=== PATIENT | female | born 1970 | race Two or more races ===

== ENCOUNTER 2020-10-20 17:48 | Outpatient (REF) | payer OTHER, SELFPAY ==
--- NOTE | 2020-10-20 17:50 | MR_ITS ---
EXAMINATION: MR ANGIOGRAPHY BRAIN WITHOUT CONTRAST CLINICAL INFORMATION: Chronic migraine. COMPARISON: CT scan of the head 11/24/2011. TECHNIQUE: A noncontrast 3-dimensional [id number] MR acquisition of the head was performed without contrast. MIP reconstructions were generated in multiple orientations at the acquisition workstation. Multiple three-dimensional surface rendered images and maximum intensity projection images were generated on a dedicated 3-D lab workstation. Arterial stenoses are measured in accordance with NASCET criteria or similar method if applicable. FINDINGS: Intracranial internal carotid arteries are patent. The intradural vertebral artery segments and basilar artery are patent. Visualized portions of the anterior, middle, and posterior cerebral artery complexes are normal. No high-grade stenosis or proximal occlusion is visualized within the intracranial vessels. Grossly no evidence of aneurysm or high flow vascular malformation. MR/MR angio head wo con IMPRESSION: Normal MR angiogram of the head.
== END 2020-10-20 17:49 | disposition home or self-care (01) ==
LOC: HO.MRI 17:48
PROVIDERS: Visit Provider Physician Assistant
DX: I77.6 Arteritis, unspecified (principal); G43.909 Migraine, unspecified, not intractable, without status migrainosus
CPT/HCPCS: 70544

== ENCOUNTER 2020-11-11 12:39 | Emergency (ER) | payer OTHER, SELFPAY ==
--- NOTE | 2020-11-11 12:42 | ECG_ITS ---
Test Reason : CHEST PAIN Blood Pressure : / mmHG Vent. Rate : 090 BPM Atrial Rate : 090 BPM P-R Int : 150 ms QRS Dur : 104 ms QT Int : 352 ms P-R-T Axes : 017 -48 029 degrees QTc Int : 430 ms Normal sinus rhythm Left anterior fascicular block Voltage criteria for left ventricular hypertrophy Cannot rule out Septal infarct (cited on or before 09-MAR-2017) Abnormal ECG When compared with ECG of 09-MAR-2017 09:17, No significant change was found Referred By: Generic ED Physician Electronically Signed By:RENU TOUSSAINT MD
[2020-11-11 12:48] VITALS: BP 121/56; PULSE 86; RESP 16; TEMP 36.8; O2SAT 97; BMI 31.1
[2020-11-11 13:04] LABS: MANUAL DIFF FLAG NO
[2020-11-11 13:07] LABS: Basophils Percent Auto 0.5 % (0-2); Eosinophils Absolute Auto 0.1 X10*3/uL (0.0-0.4); Eosinophils Percent Auto 0.8 % (0-4); Hematocrit 42.4 % (37-47); Hemoglobin 14.1 g/dl (12.0-16.0); Imm Gran Abs Auto 0.02 X10*3/uL (0.00-0.03); Imm Gran Pct Auto 0.2 % (0.0-0.4); Lymphocytes Absolute Auto 1.6 X10*3/uL (1.2-4.9); Lymphocytes Percent Auto 19.1 % (20-40); Mean Corpuscular HGB Conc 33.3 g/dl (31.0-35.0); Mean Corpuscular Hemoglobin 31.3 pg (27.0-33.0); Mean Platelet Volume 11.2 fL (9.4-12.3); Monocytes Absolute Auto 0.4 X10*3/uL (0.1-1.2); Monocytes Percent Auto 4.5 % (2-11); Neutrophils Absolute Auto 6.3 X10*3/uL (2.0-8.3); Neutrophils Percent Auto 74.9 % (45-73); Platelet Count 254 X10*3/uL (160-400); Red Blood Count 4.51 X10*6/uL (4.20-5.50); Red Cell Distribution Width 12.1 % (11.0-16.0); White Blood Count 8.4 X10*3/uL (4.8-10.8)
[2020-11-11 13:29] LABS: Anion Gap 12 (12-20); Blood Urea Nitrogen 12 mg/dL (9-16); Calcium 9.6 mg/dL (8.4-10.2); Carbon Dioxide 30 mmol/L (22-29); Chloride 101 mmol/L (96-108); Creatinine Clr Calc Pharmacy 91.8; Estimated Glomerular Filt Rate > 60; Glucose Random 98 mg/dL (60-115); Potassium 4.2 mmol/L (3.3-5.1); Sodium 139 mmol/L (135-145)
--- NOTE | 2020-11-11 14:37 | XR_ITS ---
EXAMINATION: XR CHEST CLINICAL INFORMATION: Chest pain COMPARISON: Previous chest x-ray most recent February 2020 TECHNIQUE: Frontal view of the chest was obtained. FINDINGS: The cardiac and mediastinal contours are normal. The lungs are clear. There is no pleural effusion or pneumothorax. Bony structures are unremarkable. XR/XR chest 1V IMPRESSION: Unremarkable examination.
[2020-11-11 15:25] LABS: Lactate Dehydrogenase 181 U/L (122-220)
[2020-11-11 15:45] LABS: B Type Natriuretic Peptide 19 pg/mL (<100); Troponin-I High Sensitivity < 3.5 ng/L (<3.5-17.0)
[2020-11-11 15:47] LABS: Ferritin 46 ng/mL (10-250)
[2020-11-11 16:16] LABS: INTERNATIONAL NORM RATIO 1.1 (0.9-1.1); Prothrombin Time 12.8 SEC (10.8-13.0)
[2020-11-11 16:19] LABS: Partial Thromboplastin Time 42.1 SEC (24.1-38.0)
[2020-11-11 16:23] LABS: D Dimer < 200 NG/ML
--- NOTE | 2020-11-11 16:37 | ED.CHESTPAIN ---
HPI - Chest Pain General Chief Complaint: Chest Pain Stated Complaint: CHEST PAIN Time Seen by Provider: 11/11/20 14:29 Source: patient Mode of arrival: ambulatory Limitations: no limitations History of Present Illness HPI narrative: Patient presents to the ED for left sided chest pain for the past 3 days that is worse on movement. Patient denies any trauma to the chest, fever, chills, or coughing. Patient denies any swelling of the legs, calf pain, fever, or chills. Related Data Home Medications Medication Instructions Recorded Confirmed cyclobenzaprine 10 mg tablet 10 mg PO BEDTIME 10/09/20 10/09/20 sumatriptan succinate 25 mg tablet 25 mg PO BID-TID PRN 10/09/20 10/09/20 Previous Rx's Medication Instructions Recorded ibuprofen 800 mg tablet 800 mg PO TID PRN #90 cap 09/22/20 lorazepam 1 mg tablet 1 mg PO ONCE PRN 1 Days #1 tab 10/20/20 Allergies Allergy/AdvReac Type Severity Reaction Status Date / Time No Known Allergies Allergy Verified 10/09/20 11:14 Review of Systems Review of Systems: Yes all other systems are reviewed and are negative Constitutional: Constitutional: Reports as per HPI and Reports no additional constitutional complaints Eyes: Eyes: Reports as per HPI and Reports no additional eye complaints ENT: Reports system reviewed and no additional complaints, except as documented and Reports as per HPI Cardiovascular: Cardiovascular: Reports as per HPI, Reports no additional cardiovascular complaints and Reports chest pain Comments: chest pain on movement Respiratory: Respiratory: Reports as per HPI and Reports no additional respiratory complaints Gastrointestinal: Gastrointestinal: Reports as per HPI and Reports no additional gastrointestinal complaints Genitourinary: Genitourinary: Reports no additional female genitourinary complaints and Reports as per HPI Musculoskeletal: Musculoskeletal: Reports no additional musculoskeletal complaints and Reports as per HPI Neurologic: Reports system reviewed and no additional complaints, except as documented and Reports as per HPI Psychiatric: Psychiatric: Reports no additional psychiatric complaints and Reports as per HPI [facility] Social History Social History Advance Directives: No Advance Directives Information Provided: Yes Physical Exam Vital Signs: Vital Signs: Last Vital Signs Temp 98.2 F 11/11/20 12:48 Pulse 86 11/11/20 12:48 Resp 16 11/11/20 12:48 BP 121/56 L 11/11/20 12:48 Pulse Ox 97 11/11/20 12:48 Body Mass Index 31.1 Const: General: cooperative, healthy appearing, comfortable and no acute distress Orientation/consciousness: patient oriented x3 HENMT: Head: Yes normal to inspection, Yes No palpable skull fracture present, Yes normocephalic and Yes atraumatic Eyes: General: appearance normal, both eyes and all related structures Neck: Neck: Yes normal visual inspection, Yes full ROM, Yes no lymphadenopathy, Yes no meningeal signs, Yes trachea midline, Yes supple, No anterior neck swelling and No tender Chest: Other: positive for left chest wall tenderness. negative for breast swelling, redness, nipple discharge, or axillary lymphadenopathy. Chest palpation & inspection: normal inspection of the chest Resp: Effort & Inspection: normal respiratory effort, able to speak in complete sentences and respiratory distress Cardio: Jugular venous distension: no JVD Heart sounds: S1 normal heart sound present and S2 normal heart sound present GI: Inspection: Yes normal to inspection and No abdominal wall ecchymosis Palpation (GI): Soft to palpation, not firm, nontender, no guarding and not rigid : General: No CVA tenderness and Yes no CVA tenderness Back/Spine/Pelvis: Back: no CVA tenderness, No CVA tenderness and No warmth Skin: General skin exam: no rashes or lesions noted and elasticity normal Neuro: Other: normal gait General: patient oriented x3 and no meningeal signs Cranial nerves: Yes CN's II-XII intact bilaterally Extrem: Other: lower extremities negative for any swelling, pitting edema, or calf tenderness. General: Yes normal to inspection and Yes full ROM Psych: Appearance: grossly normal, well kempt and not disheveled Course Course Course Narrative: Patient has reproducible chest pain for the past 3 days. Due to age will do a cardiac and pulmonary work up. Reevaluation(s) Reevaluation #1: EKG negative for stemi. Troponin and BNP are negative. CHest xray negative for pneumonia. D-dimer is negative. PErc Score is 0. Patient swabbed for the covid 19 and prefer to be called with results. Time: 16:40 Reevaluation #2: Covid swabbed negative. patient was called and could not be reached. Time: 19:30 MDM - Chest Pain MDM Narrative Medical decision making narrative: Chest wall pain Lab Data Result diagrams: 11/11/20 12:58 11/11/20 12:58 Labs: Lab Results 11/11/20 11/11/20 11/11/20 Range/Units 12:58 12:58 12:58 WBC 8.4 (4.8-10.8) X10*3/uL RBC 4.51 (4.20-5.50) X10*6/uL Hgb 14.1 (12.0-16.0) g/dl Hct 42.4 (37-47) % MCV 94.0 (80-98) fL MCH 31.3 (27.0-33.0) pg MCHC 33.3 (31.0-35.0) g/dl RDW 12.1 (11.0-16.0) % Plt Count 254 (160-400) X10*3/uL MPV 11.2 (9.4-12.3) fL Immature Gran % (Auto) 0.2 (0.0-0.4) % Neut % (Auto) 74.9 H (45-73) % Lymph % (Auto) 19.1 L (20-40) % [place] % (Auto) 4.5 (2-11) % Eos % (Auto) 0.8 (0-4) % Baso % (Auto) 0.5 (0-2) % Lymph # (Auto) 1.6 (1.2-4.9) X10*3/uL [place] # (Auto) 0.4 (0.1-1.2) X10*3/uL Eos # (Auto) 0.1 (0.0-0.4) X10*3/uL Baso # (Auto) 0.0 (0.0-0.2) X10*3/uL Abs Immat Gran (auto) 0.02 (0.00-0.03) X10*3/uL Absolute Neuts (auto) 6.3 (2.0-8.3) X10*3/uL Absolute Nucleated RBC 0.000 (0.0-0.012) X10*3/uL Nucleated RBC % (auto) 0.0 (0.0-0.2) /100WBC Hold Purple Top SEE NOTE PT (10.8-13.0) SEC INR (0.9-1.1) APTT (24.1-38.0) SEC D-Dimer NG/ML Hold Blue Top Sodium 139 (135-145) mmol/L Potassium 4.2 (3.3-5.1) mmol/L Chloride 101 (96-108) mmol/L Carbon Dioxide 30 H (22-29) mmol/L Anion Gap 12 (12-20) BUN 12 (9-16) mg/dL Creatinine 0.72 (0.5-1.4) mg/dL Estim Creat Clear Calc 91.8 Estimated GFR > 60 Random Glucose 98 (60-115) mg/dL Calcium 9.6 (8.4-10.2) mg/dL Ferritin 46 (10-250) ng/mL Lactate Dehydrogenase 181 (122-220) U/L Troponin I High Sens (<3.5-17.0) ng/L B-Natriuretic Peptide (<100) pg/mL Coronavirus (PCR) (Negative) Influenza Type A (PCR) (Negative) Influenza Type B (PCR) (Negative) RSV RNA Qual (PCR) (Negative) 11/11/20 11/11/20 11/11/20 Range/Units 12:58 12:58 16:45 WBC (4.8-10.8) X10*3/uL RBC (4.20-5.50) X10*6/uL Hgb (12.0-16.0) g/dl Hct (37-47) % MCV (80-98) fL MCH (27.0-33.0) pg MCHC (31.0-35.0) g/dl RDW (11.0-16.0) % Plt Count (160-400) X10*3/uL MPV (9.4-12.3) fL Immature Gran % (Auto) (0.0-0.4) % Neut % (Auto) (45-73) % Lymph % (Auto) (20-40) % [place] % (Auto) (2-11) % Eos % (Auto) (0-4) % Baso % (Auto) (0-2) % Lymph # (Auto) (1.2-4.9) X10*3/uL [place] # (Auto) (0.1-1.2) X10*3/uL Eos # (Auto) (0.0-0.4) X10*3/uL Baso # (Auto) (0.0-0.2) X10*3/uL Abs Immat Gran (auto) (0.00-0.03) X10*3/uL Absolute Neuts (auto) (2.0-8.3) X10*3/uL Absolute Nucleated RBC (0.0-0.012) X10*3/uL Nucleated RBC % (auto) (0.0-0.2) /100WBC Hold Purple Top PT 12.8 (10.8-13.0) SEC INR 1.1 (0.9-1.1) APTT 42.1 H (24.1-38.0) SEC D-Dimer < 200 NG/ML Hold Blue Top SEE NOTE Sodium (135-145) mmol/L Potassium (3.3-5.1) mmol/L Chloride (96-108) mmol/L Carbon Dioxide (22-29) mmol/L Anion Gap (12-20) BUN (9-16) mg/dL Creatinine (0.5-1.4) mg/dL Estim Creat Clear Calc Estimated GFR Random Glucose (60-115) mg/dL Calcium (8.4-10.2) mg/dL Ferritin (10-250) ng/mL Lactate Dehydrogenase (122-220) U/L Troponin I High Sens < 3.5 (<3.5-17.0) ng/L B-Natriuretic Peptide 19 (<100) pg/mL Coronavirus (PCR) NEGATIVE (Negative) Influenza Type A (PCR) NEGATIVE (Negative) Influenza Type B (PCR) NEGATIVE (Negative) RSV RNA Qual (PCR) NEGATIVE (Negative) ECG Data ECG #1: Interpretation: Normal Sinus rhythm, left anterior fasciular block. VEnt 90, ND 150, and QTC 430. negative stemi. no new changes. Discharge Plan Discharge Clinical Impression: Acute chest wall pain Patient Disposition: Home, Self-Care Instructions: Chest Pain (ED), Chest Wall Pain (ED) Additional Instructions: Return to the ED for worsening chest pain, fever, chills, shortness of breath, weakness, swelling of lower extremiteis, calf pain, or any other concerning symptoms. Please follow up with PCP. Prescriptions: No Action ibuprofen 800 mg tablet 800 mg PO TID PRN (Reason: pain) Qty: 90 RF: 1 lorazepam 1 mg tablet 1 mg PO ONCE PRN (Reason: anxiety) 1 Days Qty: 1 RF: 0 cyclobenzaprine 10 mg tablet 10 mg PO BEDTIME RF: 0 sumatriptan succinate 25 mg tablet 25 mg PO BID-TID PRNRF: 0 Stand Alone Forms: Work/School Release Interventions: ED Discharge Assessment Last Done: 11/11/20 17:15 Discharge Date/Time: 11/11/20 17:17 Print Language: Bur[place]ian
[2020-11-11 17:56] LABS: Influenza A PCR NEGATIVE (Negative); Influenza B PCR NEGATIVE (Negative); Resp Syncy Virus RNA Qual PCR NEGATIVE (Negative); SARS COV2 PCR INHOUSE NEGATIVE (Negative)
== END 2020-11-11 17:17 | disposition home or self-care (01) ==
PROVIDERS: Physician Assistant; Emergency Provider Emergency Medicine
DX: R07.89 Other chest pain (principal); Z20.822 Contact with and (suspected) exposure to COVID-19
CPT/HCPCS: 0241U; 36415; 71045; 80048; 82728; 83615; 83880; 84484; 85025; 85379; 85610; 85730; 93005; 99283

== ENCOUNTER 2020-11-29 12:47 | Outpatient (REF) | payer OTHER, SELFPAY ==
--- NOTE | ~2020-11-29 | MM_ITS ---
EXAMINATION: MM SCREENING DIGITAL BREAST TOMOSYNTHESIS, BILATERAL CLINICAL INFORMATION: Screening. Asymptomatic. The lifetime risk of breast cancer based on the Tyrer-Cuzick Model is 17%. COMPARISON: Mammography: 09/08/2019, 09/06/2018, 09/04/2017, 08/24/2016 TECHNIQUE: Digital breast tomosynthesis is performed in both the craniocaudal and mediolateral oblique views along with computer-aided detection (CAD). Synthesized 2D images are generated from the tomosynthesis. FINDINGS: There are scattered areas of fibroglandular density (ACR BI-RADS breast composition Category b). There are no significant masses, abnormal calcifications, or other abnormalities. Scattered parenchymal asymmetries are stable when compared with prior studies. There is no developing density. The axilla and skin contours are unremarkable. MM/MM tomosynthesis screening BI IMPRESSION: No significant changes from prior exams. ASSESSMENT: BI-RADS 2: Benign RECOMMENDATION: Routine annual mammography screening. This patient's information was entered into a reminder system with a target due date for their next mammogram.
== END 2020-11-29 12:48 | disposition home or self-care (01) ==
LOC: HO.MAMMO 12:47
PROVIDERS: PCP Physician Assistant; Visit Provider Physician Assistant
DX: Z12.31 Encounter for screening mammogram for malignant neoplasm of breast (principal)
CPT/HCPCS: 77063; 77067

== ENCOUNTER → 2021-02-12 08:53 | Outpatient (BNVA) | payer OTHER, SELFPAY | PROVIDERS: PCP Physician Assistant; Referring Provider Family Medicine Adult Medicine; Visit Provider Surgery | DX: K40.90 Unilateral inguinal hernia, without obstruction or gangrene, not specified as recurrent (principal) | CPT/HCPCS: 99212 ==

== ENCOUNTER 2021-02-25 11:26 | Outpatient (REF) | payer OTHER, SELFPAY ==
--- NOTE | ~2021-02-25 | US_ITS ---
EXAMINATION: US PELVIS, LIMITED/FOLLOW UP CLINICAL INFORMATION: Left inguinal hernia COMPARISON: Previous CT of the abdomen and pelvis October 2019 TECHNIQUE: Grayscale and color imaging of the left lower quadrant and inguinal region using a linear transducer FINDINGS: No hernia is appreciated by ultrasound. No fluid collection or lymphadenopathy is seen. US/US pelvic limited IMPRESSION: No hernia appreciated by ultrasound.
== END 2021-02-25 11:27 | disposition home or self-care (01) ==
LOC: HO.US 11:26
PROVIDERS: PCP Internal Medicine; Visit Provider Surgery
DX: K40.90 Unilateral inguinal hernia, without obstruction or gangrene, not specified as recurrent (principal)
CPT/HCPCS: 76857

== ENCOUNTER → 2021-05-14 08:57 | Outpatient (BNVA) | payer OTHER, SELFPAY | PROVIDERS: PCP Internal Medicine; Referring Provider Internal Medicine; Visit Provider Advanced Practice Midwife ==

== ENCOUNTER → 2021-09-01 09:00 | Outpatient (BNVA) | payer OTHER, SELFPAY | PROVIDERS: PCP Internal Medicine; Referring Provider Internal Medicine; Visit Provider Surgery | DX: K80.50 Calculus of bile duct without cholangitis or cholecystitis without obstruction (principal) | CPT/HCPCS: 99212 ==

== ENCOUNTER 2021-10-01 07:46 | Outpatient (REF) | payer OTHER, SELFPAY ==
--- NOTE | ~2021-10-01 | US_ITS ---
EXAMINATION: US ABDOMEN LIMITED CLINICAL INFORMATION: Calculus of bile duct, right upper quadrant pain, nausea, vomiting. COMPARISON: CT abdomen and pelvis 10/17/2019. TECHNIQUE: Real-time imaging of the right upper quadrant abdominal viscera. FINDINGS: PANCREAS: Normal. LIVER: The liver is normal in size. The liver contour is normal. There is diffuse increased liver parenchymal echogenicity, consistent with hepatic steatosis. There is a simple appearing cyst in the lateral segment of the left hepatic lobe measuring 0.8 cm There is no intrahepatic biliary duct dilatation seen. GALLBLADDER: Normal. The gallbladder is physiologically distended without evidence of stones, sludge, polyps, wall thickening or pericholecystic fluid. COMMON BILE DUCT: Normal in caliber measuring 0.6 cm in diameter. RIGHT KIDNEY: Normal. No hydronephrosis. No renal calculi or focal parenchymal lesions. The kidney measures 11.2 cm in maximum dimension. FREE FLUID: None. US/US abdomen limited IMPRESSION: Increased echogenicity of the hepatic parenchyma, likely secondary to hepatic steatosis. Simple cysts of the left hepatic lobe, similar to the prior CT. Normal appearance of the liver and biliary tree. No gallbladder or duct stones are visualized.
== END 2021-10-01 07:47 | disposition home or self-care (01) ==
LOC: HO.US 07:46
PROVIDERS: Visit Provider Surgery
DX: K80.50 Calculus of bile duct without cholangitis or cholecystitis without obstruction (principal)
CPT/HCPCS: 76705

== ENCOUNTER → 2021-10-06 09:10 | Outpatient (BNVA) | payer OTHER, SELFPAY | PROVIDERS: PCP Internal Medicine; Referring Provider Internal Medicine; Visit Provider Surgery | DX: K80.50 Calculus of bile duct without cholangitis or cholecystitis without obstruction (principal) | CPT/HCPCS: 99212 ==

== ENCOUNTER 2021-12-30 08:35 | Outpatient (REF) | payer OTHER, SELFPAY ==
--- NOTE | ~2021-12-30 | FL_ITS ---
EXAMINATION: XR FLUOROSCOPY UPPER GI WITH AIR CLINICAL INFORMATION: Abdominal distention. COMPARISON: None TECHNIQUE: Routine upper GI air-contrast study was performed. FINDINGS: Following oral administration of thick barium and effervescent granules, there is normal propagation of bolus from the oral cavity through the pharynx and esophagus and into the stomach without obstruction. There is prominent cricoesophageal sphincter during the exam. On placing patient supine and prone lying, the course, caliber and peristalsis of the stomach, duodenal bulb and the sweep are normal. There is a moderate gastroesophageal reflux with a small sliding hiatal hernia. The mucosal pattern of the stomach and the duodenum is normal. FLUOROSCOPY TIME: 2.3 minutes DOSE AREA PRODUCT: 34.67 uGy-m2 (microgray-meter squared) FL/FL upper GI w air IMPRESSION: Small sliding hiatal hernia with moderate gastroesophageal reflux.
== END 2021-12-30 08:36 | disposition home or self-care (01) ==
LOC: HO.XRAY 08:35
PROVIDERS: Visit Provider Physician Assistant
DX: R14.0 Abdominal distension (gaseous) (principal)
CPT/HCPCS: 74246

== ENCOUNTER → 2022-01-14 13:22 | Outpatient (BNVA) | payer OTHER, SELFPAY | PROVIDERS: PCP Physician Assistant; Referring Provider Physician Assistant; Visit Provider Physician Assistant | DX: K21.9 Gastro-esophageal reflux disease without esophagitis (principal); Z12.11 Encounter for screening for malignant neoplasm of colon; K76.0 Fatty (change of) liver, not elsewhere classified; K59.09 Other constipation; R10.13 Epigastric pain | CPT/HCPCS: 99202 ==

== ENCOUNTER 2022-01-21 08:39 | Outpatient (REF) | payer OTHER, SELFPAY ==
[2022-01-21 09:14] LABS: MANUAL DIFF FLAG NO
[2022-01-21 09:21] LABS: Basophils Percent Auto 0.5 % (0-2); Eosinophils Absolute Auto 0.1 X10*3/uL (0.0-0.4); Eosinophils Percent Auto 1.2 % (0-4); Hematocrit 43.6 % (37.0-47.0); Hemoglobin 14.7 g/dl (12.0-16.0); Imm Gran Abs Auto 0.02 X10*3/uL (0.00-0.03); Imm Gran Pct Auto 0.3 % (0.0-0.4); Lymphocytes Absolute Auto 1.6 X10*3/uL (1.2-4.9); Mean Corpuscular HGB Conc 33.7 g/dl (31.0-35.0); Mean Corpuscular Hemoglobin 30.8 pg (27.0-33.0); Mean Corpuscular Volume 91.4 fL (80.0-98.0); Mean Platelet Volume 11.1 fL (9.4-12.3); Monocytes Absolute Auto 0.4 X10*3/uL (0.1-1.2); Monocytes Percent Auto 4.6 % (2-11); Neutrophils Absolute Auto 5.7 x10*3/uL (2.0-8.3); Neutrophils Percent Auto 73.4 % (45-73); Platelet Count 256 X10*3/uL (160-400); Red Blood Count 4.77 X10*6/uL (4.20-5.50); Red Cell Distribution Width 11.7 % (11.0-16.0); White Blood Count 7.8 X10*3/uL (4.8-10.8)
[2022-01-21 09:34] LABS: Estimated Average Glucose 108 mg/dL; Hemoglobin A1c % 5.4 %
[2022-01-21 09:58] LABS: Alanine Aminotransferase 26 U/L (0-31); Albumin Level 4.5 g/dL (3.5-5.0); Alkaline Phosphatase 85 U/L (39-117); Amylase 65 U/L (28-100); Anion Gap 14 (12-20); Aspartate Amino Transferase 21 U/L (5-31); Bilirubin Direct 0.3 mg/dL (0.0-0.5); Bilirubin Total 0.9 mg/dL (0.0-1.0); Blood Urea Nitrogen 14 mg/dL (9-16); Carbon Dioxide 28 mmol/L (22-29); Chloride 103 mmol/L (96-108); Cholesterol 178 mg/dL; Estimated Glomerular Filt Rate > 60; Glucose Fasting 106 mg/dL (60-99); HDL Cholesterol 44 mg/dL; LDL Cholesterol Calculated 116 mg/dl; Lipase 10 U/L (8-78); Potassium 4.5 mmol/L (3.3-5.1); Sodium 140 mmol/L (135-145); Total Protein 7.6 g/dL (6.5-8.0); Triglycerides 94 mg/dL
[2022-01-21 10:00] LABS: Erythrocyte Sedimentation Rate 9 MM/HR (0-20)
[2022-01-21 10:11] LABS: TSH reflex Free T4 0.75 uIU/mL (0.32-4.0)
[2022-01-21 11:36] LABS: Appearance Urine HAZY; Color Urine YELLOW; Glucose Urine UA NEG (NEG); Leukocyte Esterase Urine NEG (NEG); Nitrite Urine NEG (NEG); Urine Blood NEG (NEG); Urine Ketones NEG (NEG); Urine Protein NEG (NEG-TRACE)
[2022-01-25 15:25] LABS: FIB-ALT 23 U/L (6-29); FIB-Alpha-2-Macroglobulin 152 mg/dL (106-279); FIB-Apolipoprotein A1 145 mg/dL (101-198); FIB-GGT 27 U/L (3-70); FIB-Haptoglobin 117 mg/dL (43-212); FIB-Total Bilirubin 0.7 mg/dL (0.2-1.2); Liver Fibrosis Score 0.14; Liver Fibrosis Stage F0; Nec Inflam Act Grade A0; Nec Inflam Act Score 0.08
[2022-01-26 08:31] LABS: Transglutaminase Ab IgG <1.0 U/mL; Transglutaminase IgA <1.0 U/mL
== END 2022-01-21 08:40 | disposition home or self-care (01) ==
LOC: HO.LAB 08:39
PROVIDERS: Internal Medicine; Physician Assistant; PCP Physician Assistant; Visit Provider Physician Assistant
DX: Z13.29 Encounter for screening for other suspected endocrine disorder (principal); Z13.220 Encounter for screening for lipoid disorders; R10.13 Epigastric pain; K21.9 Gastro-esophageal reflux disease without esophagitis; B19.20 Unspecified viral hepatitis C without hepatic coma; R14.0 Abdominal distension (gaseous); R10.11 Right upper quadrant pain
CPT/HCPCS: 36415; 80053; 80061; 80076; 81003; 81382; 81596; 82150; 82248; 83036; 83690; 84443; 85025; 85652; 86364

== ENCOUNTER 2022-03-05 15:21 | Outpatient (REF) | payer OTHER, SELFPAY ==
--- NOTE | ~2022-03-05 | US_ITS ---
EXAMINATION: US EXTRACRANIAL CAROTID DUPLEX, BILATERAL CLINICAL INFORMATION: Carotid artery stenosis. COMPARISON: None TECHNIQUE: Real-time ultrasound and Doppler techniques (integrating B-mode 2-D vascular images, Doppler spectral analysis and color-flow Doppler imaging) were utilized to interrogate the extracranial carotid arteries, the vertebral arteries and proximal subclavian arteries bilaterally. The degree of stenosis is determined by criteria similar to NASCET. FINDINGS: Right Side: 1. There is no significant atherosclerotic plaque seen in the bifurcation/proximal ICA region. 2. The common carotid artery PSV proximally is 116 cm/s and distally 92 cm/s. 3. The proximal internal carotid artery velocities are 91 cm/s systolic and 35 cm/s diastolic. 4. The proximal external carotid artery PSV is 86 cm/s. 5. The vertebral artery shows antegrade flow. 6. The subclavian artery waveforms are normal. Left Side: 1. There is no significant atherosclerotic plaque seen in the bifurcation/proximal ICA region. 2. The common carotid artery PSV proximally is 109 cm/s and distally 75 cm/s. 3. The proximal internal carotid artery velocities are 87 cm/s systolic and 30 cm/s diastolic. 4. The proximal external carotid artery PSV is 78 cm/s. 5. The vertebral artery shows antegrade flow. 6. The subclavian artery waveforms are normal. US/US carotid duplex BI IMPRESSION: 1. RIGHT: Normal right internal carotid artery without atherosclerotic plaque or hemodynamically significant stenosis. 2. LEFT: Normal left internal carotid artery without atherosclerotic plaque or hemodynamically significant stenosis.
== END 2022-03-05 15:22 | disposition home or self-care (01) ==
LOC: HO.US 15:21
PROVIDERS: Visit Provider Physician Assistant
DX: R09.89 Other specified symptoms and signs involving the circulatory and respiratory systems (principal)
CPT/HCPCS: 93880

== ENCOUNTER 2022-04-26 10:00 | Day surgery (SDC) | payer OTHER, SELFPAY ==
[2022-04-20 13:13] VITALS: BMI 35.9
--- NOTE | 2022-04-23 08:40 | HO.ANESPROP2 ---
Documented by User: Brianda Rogers NP 04/23/22 08:43 HPI - Anesthesia Eval Consult details Narrative: 52yo F for Upper Endoscopy and Colonoscopy [facility] Active Problems Active Problems: All Active Problems (Updated 03/23/22 @ 11:28 by Ellis Arevalo PA-C) Dizziness (Acute) Trapezius strain (Acute) Sinus infection (Acute) Carotid stenosis, left (Acute) Left carotid bruit (Acute) Screening for hypercholesterolemia (Acute) Screening for hypothyroidism (Acute) Screening for diabetes mellitus (DM) (Acute) Obese (Acute) Annual physical exam (Acute) Chronic constipation (Acute) NAFLD (nonalcoholic fatty liver disease) (Acute) Epigastric pain (Acute) Constipation (Acute) Postprandial abdominal bloating (Acute) Screening for colon cancer (Acute) Uterine fibroid (Acute) GERD (gastroesophageal reflux disease) (Acute) Biliary colic (Acute) Encounter for annual routine gynecological examination (Acute) Sinusitis (Acute) Allergic rhinitis (Acute) Migraine headache (Acute) Family history of brain aneurysm (Acute) Arteritis (Acute) Anxiety (Acute) Left inguinal hernia (Acute) Past Medical History Medical History Abnormal Pap smear of cervix Allergic rhinitis Anxiety Arteritis Family history of brain aneurysm Migraine headache Uterine fibroid Family History Family History Father FH: prostate cancer Sister History of breast cancer Sister History of breast cancer Son Heart attack, Onset Age: 12 Son Brain aneurysm Other Stomach cancer Surgical History Surgical History H/O LEEP H/O right inguinal hernia repair (03/16/17) History of endometrial ablation History of incision and drainage History of toe surgery History of tubal ligation Social History Social History Housing: House Alcohol intake: never Patient Tobacco Use Status: Never used Tobacco e-Cigarette/Vaping Use: Never Used Second Hand Smoke Exposure: No Are you DNR?: No Advance Directives: No Advance Directives Information Provided: Yes Advance Directives on File: No Nutrition Risks: No Nutritional Risk service: No Current occupational status: unemployed Sexual orientation: Straight/Heterosexual Gender identity: Female Cognitive needs: No Hearing needs: No Vision needs: Yes (Glaases) Meds Allergies Allergy/AdvReac Type Severity Reaction Status Date / Time No Known Allergies Allergy Verified 04/26/22 09:57 Home Medications Medication Instructions Recorded Confirmed Last Taken Type acetaminophen 500 mg tablet 500 mg PO TID PRN 11/18/21 03/23/22 Unknown History (Tylenol Extra Strength) dicyclomine 10 mg capsule 10 mg PO TID 11/18/21 03/23/22 Unknown History sumatriptan succinate 25 mg tablet 0 mg PO 01/14/22 03/23/22 Unknown History Exam Exam Date and Time: April 23, 2022 0840 Height,Weight and Vital Signs: Height 5 ft 2 in Weight 89.267 kg Pertinent Lab Results Pertinent Lab Results: Laboratory Tests 01/21/22 01/21/22 09:13 09:13 WBC 7.8 Hgb 14.7 Hct 43.6 Plt Count 256 Sodium 140 Potassium 4.5 Chloride 103 Carbon Dioxide 28 BUN 14 Creatinine 0.70 Narrative Narrative: US carotid duplex BI 02/2022 IMPRESSION: 1. RIGHT: Normal right internal carotid artery without atherosclerotic plaque or hemodynamically significant stenosis. ? 2. LEFT: Normal left internal carotid artery without atherosclerotic plaque or hemodynamically significant stenosis. Assessment and Plan Assessment Anesthesia Assessment: Chart Reviewed Documented by User: Ron Boyce MD 04/26/22 11:31 [facility] Past Medical History Medical History Abnormal Pap smear of cervix Allergic rhinitis Anxiety Arteritis Family history of brain aneurysm Migraine headache Uterine fibroid Family History Family History Father FH: prostate cancer Sister History of breast cancer Sister History of breast cancer Son Heart attack, Onset Age: 12 Son Brain aneurysm Other Stomach cancer Family history of problems with anesthesia: No Surgical History Surgical History H/O LEEP H/O right inguinal hernia repair (03/16/17) History of endometrial ablation History of incision and drainage History of toe surgery History of tubal ligation History of Problems with Anesthesia: No Social History Social History Housing: House Alcohol intake: never Patient Tobacco Use Status: Never used Tobacco e-Cigarette/Vaping Use: Never Used Second Hand Smoke Exposure: No Are you DNR?: No Advance Directives: No Advance Directives Information Provided: Yes Advance Directives on File: No Nutrition Risks: No Nutritional Risk service: No Current occupational status: unemployed Sexual orientation: Straight/Heterosexual Gender identity: Female Cognitive needs: No Hearing needs: No Vision needs: Yes (Glaases) Meds Allergies Allergy/AdvReac Type Severity Reaction Status Date / Time No Known Allergies Allergy Verified 04/26/22 09:57 Home Medications Medication Instructions Recorded Confirmed Last Taken Type acetaminophen 500 mg tablet 500 mg PO TID PRN 11/18/21 03/23/22 Unknown History (Tylenol Extra Strength) dicyclomine 10 mg capsule 10 mg PO TID 11/18/21 03/23/22 Unknown History sumatriptan succinate 25 mg tablet 0 mg PO 01/14/22 03/23/22 Unknown History Exam Airway TM Dist: >3cm Neck ROM: Full Partial: Upper and Lower Loose/Missing/Broken Teeth: Upper and Lower (Rrr) Lungs: clear Assessment and Plan Final Anesthetic Review Family History of Problems with Anesthesia: No History of Problems with Anesthesia: No ASA Class: II Final Preanesthetic Review: No Changes in Pt Med Stat, Meds/Allgs Chart Reviewed, Consent Obtained/Reviewed and Anes Risks/Benef Reviewed Patient Risk: Intermediate Procedure Risk: Low Anesthetic Plan Anesthetic Plan: MAC: Disposition: Standard PACU
[2022-04-26] MEDS: Lactated Ringers 1,000 ML 100 ML IVCONT (10:22)
[2022-04-26 10:27] VITALS: BP 132/87; PULSE 72; RESP 18; TEMP 36.7; O2SAT 98
--- NOTE | 2022-04-26 11:20 | MHC.SHP ---
Pre-Procedural Eval Section A Date of Service: 04/26/22 The patient is an INPATIENT: No The History & Physical has been completed within 30 days and I have reviewed it.: No Section B Chief Complaint: screening,reflux disease Details of Present Illness: Colon cancer screening, GERD Relevant Family History (Specify if Yes): Yes Relevant Social History: None Present Medications: see Short Stay Collaborative assessment Medical History: Significant History (Abnormal Pap smear of cervix Anxiety Arteritis Family history of brain aneurysm Migraine headache Uterine fibroid) History of Previous Operations: Relevant previous surgery/procedure and date(s) (H/O LEEP H/O right inguinal hernia repair (03/16/17) History of endometrial ablation History of incision and drainage History of toe surgery History of tubal ligation) Allergies: Allergies Allergy/AdvReac Type Severity Reaction Status Date / Time No Known Allergies Allergy Verified 04/26/22 09:57 Review of Systems Sugical H&P ROS: Negative: Constitution, Cardiovascular, Respiratory and Gastrointestinal Exam Surgical H&P Exam: Normal: Heart, Normal: Lungs, Normal: Extremities and Normal: Abdomen Plan Diagnosis/Plan: Unchanged I have reviewed the history and physical and performed a pertinent physical examination on my patient. No changes have occurred unless specified.
--- NOTE | 2022-04-26 11:35 | P.BOP_ITS ---
Brief Operative Note Date of Service: 04/26/22 Pre-op diagnosis: Colon cancer screening, chronic constipation, GERD, postprandial abdominal pain and bloating Post-op diagnosis: other (GERD, hiatal hernia, gastritis, diverticulosis, hemorrhoids) Procedure: FLEXIBLE TRANSORAL UPPER GASTROINTESTINAL ENDOSCOPY WITH BIOPSIES AND COLONOSCOPY TILL CECUM UPPER ENDOSCOPY Consent: Indications for the procedure and potential complications of bleeding, perforation, reaction to medications and missed diagnosis were discussed with the patient and informed consent was obtained. Instrument: Olympus GIF H 190 mid size upper endoscope Monitoring: Vital signs and clinical assessment, continuous EKG monitoring, Pulse oximetry, Carbon Dioxide monitoring and blood pressure monitoring were done throughout the procedure. Procedure: The patient was placed in the left lateral decubitis position and pre-procedure medications were administered and a bite block was placed. The endoscope was inserted into the mouth and advanced under direct vision to the third part of duodenum. A careful inspection was made as the upper endoscope was withdrawn including a retroflexed examination of the proximal stomach; Findings and interventions are described below. Findings: Larynx: Normal Esophagus: GE junction at 34 cms, small hiatal hernia 34 to 36 cms. No esophagitis or Vides's. Stomach: Moderate diffuse gastric erythema. Biopsies were obtained. Grade 2 flap valve on retroflexed examination of the cardia. Duodenum: Normal bulb and descending duodenum. Biopsies were obtained from 3rd part of the duodenum to check for celiac. Intervention: Biopsies as noted above COLONOSCOPY PROCEDURE NOTE Consent: Indications for the procedure and potential complications of bleeding, perforation, reaction to medications and missed diagnosis were discussed with the patient and informed consent was obtained. Instrument: Olympus PCF H 190 L variable stiffness pediatric colonoscope Monitoring: Vital signs and clinical assessment, intermittent blood pressure monitoring, continuous EKG monitoring, Pulse oximetry and Carbon Dioxide monitoring were done throughout the procedure. Colon withdrawl time was 11 minutes. Procedure: The patient was placed in the left lateral decubitis position and pre-procedure medications were administered. After a digital rectal examination of the ano-rectum, the video colonoscope was inserted into the rectum and advanced through the colon to the cecum. The colonoscope was slowly withdrawn in a retrograde panoramic fashion and the colon mucosa was carefully examined including a retroflexed view of the rectum. Findings and interventions are described below. Procedure Difficulty: : Without difficulty Findings: Terminal Ileum: Not evaluated Cecum: Normal Ascending Colon: Normal Transverse Colon: Normal Descending Colon: Normal Sigmoid Colon: Moderate diverticulosis Rectum: Normal Ano-rectum: Small internal hemorrhoids Colon preparation: Good Impression and Post Procedure Diagnosis: Endoscopy Findings: ESOPHAGUS: Small hiatal hernia STOMACH: Moderate diffuse gastric erythema. Biopsies were obtained. DUODENUM: Normal - biopsied to check for celiac sprue. Colonoscopy Findings: No polyps were detected Moderate diverticulosis seen in the sigmoid colon Small hemorrhoids on retroflexed exam. Plan: Await pathology results Patient has an appointment on 05/17/22 in the GI Clinic with DIAMOND Ray. Repeat Colonoscopy in 9 - 10 years. Above findings were reviewed with the patient and GERD, Hiatal Hernia and diverticulosis handouts were given in the discharge area Surgeon: Joel Paredes MD Anesthesia: MAC (Dr Boyce) Was an Loom Doffer used for this Procedure?: Yes Loom Doffer: Maureen Corral Estimated blood loss (mL): 0 Pathology: other (A: SMALL BOWEL BXS R/O CELIACS B: GASTRIC ANTRUM R/O H. PYLORI C: GASTRIC BODY) Condition: stable Disposition: PACU
[2022-04-26 12:17] VITALS: BP 100/58; PULSE 77; RESP 20; TEMP 36.8; O2SAT 97
[2022-04-26 12:32] VITALS: BP 119/69; PULSE 69; RESP 18; TEMP 36.8; O2SAT 98
--- NOTE | 2022-04-28 16:45 | P.OP_ITS ---
Operative Note Operative Note Date of Service: 04/26/22 Narrative: Pre-op diagnosis: Colon cancer screening, chronic constipation, GERD, postprandial abdominal pain and bloating Post-op diagnosis:?other (GERD, hiatal hernia, gastritis, diverticulosis, hemorrhoids) Procedure: FLEXIBLE TRANSORAL UPPER GASTROINTESTINAL ENDOSCOPY WITH BIOPSIES AND COLONOSCOPY TILL CECUM UPPER ENDOSCOPY Consent:?Indications for the procedure and potential complications of bleeding, perforation, reaction to medications and missed diagnosis were discussed with the patient and informed consent was obtained. Instrument:?Olympus GIF H 190 mid size upper endoscope Monitoring: Vital signs and clinical assessment, continuous EKG monitoring, Pulse oximetry, Carbon Dioxide monitoring and blood pressure monitoring were done throughout the procedure. Procedure:?The patient was placed in the left lateral decubitis position and pre-procedure medications were administered and a bite block was placed. The endoscope was inserted into the mouth and advanced under direct vision to the third part of duodenum. A careful inspection was made as the upper endoscope was withdrawn including a retroflexed examination of the proximal stomach; Findings and interventions are described below. Findings: Larynx:? Normal Esophagus:?GE junction at 34 cms, small hiatal hernia 34 to 36 cms. No esophagitis or Vides's. Stomach:?Moderate diffuse gastric erythema. Biopsies were obtained. Grade 2 flap valve on retroflexed examination of the cardia. Duodenum:?Normal bulb and descending duodenum. Biopsies were obtained from 3rd part of the duodenum to check for celiac. Intervention:?Biopsies as noted above COLONOSCOPY PROCEDURE NOTE Consent:?Indications for the procedure and potential complications of bleeding, perforation, reaction to medications and missed diagnosis were discussed with the patient and informed consent was obtained. Instrument:?Olympus PCF H 190 L variable stiffness pediatric colonoscope Monitoring:?Vital signs and clinical assessment, intermittent blood pressure monitoring, continuous EKG monitoring, Pulse oximetry and Carbon Dioxide monitoring were done throughout the procedure. Colon withdrawl time was 11 minutes. Procedure:?The patient was placed in the left lateral decubitis position and pre-procedure medications were administered. After a digital rectal examination of the ano-rectum, the video colonoscope was inserted into the rectum and advanced through the colon to the cecum. The colonoscope was slowly withdrawn in a retrograde panoramic fashion and the colon mucosa was carefully examined including a retroflexed view of the rectum. Findings and interventions are described below. Procedure Difficulty:?: Without difficulty Findings: Terminal Ileum: Not evaluated Cecum:? Normal Ascending Colon:??Normal Transverse Colon:??Normal Descending Colon:? Normal Sigmoid Colon:??Moderate diverticulosis Rectum:??Normal Ano-rectum:??Small internal hemorrhoids Colon preparation:? Good? Impression and Post Procedure Diagnosis: Endoscopy Findings: ESOPHAGUS: Small hiatal hernia STOMACH:?Moderate diffuse gastric erythema. Biopsies were obtained. DUODENUM: Normal - biopsied to check for celiac sprue. Colonoscopy Findings: No polyps were detected Moderate diverticulosis seen in the sigmoid colon Small hemorrhoids on retroflexed exam. Plan: Await pathology results Patient has an appointment on 05/17/22 in the GI Clinic with DIAMOND Ray. Repeat Colonoscopy in 9 - 10 years. Above findings were reviewed with the patient and GERD, Hiatal Hernia and diverticulosis handouts were given in the discharge area Surgeon: Joel Paredes MD Anesthesia:?MAC (Dr Boyce) Was an Mushroom Growing Supervisor used for this Procedure?:?Yes Mushroom Growing Supervisor:?Maureen Corral Estimated blood loss (mL):?0 Pathology:?other (A: SMALL BOWEL BXS R/O CELIACS? B: GASTRIC ANTRUM R/O H. PYLORI? C: GASTRIC BODY) Condition:?stable Disposition:?PACU
== END 2022-04-26 13:16 | disposition home or self-care (01) ==
PROVIDERS: PCP Physician Assistant; Visit Provider Internal Medicine Gastroenterology
PROC: (CPT 45378; principal; 2022-04-26 11:00)
DX: Z12.11 Encounter for screening for malignant neoplasm of colon (principal); K57.30 Diverticulosis of large intestine without perforation or abscess without bleeding; K64.8 Other hemorrhoids; K59.09 Other constipation; K21.9 Gastro-esophageal reflux disease without esophagitis; K29.50 Unspecified chronic gastritis without bleeding; K44.9 Diaphragmatic hernia without obstruction or gangrene; B96.81 Helicobacter pylori [H. pylori] as the cause of diseases classified elsewhere; G43.909 Migraine, unspecified, not intractable, without status migrainosus; K76.0 Fatty (change of) liver, not elsewhere classified; I77.6 Arteritis, unspecified; D25.9 Leiomyoma of uterus, unspecified; F41.1 Generalized anxiety disorder; Z79.899 Other long term (current) drug therapy; Z98.890 Other specified postprocedural states
CPT/HCPCS: 45378; 43239; 88305; 88342

== ENCOUNTER → 2022-05-17 10:50 | Outpatient (BNVA) | payer OTHER, SELFPAY | PROVIDERS: PCP Physician Assistant; Visit Provider Physician Assistant | DX: A04.8 Other specified bacterial intestinal infections (principal); K57.30 Diverticulosis of large intestine without perforation or abscess without bleeding | CPT/HCPCS: 99212 ==

== ENCOUNTER 2022-05-19 13:37 | Outpatient (REF) | payer OTHER, SELFPAY ==
[2022-05-19 18:21] LABS: CT PCR NOT DETECTED (Not Detect.); NG PCR NOT DETECTED (Not Detect.)
[2022-05-25 06:51] LABS: HPV mRNA E6/E7 rflx Not Detected (Not Detected)
== END 2022-05-19 13:38 | disposition home or self-care (01) ==
LOC: HO.LAB 13:37
PROVIDERS: Visit Provider Advanced Practice Midwife
DX: Z01.419 Encounter for gynecological examination (general) (routine) without abnormal findings (principal); Z11.51 Encounter for screening for human papillomavirus (HPV); Z20.2 Contact with and (suspected) exposure to infections with a predominantly sexual mode of transmission
CPT/HCPCS: 87491; 87591; 87624; 88142

== ENCOUNTER 2022-06-28 | Outpatient (REF) | payer OTHER, SELFPAY ==
[2022-06-30 14:09] LABS: H Pylori Breath Test Negative (Negative)
== END 2022-06-28 00:01 | disposition home or self-care (01) ==
LOC: HO.LNP
PROVIDERS: Visit Provider Physician Assistant
DX: A04.8 Other specified bacterial intestinal infections (principal)
CPT/HCPCS: 83013

== ENCOUNTER → 2022-06-28 09:46 | Outpatient (BNVA) | payer OTHER, SELFPAY | PROVIDERS: PCP Physician Assistant; Referring Provider Physician Assistant; Visit Provider Physician Assistant | DX: Z11.0 Encounter for screening for intestinal infectious diseases (principal) | CPT/HCPCS: 99211 ==

== ENCOUNTER 2022-06-29 12:35 | Outpatient (REF) | payer OTHER, SELFPAY | END 2022-06-29 12:36 | disposition home or self-care (01) | LOC: HO.LNP 12:35 | PROVIDERS: Visit Provider Physician Assistant | DX: Z13.89 Encounter for screening for other disorder (principal) ==

== ENCOUNTER → 2022-10-15 12:32 | Outpatient (BNVA) | payer OTHER, SELFPAY | PROVIDERS: PCP Physician Assistant; Visit Provider Physician Assistant Surgical | DX: Z13.89 Encounter for screening for other disorder (principal) | CPT/HCPCS: 99202 ==

== ENCOUNTER → 2022-11-01 11:31 | Outpatient (BNVA) | payer OTHER, SELFPAY | PROVIDERS: PCP Physician Assistant; Visit Provider Dietitian, Registered | DX: E66.9 Obesity, unspecified (principal); Z68.35 Body mass index [BMI] 35.0-35.9, adult; R14.0 Abdominal distension (gaseous); K57.30 Diverticulosis of large intestine without perforation or abscess without bleeding; Z71.3 Dietary counseling and surveillance | CPT/HCPCS: 97802 ==

== ENCOUNTER 2022-11-16 08:54 | Outpatient (REF) | payer OTHER, SELFPAY ==
[2022-11-16 13:35] LABS: MANUAL DIFF FLAG NO
[2022-11-16 13:56] LABS: Basophils Percent Auto 0.4 % (0-2); Eosinophils Absolute Auto 0.1 X10*3/uL (0.0-0.4); Eosinophils Percent Auto 1.7 % (0-4); Hematocrit 42.2 % (37.0-47.0); Imm Gran Abs Auto 0.02 X10*3/uL (0.00-0.03); Imm Gran Pct Auto 0.3 % (0.0-0.4); Lymphocytes Absolute Auto 2.4 X10*3/uL (1.2-4.9); Lymphocytes Percent Auto 31.3 % (20-40); Mean Corpuscular HGB Conc 33.2 g/dl (31.0-35.0); Mean Corpuscular Volume 93.6 fL (80.0-98.0); Mean Platelet Volume 11.4 fL (9.4-12.3); Monocytes Absolute Auto 0.5 X10*3/uL (0.1-1.2); Monocytes Percent Auto 6.7 % (2-11); Neutrophils Absolute Auto 4.5 x10*3/uL (2.0-8.3); Neutrophils Percent Auto 59.6 % (45-73); Platelet Count 249 X10*3/uL (160-400); Red Blood Count 4.51 X10*6/uL (4.20-5.50); White Blood Count 7.6 X10*3/uL (4.8-10.8)
[2022-11-16 14:26] LABS: Alanine Aminotransferase 22 U/L (0-31); Albumin Level 4.5 g/dL (3.5-5.0); Alkaline Phosphatase 86 U/L (39-117); Anion Gap 18 (12-20); Aspartate Amino Transferase 20 U/L (5-31); Bilirubin Total 0.4 mg/dL (0.0-1.0); Blood Urea Nitrogen 15 mg/dL (9-16); Calcium 9.8 mg/dL (8.4-10.2); Carbon Dioxide 22 mmol/L (22-29); Chloride 106 mmol/L (96-108); Estimated Glomerular Filt Rate > 60; Glucose Random 89 mg/dL (60-115); Potassium 4.7 mmol/L (3.3-5.1); Sodium 141 mmol/L (135-145); Total Protein 7.2 g/dL (6.5-8.0)
== END 2022-11-16 08:55 | disposition home or self-care (01) ==
LOC: HO.LAB 08:54
PROVIDERS: Absent Provider Physician Assistant; PCP Physician Assistant; Visit Provider Dietitian, Registered
DX: K57.30 Diverticulosis of large intestine without perforation or abscess without bleeding (principal); K59.09 Other constipation; K76.0 Fatty (change of) liver, not elsewhere classified; R14.0 Abdominal distension (gaseous); K92.89 Other specified diseases of the digestive system; E66.9 Obesity, unspecified; R10.13 Epigastric pain; A04.8 Other specified bacterial intestinal infections; Z79.899 Other long term (current) drug therapy; Z71.3 Dietary counseling and surveillance
CPT/HCPCS: 36415; 80053; 85025; 87338; 97802; 99212

== ENCOUNTER 2022-12-24 08:57 | Outpatient (REF) | payer OTHER, SELFPAY ==
--- NOTE | ~2022-12-24 | US_ITS ---
EXAMINATION: US ABDOMEN COMPLETE CLINICAL INFORMATION: Fatty (change of) liver, not elsewhere classified. COMPARISON: Ultrasound abdomen limited dated 10/01/2021. CT abdomen and pelvis with contrast dated 10/17/2019. TECHNIQUE: Real-time imaging of the abdominal viscera. FINDINGS: PANCREAS: Normal. ABDOMINAL AORTA: The proximal, mid, and distal segments are normal in caliber. INFERIOR VENA CAVA: Visualized portions are normal. LIVER: Increased parenchymal echogenicity, otherwise normal size and shape. There is a simple cyst in the left lobe measuring 0.6 x 0.4 x 0.4 cm. GALLBLADDER: Normal. The gallbladder is physiologically distended without evidence of stones, sludge, polyps, wall thickening or pericholecystic fluid. COMMON BILE DUCT: Normal in caliber measuring 0.4 cm in diameter. RIGHT KIDNEY: Normal. No hydronephrosis. No renal calculi or focal parenchymal lesions. The kidney measures 11.5 cm in maximum dimension. LEFT KIDNEY: Normal. No hydronephrosis. No renal calculi or focal parenchymal lesions. The kidney measures 10.5 cm in maximum dimension. SPLEEN: Normal. The spleen measures 7.4 cm in maximum dimension. FREE FLUID: None. US/US abdomen complete IMPRESSION: 1. Increased hepatic parenchymal echogenicity, which is nonspecific but most commonly on the basis of diffuse hepatocellular disease such as hepatic steatosis. 2. Otherwise, normal examination.
== END 2022-12-24 08:58 | disposition home or self-care (01) ==
LOC: HO.US 08:57
PROVIDERS: PCP Physician Assistant; Visit Provider Physician Assistant
DX: K76.0 Fatty (change of) liver, not elsewhere classified (principal)
CPT/HCPCS: 76700

== ENCOUNTER 2023-03-28 09:01 | Outpatient (REF) | payer OTHER, SELFPAY ==
--- NOTE | ~2023-03-28 | MM_ITS ---
EXAMINATION: MM SCREENING DIGITAL BREAST TOMOSYNTHESIS, BILATERAL CLINICAL INFORMATION: Screening. Asymptomatic. The lifetime risk of breast cancer based on the Tyrer-Cuzick Model is 9%. COMPARISON: Mammography: 11/29/2020, 09/08/2019, 09/06/2018 TECHNIQUE: Digital breast tomosynthesis is performed in both the craniocaudal and mediolateral oblique views along with computer-aided detection (CAD). Synthesized 2D images are generated from the tomosynthesis. FINDINGS: There are scattered areas of fibroglandular density (ACR BI-RADS breast composition Category b). There are no significant masses, abnormal calcifications, or other abnormalities. Parenchymal pattern is similar to prior studies. There is no developing density or architectural abnormality. The axilla and skin contours are unremarkable. No significant changes. MM/MM tomosynthesis screening BI IMPRESSION: No mammographic evidence of malignancy. ASSESSMENT: BI-RADS 1: Negative RECOMMENDATION: Routine annual mammography screening. This patient's information was entered into a reminder system with a target due date for their next mammogram.
== END 2023-03-28 09:02 | disposition home or self-care (01) ==
LOC: HO.MAMMO 09:01
PROVIDERS: PCP Physician Assistant; Visit Provider Internal Medicine
DX: Z12.31 Encounter for screening mammogram for malignant neoplasm of breast (principal)
CPT/HCPCS: 77063; 77067

== ENCOUNTER → 2023-06-28 11:35 | Outpatient (BNVA) | payer OTHER, SELFPAY | PROVIDERS: PCP Physician Assistant; Visit Provider Physician Assistant | DX: K21.9 Gastro-esophageal reflux disease without esophagitis (principal); K59.09 Other constipation; R14.0 Abdominal distension (gaseous) | CPT/HCPCS: 99212 ==

== ENCOUNTER → 2023-06-28 11:35 | Outpatient (AMB) | payer OTHER, SELFPAY ==
--- NOTE | 2023-06-28 11:56 | MHC.OFFVIS ---
Intake Intake Visit Reasons: Abd pain & Bloating Intake Note: Patient follow up for for abdominal pain and bloating. Patient cc: upper abdominal pain/bloating before and after eating with burning sensation and chronic constipation. 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 Accompanied by: Self / Same As Patient Allergies No Known Allergies Allergy (Verified 06/28/23 11:52) Medication List - Last Reconciled 06/28/23 by Kimberly Joe PA-C acetaminophen (Tylenol Extra Strength) 500 mg PO TID PRN baclofen 10 mg PO BID 14 days docusate sodium 100 mg PO BID 30 days fluoxetine 10 mg PO DAILY 90 days ibuprofen 800 mg PO Q8H PRN 7 days lorazepam 0.5 mg PO BEDTIME PRN 10 days magnesium oxide 400 mg PO BEDTIME meclizine 12.5 mg PO TID PRN 7 days methylcellulose (laxative) (Citrucel) 500 mg PO TID omeprazole 20 mg PO DAILY riboflavin (vitamin B2) 400 mg PO DAILY simethicone (Gas Relief (simethicone)) 180 mg PO TID 30 days sumatriptan succinate take 1 tab at onset of headache; if no relief may repeat 1 tab after at least 2 hrs; max = 4 tabs/24 hr PO HPI HPI Comments History of Present Illness Details A 53-year-old female follows up with chronic constipation and acid reflux. She has had lifelong constipation she has better days than others. She has undergone EGD colonoscopy for the symptoms just about 1 year ago. She has bloating- She eats a lot of brown rice-pasta- coffee-once a day-taking simethacone couple times a day colace and dicyclomine- she has hard stool- Acid reflux omeprazole daily no typical identifying culture No abdominal pain nausea, vomiting, hematemesis, hematochezia fever or to [facility] Medical History Uterine fibroid Abnormal Pap smear of cervix Allergic rhinitis Anxiety Arteritis Family history of brain aneurysm Migraine headache Surgical History Hx of endoscopy Hx of colonoscopy H/O LEEP H/O right inguinal hernia repair (03/16/17) History of endometrial ablation History of tubal ligation History of toe surgery History of incision and drainage Family History Father FH: prostate cancer Sister History of breast cancer Sister History of breast cancer Son Heart attack, Onset Age: 12 Son Brain aneurysm Other Stomach cancer Social History Housing: House Alcohol intake: never Patient Tobacco Use Status: Never used Tobacco e-Cigarette/Vaping Use: Never Used Second Hand Smoke Exposure: No service: No Current occupational status: unemployed Sexual orientation: Straight/Heterosexual Gender identity: Female Cognitive needs: No Hearing needs: No Vision needs: Yes (Glaases) Review of Systems Const All systems reviewed & are unremarkable except as noted in HPI and below Card Denies chest pain and Denies dyspnea Resp Denies dyspnea GI Denies abdominal pain, Reports bloating, Denies hematochezia, Reports constipation, Reports heartburn, Denies nausea and Denies vomiting Physical Exam Const General: cooperative, comfortable and no acute distress Orientation/consciousness: patient oriented x3 Limitations: no limitations Eyes Sclerae: sclerae normal Resp Effort & Inspection: normal respiratory effort and able to speak in complete sentences Auscultation: clear to auscultation bilaterally, no rales, no rhonchi and no wheezes Cardio Rate: regular rate Rhythm: regular rhythm Heart sounds: S1 normal heart sound present and S2 normal heart sound present GI Palpation (GI): Soft to palpation and nontender Auscultation: normal bowel sounds Neuro General: patient oriented x3 Extrem General: Yes full ROM Psych Appearance: grossly normal and well kempt Mental Status: mental status grossly normal Speech and movement: Normal speech and movement present and Clear speech present Affect: normal affect Attitude: cooperative Thought process: Normal thought process present Thought content: Normal thought content present Results Reviewed Results Reviewed: Colonoscopy Findings: No polyps were detected Moderate diverticulosis seen in the sigmoid colon Small hemorrhoids on retroflexed exam. Plan: Await pathology results Patient has an appointment on 05/17/22 in the GI Clinic with DIAMOND Ray. Repeat Colonoscopy in 9 - 10 years. Above findings were reviewed with the patient and GERD, Hiatal Hernia and diverticulosis handouts were given in the discharge area MR #: [id number]? Status: DEP SDCCollected: 04/26/22 Location: SSSReceived: 04/26/22 Diagnosis A.? Small bowel, biopsy:? Duodenal mucosa within normal limits; negative for celiac disease. B.? Stomach, antrum, biopsy: - Antral-type mucosa with moderate chronic active inflammation. - Positive for H pylori. C.? Stomach, body, biopsy: - Oxyntic mucosa with severe chronic active inflammation. - Rare fragments consistent with H pylori identified. Clinical History Pre-Op Dx:? Screening, reflux disease 06/28/2022- HP- negative Post-Op Dx: Gastritis, GERD, hiatal hernia, diverticulosis, hemorrhoids, r/o celiac, r/o H. pylori Assessment & Plan Assessment & Plan (1) Chronic constipation: Comment: Continue stool softeners, Citrucel, maintain high-fiber diet-trial has senna Reviewed medications Code(s): K59.09 - Other constipation Plan: Consistent bowel regimen (2) GERD (gastroesophageal reflux disease): Comment: Continue PPI, avoid culprits Code(s): K21.9 - Gastro-esophageal reflux disease without esophagitis Qualifiers: Esophagitis presence: without esophagitis Qualified Code(s): K21.9 - Gastro-esophageal reflux disease without esophagitis (3) Gas bloat syndrome: Code(s): K92.89 - Other specified diseases of the digestive system Plan: Continue simethicone Low FODMAP diet discussed literature given Medications: New sennosides (senna) 8.6 mg PO BEDTIME 30 tabs 2RF 30 days Patient Instructions: Pleasant 53-year-old female in follow back with intermittent acid reflux despite PPI as well as constipation with some bloating. She will give trial to senna-consistent bowel regimen is martinez Low FODMAP information given continue simethicone for bloating Reviewed reflux precautions, continue PPI avoid culprits Encouraged to call questions or concerns She will follow-up p.r.n. Coding Level of Care Code Est Pt Level 3 (91901) Diagnoses Chronic constipation K59.09 Gastroesophageal reflux disease without esophagitis K21.9 Esophagitis presence: without esophagitis Gas bloat syndrome K92.89 Time Spent (min) 35
== END ==
PROVIDERS: PCP Physician Assistant; Visit Provider Physician Assistant
DX: K59.09 Other constipation (principal); K21.9 Gastro-esophageal reflux disease without esophagitis; K92.89 Other specified diseases of the digestive system
CPT/HCPCS: 99213

== ENCOUNTER 2023-08-16 10:54 | Outpatient (REF) | payer OTHER, SELFPAY ==
[2023-08-16 18:15] LABS: CT PCR NOT DETECTED (Not Detect.); NG PCR NOT DETECTED (Not Detect.)
[2023-08-17 04:24] LABS: HBc Num1 0.07 S/CO (0.00-0.79); Hepatitis B Core Antibody Nonreactive (Nonreactive); ~HepC Num1 0.05 S/CO (0.00-0.79); ~Hepatitis C Antibody Nonreactive (Nonreactive)
[2023-08-17 04:36] LABS: Syphilis Screen Nonreactive (Nonreactive)
[2023-08-17 05:25] LABS: HIV AB/AG Nonreactive (Nonreactive); HIV Num 2 0.05 S/CO; HIV Num 3 0.06 S/CO
[2023-08-17 09:58] LABS: BV Int Neg Control Negative (Negative); BV Int Pos Control Positive (Positive)
[2023-08-18 03:03] LABS: Follicle Stimulating Hormone 32.6 mIU/mL
== END 2023-08-16 10:55 | disposition home or self-care (01) ==
LOC: HO.LAB 10:54
PROVIDERS: PCP Physician Assistant; Visit Provider Advanced Practice Midwife
DX: Z01.419 Encounter for gynecological examination (general) (routine) without abnormal findings (principal); R23.2 Flushing; Z80.3 Family history of malignant neoplasm of breast; Z98.890 Other specified postprocedural states; Z98.51 Tubal ligation status; Z11.3 Encounter for screening for infections with a predominantly sexual mode of transmission
CPT/HCPCS: 0353U; 36415; 83001; 86704; 86780; 86803; 87389; 87480; 87510; 87660; 99396

== ENCOUNTER 2023-08-16 10:54 | Outpatient (AMB) | payer OTHER, SELFPAY ==
--- NOTE | 2023-08-16 11:07 | MHC.OFFVIS ---
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 She reports experiencing hot flashes recently. She tries to eat healthy and stays active with exercise. Currently sexually active with her . Denies any vaginal dryness or irritation. STI testing offered; she accepts. Family hx of breast cancer in 2 sisters. Denies family hx of colon and ovarian cancer. Last pap smear 05/20/22, normal. Hx of CINII and LEEP in 2013. Last mammogram 03/28/23, normal. She has been under some stress while caring for her [id number], who has a relapse of cancer. [facility] Medical History Uterine fibroid Abnormal Pap smear of cervix Allergic rhinitis Anxiety Arteritis Family history of brain aneurysm Migraine headache Surgical History Hx of endoscopy Hx of colonoscopy H/O LEEP H/O right inguinal hernia repair (03/16/17) History of endometrial ablation History of tubal ligation History of toe surgery History of incision and drainage Family History Father FH: prostate cancer Sister History of breast cancer Sister History of breast cancer Son Heart attack, Onset Age: 12 Son Brain aneurysm Other Stomach cancer Social History Housing: House Alcohol intake: never Patient Tobacco Use Status: Never used Tobacco e-Cigarette/Vaping Use: Never Used Second Hand Smoke Exposure: No service: No Current occupational status: unemployed Sexual orientation: Straight/Heterosexual Gender identity: Female Cognitive needs: No Hearing needs: No Vision needs: Yes (Glaases) Female Reproductive History Menstrual control method: permanent sterilization Permanent Sterilization: BTL Total pregnancies: 2 Full term: 2 Number of Living Children: 2 Date of last pap smear: 05/19/22 (neg pap and hpv) History of abnormal pap smear: Yes (06/23 JOSE FRANCISCO 2 07/23 Leep JOSE FRANCISCO 1-2 16 +hpv) Date of Mammogram: 03/28/23 (Birad 1) Review of Systems Const All systems reviewed & are unremarkable except as noted in HPI and below Reports as per HPI Eyes Reports no additional complaints ENT Reports no additional complaints Card Reports no additional complaints Resp Reports no additional complaints GI Reports as per HPI and Reports no additional complaints Reports as per HPI Musc Reports no additional complaints Skin/Breast Reports as per HPI Neuro Reports no additional complaints Psych Reports no additional complaints Endo Reports no additional complaints Ricco/Lymph Reports no additional complaints Aller/Immun Reports no additional complaints Physical Exam Vital Signs: Last Vital Signs BP 108/72 08/16/23 11:09 BMI result Body Mass Index 36.0 Const General: cooperative, healthy appearing, no acute distress, well developed and alert Orientation/consciousness: patient oriented x3 HEENT Head: Yes normal to inspection Eyes General: appearance normal, both eyes and all related structures Neck Neck: Yes normal visual inspection Thyroid: Thyroid normal Chest Chest palpation & inspection: normal inspection of the chest and other (no puckering, dimpling, peau de orange, retraction, discharge, masses) Breast/axilla inspection: normal inspection of the breasts Breast/axilla palpation: normal palpation of the breasts Resp Effort & Inspection: normal respiratory effort GI Inspection: Yes normal to inspection Palpation (GI): Soft to palpation Rectal Exam - Female: deferred General: Yes bladder normal to palpation External Female Exam: normal external appearance and normal appearance of the urethra Speculum Exam - Vagina: normal appearance of the vagina, normal palpation and normal vaginal discharge (White discharge today) Speculum Exam - Cervix: normal appearance of the cervix (Post-LEEP appearance) and normal palpation Bimanual exam- vagina & uterus: normal bimanual exam, normal palpation, uterine size normal, bladder normal to palpation, normal palpation and non-tender Bimanual Exam- Adnexa, other: no masses Skin General skin exam: no rashes or lesions noted Rashes: no rashes Neuro General: patient oriented x3 Cognition (Neuro): normal cognition Extrem General: Yes normal to inspection Psych Attitude: cooperative Thought process: Normal thought process present Assessment & Plan Assessment & Plan (1) Encounter for well woman exam: Code(s): Z01.419 - Encounter for gynecological examination (general) (routine) without abnormal findings Plan: Discussed: Current recommendations for pap smears per ASCCP guidelines. Breast awareness and periodic self breast exams. Maintaining a healthy lifestyle including a well balanced diet and routine exercise. Encouraged patient to sign up for patient portal. Ordered FSH to assess for menopause due to hx of EMB STD testing ordered today All of her questions and concerns were addressed to the best of my ability She will return in one year for AG. She will follow up for lab review when completed (2) Hot flashes: Code(s): R23.2 - Flushing Plan: Counseled on hot flashes. Discussed work up including FSH. She is agreeable and will have workup done. Avoid spicy foods and alcohol. Wear light, layered clothing. Sleep with fan on. Can also try a cooling pillow or mattress. Stay well hydrated. Return in 1-2 weeks for test results. (3) Family history of breast cancer: Code(s): Z80.3 - Family history of malignant neoplasm of breast (4) History of endometrial ablation: Code(s): Z98.890 - Other specified postprocedural states (5) History of tubal ligation: Code(s): Z98.51 - Tubal ligation status Orders: Orders Hepatitis C Antibody Today Z20.2 - Contact with and (suspected) exposure to infections with a predominantly sexual mode of transmission Hepatitis B Core Antibody Today Z20.2 - Contact with and (suspected) exposure to infections with a predominantly sexual mode of transmission Follicle Stimulating Hormone Today R23.2 - Flushing Bacterial Vaginosis Panel Today Z20.2 - Contact with and (suspected) exposure to infections with a predominantly sexual mode of transmission CT NG by PCR Today Z20.2 - Contact with and (suspected) exposure to infections with a predominantly sexual mode of transmission HIV Ab/Ag Today Z20.2 - Contact with and (suspected) exposure to infections with a predominantly sexual mode of transmission Syphilis Screen Today Z20.2 - Contact with and (suspected) exposure to infections with a predominantly sexual mode of transmission Coding Level of Care Code Est Pt Prev Care 40-64y(23288) Diagnoses Encounter for well woman exam Z01.419 Hot flashes R23.2 Family history of breast cancer Z80.3 History of endometrial ablation Z98.890 History of tubal ligation Z98.51
[2023-08-16 11:09] VITALS: BP 108/72; BMI 36.0
== END 2023-08-16 13:08 | disposition home or self-care (01) ==
LOC: HO.HWS 10:54
PROVIDERS: PCP Physician Assistant; Visit Provider Advanced Practice Midwife
DX: Z01.419 Encounter for gynecological examination (general) (routine) without abnormal findings (principal); R23.2 Flushing; Z80.3 Family history of malignant neoplasm of breast; Z98.890 Other specified postprocedural states; Z98.51 Tubal ligation status
CPT/HCPCS: 99396

== ENCOUNTER 2023-08-16 11:42 | Outpatient (REF) | payer OTHER, SELFPAY | END 2023-08-16 11:43 | disposition home or self-care (01) | LOC: HO.LNP 11:42 | PROVIDERS: Visit Provider Advanced Practice Midwife | DX: Z13.89 Encounter for screening for other disorder (principal) ==

== ENCOUNTER 2023-08-17 07:42 | Outpatient (REF) | payer OTHER, SELFPAY ==
[2023-08-17 08:34] LABS: Hematocrit 43.2 % (37.0-47.0); Hemoglobin 14.2 g/dl (12.0-16.0); Mean Corpuscular HGB Conc 32.9 g/dl (31.0-35.0); Mean Corpuscular Hemoglobin 31.3 pg (27.0-33.0); Mean Corpuscular Volume 95.4 fL (80.0-98.0); Mean Platelet Volume 11.2 fL (9.4-12.3); Platelet Count 240 X10*3/uL (160-400); Red Blood Count 4.53 X10*6/uL (4.20-5.50); Red Cell Distribution Width 11.9 % (11.0-16.0); White Blood Count 5.2 X10*3/uL (4.8-10.8)
[2023-08-17 09:13] LABS: Alanine Aminotransferase 20 U/L (0-31); Albumin Level 4.6 g/dL (3.5-5.0); Alkaline Phosphatase 88 U/L (39-117); Anion Gap 13 (12-20); Aspartate Amino Transferase 21 U/L (5-31); Bilirubin Total 0.7 mg/dL (0.0-1.0); Blood Urea Nitrogen 12 mg/dL (9-16); Calcium 10.1 mg/dL (8.4-10.2); Carbon Dioxide 28 mmol/L (22-29); Chloride 105 mmol/L (96-108); Cholesterol 192 mg/dL (<200); Estimated Glomerular Filt Rate > 60; Glucose Fasting 95 mg/dL (60-99); HDL Cholesterol 56 mg/dL (>40); LDL Cholesterol Calculated 127 mg/dL (<100); Potassium 4.2 mmol/L (3.3-5.1); Sodium 142 mmol/L (135-145); Total Protein 7.8 g/dL (6.5-8.0); Triglycerides 45 mg/dL (<150)
[2023-08-17 09:28] LABS: TSH reflex Free T4 1.14 uIU/mL (0.32-4.0)
== END 2023-08-17 07:43 | disposition home or self-care (01) ==
LOC: HO.LAB 07:42
PROVIDERS: PCP Physician Assistant; Visit Provider Physician Assistant
DX: K76.0 Fatty (change of) liver, not elsewhere classified (principal); Z13.1 Encounter for screening for diabetes mellitus; Z13.29 Encounter for screening for other suspected endocrine disorder; Z13.220 Encounter for screening for lipoid disorders
CPT/HCPCS: 36415; 80053; 80061; 84443; 85027

== ENCOUNTER 2023-09-15 15:06 | Outpatient (AMB) | payer OTHER, SELFPAY ==
[2023-09-15 15:36] VITALS: BP 110/70; BMI 36.0
--- NOTE | 2023-09-15 15:36 | A.OFFVIS_ITS ---
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 History of uterine ablation no bleeding for many years. FSH was 32.6. She also reports she has stress due to her [id number]-[id number] living with her now on hospice care she is having a lot of neck aches and headaches. [facility] Medical History Uterine fibroid Abnormal Pap smear of cervix Allergic rhinitis Anxiety Arteritis Family history of brain aneurysm Migraine headache Surgical History Hx of endoscopy Hx of colonoscopy H/O LEEP H/O right inguinal hernia repair (03/16/17) History of endometrial ablation History of tubal ligation History of toe surgery History of incision and drainage Family History Father FH: prostate cancer Sister History of breast cancer Sister History of breast cancer Son Heart attack, Onset Age: 12 Son Brain aneurysm Other Stomach cancer Social History Housing: House Alcohol intake: never Patient Tobacco Use Status: Never used Tobacco e-Cigarette/Vaping Use: Never Used Second Hand Smoke Exposure: No service: No Current occupational status: unemployed Sexual orientation: Straight/Heterosexual Gender identity: Female Cognitive needs: No Hearing needs: No Vision needs: Yes (Glaases) Review of Systems ENT Reports no additional complaints Neuro Reports no additional complaints Psych Reports no additional complaints Endo Reports no additional complaints Physical Exam Vital Signs: Last Vital Signs BP 110/70 09/15/23 15:36 BMI result Body Mass Index 36.0 Const General: cooperative, healthy appearing and comfortable Assessment & Plan Assessment & Plan (1) Hot flashes: Code(s): R23.2 - Flushing Plan: Counseled on hot flashes and menopausal changes. Suggested some reading literature an example the wisdom of menopause, use of a chillo pillow or cooling mattress fabric cover, wearing layered clothing, hydrating well. Avoiding triggers such as alcohol. Other options to consider HRT if a candidate. Discussed: Self-help measures for her neck discomfort including-stretches, use of either a cooling or warm compress to the neck, gentle massage. Coding Level of Care Code Est Pt Level 3 (48390) Diagnoses Hot flashes R23.2
== END 2023-09-15 16:28 | disposition home or self-care (01) ==
PROVIDERS: PCP Physician Assistant; Visit Provider Advanced Practice Midwife
DX: R23.2 Flushing (principal)
CPT/HCPCS: 99213

== ENCOUNTER → 2023-09-15 15:06 | Outpatient (BNVA) | payer OTHER, SELFPAY | PROVIDERS: PCP Physician Assistant; Visit Provider Advanced Practice Midwife | DX: R23.2 Flushing (principal) | CPT/HCPCS: 99212 ==

== ENCOUNTER 2023-09-20 09:22 | Outpatient (AMB) | payer OTHER, SELFPAY ==
[2023-09-20 09:29] VITALS: BP 120/82; PULSE 76; O2SAT 98; BMI 37.1
--- NOTE | 2023-09-20 09:29 | A.OFFPC_ITS ---
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 Allergies No Known Allergies Allergy (Verified 09/20/23 09:44) Medication List - Last Reconciled 09/20/23 by MELY Macedo acetaminophen (Tylenol Extra Strength) 500 mg PO TID PRN baclofen 10 mg PO BID 14 days docusate sodium 100 mg PO BID 30 days fluoxetine 10 mg PO DAILY 90 days ibuprofen 800 mg PO Q8H PRN 7 days lorazepam 0.5 mg PO BEDTIME PRN 10 days magnesium oxide 400 mg PO BEDTIME meclizine 12.5 mg PO TID PRN 7 days omeprazole 20 mg PO DAILY sennosides (senna) 8.6 mg PO BEDTIME 30 days simethicone (Gas Relief (simethicone)) 180 mg PO TID 30 days sumatriptan succinate take 1 tab at onset of headache; if no relief may repeat 1 tab after at least 2 hrs; max = 4 tabs/24 hr PO Tobacco use date assessed: 09/20/23 HPI Pain in Right Arm/Legs HPI Details Patient is a 53-year-old female who presents today with neck pain and bilateral knee pain for the past 2 weeks. Patient of DIAMOND Arevalo. patient reports caring for her osqxdh-ga-vms and heavy lifting. She reports neck pain radiate to her bilateral shoulders, reports bilateral knee pain worse with activity. Reports taking ibuprofen and muscle relaxer with minimal improvement. Denies numbness or tingling, no changes in bowel/bladder. No shortness of b reath or chest pain. [facility] Medical History Uterine fibroid Abnormal Pap smear of cervix Allergic rhinitis Anxiety Arteritis Family history of brain aneurysm Migraine headache Surgical History Hx of endoscopy Hx of colonoscopy H/O LEEP H/O right inguinal hernia repair (03/16/17) History of endometrial ablation History of tubal ligation History of toe surgery History of incision and drainage Family History Father FH: prostate cancer Sister History of breast cancer Sister History of breast cancer Son Heart attack, Onset Age: 12 Son Brain aneurysm Other Stomach cancer Social History Housing: House Alcohol intake: never Patient Tobacco Use Status: Never used Tobacco e-Cigarette/Vaping Use: Never Used Second Hand Smoke Exposure: No service: No Current occupational status: unemployed Sexual orientation: Straight/Heterosexual Gender identity: Female Cognitive needs: No Hearing needs: No Vision needs: Yes (Glaases) Questionnaire Thrive Questionnaire Date Thrive assessed: 11/23/22 AUDIT C Alcohol Use Questionnaire (AUDIT-C) 1. How often do you have a drink containing alcohol?: Never 3. How often do you have six or more drinks on one occasion?: Never Total Score: 0 Score Reviewed/Action Taken: No CATHERINE-7 AMB Questionnaire CATHERINE-7 Date CATHERINE - 7 assessed: 11/23/22 Source: Developed by Drs. Hill Roca, Shabnam Linn, Dandy Rodriguez and colleagues, with an educational jessee from [employer]. Review of Systems Const Denies body aches, Denies chills, Denies fever(s) and Denies headache(s) Eyes Denies change in vision ENT Denies dizziness, Denies otalgia, Denies headache(s), Denies nasal discharge, Denies sinus pain and Denies sore throat Card Denies chest pain, Denies edema, Denies lightheadedness and Denies dyspnea Resp Denies cough, Denies dyspnea and Denies wheezing GI Denies constipation, Denies diarrhea, Denies nausea and Denies vomiting Denies dysuria Musc Reports as per HPI, Denies myalgias, Reports arthralgias, Denies numbness and Denies tingling Skin/Breast Denies rash Neuro Denies dizziness, Denies headache(s), Denies numbness and Denies tingling Aller/Immun Denies wheezing Physical exam (Primary Care) Vital Signs: Last Vital Signs Pulse 76 09/20/23 09:29 BP 120/82 09/20/23 09:29 Pulse Ox 98 09/20/23 09:29 Oxygen Delivery Method Room Air 09/20/23 09:29 BMI result Body Mass Index 37.1 Tobacco/Smoking Status: Tobacco use Status Tobacco use date assessed 09/20/23 09/20/23 09:30 Patient Tobacco Use Status Never used Tobacco 09/20/23 09:30 e-Cigarette/Vaping Use Never Used 09/20/23 09:30 Thrive Assessment: Date of Thrive Assessment Date Thrive assessed 11/23/22 09/20/23 09:30 Const General: cooperative and no acute distress Orientation/consciousness: patient oriented x3 HENMT Head: Yes normocephalic and Yes atraumatic Face and sinus: Yes sinuses nontender Mouth: oropharynx normal and moist mucous membranes Throat: Yes posterior oropharynx normal Eyes General: appearance normal, both eyes and all related structures Pupils: Equal, round and reactive pupils present EOM: EOMs intact bilaterally Neck Neck: Yes normal visual inspection, Yes full ROM and Yes no lymphadenopathy Resp Effort & Inspection: normal respiratory effort and able to speak in complete sentences Auscultation: clear to auscultation bilaterally, no crackles, no rales, no rhon chi and no wheezes Cardio Rate: regular rate Rhythm: regular rhythm Heart sounds: S1 normal heart sound present and S2 normal heart sound present GI Auscultation: normal bowel sounds Back/Spine/Pelvis Cervical Spine: cervical ROM normal, cervical muscular tenderness and Cervical spine tenderness Skin General skin exam: no rashes or lesions noted Neuro General: patient oriented x3 Cranial nerves: Yes Equal, round and reactive pupils present Gait exam (Neuro): Normal gait present Extrem Other: Bilateral anterior knee tender to palpation, normal range of motion General: Yes full ROM and No edema Assessment and Plan Assessment & Plan (1) Bilateral knee pain: Code(s): M25.561 - Pain in right knee; M25.562 - Pain in left knee (2) Neck pain: Code(s): M54.2 - Cervicalgia Plan Suspect musculoskeletal in origin. Physical therapy referral, follow-up if no improvement after PT. start tizanidine t.i.d. p.r.n. - educated about drowsiness, refill sent on ibuprofen p.r.n.. Encouraged heat/cold packs p.r.n.. Signs and symptoms reviewed when to notify provider or go to the emergency department. Patient agreed with the plan. Orders: Orders PT Evaluation and Treatment Today M25.561 - Pain in right knee, M25.562 - Pain in left knee PT Evaluation and Treatment Today M54.2 - Cervicalgia Medications: New tizanidine 2 mg PO Q8H PRN 20 tabs 0RF muscle spasticity M54.2 - Cervicalgia Refilled ibuprofen 800 mg PO Q8H 7 days PRN 21 tabs 0RF pain G43.909 - Migraine, unspecified, not intractable, without status migrainosus Discontinued baclofen Discontinued Reason: Doctor's Order 10 mg PO BID 14 days 28 tabs 0RF S46.819A - Strain of other muscles, fascia and tendons at shoulder and upper arm level, unspecified arm, initial encounter Coding Level of Care Code Est Pt Level 3 (56209) Diagnoses Bilateral knee pain M25.561; M25.562 Neck pain M54.2
== END 2023-09-20 09:57 | disposition home or self-care (01) ==
PROVIDERS: PCP Physician Assistant; Visit Provider Nurse Practitioner Family
DX: M25.561 Pain in right knee (principal); M25.562 Pain in left knee; M54.2 Cervicalgia
CPT/HCPCS: 99213

== ENCOUNTER 2023-11-10 07:51 | Outpatient (RCR) | payer OTHER, SELFPAY ==
--- NOTE | 2023-11-10 08:46 | MHC.PT.EP ---
[facility] [place] Office [place] Office [place] Office [address] Juno Marquez [address] [phone] F: [phone] F: [phone] F: [phone] F: [phone] Physical Therapy Plan of Care Date of Evaluation: 11/10/23 Date of Surgery: N/A Diagnosis: cervicalgia (RL) Assessment: pt is a 53 y/o female presenting to physical therapy w/ referring diagnosis of cervicalgia. Her signs and symptoms seem consistent w/ muscle spasm and cervicogenic ZHENG. Impairments include pain, decreased range of motion, decreased strength, impaired functional mobility, impaired postural awareness, and altered ambulation mechanics. pt is a good candidate for skilled PT due to age, potential remediation of impairments, typical disease/condition progression and prognosis, comorbidities, and motivation. pt would benefit from skilled PT intervention to provide a tailored strengthening and stretching exercise program, functional training, gait training, postural re-training, neuromuscular re-education, modalities as needed for pain, equipment safety demonstration. Frequency and Duration: The patient will be seen 2x/wk for 4 wks Short Term Goals: pt will be I w/ HEP to promote self-management of condition. pt will demo proper sitting posture w/ lumbar roll to promote neutral spine w/ seated ADLs. Planning Aide Goals: pt will report a statistically significant improvement in self-reported outcome measure, NDI, to promote return to PLOF. pt will improve B cervical rotation by at least 15 degrees to promote ease in head turns w/ driving for safety. Treatment Plan: Modalities to reduce pain, spasms and effusion. Manual therapy to restore motion and function. Therapeutic exercise to improve strength and flexibility. Neuromuscular re-education for posture and balance. Therapeutic activities to return to functional activities of daily living. Electronically signed by: Mara Noel PT, DPT Please sign and return to therapist. Thank you for your referral.
--- NOTE | 2023-12-15 09:17 | MHC.PT.DC ---
[facility] [place] [facility] [place] Office [place] Office [address] Juno Marquez [address] [phone] F: [phone] F: [phone] F: [phone] F: [phone] Physical Therapy Discharge Report Diagnosis: cervicalgia (RL) Date of Surgery: N/A Date of Evaluation: 11/10/23 Date of Discharge: 11/24/23 Treatments to Date: 1 Cancellations to Date: 7 No Shows to Date: 2 Discharge Status: Patient Elected to Stop Discharge Summary: The patient attended her initial evaluation and scheduled her recommended follow-ups. She then called our office to inform us she would be in [place] for the next month. She is discharged from this physical therapy plan of care as it will be over 30 days and will require a new order. Electronically signed by: Mara Noel PT, DPT Please sign and return to therapist. Thank you for your referral.
== END 2023-11-24 10:49 | disposition home or self-care (01) ==
LOC: HO.PT 07:51
PROVIDERS: PCP Physician Assistant; Visit Provider Nurse Practitioner Family
DX: M54.2 Cervicalgia (principal)
CPT/HCPCS: 97110; 97162

== ENCOUNTER 2024-01-12 14:57 | Outpatient (AMB) | payer OTHER, SELFPAY ==
[2024-01-12 16:08] VITALS: BP 112/70; PULSE 80; O2SAT 99; BMI 38.3
--- NOTE | 2024-01-12 16:08 | MHC.PC.OV ---
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 Accompanied by: Daughter Allergies No Known Allergies Allergy (Verified 01/12/24 16:21) Medication List - Last Reconciled 01/12/24 by Ellis Arevalo PA-C acetaminophen (Tylenol Extra Strength) 500 mg PO TID PRN docusate sodium 100 mg PO BID 30 days fluoxetine 10 mg PO DAILY 90 days ibuprofen 800 mg PO Q8H PRN 7 days lorazepam 0.5 mg PO BEDTIME PRN 10 days magnesium oxide 400 mg PO BEDTIME meclizine 12.5 mg PO TID PRN 7 days omeprazole 20 mg PO DAILY sennosides (senna) 8.6 mg PO BEDTIME 30 days simethicone (Gas Relief (simethicone)) 180 mg PO TID 30 days sumatriptan succinate take 1 tab at onset of headache; if no relief may repeat 1 tab after at least 2 hrs; max = 4 tabs/24 hr PO tizanidine 2 mg PO Q8H PRN Tobacco use date assessed: 01/12/24 Dental Screening Dental Screen Date: 01/12/24 Did you have a dental visit in the last 12 months?: Yes Did you have a dental problem in the last 6 months where you did not have access to dental care?: No Was dental information given to patient?: Patient has dentist HPI HEADACHES AND DIZZINESS HPI Details Patient is a 54-year-old female here today complaining of headaches and dizziness over the last 2 weeks. She does report feeling somewhat more depressed as of lately. Has lost a close family member recently which she attributes to her worsening depression. She does take fluoxetine 10 mg and is interested in a higher dose of this medication. She also reports she is concerned about her weight. She has not able to lose much weight. She reports she has been a little more physically active and trying to reduce her food portions though has not been able to lose any weight. She is interested in a GLP 1 to help her reduce her weight. [facility] Medical History Uterine fibroid Abnormal Pap smear of cervix Allergic rhinitis Anxiety Arteritis Family history of brain aneurysm Migraine headache Surgical History Hx of endoscopy Hx of colonoscopy H/O LEEP H/O right inguinal hernia repair (03/16/17) History of endometrial ablation History of tubal ligation History of toe surgery History of incision and drainage Family History Father FH: prostate cancer Sister History of breast cancer Sister History of breast cancer Son Heart attack, Onset Age: 12 Son Brain aneurysm Other Stomach cancer Social History Housing: House Alcohol intake: never Patient Tobacco Use Status: Never used Tobacco e-Cigarette/Vaping Use: Never Used Second Hand Smoke Exposure: No service: No Current occupational status: unemployed Sexual orientation: Straight/Heterosexual Gender identity: Female Cognitive needs: No Hearing needs: No Vision needs: Yes (Glaases) Questionnaire PHQ-9 Over the last 2 weeks, how often have you been bothered by any of the following problems? 1. Little interest or pleasure in doing things: more than half the days 2. Feeling down, depressed, or hopeless: more than half the days 3. Trouble falling or staying asleep, or sleeping too much: more than half the days 4. Feeling tired or having little energy: several days 5. Poor appetite or overeating: nearly every day 6. Feeling bad about yourself - or that you are a failure or have let yourself or your family down: more than half the days 7. Trouble concentrating on things, such as reading the newspaper or watching television: not at all 8. Moving or speaking so slowly that other people could have noticed. Or the opposite - being so fidgety or restless that you have been moving around a lot more than usual: nearly every day 9. Thoughts that you would be better off or of hurting yourself in some way: not at all Total score: 15 Depression Screening Interpretation: Positive Depression Screening Follow-up: Existing condition and New Medication prescribed Depression Screening Done: Yes 88653 - PHQ-9 Billing: Yes Source: Developed by Drs. Hill L. ChanelleShabnam cruz Kurt Kroenke and colleagues, with an educational jessee from [employer]. Thrive Questionnaire Date Thrive assessed: 01/12/24 I am a: Patient What is your living situation today?: I have a steady place to live Within the past 12 months, did the food you bought not last and you didn't have the money to get more?: Never true Within the past 12 months, did you worry whether your food would run out before you got money to buy more?: Never true Do you have trouble paying for medicines?: No Do you have trouble getting transportation to medical appointments?: No Do you have trouble paying your heating and electricity bill?: No Do you have trouble taking care of your child, family member or friend?: No Do you have trouble with day-to-day activities such as bathing, preparing meals, shopping, managing finances, etc.?: No Are you currently unemployed and looking for a job?: No Are you interested in more education?: No Please select the resources that you would like help with: None Currently or been in a relationship where the following occur: no concerns reported THRIVE Score: 0 AUDIT C Alcohol Use Questionnaire (AUDIT-C) 1. How often do you have a drink containing alcohol?: Never 3. How often do you have six or more drinks on one occasion?: Never Total Score: 0 CATHERINE-7 AMB Questionnaire CATHERINE-7 Date CATHERINE - 7 assessed: 01/12/24 Feeling nervous, anxious, or on edge: 3 = Nearly every day Not being able to stop or control worryin = Nearly every day Worrying too much about different things: 3 = Nearly every day Trouble relaxin = Nearly every day Being so restless that it is hard to sit still: 3 = Nearly every day Becoming easily annoyed or irritable: 3 = Nearly every day Feeling afraid as if something awful might happen: 3 = Nearly every day Total CATHERINE-7 score (0-4 normal; 5-9 mild; 10-14 moderate; 15-21 severe): 21 Source: Developed by Shabnam Vu Kurt Kroenke and colleagues, with an educational jessee from [employer]. CATHERINE-7 Assessment Billing CATHERINE-7 Assessment Tool: CATHERINE-7 Assessment 89029 Review of Systems Const Reports headache(s) Eyes Denies loss of vision ENT Denies vertigo, Denies dizziness, Reports headache(s) and Denies sore throat Card Denies chest pain, Denies leg edema and Denies lightheadedness Resp Denies cough, Denies hemoptysis and Denies wheezing GI Denies abdominal pain, Denies melena, Denies constipation, Denies diarrhea and Denies vomiting Denies urinary frequency, Denies dysuria and Denies urinary urgency Musc Denies arthralgias, Denies joint swelling, Denies numbness and Denies tingling Neuro Denies Abnormal speech present, Denies behavioral changes, Denies vertigo, Denies dizziness, Reports headache(s), Denies loss of vision, Denies memory loss, Denies numbness and Denies tingling Psych Denies anxiety, Denies behavioral changes, Reports depression, Denies memory loss and Denies panic attacks Ricco/Lymph Denies easy bleeding and Denies easy bruising Aller/Immun Denies wheezing Physical exam (Primary Care) Vital Signs: Last Vital Signs Pulse 80 01/12/24 16:08 BP 112/70 01/12/24 16:08 Pulse Ox 99 01/12/24 16:08 Oxygen Delivery Method Room Air 01/12/24 16:08 BMI result Body Mass Index 38.3 Tobacco/Smoking Status: Tobacco use Status Tobacco use date assessed 01/12/24 01/12/24 16:16 Patient Tobacco Use Status Never used Tobacco 01/12/24 16:16 e-Cigarette/Vaping Use Never Used 01/12/24 16:16 PHQ-9: PHQ-9 Score PHQ-9: Total score 15 01/12/24 16:22 Depression Screening Interpretation: Positive Depression Screening Follow-up: Existing condition and New Medication prescribed Thrive Assessment: Date of Thrive Assessment Date Thrive assessed 01/12/24 01/12/24 16:16 Currently or been in a relationship where the following occur: no concerns reported Const General: healthy appearing, no acute distress, alert and awake Nutritional Appearance: well nourished Orientation/consciousness: oriented to person, oriented to place and oriented to time HENMT Ears: TM's normal bilaterally General nose exam: Normal nasal mucous membranes and turbinates present Eyes Conjunctivae: conjunctivae normal Sclerae: sclerae normal Pupils: Equal, round and reactive pupils present Neck Neck: Yes no lymphadenopathy and Yes no JVD Thyroid: Thyroid normal Carotids: no bruits Resp Effort & Inspection: normal respiratory effort and not tachypneic Auscultation: no crackles, no rales, no rhonchi and no wheezes Cardio Rate: regular rate Rhythm: regular rhythm Heart sounds: no murmurs and normal S1 and S2 GI Palpation (GI): Soft to palpation, nontender, no hepatomegaly and no splenomegaly Auscultation: normal bowel sounds Skin General skin exam: no rashes or lesions noted and dry skin Neuro General: oriented to person, oriented to place and oriented to time Cranial nerves: Yes Equal, round and reactive pupils present Speech: No Abnormal speech present Gait exam (Neuro): Normal gait present Motor exam (neuro): no tremor noted Extrem Right upper extremity: full ROM Left upper extremity: full ROM Right lower extremity: full ROM; no edema Left lower extremity: full ROM; no edema Psych Mental Status: mental status grossly normal Speech and movement: Normal speech and movement present Affect: normal affect Attitude: cooperative Thought process: Normal thought process present Assessment and Plan Assessment & Plan (1) MDD (major depressive disorder), recurrent episode, moderate: Code(s): F33.1 - Major depressive disorder, recurrent, moderate Plan: Patient's PHQ-9 score positive for major depressive disorder which has been existing condition for her. She reports her depressive symptoms have gotten worse over last few weeks. She does report a recent family member have which she is likely dealing with grief. She is interested in higher dose of SSRI medication to help her depressive mood. (2) Obesity (BMI 30-39.9): Code(s): E66.9 - Obesity, unspecified Plan: BMI at 38.3. Patient is interested in injectable therapy for weight loss. (3) Migraine headache: Code(s): G43.909 - Migraine, unspecified, not intractable, without status migrainosus Qualifiers: Migraine type: unspecified Status migrainosus presence: without status migrainosus Intractability: not intractable Qualified Code(s): G43.909 - Migraine, unspecified, not intractable, without status migrainosus Plan: Patient reporting more frequent migraines as of late. Has use sumatriptan though has not been helpful. Will supply patient with short-term script of Fioricet to use on a p.r.n. basis for migraine headache attacks. Medications: New fluoxetine 20 mg PO DAILY 90 caps 1RF 90 days E66.9 - Obesity, unspecified, F33.1 - Major depressive disorder, recurrent, moderate [id number] 50-325-40 mg 1 cap PO Q6H PRN 16 caps 0RF pain 4 days G43.909 - Migraine, unspecified, not intractable, without status migrainosus semaglutide (weight loss) (Jarrett) administer weeks 1 through 4 of therapy 0.25 mg (0.5 mL) subcut QWEEK 2 mL 0RF 4 weeks E66.9 - Obesity, unspecified Discontinued fluoxetine Discontinued Reason: Doctor's Order 10 mg PO DAILY 90 days 90 caps 1RF F41.9 - Anxiety disorder, unspecified tizanidine Discontinued Reason: Doctor's Order 2 mg PO Q8H PRN 20 tabs 0RF muscle spasticity M54.2 - Cervicalgia Coding Level of Care Code Est Pt Level 4 (82273) Diagnoses MDD (major depressive disorder), recurrent episode, moderate F33.1 Obesity (BMI 30-39.9) E66.9 Migraine without status migrainosus, not intractable, unspecified migraine type G43.909 Migraine type: unspecified Status migrainosus presence: without status migrainosus Intractability: not intractable Additional Codes CATHERINE-7 Assessment Billing - CATHERINE-7 Assessment Tool: CATHERINE-7 Assessment 76353 ([id number])
== END 2024-01-12 16:34 | disposition home or self-care (01) ==
PROVIDERS: PCP Physician Assistant; Visit Provider Physician Assistant
DX: G43.909 Migraine, unspecified, not intractable, without status migrainosus (principal); F33.1 Major depressive disorder, recurrent, moderate; E66.9 Obesity, unspecified; Z68.38 Body mass index [BMI] 38.0-38.9, adult
CPT/HCPCS: 96127; 99214

== ENCOUNTER 2024-01-27 10:51 | Outpatient (AMB) | payer OTHER, SELFPAY ==
[2024-01-27 10:53] VITALS: PULSE 80; TEMP 36.7; O2SAT 97
--- NOTE | 2024-01-27 10:53 | AM.OFFWIN_ITS ---
Intake Vital Signs 01/27/24 10:53 Pulse 80 Pulse Source Pulse Oximeter Temp 98.1 F Temp Source Temporal Artery Scan Pulse Oximetry (%) 97 Oxygen Delivery Method Room Air Intake Visit Reasons: EP RT Ear blockage/dizzy/Headache Intake Note: pt is here today for rt ear blockage dizzy headache started 3vdays ago Patient Tobacco Use Status: Never used Tobacco Allergies No Known Allergies Allergy (Verified 01/27/24 10:56) Do you need a note to return to daycare/school/sports/work: No HPI EP RT Ear blockage/dizzy/Headache HPI Details Patient is a 54-year-old female with a known history of recurrent cerumen impaction. She states that she has an ENT who she sometimes goes to for evacuation of the cerumen. She started to develop acute right ear blockage symptoms a few days ago, associated with ear pain and headache and mild dizziness. She denies nasal congestion, postnasal drip, sore throat, fever chills, vertigo, nausea vomiting or diarrhea, or other significant associated symptoms. [facility] Medical History Uterine fibroid Abnormal Pap smear of cervix Allergic rhinitis Anxiety Arteritis Family history of brain aneurysm Migraine headache Surgical History Hx of endoscopy Hx of colonoscopy H/O LEEP H/O right inguinal hernia repair (03/16/17) History of endometrial ablation History of tubal ligation History of toe surgery History of incision and drainage Family History Father FH: prostate cancer Sister History of breast cancer Sister History of breast cancer Son Heart attack, Onset Age: 12 Son Brain aneurysm Other Stomach cancer Social History Housing: House Alcohol intake: never Patient Tobacco Use Status: Never used Tobacco e-Cigarette/Vaping Use: Never Used Second Hand Smoke Exposure: No service: No Current occupational status: unemployed Sexual orientation: Straight/Heterosexual Gender identity: Female Cognitive needs: No Hearing needs: No Vision needs: Yes (Glaases) Review of Systems Const All systems reviewed & are unremarkable except as noted in HPI and below Physical Exam Vital Signs: Last Vital Signs Temp 98.1 F 01/27/24 10:53 Pulse 80 01/27/24 10:53 Pulse Ox 97 01/27/24 10:53 Oxygen Delivery Method Room Air 01/27/24 10:53 Const General: cooperative, healthy appearing, comfortable, no acute distress, alert, awake, Physically active and well groomed; No anxious, diaphoretic, ill appearing, intoxicated appearing, poor hygiene or tired appearing Nutritional Appearance: average body habitus Limitations: no limitations HEENT Other: After cerumen was evacuated, the external canal was visualized and found to be edematous, erythematous and there was some skin sloughing apparent. Head: Yes normal to inspection, Yes normocephalic and Yes atraumatic Ears: hearing grossly normal bilaterally, external ears normal, TM normal on the left and Abnormal EAC present (Right canal obstructed with cerumen) cerumen impaction Resp Effort & Inspection: normal respiratory effort Skin Other: Good color, warm and dry Psych Appearance: grossly normal Mental Status: mental status grossly normal Speech and movement: Normal speech and movement present Affect: normal affect Attitude: cooperative Thought process: Normal thought process present Insight: Good insight present (Psych) Judgement: Good judgement present (Psych) Office Procedures Cerumen Removal From which ear canal was the cerumen removed: right Removal: irrigation and cerumen loop/spoon Notes: patient tolerated procedure well, no complications and ear canal clear [id number] Wax Removal by Spoon/Curette Assessment & Plan Assessment & Plan (1) Cerumen impaction: Code(s): H61.20 - Impacted cerumen, unspecified ear Qualifiers: Laterality: right Qualified Code(s): H61.21 - Impacted cerumen, right ear Plan Patient presents to the walk-in with cerumen impaction on the right side, as well as discomfort to the ear canal, due to otitis externa that was apparent after ear lavage was successful in evacuating the cerumen. There were no complications with the procedure, however patient was tender to touch of the e xternal canal. I wrote her for a course of Ciprodex, and this should resolve symptoms, however she knows to go to her ENT if symptoms persist or worsen. Medications: New ciprofloxacin-dexamethasone 0.3-0.1 % 4 drps otic (ear) right Q12H 7.5 mL 0RF 7 days Coding Level of Care Code Est Pt Level 4 (99481) Diagnoses Impacted cerumen of right ear H61.21 Laterality: right CPT Codes Office Procedure - CPT: 57300-Vxg Wax Removal by Spoon/Curette ([id number])
== END 2024-01-27 12:21 | disposition home or self-care (01) ==
PROVIDERS: PCP Physician Assistant; Visit Provider Physician Assistant Medical
DX: H61.21 Impacted cerumen, right ear (principal)
CPT/HCPCS: 69210; 99214

== ENCOUNTER 2024-02-09 08:31 | Outpatient (AMB) | payer OTHER, SELFPAY ==
--- NOTE | 2024-02-09 09:06 | MHC.PC.OV ---
Vital Signs 02/09/24 09:07 Height 5 ft 2 in Weight 207 lb 4 oz BMI 37.9 BP 102/76 Blood Pressure Location Lt brachial Position Sitting Pulse 70 Pulse Source Pulse Oximeter Pulse Oximetry (%) 95 Oxygen Delivery Method Room Air Intake Visit Reasons: frequent headaches, neck tension, tiredness Intake Note: The patient presents with tension headaches, feeling pressure in the neck as though someone is pressing down, and significant fatigue persisting for the last three weeks. Are there any potential interactions among the prescribed medications? 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 Patient has a past medical history significant for major depressive disorder, obesity, fatty liver disease and anxiety. She reports over the last 3 weeks having neck pain, fatigue and frequent headaches. At last visit we discussed her weight and she was interested in starting a GLP 1 for weight loss. At the same time we did increase her fluoxetine to 20 mg due to her anxiety and depression that had worsened.. Also since last visit she did see urgent care and was treated for a right ear external canal infection with antibiotic eardrops. She unfortunately continues with muscular type pain on back of her neck and has intermittent headaches. She is in physical therapy. [facility] Medical History Uterine fibroid Abnormal Pap smear of cervix Allergic rhinitis Anxiety Arteritis Family history of brain aneurysm Migraine headache Surgical History Hx of endoscopy Hx of colonoscopy H/O LEEP H/O right inguinal hernia repair (03/16/17) History of endometrial ablation History of tubal ligation History of toe surgery History of incision and drainage Family History Father FH: prostate cancer Sister History of breast cancer Sister History of breast cancer Son Heart attack, Onset Age: 12 Son Brain aneurysm Other Stomach cancer Social History Housing: House Alcohol intake: never Patient Tobacco Use Status: Never used Tobacco e-Cigarette/Vaping Use: Never Used Second Hand Smoke Exposure: No service: No Current occupational status: unemployed Sexual orientation: Straight/Heterosexual Gender identity: Female Cognitive needs: No Hearing needs: No Vision needs: Yes (Glaases) Questionnaire Thrive Questionnaire Date Thrive assessed: 01/12/24 CATHERINE-7 AMB Questionnaire CATHERINE-7 Date CATHERINE - 7 assessed: 01/12/24 Source: Developed by Drs. Hill Roca, Shabnam Linn, Dandy Rodriguez and colleagues, with an educational jessee from [employer]. Review of Systems Const Denies headache(s) Eyes Denies loss of vision ENT Denies vertigo, Denies dizziness, Denies headache(s) and Denies sore throat Card Denies chest pain, Denies leg edema and Denies lightheadedness Resp Denies cough, Denies hemoptysis and Denies wheezing GI Denies abdominal pain, Denies melena, Denies constipation, Denies diarrhea and Denies vomiting Denies urinary frequency, Denies dysuria and Denies urinary urgency Musc Denies arthralgias, Denies joint swelling, Denies numbness and Denies tingling Neuro Denies Abnormal speech present, Denies behavioral changes, Denies vertigo, Denies dizziness, Denies headache(s), Denies loss of vision, Denies memory loss, Denies numbness and Denies tingling Psych Denies anxiety, Denies behavioral changes, Denies depression, Denies memory loss and Denies panic attacks Ricco/Lymph Denies easy bleeding and Denies easy bruising Aller/Immun Denies wheezing Physical exam (Primary Care) Vital Signs: Last Vital Signs Pulse 70 02/09/24 09:07 BP 102/76 02/09/24 09:07 Pulse Ox 95 02/09/24 09:07 Oxygen Delivery Method Room Air 02/09/24 09:07 BMI result Body Mass Index 37.9 Tobacco/Smoking Status: Tobacco use Status Tobacco use date assessed 01/12/24 02/09/24 09:08 Patient Tobacco Use Status Never used Tobacco 02/09/24 09:08 e-Cigarette/Vaping Use Never Used 02/09/24 09:08 Thrive Assessment: Date of Thrive Assessment Date Thrive assessed 01/12/24 02/09/24 09:08 Const General: healthy appearing, no acute distress, alert and awake Nutritional Appearance: well nourished Orientation/consciousness: oriented to person, oriented to place and oriented to time HENMT Ears: TM's normal bilaterally General nose exam: Normal nasal mucous membranes and turbinates present Eyes Conjunctivae: conjunctivae normal Sclerae: sclerae normal Pupils: Equal, round and reactive pupils present Neck Neck: Yes no lymphadenopathy and Yes no JVD Thyroid: Thyroid normal Carotids: no bruits Neck images: 1. TENDERNESS TO PALPATE PATIENT OVER THE AREA OUTLINED. Resp Effort & Inspection: normal respiratory effort and not tachypneic Auscultation: no crackles, no rales, no rhonchi and no wheezes Cardio Rate: regular rate Rhythm: regular rhythm Heart sounds: no murmurs and normal S1 and S2 GI Palpation (GI): Soft to palpation, nontender, no hepatomegaly and no splenomegaly Auscultation: normal bowel sounds Skin General skin exam: no rashes or lesions noted and dry skin Neuro General: oriented to person, oriented to place and oriented to time Cranial nerves: Yes Equal, round and reactive pupils present Speech: No Abnormal speech present Gait exam (Neuro): Normal gait present Motor exam (neuro): no tremor noted Extrem Right upper extremity: full ROM Left upper extremity: full ROM Right lower extremity: full ROM; no edema Left lower extremity: full ROM; no edema Psych Mental Status: mental status grossly normal Speech and movement: Normal speech and movement present Affect: normal affect Attitude: cooperative Thought process: Normal thought process present Assessment and Plan Assessment & Plan (1) MDD (major depressive disorder), recurrent episode, moderate: Code(s): F33.1 - Major depressive disorder, recurrent, moderate Plan: As per HPI we did increase her fluoxetine dose to 20 mg and she has started to have fatigue. Will reduce her dose back down to 10 mg as she was stable on this dose in the past. (2) Obesity (BMI 30-39.9): Code(s): E66.9 - Obesity, unspecified Plan: Previous BMI at 38.3. Today's BMI at 37.9. Will increase dose of Wegovy to 0.5 mg weekly (3) Neck pain: Code(s): M54.2 - Cervicalgia Plan: Patient's reported neck pain seems to be muscular as it is painful to palpation over the bottom aspect of the cervical spine and into the trapezius reason. She will continue physical therapy. Will supply patient with muscle relaxer to use on a p.r.n. basis for pain. Orders: Orders XR cervical spine 3V Today M54.2 - Cervicalgia Basic Metabolic Panel Today M54.2 - Cervicalgia Complete Blood Count no Diff Today M54.2 - Cervicalgia Medications: New semaglutide (weight loss) (Wegovy) administer weeks 5 through 8 of therapy 0.5 mg (0.5 mL) subcut QWEEK 2 mL 0RF 4 weeks E66.9 - Obesity, unspecified fluoxetine 10 mg PO DAILY 90 caps 1RF F33.1 - Major depressive disorder, recurrent, moderate baclofen 10 mg PO BID PRN 20 tabs 2RF muscle spasm 10 days M54.2 - Cervicalgia Changed From ibuprofen 800 mg PO Q8H 7 days PRN 21 tabs 0RF pain G43.909 - Migraine, unspecified, not intractable, without status migrainosus To ibuprofen 800 mg PO Q8H PRN 30 tabs 0RF pain 10 days G43.909 - Migraine, unspecified, not intractable, without status migrainosus Refilled docusate sodium 100 mg PO BID 60 caps 3RF 30 days K59.09 - Other constipation Discontinued fluoxetine Discontinued Reason: Doctor's Order 20 mg PO DAILY 90 days 90 caps 1RF E66.9 - Obesity, unspecified, F33.1 - Major depressive disorder, recurrent, moderate semaglutide (weight loss) (Wegovy) administer weeks 1 through 4 of therapy Discontinued Reason: Doctor's Order 0.25 mg (0.5 mL) subcut QWEEK 4 weeks 2 mL 0RF E66.9 - Obesity, unspecified Coding Level of Care Code Est Pt Level 4 (84770) Diagnoses MDD (major depressive disorder), recurrent episode, moderate F33.1 Obesity (BMI 30-39.9) E66.9 Neck pain M54.2
[2024-02-09 09:07] VITALS: BP 102/76; PULSE 70; O2SAT 95; BMI 37.9
== END 2024-02-09 09:31 | disposition home or self-care (01) ==
PROVIDERS: PCP Physician Assistant; Visit Provider Physician Assistant
DX: M54.2 Cervicalgia (principal); F33.1 Major depressive disorder, recurrent, moderate; E66.9 Obesity, unspecified; Z68.37 Body mass index [BMI] 37.0-37.9, adult
CPT/HCPCS: 99214

== ENCOUNTER 2024-02-10 07:45 | Outpatient (REF) | payer OTHER, SELFPAY ==
--- NOTE | ~2024-02-10 | XR_ITS ---
EXAMINATION: XR CERVICAL SPINE CLINICAL INFORMATION: Neck pain COMPARISON: None available. TECHNIQUE: 3 views of the cervical spine were obtained. FINDINGS: Prevertebral soft tissues normal. Vertebral body heights and disc space heights are preserved. Small bilateral cervical ribs project off of C7. The lateral masses of C1 and odontoid are intact. XR/XR cervical spine 3V IMPRESSION: Unremarkable study.
[2024-02-10 09:07] LABS: Hematocrit 43.2 % (37.0-47.0); Hemoglobin 14.5 g/dl (12.0-16.0); Mean Corpuscular HGB Conc 33.6 g/dl (31.0-35.0); Mean Corpuscular Hemoglobin 31.4 pg (27.0-33.0); Mean Corpuscular Volume 93.5 fL (80.0-98.0); Mean Platelet Volume 11.3 fL (9.4-12.3); Platelet Count 228 X10*3/uL (160-400); Red Blood Count 4.62 X10*6/uL (4.20-5.50); Red Cell Distribution Width 12.1 % (11.0-16.0); White Blood Count 5.8 X10*3/uL (4.8-10.8)
[2024-02-10 09:59] LABS: Alanine Aminotransferase 19 U/L (0-31); Albumin Level 4.5 g/dL (3.5-5.0); Alkaline Phosphatase 84 U/L (39-117); Anion Gap 15 (12-20); Aspartate Amino Transferase 17 U/L (5-31); Bilirubin Total 0.6 mg/dL (0.0-1.0); Blood Urea Nitrogen 12 mg/dL (9-16); Calcium 10.5 mg/dL (8.4-10.2); Carbon Dioxide 24 mmol/L (22-29); Chloride 105 mmol/L (96-108); Cholesterol 190 mg/dL (<200); Estimated Glomerular Filt Rate > 60; Glucose Fasting 93 mg/dL (60-99); Glucose Random 93 mg/dL (60-115); HDL Cholesterol 48 mg/dL (>40); LDL Cholesterol Calculated 126 mg/dL (<100); Potassium 4.4 mmol/L (3.3-5.1); Sodium 140 mmol/L (135-145); Total Protein 7.7 g/dL (6.5-8.0); Triglycerides 80 mg/dL (<150)
== END 2024-02-10 07:46 | disposition home or self-care (01) ==
LOC: HO.XRAY 07:45
PROVIDERS: PCP Physician Assistant; Visit Provider Physician Assistant
DX: Z13.1 Encounter for screening for diabetes mellitus (principal); Z13.220 Encounter for screening for lipoid disorders; M54.2 Cervicalgia
CPT/HCPCS: 36415; 72040; 80048; 80053; 80061; 85027

== ENCOUNTER 2024-04-03 10:33 | Outpatient (REF) | payer OTHER, SELFPAY | END 2024-04-03 10:34 | disposition home or self-care (01) | LOC: HO.MAMMO 10:33 | PROVIDERS: PCP Physician Assistant; Visit Provider Physician Assistant | DX: Z12.31 Encounter for screening mammogram for malignant neoplasm of breast (principal) | CPT/HCPCS: 77063; 77067 ==

== ENCOUNTER → 2024-04-03 10:45 | Outpatient (BNV) | payer OTHER, SELFPAY | PROVIDERS: PCP Physician Assistant; Visit Provider Radiology Diagnostic Radiology | DX: Z12.31 Encounter for screening mammogram for malignant neoplasm of breast (principal) | CPT/HCPCS: 77063; 77067 ==

== ENCOUNTER 2024-04-05 11:28 | Outpatient (REF) | payer OTHER, SELFPAY ==
--- NOTE | ~2024-04-05 | XR_ITS ---
EXAMINATION: XR KNEE, LEFT CLINICAL INFORMATION: Pain in left knee for 1 month and not getting better, patient states fall. COMPARISON: None available. TECHNIQUE: Three views of the left knee. FINDINGS: Moderate joint effusion. Mild narrowing of the medial and patellofemoral compartments with marginal osteophytes. XR/XR knee LT 3V IMPRESSION: Moderate joint effusion. Mild degenerative changes.
[2024-04-05 12:05] LABS: Hematocrit 42.5 % (37.0-47.0); Hemoglobin 14.5 g/dl (12.0-16.0); Mean Corpuscular HGB Conc 34.1 g/dl (31.0-35.0); Mean Corpuscular Hemoglobin 31.3 pg (27.0-33.0); Mean Corpuscular Volume 91.8 fL (80.0-98.0); Mean Platelet Volume 11.1 fL (9.4-12.3); Platelet Count 265 X10*3/uL (160-400); Red Blood Count 4.63 X10*6/uL (4.20-5.50); Red Cell Distribution Width 12.1 % (11.0-16.0)
== END 2024-04-05 11:29 | disposition home or self-care (01) ==
LOC: HO.XRAY 11:28
PROVIDERS: PCP Physician Assistant; Visit Provider Physician Assistant
DX: M25.562 Pain in left knee (principal); Z13.1 Encounter for screening for diabetes mellitus
CPT/HCPCS: 36415; 73562; 85027

== ENCOUNTER 2024-04-11 13:20 | Outpatient (AMB) | payer OTHER, SELFPAY ==
[2024-04-11 13:38] VITALS: BP 110/72; PULSE 85; O2SAT 98; BMI 37.4
--- NOTE | 2024-04-11 13:38 | A.OFFPC_ITS ---
Vital Signs 04/11/24 13:38 Height 5 ft 2 in Weight 204 lb 8 oz BMI 37.4 BP 110/72 Blood Pressure Location Lt brachial Position Sitting Pulse 85 Pulse Source Pulse Oximeter Pulse Oximetry (%) 98 Oxygen Delivery Method Room Air Intake Visit Reasons: PE Intake Note: Patient is here today for a physical. 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 Inspector Required: No Accompanied by: Self / Same As Patient Allergies No Known Allergies Allergy (Verified 04/11/24 13:39) Medication List - Last Reconciled 04/11/24 by Ellis Arevalo PA-C acetaminophen (Tylenol Extra Strength) 500 mg PO TID PRN baclofen 10 mg PO BID PRN 10 days otcsksxugd-ahdhxhsmjpbtm-oihl 50-325-40 mg 1 cap PO Q6H PRN 4 days docusate sodium 100 mg PO BID 30 days fluoxetine 10 mg PO DAILY ibuprofen 800 mg PO Q8H PRN 10 days lorazepam 0.5 mg PO BEDTIME PRN 10 days meclizine 12.5 mg PO TID PRN 7 days omeprazole 20 mg PO DAILY semaglutide (weight loss) (Wegovy) 1 mg (0.5 mL) subcut QWEEK 4 weeks sumatriptan succinate take 1 tab at onset of headache; if no relief may repeat 1 tab after at least 2 hrs; max = 4 tabs/24 hr PO Tobacco use date assessed: 01/12/24 Dental Screening Dental Screen Date: 01/12/24 HPI PE HPI Details Patient is a 54-year-old female here today for routine annual physical. Patient has a past medical history significant for obesity, migraines, diverticulosis common fatty liver disease. .. Obesity: Patient continues on Wegovy and has noted some minimal weight loss. She is interested in increasing dose for added benefit of continued weight loss. She admits to not being as physically active as she should be. .. GERD: That have recent endoscopy and was positive for H pylori. Patient was treated with triple therapy.She did have repeat H pylori breath test which was negative. She continues on PPI therapy with good effect. .. Colorectal cancer screening: Colonoscopy done in 2021 Mammogram: Up-to-date with mammogram Vaccines: Up-to-date with COVID vaccine, tetanus vaccine, considering shingles vaccine [facility] Medical History Uterine fibroid Abnormal Pap smear of cervix Allergic rhinitis Anxiety Arteritis Family history of brain aneurysm Migraine headache Surgical History Hx of endoscopy Hx of colonoscopy H/O LEEP H/O right inguinal hernia repair (03/16/17) History of endometrial ablation History of tubal ligation History of toe surgery History of incision and drainage Family History Father FH: prostate cancer Sister History of breast cancer Sister History of breast cancer Son Heart attack, Onset Age: 12 Son Brain aneurysm Other Stomach cancer Social History (Updated 04/11/24 @ 13:45 by Ellis Arevalo PA-C) Housing: House Alcohol intake: current Alcohol intake frequency: holidays/special occasions only Patient Tobacco Use Status: Never used Tobacco e-Cigarette/Vaping Use: Never Used Second Hand Smoke Exposure: No service: No Current occupational status: unemployed Sexual orientation: Straight/Heterosexual Gender identity: Female Cognitive needs: No Hearing needs: No Vision needs: Yes (Glaases) Questionnaire Thrive Questionnaire Date Thrive assessed: 01/12/24 CATHERINE-7 AMB Questionnaire CATHERINE-7 Date CATHERINE - 7 assessed: 01/12/24 Source: Developed by Drs. Hill Roca, Shabnam Linn, Dandy Rodriguez and colleagues, with an educational jsesee from [employer]. Review of Systems Const Denies body aches, Denies chills, Denies excessive sweating, Denies fatigue, Denies fever(s) and Denies headache(s) Eyes Denies blurry vision ENT Denies dysphagia, Denies vertigo, Denies dizziness, Denies headache(s), Denies hearing loss and Denies tinnitus Card Denies chest pain, Denies chest pain with activity, Denies syncope, Denies irregular heart rhythm and Denies dyspnea Resp Denies chest congestion, Denies cough, Denies hemoptysis, Denies dyspnea and Denies wheezing GI Denies abdominal pain, Denies melena, Denies hematochezia, Denies coffee ground emesis, Denies dysphagia, Denies diarrhea, Denies nausea and Denies vomiting Denies urinary frequency, Denies dysuria, Denies urinary hesitancy and Denies urinary urgency Musc Denies arthralgias, Denies limited range of motion, Denies muscle cramps and Denies muscle weakness Skin/Breast Denies rash and Denies skin ulcer Neuro Denies Abnormal speech present, Denies confusion, Denies vertigo, Denies dizziness, Denies syncope, Denies headache(s), Denies memory loss and Denies seizure-like activity Psych Denies anxiety, Denies confusion, Denies depression, Denies memory loss, Denies panic attacks and Denies paranoia Endo Denies excessive sweating, Denies fatigue, Denies flushing, Denies polydipsia and Denies polyuria Aller/Immun Denies wheezing Physical exam (Primary Care) Vital Signs: Last Vital Signs Pulse 85 04/11/24 13:38 BP 110/72 04/11/24 13:38 Pulse Ox 98 04/11/24 13:38 Oxygen Delivery Method Room Air 04/11/24 13:38 BMI result Body Mass Index 37.4 Tobacco/Smoking Status: Tobacco use Status Tobacco use date assessed 01/12/24 04/11/24 13:39 Patient Tobacco Use Status Never used Tobacco 04/11/24 13:39 e-Cigarette/Vaping Use Never Used 04/11/24 13:39 Thrive Assessment: Date of Thrive Assessment Date Thrive assessed 01/12/24 04/11/24 13:39 Const General: cooperative, comfortable, no acute distress, alert and awake; No confusion Orientation/consciousness: oriented to person, oriented to place, patient oriented x3 and No confusion HENMT Head: Yes normocephalic Ears: external ears normal and TM's normal bilaterally Face and sinus: No sinus tenderness Mouth: Normal oral and palatal mucosa present and tongue normal Teeth and gingiva: dentition normal and gingiva normal Throat: Yes posterior oropharynx normal, Yes tonsils normal and Yes uvula midline Eyes Conjunctivae: conjunctivae normal Sclerae: sclerae normal Pupils: Equal, round and reactive pupils present EOM: EOMs intact bilaterally Direct Ophthalmoscopy: No no photophobia Neck Neck: Yes no lymphadenopathy, No tender and Yes no JVD Thyroid: Thyroid normal Carotids: no bruits Chest Chest palpation & inspection: no tenderness Resp Effort & Inspection: normal respiratory effort, no audible wheezes, not labored and no stridor Auscultation: no crackles, no rales, no rhonchi and no wheezes Cardio Jugular venous distension: no JVD Rate: regular rate, not bradycardic and not tachycardic Rhythm: regular rhythm Bruits: no carotid bruits Peripheral pulses: Peripheral pulses 2+ throughout GI Inspection: Yes normal to inspection, No abdominal wall ecchymosis and No visible herniation Palpation (GI): Soft to palpation, nontender, no guarding, not rigid and No hepatosplenomegaly present Auscultation: normoactive bowel sounds General: Yes no CVA tenderness Back/Spine/Pelvis Back: no CVA tenderness and No back tenderness Cervical Spine: cervical ROM normal Thoracic/Lumbar Spine: thoracic and lumbar spine normal to inspection, straight leg raise negative bilaterally, No thoraco-lumbar ROM limited and No lumbar spinal tenderness Skin Lesions: no lesions Rashes: no rashes Wounds: no wounds Neuro General: oriented to person, oriented to place, patient oriented x3, CN's II-XI intact bilaterally and No confusion Cranial nerves: Yes Equal, round and reactive pupils present and Yes Normal accommodation reflex present Cognition (Neuro): normal cognition Speech: No Abnormal speech present Gait exam (Neuro): Normal gait present Motor exam (neuro): 5/5 motor strength present throughout Extrem Right upper extremity: full ROM; no cyanosis Left upper extremity: full ROM; no cyanosis Right lower extremity: no edema Left lower extremity: no edema Psych Appearance: grossly normal Mental Status: mental status grossly normal Affect: normal affect Attitude: cooperative Thought process: Normal thought process present Assessment and Plan Assessment & Plan (1) Annual physical exam: Code(s): Z00.00 - Encounter for general adult medical examination without abnormal findings (2) Obesity (BMI 30-39.9): Code(s): E66.9 - Obesity, unspecified Plan: Previous BMI at 38.3. Today's BMI 37.4 Will increase dose of Wegovy to 1.7 mg weekly for additional weight loss benefit. She has not been as physically active as she would like to be due to some pains in her lower extremities though promises to try to be more physically active (3) Screening for diabetes mellitus (DM): Code(s): Z13.1 - Encounter for screening for diabetes mellitus (4) GERD (gastroesophageal reflux disease): Comment: Continue PPI, avoid culprits Code(s): K21.9 - Gastro-esophageal reflux disease without esophagitis Qualifiers: Esophagitis presence: without esophagitis Qualified Code(s): K21.9 - Gastro-esophageal reflux disease without esophagitis Plan: She reports her GERD symptoms have been well controlled. Continues with omeprazole on a daily basis. She has been trying to make dietary modifications as well. Medications: New semaglutide (weight loss) (Wegovy) 1.7 mg (0.75 mL) subcut QWEEK 4 weeks 3 mL 3RF E66.9 - Obesity, unspecified Discontinued semaglutide (weight loss) (Wegovy) administer weeks 9 through 12 of therapy Discontinued Reason: Doctor's Order 1 mg (0.5 mL) subcut QWEEK 4 weeks 2 mL 3RF E66.09 - Other obesity due to excess calories, Z68.36 - Body mass index [BMI] 36.0-36.9, adult Coding Level of Care Code Est Pt [facility] Care 40-64y(51120) Diagnoses Annual physical exam Z00.00 Obesity (BMI 30-39.9) E66.9 Screening for diabetes mellitus (DM) Z13.1 Gastroesophageal reflux disease without esophagitis K21.9 Esophagitis presence: without esophagitis
== END 2024-04-11 13:56 | disposition home or self-care (01) ==
PROVIDERS: PCP Physician Assistant; Visit Provider Physician Assistant
DX: Z00.00 Encounter for general adult medical examination without abnormal findings (principal); E66.9 Obesity, unspecified; Z68.37 Body mass index [BMI] 37.0-37.9, adult; Z13.1 Encounter for screening for diabetes mellitus; K21.9 Gastro-esophageal reflux disease without esophagitis
CPT/HCPCS: 99396

== ENCOUNTER 2024-04-26 12:51 | Outpatient (REF) | payer OTHER, SELFPAY ==
--- NOTE | ~2024-04-26 | XR_ITS ---
EXAMINATION: XR KNEE, LEFT CLINICAL INFORMATION: Left knee pain. COMPARISON: X-rays 04/05/2024. TECHNIQUE: AP bilateral knees, one view. Left knee, two views. FINDINGS: Left Knee: No evidence of acute fracture. Alignment is anatomic. Small suprapatellar joint fluid. Mild patellofemoral joint space narrowing, marginal osteophytes. No abnormal soft tissue calcification. XR/XR knee LT 3V IMPRESSION: Mild patellofemoral arthritis. Small effusion. Study is assigned for dictation on May 18, 2024
== END 2024-04-26 12:52 | disposition home or self-care (01) ==
LOC: HO.HOSX 12:51
DX: M17.12 Unilateral primary osteoarthritis, left knee (principal)
CPT/HCPCS: 73562; 99202

== ENCOUNTER 2024-04-26 12:54 | Outpatient (AMB) | payer OTHER, SELFPAY ==
--- NOTE | 2024-04-26 13:06 | MHC.OFFVIS ---
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 Patient reports that she had pain in the left knee for quite some time now. Her pain is mostly felt at night and occasionally in the morning when going down the stairs. She takes Tylenol/Ibuprofen PRN for her pain which offers mild relief. No history, of injections or physical therapy. 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 The patient reports that her pain is worst 1st thing in the morning after she wakes up, and she feels this is due to the fact that she tends to sleep with her knees in a high degree of flexion. The patient also reports that stairs have become difficult for her. Patient reports that her pain is mostly located on the anterior medial aspect of the knee. Patient reports that she was previously evaluated by Primary Care Provider, who told her she had osteoarthritis and ?extra fluid in my knee?. Patient reports that she has tried Tylenol and ibuprofen for relief, to minimal effect. Patient reports that she would like to start with conservative measures prior to injections. [facility] Medical History Uterine fibroid Abnormal Pap smear of cervix Allergic rhinitis Anxiety Arteritis Family history of brain aneurysm Migraine headache Surgical History Hx of endoscopy Hx of colonoscopy H/O LEEP H/O right inguinal hernia repair (03/16/17) History of endometrial ablation History of tubal ligation History of toe surgery History of incision and drainage Family History Father FH: prostate cancer Sister History of breast cancer Sister History of breast cancer Son Heart attack, Onset Age: 12 Son Brain aneurysm Other Stomach cancer Social History Housing: House Alcohol intake: current Alcohol intake frequency: holidays/special occasions only Patient Tobacco Use Status: Never used Tobacco e-Cigarette/Vaping Use: Never Used Second Hand Smoke Exposure: No service: No Current occupational status: unemployed Sexual orientation: Straight/Heterosexual Gender identity: Female Cognitive needs: No Hearing needs: No Vision needs: Yes (Glaases) Review of Systems Const All systems reviewed & are unremarkable except as noted in HPI and below Physical Exam Vital Signs: BMI result Body Mass Index 37.3 Extrem Other: Mild suprapatellar any anterior knee edema noted Patient reports tenderness to palpation on the medial aspect of the anterior left knee, just medial to the medial pole of the patella No tenderness to the lateral or posterior aspects of the knee Patient is able to extend the knee to 180 degrees, as well as flexing to approximately 130 degrees without difficulty Positive patellar grind, medial and lateral Negative Zohra's Sensation to the distal left lower extremity intact Capillary refill brisk Results Reviewed Results Reviewed: X-rays obtained in the office today and independently reviewed by me, Darrel Bowers PA-C, demonstrate mild tibiofemoral arthritis of the left knee, with mild to moderate patellofemoral arthritis also noted. Assessment & Plan Assessment & Plan (1) Osteoarthritis of left knee: Code(s): M17.12 - Unilateral primary osteoarthritis, left knee Category: Medical Qualifiers: Osteoarthritis type: primary Qualified Code(s): M17.12 - Unilateral primary osteoarthritis, left knee Plan 1. Left knee osteoarthritis Patient states that she would like to proceed with conservative measures prior to injections Patient given reaction knee brace for additional patellar stability Patient is referred to physical therapy for strengthening about the knee, namely quad strengthening to minimize lateralization of the patella. Patient is amenable to this plan Patient can follow-up p.r.n. with any concerns Orders: Orders XR knee LT 3V Today M25.562 - Pain in left knee PT Evaluation and Treatment Today M17.12 - Unilateral primary osteoarthritis, left knee Coding Level of Care Code New Pt Level 3 (71142) Diagnoses Primary osteoarthritis of left knee M17.12 Osteoarthritis type: primary
[2024-04-26 13:07] VITALS: BMI 37.3
== END 2024-04-26 13:49 | disposition home or self-care (01) ==
PROVIDERS: PCP Physician Assistant
DX: M17.12 Unilateral primary osteoarthritis, left knee (principal)
CPT/HCPCS: 99203

== ENCOUNTER 2024-06-06 13:40 | Outpatient (AMB) | payer OTHER, SELFPAY ==
[2024-06-06 13:47] VITALS: BP 110/80; PULSE 90; O2SAT 96; BMI 38.4
--- NOTE | 2024-06-06 13:47 | MHC.PC.OV ---
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 Accompanied by: Daughter Allergies No Known Allergies Allergy (Verified 06/06/24 13:47) Medication List - Last Reconciled 06/06/24 by Ellis Arevalo PA-C acetaminophen (Tylenol Extra Strength) 500 mg PO TID PRN baclofen 10 mg PO BID PRN 10 days jvjtdnzvqq-xufdhtpoajmsz-kcnm 50-325-40 mg 1 cap PO Q6H PRN 4 days docusate sodium 100 mg PO BID 30 days fluoxetine 10 mg PO DAILY ibuprofen 800 mg PO Q8H PRN 10 days lorazepam 0.5 mg PO BEDTIME PRN 10 days meclizine 12.5 mg PO TID PRN 7 days omeprazole 20 mg PO DAILY semaglutide (weight loss) (Wegovy) 0.25 mg (0.5 mL) subcut QWEEK 4 weeks sumatriptan succinate take 1 tab at onset of headache; if no relief may repeat 1 tab after at least 2 hrs; max = 4 tabs/24 hr PO Tobacco use date assessed: 01/12/24 Dental Screening Dental Screen Date: 01/12/24 HPI 8 Week F/U HPI Details Patient is a 54-year-old female here today for follow-up visit. Patient has a past medical history significant for obesity, migraines, diverticulosis , fatty liver disease. Concern--> reports having COVID 4 weeks ago and has ever since had a dry cough. Has been using gkvx-iqq-zosezmw cough syrups and cough drops without much relief. .. Obesity: Patient continues on Wegovy and has noted some minimal weight loss. Unfortunately at higher doses (1.7mg) she had side effects . Unfortunately the insurance has not covered staying on a lower dose (1mg). Will try an alternative GLP 1. She does report recently started go to the gym more frequently. [facility] Medical History Uterine fibroid Abnormal Pap smear of cervix Allergic rhinitis Anxiety Arteritis Family history of brain aneurysm Migraine headache Surgical History Hx of endoscopy Hx of colonoscopy H/O LEEP H/O right inguinal hernia repair (03/16/17) History of endometrial ablation History of tubal ligation History of toe surgery History of incision and drainage Family History Father FH: prostate cancer Sister History of breast cancer Sister History of breast cancer Son Heart attack, Onset Age: 12 Son Brain aneurysm Other Stomach cancer Social History Housing: House Alcohol intake: current Alcohol intake frequency: holidays/special occasions only Patient Tobacco Use Status: Never used Tobacco e-Cigarette/Vaping Use: Never Used Second Hand Smoke Exposure: No service: No Current occupational status: unemployed Sexual orientation: Straight/Heterosexual Gender identity: Female Cognitive needs: No Hearing needs: No Vision needs: Yes (Glaases) Questionnaire Thrive Questionnaire Date Thrive assessed: 01/12/24 CATHERINE-7 AMB Questionnaire CATHERINE-7 Date CATHERINE - 7 assessed: 01/12/24 Source: Developed by Drs. Hill Roca, Shabnam Linn, Dandy Rodriguez and colleagues, with an educational jessee from [employer]. Review of Systems Const Denies headache(s) Eyes Denies loss of vision ENT Denies vertigo, Denies dizziness, Denies headache(s) and Denies sore throat Card Denies chest pain, Denies leg edema and Denies lightheadedness Resp Reports cough, Denies hemoptysis and Denies wheezing GI Denies abdominal pain, Denies melena, Denies constipation, Denies diarrhea and Denies vomiting Denies urinary frequency, Denies dysuria and Denies urinary urgency Musc Denies arthralgias, Denies joint swelling, Denies numbness and Denies tingling Neuro Denies Abnormal speech present, Denies behavioral changes, Denies vertigo, Denies dizziness, Denies headache(s), Denies loss of vision, Denies memory loss, Denies numbness and Denies tingling Psych Denies anxiety, Denies behavioral changes, Denies depression, Denies memory loss and Denies panic attacks Ricco/Lymph Denies easy bleeding and Denies easy bruising Aller/Immun Denies wheezing Physical exam (Primary Care) Vital Signs: Last Vital Signs Pulse 90 06/06/24 13:47 BP 110/80 06/06/24 13:47 Pulse Ox 96 06/06/24 13:47 Oxygen Delivery Method Room Air 06/06/24 13:47 BMI result Body Mass Index 38.4 Tobacco/Smoking Status: Tobacco use Status Tobacco use date assessed 01/12/24 06/06/24 13:49 Patient Tobacco Use Status Never used Tobacco 06/06/24 13:49 e-Cigarette/Vaping Use Never Used 06/06/24 13:49 Thrive Assessment: Date of Thrive Assessment Date Thrive assessed 01/12/24 06/06/24 13:49 Const General: healthy appearing, no acute distress, alert and awake Nutritional Appearance: well nourished Orientation/consciousness: oriented to person, oriented to place and oriented to time HENMT Ears: TM's normal bilaterally General nose exam: Normal nasal mucous membranes and turbinates present Eyes Conjunctivae: conjunctivae normal Sclerae: sclerae normal Pupils: Equal, round and reactive pupils present Neck Neck: Yes no lymphadenopathy and Yes no JVD Thyroid: Thyroid normal Carotids: no bruits Resp Effort & Inspection: normal respiratory effort and not tachypneic Auscultation: no crackles, no rales, no rhonchi and no wheezes Cardio Rate: regular rate Rhythm: regular rhythm Heart sounds: no murmurs and normal S1 and S2 GI Palpation (GI): Soft to palpation, nontender, no hepatomegaly and no splenomegaly Auscultation: normal bowel sounds Skin General skin exam: no rashes or lesions noted and dry skin Neuro General: oriented to person, oriented to place and oriented to time Cranial nerves: Yes Equal, round and reactive pupils present Speech: No Abnormal speech present Gait exam (Neuro): Normal gait present Motor exam (neuro): no tremor noted Extrem Right upper extremity: full ROM Left upper extremity: full ROM Right lower extremity: full ROM; no edema Left lower extremity: full ROM; no edema Psych Mental Status: mental status grossly normal Speech and movement: Normal speech and movement present Affect: normal affect Attitude: cooperative Thought process: Normal thought process present Assessment and Plan Assessment & Plan (1) Obesity (BMI 30-39.9): Code(s): E66.9 - Obesity, unspecified Plan: Did find benefit on lower doses of Wegovy though due to insurance coverage was not able to tolerate higher dose at 1.7 mg. Was trying to reduce her dose back down to 1 mg though insurance did not coverage. Will try an alternative GLP 1 (mounjauro) . Will start at 2.5 mg and up titrate (2) Cough: Code(s): R05.9 - Cough, unspecified Qualifiers: Cough type: subacute Qualified Code(s): R05.2 - Subacute cough Plan: Reports she has had a dry cough over the last 2 weeks. She reports 3 weeks ago having COVID. Likely has a post viral cough syndrome. Will supply patient with a and albuterol inhaler and cough syrup (3) Bronchitis: Code(s): J40 - Bronchitis, not specified as acute or chronic Plan: As above Orders: Orders XR chest 2V 06/06/24 R05.2 - Subacute cough Medications: New codeine-guaifenesin 10-100 mg/5 mL 5 mL PO Q6H PRN 120 mL 0RF cough 5 days J40 - Bronchitis, not specified as acute or chronic albuterol sulfate 90 mcg/actuation 1 inh inhalation QID 8.5 grams 0RF shortness of breath or wheezing 30 days J40 - Bronchitis, not specified as acute or chronic, R05.2 - Subacute cough tirzepatide (weight loss) (Zepbound) for 4 weeks 2.5 mg (0.5 mL) subcut QWEEK 2 mL 0RF 4 weeks E66.9 - Obesity, unspecified Discontinued semaglutide (weight loss) (Wegovy) administer weeks 1 through 4 of therapy Discontinued Reason: Doctor's Order 0.25 mg (0.5 mL) subcut QWEEK 4 weeks 2 mL 0RF E66.09 - Other obesity due to excess calories, K76.0 - Fatty (change of) liver, not elsewhere classified, Z68.36 - Body mass index [BMI] 36.0-36.9, adult Coding Level of Care Code Est Pt Level 4 (02378) Diagnoses Obesity (BMI 30-39.9) E66.9 Subacute cough R05.2 Cough type: subacute Bronchitis J40
== END 2024-06-06 14:04 | disposition home or self-care (01) ==
PROVIDERS: PCP Physician Assistant; Visit Provider Physician Assistant
DX: R05.2 Subacute cough (principal); E66.9 Obesity, unspecified; J40 Bronchitis, not specified as acute or chronic; Z68.38 Body mass index [BMI] 38.0-38.9, adult
CPT/HCPCS: 99214

== ENCOUNTER 2024-06-07 12:57 | Outpatient (REF) | payer OTHER, SELFPAY ==
--- NOTE | ~2024-06-07 | XR_ITS ---
EXAMINATION: XR CHEST CLINICAL INFORMATION: Subacute cough COMPARISON: 11/11/2020, 03/06/2020 TECHNIQUE: 2 views of the chest were obtained. FINDINGS: There is no gross pneumothorax. Heart size is normal. No pleural effusion. No focal consolidation. Mild dextroscoliosis of the thoracolumbar spine. XR/XR chest 2V IMPRESSION: No evidence of pneumonia. Electronically signed by: Maureen Cline MD 06/27/2024 10:13 AM EDT
== END 2024-06-07 12:58 | disposition home or self-care (01) ==
LOC: HO.XRAY 12:57
PROVIDERS: PCP Physician Assistant; Visit Provider Physician Assistant
DX: R05.2 Subacute cough (principal)
CPT/HCPCS: 71046

== ENCOUNTER 2024-06-22 09:24 | Outpatient (REF) | payer OTHER, SELFPAY | END 2024-06-22 09:25 | disposition home or self-care (01) | LOC: HO.HAP 09:24 | PROVIDERS: Visit Provider Otolaryngology | DX: Z13.89 Encounter for screening for other disorder (principal) ==

== ENCOUNTER 2024-07-24 07:38 | Outpatient (AMB) | payer OTHER, SELFPAY ==
[2024-07-24 07:47] VITALS: BP 136/82; PULSE 88; O2SAT 98; BMI 38.4
--- NOTE | 2024-07-24 07:47 | MHC.PC.OV ---
Vital Signs 07/24/24 07:47 Height 5 ft 2 in Weight 210 lb BMI 38.4 BP 136/82 Blood Pressure Location Lt brachial Position Sitting Pulse 88 Pulse Source Pulse Oximeter Pulse Oximetry (%) 98 Oxygen Delivery Method Room Air Intake Visit Reasons: 6Wk F/U weight loss Allergies No Known Allergies Allergy (Verified 07/24/24 08:00) Medication List - Last Reconciled 07/24/24 by Ellis Arevalo PA-C acetaminophen (Tylenol Extra Strength) 500 mg PO TID PRN albuterol sulfate 90 mcg/actuation 1 inh inhalation QID 30 days baclofen 10 mg PO BID PRN 10 days bygbawqtcb-uitjseznsqirp-rdzw 50-325-40 mg 1 cap PO Q6H PRN 4 days codeine-guaifenesin 10-100 mg/5 mL 5 mL PO Q6H PRN 5 days docusate sodium 100 mg PO BID 30 days fluoxetine 10 mg PO DAILY ibuprofen 800 mg PO Q8H PRN 10 days lorazepam 0.5 mg PO BEDTIME PRN 10 days meclizine 12.5 mg PO TID PRN 7 days omeprazole 20 mg PO DAILY sumatriptan succinate take 1 tab at onset of headache; if no relief may repeat 1 tab after at least 2 hrs; max = 4 tabs/24 hr PO tirzepatide (weight loss) (Zepbound) 2.5 mg (0.5 mL) subcut QWEEK 4 weeks tirzepatide (weight loss) (Zepbound) 5 mg (0.5 mL) subcut QWEEK 4 weeks Tobacco use date assessed: 01/12/24 Dental Screening Dental Screen Date: 01/12/24 HPI 6Wk F/U weight loss HPI Details Patient is a 54-year-old female here today for follow-up visit. Patient has a past medical history significant for obesity, migraines, diverticulosis , fatty liver disease. Class 2 obesity-> unfortunately has not lost weight since last office visit. She reports she has been under lot of stress due to personal issues in the cancer treatment her is going under in [place]. She has been living in [place] over the last 3 weeks and her diet has been very poor. She reports originally when starting Zepbound injection she was losing weight though due to stress and eating indiscretion she has not been able to lose weight. She has stopped going to the gym as well. PLAN: She is now back home and will restart her normal diet and going regularly to the gym. .. Insomnia: Patient has been suffering with insomnia over the last few months due to stress and anxiety. Her is undergoing cancer treatment in [place] which is causing her more stress and anxiety. She is trying kdfn-jwl-mmoyutv sleep aids though have not been effective. She has been on zolpidem in the past with good relief of her insomnia PFSH Medical History Uterine fibroid Abnormal Pap smear of cervix Allergic rhinitis Anxiety Arteritis Family history of brain aneurysm Migraine headache Surgical History Hx of endoscopy Hx of colonoscopy H/O LEEP H/O right inguinal hernia repair (03/16/17) History of endometrial ablation History of tubal ligation History of toe surgery History of incision and drainage Family History Father FH: prostate cancer Sister History of breast cancer Sister History of breast cancer Son Heart attack, Onset Age: 12 Son Brain aneurysm Other Stomach cancer Social History Housing: House Alcohol intake: current Alcohol intake frequency: holidays/special occasions only Patient Tobacco Use Status: Never used Tobacco Tobacco use type: Cigarette e-Cigarette/Vaping Use: Never Used Second Hand Smoke Exposure: No service: No Current occupational status: unemployed Sexual orientation: Straight/Heterosexual Gender identity: Female Cognitive needs: No Hearing needs: No Vision needs: Yes (Glaases) Questionnaire PHQ-9 Over the last 2 weeks, how often have you been bothered by any of the following problems? 1. Little interest or pleasure in doing things: more than half the days 2. Feeling down, depressed, or hopeless: more than half the days 3. Trouble falling or staying asleep, or sleeping too much: more than half the days 4. Feeling tired or having little energy: several days 5. Poor appetite or overeating: nearly every day 6. Feeling bad about yourself - or that you are a failure or have let yourself or your family down: more than half the days 7. Trouble concentrating on things, such as reading the newspaper or watching television: not at all 8. Moving or speaking so slowly that other people could have noticed. Or the opposite - being so fidgety or restless that you have been moving around a lot more than usual: nearly every day 9. Thoughts that you would be better off or of hurting yourself in some way: not at all Total score: 15 Depression Screening Interpretation: Positive Depression Screening Follow-up: Existing condition and New Medication prescribed Depression Screening Done: Yes 69121 - PHQ-9 Billing: Yes Source: Developed by Drs. Hill Roca, Shabnam Linn, Dandy Rodriguez and colleagues, with an educational jessee from [employer]. Thrive Questionnaire Date Thrive assessed: 01/12/24 Are you currently unemployed and looking for a job?: Yes AUDIT C Alcohol Use Questionnaire (AUDIT-C) 1. How often do you have a drink containing alcohol?: Never 3. How often do you have six or more drinks on one occasion?: Never Total Score: 0 CATHERINE-7 AMB Questionnaire CATHERINE-7 Date CATHERINE - 7 assessed: 01/12/24 Source: Developed by Drs. Hill Roca, Shabnam Linn, Dandy Rodriguez and colleagues, with an educational jessee from [employer]. Review of Systems Const Denies headache(s) Eyes Denies loss of vision ENT Denies vertigo, Denies dizziness, Denies headache(s) and Denies sore throat Card Denies chest pain, Denies leg edema and Denies lightheadedness Resp Denies cough, Denies hemoptysis and Denies wheezing GI Denies abdominal pain, Denies melena, Denies constipation, Denies diarrhea and Denies vomiting Denies urinary frequency, Denies dysuria and Denies urinary urgency Musc Denies arthralgias, Denies joint swelling, Denies numbness and Denies tingling Neuro Denies Abnormal speech present, Denies behavioral changes, Denies vertigo, Denies dizziness, Denies headache(s), Denies loss of vision, Denies memory loss, Denies numbness and Denies tingling Psych Denies anxiety, Denies behavioral changes, Denies depression, Denies memory loss and Denies panic attacks Ricco/Lymph Denies easy bleeding and Denies easy bruising Aller/Immun Denies wheezing Physical exam (Primary Care) Vital Signs: Last Vital Signs Pulse 88 07/24/24 07:47 BP 136/82 07/24/24 07:47 Pulse Ox 98 07/24/24 07:47 Oxygen Delivery Method Room Air 07/24/24 07:47 BMI result Body Mass Index 38.4 BMI Assessment/Plan discussion: High BMI High, discussed plan: lifestyle, weight reduction, dietary and physical activity Tobacco/Smoking Status: Tobacco use Status Tobacco use date assessed 01/12/24 07/24/24 07:52 Patient Tobacco Use Status Never used Tobacco 07/24/24 07:52 Tobacco use type Cigarette 07/24/24 07:52 e-Cigarette/Vaping Use Never Used 07/24/24 07:52 PHQ-9: PHQ-9 Score PHQ-9: Total score 15 07/24/24 08:08 Depression Screening Interpretation: Positive Depression Screening Follow-up: Existing condition and New Medication prescribed Thrive Assessment: Date of Thrive Assessment Date Thrive assessed 01/12/24 07/24/24 07:52 Const General: healthy appearing, no acute distress, alert and awake Nutritional Appearance: well nourished Orientation/consciousness: oriented to person, oriented to place and oriented to time HENMT Ears: TM's normal bilaterally General nose exam: Normal nasal mucous membranes and turbinates present Eyes Conjunctivae: conjunctivae normal Sclerae: sclerae normal Pupils: Equal, round and reactive pupils present Neck Neck: Yes no lymphadenopathy and Yes no JVD Thyroid: Thyroid normal Carotids: no bruits Resp Effort & Inspection: normal respiratory effort and not tachypneic Auscultation: no crackles, no rales, no rhonchi and no wheezes Cardio Rate: regular rate Rhythm: regular rhythm Heart sounds: no murmurs and normal S1 and S2 GI Palpation (GI): Soft to palpation, nontender, no hepatomegaly and no splenomegaly Auscultation: normal bowel sounds Skin General skin exam: no rashes or lesions noted and dry skin Neuro General: oriented to person, oriented to place and oriented to time Cranial nerves: Yes Equal, round and reactive pupils present Speech: No Abnormal speech present Gait exam (Neuro): Normal gait present Motor exam (neuro): no tremor noted Extrem Right upper extremity: full ROM Left upper extremity: full ROM Right lower extremity: full ROM; no edema Left lower extremity: full ROM; no edema Psych Mental Status: mental status grossly normal Speech and movement: Normal speech and movement present Affect: normal affect Attitude: cooperative Thought process: Normal thought process present Coding Level of Care Code Est Pt Level 4 (39624) Diagnoses Class 2 obesity E66.812 Primary insomnia F51.01 Insomnia type: primary Assessment & Plan Assessment & Plan (1) Class 2 obesity: Code(s): E66.812 - Obesity, class 2 Category: Medical Plan: Patient does understand her BMI is over 35 and will continue on injectable therapy GLP 1 weekly. She will restart going to the gym more regularly and adapt to better eating habits to reduce her weight. (2) Insomnia: Code(s): G47.00 - Insomnia, unspecified Category: Medical Qualifiers: Insomnia type: primary Qualified Code(s): F51.01 - Primary insomnia Plan: Patient continues to difficulty with sleeping. Has use qrow-kck-xhfemhe sleep aids without much relief. Was on zolpidem in the past with good relief of her insomnia. Due to her stress and anxiety she has been having difficulty with sleep. Will start zolpidem 10 mg as needed for sleep. Medications: New zolpidem 10 mg PO BEDTIME PRN 14 tabs 0RF sleep 14 days G47.00 - Insomnia, unspecified Discontinued lorazepam Discontinued Reason: Doctor's Order 0.5 mg PO BEDTIME 10 days PRN 10 tabs 0RF anxiety F41.9 - Anxiety disorder, unspecified vqxzyeklrr-pcrsfrqkqhhwt-hpke 50-325-40 mg Discontinued Reason: Doctor's Order 1 cap PO Q6H 4 days PRN 16 caps 0RF pain G43.909 - Migraine, unspecified, not intractable, without status migrainosus codeine-guaifenesin 10-100 mg/5 mL Discontinued Reason: Doctor's Order 5 mL PO Q6H 5 days PRN 120 mL 0RF cough J40 - Bronchitis, not specified as acute or chronic
== END 2024-07-24 08:16 | disposition home or self-care (01) ==
PROVIDERS: PCP Physician Assistant; Visit Provider Physician Assistant
DX: E66.812 Obesity, class 2 (principal); F51.01 Primary insomnia

== ENCOUNTER → 2024-07-24 07:38 | Outpatient (BNVA) | payer OTHER, SELFPAY | PROVIDERS: PCP Physician Assistant; Visit Provider Physician Assistant | DX: E66.812 Obesity, class 2 (principal); F51.01 Primary insomnia | CPT/HCPCS: 96127; 99212 ==

== ENCOUNTER 2024-09-19 09:56 | Outpatient (AMB) | payer OTHER, SELFPAY ==
[2024-09-19 10:10] VITALS: BP 148/90; PULSE 94; O2SAT 99; BMI 37.9
--- NOTE | 2024-09-19 10:10 | A.OFFPC_ITS ---
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: No Accompanied by: Self / Same As Patient Allergies No Known Allergies Allergy (Verified 09/19/24 10:17) Medication List - Last Reconciled 09/19/24 by Ellis Arevalo PA-C acetaminophen (Tylenol Extra Strength) 500 mg PO TID PRN albuterol sulfate 90 mcg/actuation 1 inh inhalation QID 30 days baclofen 10 mg PO BID PRN 10 days docusate sodium 100 mg PO BID 30 days fluoxetine 10 mg PO DAILY ibuprofen 800 mg PO Q8H PRN 10 days meclizine 12.5 mg PO TID PRN 7 days omeprazole 20 mg PO DAILY sumatriptan succinate take 1 tab at onset of headache; if no relief may repeat 1 tab after at least 2 hrs; max = 4 tabs/24 hr PO tirzepatide (weight loss) (Zepbound) 2.5 mg (0.5 mL) subcut QWEEK 4 weeks tirzepatide (weight loss) (Zepbound) 5 mg (0.5 mL) subcut QWEEK 4 weeks zolpidem 10 mg PO BEDTIME PRN 14 days Tobacco use date assessed: 01/12/24 Dental Screening Dental Screen Date: 01/12/24 HPI 6 week follow up HPI Details Patient is a 54-year-old female here today for follow-up visit. Patient has a past medical history significant for obesity, migraines, diverticulosis , fatty liver disease. Concern--> she reports being told she is having apneic episodes and snoring at night by her has been. She also does report having daytime somnolence and daily headaches. Concerns here for obstructive sleep apnea thus will send for home sleep study to confirms suspicions. Class 2 obesity-> unfortunately has not lost weight since last office visit. She continues on zepbound though does not feel it his curbing her hunger. She reports that semaglutide was much better at reducing her hunger and she was losing some weight though at higher doses of Wegovy (1 mg) she started to have side effects. .. Insomnia: Patient has been suffering with insomnia over the last few months due to stress and anxiety. Her is undergoing cancer treatment in [place] which is causing her more stress and anxiety. She is trying jhiu-rzq-[id number] sleep aids though have not been effective. She has been on zolpidem in the past with good relief of her insomnia [facility] Medical History Uterine fibroid Abnormal Pap smear of cervix Allergic rhinitis Anxiety Arteritis Family history of brain aneurysm Migraine headache Surgical History Hx of endoscopy Hx of colonoscopy H/O LEEP H/O right inguinal hernia repair (03/16/17) History of endometrial ablation History of tubal ligation History of toe surgery History of incision and drainage Family History Father FH: prostate cancer Sister History of breast cancer Sister History of breast cancer Son Heart attack, Onset Age: 12 Son Brain aneurysm Other Stomach cancer Social History Housing: House Alcohol intake: current Alcohol intake frequency: holidays/special occasions only Patient Tobacco Use Status: Never used Tobacco Tobacco use type: Cigarette e-Cigarette/Vaping Use: Never Used Second Hand Smoke Exposure: No service: No Current occupational status: unemployed Sexual orientation: Straight/Heterosexual Gender identity: Female Cognitive needs: No Hearing needs: No Vision needs: Yes (Glaases) Questionnaire Thrive Questionnaire Date Thrive assessed: 01/12/24 Are you currently unemployed and looking for a job?: Yes CATHERINE-7 AMB Questionnaire CATHERINE-7 Date CATHERINE - 7 assessed: 01/12/24 Source: Developed by Drs. Hill Roca, Shabnam Linn, Dandy Rodriguez and colleagues, with an educational jessee from [employer]. Review of Systems Const Reports headache(s) Eyes Denies loss of vision ENT Denies vertigo, Denies dizziness, Reports headache(s) and Denies sore throat Card Denies chest pain, Denies leg edema and Denies lightheadedness Resp Denies cough, Denies hemoptysis and Denies wheezing GI Denies abdominal pain, Denies melena, Denies constipation, Denies diarrhea and Denies vomiting Denies urinary frequency, Denies dysuria and Denies urinary urgency Musc Denies arthralgias, Denies joint swelling, Denies numbness and Denies tingling Neuro Denies Abnormal speech present, Denies behavioral changes, Denies vertigo, Denies dizziness, Reports headache(s), Denies loss of vision, Denies memory loss, Denies numbness and Denies tingling Psych Denies anxiety, Denies behavioral changes, Denies depression, Denies memory loss and Denies panic attacks Ricco/Lymph Denies easy bleeding and Denies easy bruising Aller/Immun Denies wheezing Physical exam (Primary Care) Vital Signs: Last Vital Signs Pulse 94 09/19/24 10:10 BP 148/90 H 09/19/24 10:10 Pulse Ox 99 09/19/24 10:10 Oxygen Delivery Method Room Air 09/19/24 10:10 BMI result Body Mass Index 37.9 Tobacco/Smoking Status: Tobacco use Status Tobacco use date assessed 01/12/24 09/19/24 10:12 Patient Tobacco Use Status Never used Tobacco 09/19/24 10:12 Tobacco use type Cigarette 09/19/24 10:12 e-Cigarette/Vaping Use Never Used 09/19/24 10:12 Thrive Assessment: Date of Thrive Assessment Date Thrive assessed 01/12/24 09/19/24 10:12 Const General: healthy appearing, no acute distress, alert and awake Nutritional Appearance: well nourished Orientation/consciousness: oriented to person, oriented to place and oriented to time HENMT Ears: TM's normal bilaterally General nose exam: Normal nasal mucous membranes and turbinates present Eyes Conjunctivae: conjunctivae normal Sclerae: sclerae normal Pupils: Equal, round and reactive pupils present Neck Neck: Yes no lymphadenopathy and Yes no JVD Thyroid: Thyroid normal Carotids: no bruits Resp Effort & Inspection: normal respiratory effort and not tachypneic Auscultation: no crackles, no rales, no rhonchi and no wheezes Cardio Rate: regular rate Rhythm: regular rhythm Heart sounds: no murmurs and normal S1 and S2 GI Palpation (GI): Soft to palpation, nontender, no hepatomegaly and no splenomegaly Auscultation: normal bowel sounds Skin General skin exam: no rashes or lesions noted and dry skin Neuro General: oriented to person, oriented to place and oriented to time Cranial nerves: Yes Equal, round and reactive pupils present Speech: No Abnormal speech present Gait exam (Neuro): Normal gait present Motor exam (neuro): no tremor noted Extrem Right upper extremity: full ROM Left upper extremity: full ROM Right lower extremity: full ROM; no edema Left lower extremity: full ROM; no edema Psych Mental Status: mental status grossly normal Speech and movement: Normal speech and movement present Affect: normal affect Attitude: cooperative Thought process: Normal thought process present Coding Level of Care Code Est Pt Level 4 (23637) Diagnoses Class 2 obesity E66.812 VEGA (obstructive sleep apnea) G47.33 Migraine without status migrainosus, not intractable, unspecified migraine type G43.909 Intractability: not intractable Migraine type: unspecified Status migrainosus presence: without status migrainosus Assessment & Plan Assessment & Plan (1) Class 2 obesity: Code(s): E66.812 - Obesity, class 2 Category: Medical Plan: Patient does understand her BMI is over 35 and continues to try to lose weight with being physically active. She has been using GLP 1 (monjuaro) though has not seem to help curb her appetite. She was on semaglutide in the past which did help her reduce her appetite though at higher doses 1 mg she had side effects. She is interested in returning back to semaglutide if at all possible. (2) VEGA (obstructive sleep apnea): Code(s): G47.33 - Obstructive sleep apnea (adult) (pediatric) Category: Medical Plan: Patient has moderate risk for obstructive sleep apnea. She has been she has been snoring loudly at night , daytime somnolence and having apneic episodes during sleep. Will send her for a home sleep study to evaluate for obstructive sleep apnea. (3) Migraine headache: Code(s): G43.909 - Migraine, unspecified, not intractable, without status migrainosus Category: Medical Qualifiers: Intractability: not intractable Migraine type: unspecified Status m igrainosus presence: without status migrainosus Qualified Code(s): G43.909 - Migraine, unspecified, not intractable, without status migrainosus Plan: She reports having more frequent migraine headaches and neck pain. Could be related to her possible obstructive sleep apnea. Will try to evaluate her for f or obstructive sleep apnea. She has used sumatriptan though has not been effective. She is interested in trying Nurtec for her migraine headaches. Orders: Orders RT home sleep study 09/19/24 G47.33 - Obstructive sleep apnea (adult) (pediatric) Medications: New rimegepant (Nurtec ODT) 75 mg PO Q OTHER DAY 7 tabs 0RF 2 weeks G43.909 - Migraine, unspecified, not intractable, without status migrainosus
--- OUTSIDE RECORDS SUMMARY | 2024-09-19 23:56 | XMS_ITS | Continuity of Care Document ---
Author Organization [place] - [facility], [facility] Address [address] [place] [address] Care Team Providers Care Produce Sorter Name Role Phone ISABELLA JOSEPH Primary Care Provider Assessment No assessment recorded. Plan of Treatment Reminders Order Date Submit Date Provider Last Modified By Organization Details Last Modified Time Details Appointments Establish ed 15 2024 10:45A M ALEJANDRA RUIZ MD Not available Not available Not available Lab None recorded. Referral None recorded. Procedures None recorded. Surgeries None recorded. Imaging None recorded. Medication Orders None recorded. Patient TargetsNo targets recorded. Patient InstructionsNo instructions recorded. Reason for Referral None Reported. Problems Name Problem SNOMED Code Status Onset Date Resolution Date Notes Provider Name and Address Organization Details Recorded Time Tinnitus of right ear 17412061673 08 Active 2020 Tinnitus, right ear; Note: Date Diagnosed : 11/17/2020 9:15 AM (H93.13) Not Available [facility] 4 03:08:12 Dizziness and giddiness 135412958 Active 2018 Dizziness and giddiness ; Note: Date Diagnosed : 03/14/2019 9:14 AM (R42) Not Available [facility] 4 03:08:12 Impacted cerumen of bilateral ears 37650339381 41837 Active 2022 Impacted cerumen, bilateral ; Note: Date Diagnosed : 11/04/2022 9:41 AM (H61.23) Impacte d cerumen, bilateral ; Note: Date Diagnosed : 11/15/2018 11:21 AM (H61.23) ; Start Date : 9 Not Available [facility] 4 03:08:13 Sensorine ural hearing loss of bilateral ears 162700611 Active 2017 Sensorine ural hearing loss, bilateral ; Note: Date Diagnosed : 07/18/2018 9:37 AM (H90.3) Not Available [facility] 4 03:08:13 Impacted cerumen in right ear 29426613721 26652 Active 2018 Impacted cerumen, right ear; Note: Date Diagnosed : 03/14/2019 9:12 AM (H61.21) Not Available [facility] 4 03:08:12 Migraine with aura 5921368 Active 2018 Migraine with aura, not intractab le, without status migrainos us; Note: Date Diagnosed : 06/13/2019 10:17 AM (G43.109) Not Available [facility] 4 03:08:14 Migraine without aura, not refractor y 359942634 Active 2018 Migraine without aura, not intractab le, without status migrainos us; Note: Date Diagnosed : 03/14/2019 9:14 AM (G43.009) Not Available [facility] 4 03:08:14 Problem Notes None recorded. Procedures Surgical History Date Name Laterality Status Provider Name and Address Organization Details Recorded Time 05/07/2024 Comp Audio with Tymps (23076 & 86024) completed JESUS ALBERTO SMITH, [address], [address], [facility] - [facility] 05/07/2024 11:22:38 Imaging Results None recorded. Procedure Notes None recorded. Medical Equipment None Reported. Allergies No known drug allergies Medications Name Sig Start Date Stop Date Status Note LastModified by Organization Details LastModified Time cyclobenz aprine 10 mg tablet 11/04 completed Medicati on ID: [id number] B rand Name: abdirahman marvin Send Method: E-Prescr ibed Sub s Allowed: subs OK Medic ationGen ericName : cycloben zaprine Not Available Not Available Not Available butalbita l-acetami nophen-ca ffeine 50 mg-325 mg-40 mg capsule TAKE ONE CAPSULE BY MOUTH EVERY 6 HOURS NEEDED FOR PAIN FOR 4 DAYS 05/07 completed Not Available Not Available Not Available tizanidin e 2 mg tablet TAKE ONE TABLET BY MOUTH EVERY 8 HOURS NEEDED FOR MUSCLE SPASTICI TY 07/26 completed Not Available Not Available Not Available cetirizin e 10 mg tablet 11/04 completed Medicati on ID: [id number] B rand Name: cetirizi ne Send Method: E-Prescr ibed Sub s Allowed: subs OK Medic ationGen ericName : cetirizi ne Not Available Not Available Not Available ibuprofen 800 mg tablet TAKE ONE TABLET BY MOUTH EVERY 8 HOURS NEEDED FOR PAIN active Not Available Not Available No t Available senna 8.6 mg tablet TAKE ONE TABLET BY MOUTH AT BEDTIME 05/07 completed Not Available Not Available Not Available sumatript an 25 mg tablet 05/07 completed Medicati on ID: [id number] B rand Name: sumatrip warren succinat e Send Method: E-Prescr ibed Sub s Allowed: subs OK Speci al Instruct ion: TAKE 1 TABLET BY MOUTH DAILY NEEDED FOR MIGRAINE HEADACHE ; MAY REPEAT DOSE AFTER 2 HOURS UP TO A MAXIMUM OF 2. Medic ationGen ericName : sumatrip warren succinat e Medica tion ID: [id number] B rand Name: sumatrip warren succinat e Send Method: E-Prescr ibed Sub s Allowed: subs OK Speci al Instruct ion: TAKE 1 TABLET BY MOUTH DAILY NEEDED FOR MIGRAINE HEADACHE ; MAY REPEAT DOSE AFTER 2 HOURS UP TO A MAXIMUM OF 2. Medic ationGen ericName : sumatrip warren succinat e Not Available Not Available Not Available prednison e 20 mg tablet 11/04 completed Medicati on ID: [id number] B rand Name: predniso ne Send Method: E-Prescr ibed Sub s Allowed: subs OK Medic ationGen ericName : predniso ne Not Available Not Available Not Available Valium 2 mg tablet 1 tablet by mouth 04/08 completed Medicati on ID: [id number] P kinza pete By Name: John Shafer MD Brand Name: Valium S end Method: E-Prescr ibed Sub s Allowed: subs OK Medic ationGen ericName : Valium Not Available Not Available Not Available baclofen 10 mg tablet TAKE ONE TABLET BY MOUTH TWICE A DAY NEEDED FOR MUSCLE SPASM FOR 10 DAYS active Not Available Not Available No t Available fluoxetin e 10 mg capsule TAKE ONE CAPSULE BY MOUTH DAILY. active Not Available Not Available No t Available Gas Relief Extra Strength 125 mg capsule TAKE ONE CAPSULE BY MOUTH TWICE A DAY NEEDED FOR GAS/BLOA TING active Not Available Not Available No t Available Advil 200 mg tablet 03/14 completed Medicati on ID: [id number] R marina: () Brand Name: Advil Se nd Method: E-Prescr ibed Sub s Allowed: subs OK Medic ationGen ericName : Advil Not Available Not Available Not Available omeprazol e 20 mg capsule,d elayed release 05/07 completed Medicati on ID: [id number] B rand Name: omeprazo le Send Method: E-Prescr ibed Sub s Allowed: subs OK Medic ationGen ericName : omeprazo le Medic ation ID: [id number] B rand Name: omeprazo le Send Method: E-Prescr ibed Sub s Allowed: subs OK Medic ationGen ericName : omeprazo le Not Available Not Available Not Available codeine 10 mg-guaife nesin 100 mg/5 mL oral liquid TAKE 5 ML BY MOUTH EVERY 6 HOURS NEEDED FOR COUGH FOR 5 DAYS 07/26 completed Not Available Not Available Not Available lorazepam 1 mg tablet 07/26 completed Medicati on ID: [id number] B rand Name: lorazepa m Send Method: E-Prescr ibed Sub s Allowed: subs OK Medic ationGen ericName : lorazepa m Not Available Not Available Not Available ibuprofen 600 mg tablet 04/08 completed Medicati on ID: [id number] D uration Value: 30 Brand Name: ibuprofe n Send Method: E-Prescr ibed Sub s Allowed: subs OK Speci al Instruct ion: TAKE ONE TABLET BY MOUTH EVERY 8 HOURS Me dication GenericN ricardo: ibuprofe n Not Available Not Available Not Available zolpidem 10 mg tablet TAKE ONE TABLET BY MOUTH DAILY AT BEDTIME NEEDED FOR SLEEP active Not Available Not Available No t Available fluoxetin e 20 mg capsule TAKE 1 CAPSULE BY MOUTH DAILY. 05/07 completed Not Available Not Available Not Available dicyclomi ne 10 mg capsule TAKE ONE CAPSULE BY MOUTH EVERY 8 HOURS NEEDED FOR PAIN/ CRAMPS 05/07 completed Not Available Not Available Not Available Ventolin HFA 90 mcg/actua tion aerosol inhaler 05/07 completed Medicati on ID: [id number] B rand Name: Ventolin HFA Send Method: E-Prescr ibed Sub s Allowed: subs OK Medic ationGen ericName : Ventolin HFA Medi cation ID: [id number] B rand Name: Ventolin HFA Send Method: E-Prescr ibed Sub s Allowed: subs OK Medic ationGen ericName : Ventolin HFA Not Available Not Available Not Available Vitamin D3 25 mcg (1,000 unit) capsule 2018 active Medicati on ID: [id number] D uration Value: 30 Brand Name: Vitamin D3 Send Method: E-Prescr ibed Sub s Allowed: subs OK Medic ationGen ericName : Vitamin D3 Not Available Not Available Not Available ciproflox acin 0.3 %-dexamet hasone 0.1 % ear drops,cristobal pension INSTILL 4 DROPS INTO THE RIGHT EAR EVERY 12 HOURS FOT 7 DAYS 05/07 completed Not Available Not Available Not Available Wegovy 1.7 mg/0.75 mL subcutane ous pen injector INJECT 1.7MG 0.75ML) SUBCUTAN EOUSLY EVERY WEEK FOR 4 WEEKS 07/26 completed Not Available Not Available Not Available Wegovy 1 mg/0.5 mL subcutane ous pen injector INJECT 1 MG 0.5 ML) SUBCUTAN EOUSLY EVERY WEEK FOR 4 WEEKS; ADMINIST ER WEEKS 9 THROUGH 12 OF THERAPY. 05/07 completed Not Available Not Available Not Available Wegovy 0.25 mg/0.5 mL subcutane ous pen injector INJECT 0.25 0.5 ML) SUBCUTAN EOUSLY EVERY WEEK FOR 4 WEEKS; ADMINIST ER WEEKS 1 THROUGH 4 OF THERAPY. 05/07 completed Not Available Not Available Not Available Wegovy 0.5 mg/0.5 mL subcutane ous pen injector INJECT 0.5 MG 0.5 ML) SUBCUTAN OUSLY EVERY WEEK FOR 4 WEEKS; ADMINSTE R WEEKS 5 THROUGH 8 OF THERAPY. 05/07 completed Not Available Not Available Not Available Zepbound 5 mg/0.5 mL subcutane ous pen injector INJECT 0.5 ML INTO THE SKIN WEEKLY active Not Available Not Available No t Available Zepbound 2.5 mg/0.5 mL subcutane ous pen injector INJECT 2.5MG 0.5 ML) UNDER THE SKIN EVERY WEEK 07/26 completed Not Available Not Available Not Available Vitals Date Recorded Body height Body mass index (BMI) Body weight Provider Name and Address Organization Details Last Updated DateTime 07/26/2024 157.48 cm 37.7 kg/m2 11003.03 g Sudha Kimble [place] - [facility] 07/26/2024 10:54:24 Social History None recorded. Functional Status None recorded. Mental Status None recorded. Family History Nothing Reported. Medical History No medical history recorded. Gynecological HistoryNo gynecological history recorded. Obstetrics History GPAL:G 0 P 0 0 0 0 Past Encounters Encounter ID Performer Location Encounter Start Date Encounter Closed Date Diagnosis/Indication Diagnosis SNOMED-CT Code Diagnosis ICD10 Code [id number] ALEJANDRA RUIZ MD [facility] [address] [address] 07/26/2024 10:40:18 07/26/2024 11:12:35 Sensorineural hearing loss of bilateral ears 510263707 H90.3 Health Concerns Section Related Observation LastModified by Organization Detai ls LastModified Time None Recorded Concern Status LastModified by Organization Details LastModified Time None Recorded Payers Encounter Date Sequence Insurance Name Policy Number Policy Yeung Covered Member ID Yeung Member ID Guarantor Name 07/26/2024 1 [facility] (O) [id number] Renu Diaz [id number] Renu Diaz Notes Date Note Type Note Provider Name and Address Organization Details Recorded Time 07/26/2024 text/html Went to go get the hearing aids. Noticed tinnitus bilaterally, especially when sleeping. PV: 64-year-old female presents today for follow-up of hearing. She reports the dizziness is improved since her last visit. She continues on Wegovy. ALEJANDRA RUIZ MD [address] [place] [address], [place], [address], [facility] - [facility] 07/28/2024 13:24:32 OBGyn Episode No OBEpisode recorded.
--- OUTSIDE RECORDS SUMMARY | 2024-09-19 23:56 | XMS_ITS | Data Portability ---
Author Organization [place] - [facility], Allergy Address [address] [place] [id number] Care Team Providers Care Revenue Accounting Manager Name Role Phone ISABELLA JOSEPH Primary Care [...] instructions recorded. Reason for Referral None Reported. Results Created Date Observation Date Name Description Value Unit Range Abnormal Flag Note LastModifiedBy Organization Detail LastModifiedTime 05/07/20 24 audio gram No observ ation record ed. [email or web address] Not Available 16:04:05 05/30/20 24 11/15/2018 imagi ng/di agnos tic resul t No observ ation record ed. [email or web address] Not Available 05:18:50 05/30/20 24 11/15/2018 imagi ng/di agnos tic resul t No observ ation record ed. [email or web address] Not Available 05:18:52 05/30/20 24 04/08/2021 imagi ng/di agnos tic resul t No observ ation record ed. [email or web address] Not Available 05:18:55 05/30/20 24 04/08/2021 imagi ng/di agnos tic resul t No observ ation record ed. [email or web address] Not Available 05:18:56 05/30/20 24 07/15/2022 imagi ng/di agnos tic resul t No observ ation record ed. [email or web address] Not Available 05:19:09 05/30/20 24 07/15/2022 audio gram No observ ation record ed. [email or web address] Not Available 05:19:15 Result Notes None recorded. Problems Name Problem SNOMED Code Status Onset Date Resolution Date Notes Provider Name and Address Organization Details Recorded Time Tinnitus of right ear 15865237780 08 Active 2020 Tinnitus, right ear; Note: Date Diagnosed : 11/17/2020 9:15 AM (H93.13) Not Available [facility] 4 03:08:12 Dizziness and giddiness 464325465 Active 2018 Dizziness and giddiness ; Note: Date Diagnosed : 03/14/2019 9:14 AM (R42) Not Available [facility] 4 03:08:12 Impacted cerumen of bilateral ears 55334221372 82039 Active 2022 Impacted cerumen, bilateral ; Note: Date Diagnosed : 11/04/2022 9:41 AM (H61.23) Impacte d cerumen, bilateral ; Note: Date Diagnosed : 11/15/2018 11:21 AM (H61.23) ; Start Date : 9 Not Available [facility] 4 03:08:13 Sensorine ural hearing loss of bilateral ears 122800249 Active 2017 Sensorine ural hearing loss, bilateral ; Note: Date Diagnosed : 07/18/2018 9:37 AM (H90.3) Not Available [facility] 4 03:08:13 Impacted cerumen in right ear 40219621636 29194 Active 2018 Impacted cerumen, right ear; Note: Date Diagnosed : 03/14/2019 9:12 AM (H61.21) Not Available [facility] 4 03:08:12 Migraine with aura 9928991 Active 2018 Migraine with aura, not intractab le, without status migrainos us; Note: Date Diagnosed : 06/13/2019 10:17 AM (G43.109) Not Available [facility] 03:08:14 Migraine without aura, not refractor y 324790919 Active 2018 Migraine without aura, not intractab le, without status migrainos us; Note: Date Diagnosed : 03/14/2019 9:14 AM (G43.009) Not Available [facility] 03:08:14 Problem Notes None recorded. Procedures Surgical History Date Name Laterality Status Provider Name and Address Organization Details Recorded Time 05/07/2024 Comp Audio with Tymps (40221 & 67250) completed JESUS ALBERTO SMITH, [facility] [address] [facility],[place] [address], [place], [address], [facility] - [facility] 05/07/2024 11:22:38 Imaging Results Imaging Date Name Status LastModified by Organiz ation Details LastModified Time 05/07/2024 audiogram completed [email or web address] Information not available 05/07/2024 16:04:05 11/15/2018 imaging/diagno stic result completed Information not available 05/30/2024 05:18:50 11/15/2018 imaging/diagno stic result completed Information not available 05/30/2024 05:18:52 04/08/2021 imaging/diagno stic result completed Information not available 05/30/2024 05:18:55 04/08/2021 imaging/diagno stic result completed Information not available 05/30/2024 05:18:56 07/15/2022 imaging/diagno stic result completed Information not available 05/30/2024 05:19:09 07/15/2022 audiogram completed Information not available 05/30/2024 05:19:15 Procedure Notes None recorded. Medical Equipment None Reported. Allergies No known drug allergies Medications Name Sig Start Date Stop Date Status Note LastModified by Organization Details LastModified Time cyclobenz aprine 10 mg tablet 11/04 completed Medicati on ID: [id number] B rand Name: cycloben zaprine Send Method: E-Prescr ibed Sub s Allowed: [...] mg tablet 11/04 completed Medicati on ID: [id number] B rand Name: cetirizi ne Send Method: [...] mg tablet 05/07 completed Medicati on ID: [id number] B rand Name: sumatrip warren succinat e Send Method: E-Prescr ibed Sub s Allowed: subs OK Speci al Instruct ion: TAKE 1 TABLET BY MOUTH DAILY NEEDED FOR MIGRAINE HEADACHE ; MAY REPEAT DOSE AFTER 2 HOURS UP TO A MAXIMUM OF 2. Medic ationGen ericName : sumatrip warren succinat e Medica tion ID: [id number] B rand Name: sumatrip warren succinat e [...] mg tablet 11/04 completed Medicati on ID: [id number] B rand Name: predniso ne Send Method: E-Prescr ibed Sub s Allowed: subs OK Medic ationGen ericName : predniso ne Not Available Not Available Not Available Valium 2 mg tablet 1 tablet by mouth 04/08 completed Medicati on ID: [id number] P rescribe d By Name: John Shafer MD Brand Name: [...] mg tablet 03/14 completed Medicati on ID: [id number] R marina: () Brand Name: Advil Se nd Method: E-Prescr ibed Sub s Allowed: subs OK Medic ationGen ericName : Advil Not Available Not Available Not Available omeprazol e 20 mg capsule,d elayed release 05/07 completed Medicati on ID: [id number] B rand Name: omeprazo le Send Method: E-Prescr ibed Sub s Allowed: subs OK Medic ationGen ericName : omeprazo le Medic ation ID: [id number] B rand Name: omeprazo le Send Method: [...] mg tablet 07/26 completed Medicati on ID: [id number] B rand Name: lorazepa m Send Method: E-Prescr ibed Sub s Allowed: subs OK Medic ationGen ericName : lorazepa m Not Available Not Available Not Available ibuprofen 600 mg tablet 04/08 completed Medicati on ID: [id number] D uration Value: 30 Brand Name: ibuprofe [...] aerosol inhaler 05/07 completed Medicati on ID: [id number] B rand Name: Ventolin HFA Send Method: E-Prescr ibed Sub s Allowed: subs OK Medic ationGen ericName : Ventolin HFA Medi cation ID: [id number] B rand Name: Ventolin HFA Send Method: E-Prescr ibed Sub s Allowed: subs OK Medic ationGen ericName : Ventolin HFA Not Available Not Available Not Available Vitamin D3 25 mcg (1,000 unit) capsule 2018 active Medicati on ID: [id number] D uration Value: 30 Brand Name: Vitamin [...] and Address Organization Details Last Updated DateTime 05/07/2024 157.48 cm 37.7 kg/m2 52663.03 g Maryanne Verma [facility] 05/07/2024 11:41:53 Date Recorded Body height Body mass index (BMI) Body weight Provider Name and Address Organization Details Last Updated DateTime 07/26/2024 157.48 cm 37.7 kg/m2 95415.03 g Sudha Kimble [facility] 07/26/2024 10:54:24 Social History None recorded. Functional Status None recorded. Mental Status None recorded. Family History Nothing Reported. Medical History No medical history recorded. Gynecological HistoryNo gynecological history recorded. Obstetrics History GPAL:G 0 P 0 0 0 0 Past Encounters Encounter ID Performer Location Encounter Start Date Encounter Closed Date Diagnosis/Indication Diagnosis SNOMED-CT Code Diagnosis ICD10 Code [id number] ALEJANDRA RUIZ MD [facility] [address] [phone] 05/07/2024 10:51:22 05/07/2024 17:01:48 Sensorineural hearing loss of bilateral ears 467955081 H90.3 [id number] ALEJANDRA RUIZ MD [facility] [address] [place] [address] 07/26/2024 10:40:18 07/26/2024 11:12:35 Sensorineural hearing loss of bilateral ears 701407999 H90.3 Health Concerns Section Related Observation LastModified by Organization Detai ls LastModified Time None Recorded Concern Status LastModified by Organization Details LastModified Time None Recorded Advance Directives Directive None Recorded Payers Encounter Date Sequence Insurance Name Policy Number Policy Yeung Covered Member ID Yeung Member ID Guarantor Name 05/07/2024 1 [facility] [employer] (HMO) [id number] Renu Idaz [id number] Renu Diaz 07/26/2024 1 [facility] [employer] (HMO) [id number] Renu Diaz [id number] Renu Diaz Notes Date Note Type Note Provider Name and Address Organization Details Recorded Time 05/07/2024 text/html 64-year-old female presents today for follow-up of hearing. She reports the dizziness is improved since her last visit. She continues on Wegovy. ALEJANDRA RUIZ MD [address] [place] [address], [phone], [place] - [facility] 05/07/2024 12:39:05 07/26/2024 text/html Went to go get the hearing aids. Noticed tinnitus bilaterally, especially when sleeping. PV: 64-year-old female presents today for follow-up of hearing. She reports the dizziness is improved since her last visit. She continues on Wegovy. ALEJANDRA RUIZ MD [address] [place] [address], [phone], [facility] 07/28/2024 13:24:32 OBGyn Episode No OBEpisode recorded.
== END 2024-09-19 10:34 | disposition home or self-care (01) ==
PROVIDERS: PCP Physician Assistant; Visit Provider Physician Assistant
DX: G43.909 Migraine, unspecified, not intractable, without status migrainosus (principal); G47.33 Obstructive sleep apnea (adult) (pediatric); E66.812 Obesity, class 2; Z68.37 Body mass index [BMI] 37.0-37.9, adult

== ENCOUNTER → 2024-09-19 09:56 | Outpatient (BNVA) | payer OTHER, SELFPAY | PROVIDERS: PCP Physician Assistant; Visit Provider Physician Assistant | DX: E66.812 Obesity, class 2 (principal); Z68.37 Body mass index [BMI] 37.0-37.9, adult; G47.33 Obstructive sleep apnea (adult) (pediatric); G43.909 Migraine, unspecified, not intractable, without status migrainosus; Z71.3 Dietary counseling and surveillance | CPT/HCPCS: 99212 ==

== ENCOUNTER 2024-10-12 13:36 | Outpatient (REF) | payer SELFPAY | END 2024-10-12 13:37 | disposition home or self-care (01) | LOC: HO.HAP 13:36 | PROVIDERS: Visit Provider Physician Assistant | DX: Z46.1 Encounter for fitting and adjustment of hearing aid (principal); H90.3 Sensorineural hearing loss, bilateral | CPT/HCPCS: 92590 ==

== ENCOUNTER 2024-10-17 14:32 | Outpatient (AMB) | payer OTHER, SELFPAY ==
--- NOTE | 2024-10-17 14:52 | MHC.OFFVIS ---
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 She is doing well with no employment coach concerns. Currently sexually active. Denies any vaginal dryness or irritation. STI testing offered; she declines. Attempting to eat a healthy diet with calcium and vitamin D and stays active with exercise. Started Zepbound. Last pap smear; 2021, negative, history of LEEP 2013. Last mammogram; 2023. Colonoscopy is UTD. Denies any family history ofovarian or colon cancer. FH breast cancer- 2 sisters. Pt. reports she was negative for BRCA. [facility] Medical History Uterine fibroid Abnormal Pap smear of cervix Allergic rhinitis Anxiety Arteritis Family history of brain aneurysm Migraine headache Surgical History Hx of endoscopy Hx of colonoscopy H/O LEEP H/O right inguinal hernia repair (03/16/17) History of endometrial ablation History of tubal ligation History of toe surgery History of incision and drainage Family History Father FH: prostate cancer Sister History of breast cancer Sister History of breast cancer Son Heart attack, Onset Age: 12 Son Brain aneurysm Other Stomach cancer Social History Housing: House Alcohol intake: current Alcohol intake frequency: holidays/special occasions only Patient Tobacco Use Status: Never used Tobacco Tobacco use type: Cigarette e-Cigarette/Vaping Use: Never Used Second Hand Smoke Exposure: No service: No Current occupational status: unemployed Sexual orientation: Straight/Heterosexual Gender identity: Female Cognitive needs: No Hearing needs: No Vision needs: Yes (Glaases) Female Reproductive History Menstrual control method: permanent sterilization Permanent Sterilization: BTL Total pregnancies: 2 Full term: 2 Number of Living Children: 2 Date of last pap smear: 05/19/22 (neg pap and hpv) History of abnormal pap smear: Yes (06/23 JOSE FRANCISCO 2 07/23 Leep JOSE FRANCISCO 1-2 6/16 +HPV) Date of Mammogram: 04/03/24 (Birad 1) Review of Systems Const All systems reviewed & are unremarkable except as noted in HPI and below Reports as per HPI Eyes Reports no additional complaints ENT Reports no additional complaints Card Reports no additional complaints Resp Reports no additional complaints GI Reports as per HPI and Reports no additional complaints Reports as per HPI Musc Reports no additional complaints Skin/Breast Reports as per HPI Neuro Reports no additional complaints Psych Reports no additional complaints Endo Reports no additional complaints Ricco/Lymph Reports no additional complaints Aller/Immun Reports no additional complaints Physical Exam Vital Signs: Last Vital Signs BP 114/74 10/17/24 14:55 BMI result Body Mass Index 37.5 Const General: cooperative, healthy appearing, no acute distress, well developed and alert Orientation/consciousness: patient oriented x3 HEENT Head: Yes normal to inspection Eyes General: appearance normal, both eyes and all related structures Neck Neck: Yes normal visual inspection Thyroid: Thyroid normal Chest Chest palpation & inspection: normal inspection of the chest and other (no puckering, dimpling, peau de orange, retraction, discharge, masses) Breast/axilla inspection: normal inspection of the breasts Breast/axilla palpation: normal palpation of the breasts Resp Effort & Inspection: normal respiratory effort GI Inspection: Yes normal to inspection Palpation (GI): Soft to palpation Rectal Exam - Female: deferred General: Yes bladder normal to palpation External Female Exam: normal external appearance and normal appearance of the urethra Speculum Exam - Vagina: normal appearance of the vagina, normal palpation, normal vaginal discharge and vagina atrophic Speculum Exam - Cervix: normal appearance of the cervix, normal palpation and Other cervical findings present (Post LEEP appearance) Bimanual exam- vagina & uterus: normal bimanual exam, normal palpation, uterine size normal, bladder normal to palpation, normal palpation and non-tender Bimanual Exam- Adnexa, other: no masses Skin General skin exam: no rashes or lesions noted Rashes: no rashes Neuro General: patient oriented x3 Cognition (Neuro): normal cognition Extrem General: Yes normal to inspection Psych Attitude: cooperative Thought process: Normal thought process present Assessment & Plan Assessment & Plan (1) Encounter for annual routine gynecological examination: Code(s): Z01.419 - Encounter for gynecological examination (general) (routine) without abnormal findings Category: Medical Plan Discussed: Current recommendations for pap smears per ASCCP guidelines. Pap obtained. Breast awareness, periodic self breast exams and yearly mammogram. Maintain a healthy lifestyle, well balanced diet including Calcium 1,200 mg and Vitamin D 600 IU daily, and routine exercise. Contact the office with any postmenopausal bleeding. Patient verbalizes understanding and agrees to the plan of care. She was given opportunity to ask questions and all questions were answered to the best of my ability. RTO in 1 year for annual employment coach exam. This note is constructed using voice recognition software. While every effort has been made to ensure accuracy, computer systems analyst errors may have been included. Coding Level of Care Code Est Pt Prev Care 40-64y(31918) Diagnoses Encounter for annual routine gynecological examination Z01.419
[2024-10-17 14:55] VITALS: BP 114/74; BMI 37.5
== END 2024-10-17 15:34 | disposition home or self-care (01) ==
LOC: HO.HWS 14:32
PROVIDERS: PCP Physician Assistant; Visit Provider Advanced Practice Midwife
DX: Z01.419 Encounter for gynecological examination (general) (routine) without abnormal findings (principal)
CPT/HCPCS: 99396; 99459

== ENCOUNTER 2024-10-17 14:32 | Outpatient (REF) | payer OTHER, SELFPAY ==
--- OUTSIDE RECORDS SUMMARY | 2024-10-17 15:44 | XMS_ITS | Continuity of Care Document ---
Author Organization [place] - [facility], [facility] Address [address] [place] [address] Care Team Providers Care Band Saw Filer Name Role Phone ISABELLA JOSEPH Primary Care [...] Details Recorded Time Tinnitus of right ear 69742961206 08 Active 2020 Tinnitus, right ear; Note: Date Diagnosed : 11/17/2020 9:15 AM (H93.13) Not Available [facility] 4 03:08:12 Dizziness and giddiness 766507577 Active 2018 Dizziness and giddiness ; Note: Date Diagnosed : 03/14/2019 9:14 AM (R42) Not Available [facility] 4 03:08:12 Impacted cerumen of bilateral ears 75732586422 79485 Active 2022 Impacted cerumen, bilateral ; Note: Date Diagnosed : 11/04/2022 9:41 AM (H61.23) Impacte d cerumen, bilateral ; Note: Date Diagnosed : 11/15/2018 11:21 AM (H61.23) ; Start Date : 9 Not Available [facility] 4 03:08:13 Sensorine ural hearing loss of bilateral ears 079639098 Active 2017 Sensorine ural hearing loss, bilateral ; Note: Date Diagnosed : 07/18/2018 9:37 AM (H90.3) Not Available [facility] 4 03:08:13 Impacted cerumen in right ear 72424507372 88638 Active 2018 Impacted cerumen, right ear; Note: Date Diagnosed : 03/14/2019 9:12 AM (H61.21) Not Available [facility] 4 03:08:12 Migraine with aura 7539568 Active 2018 Migraine with aura, not intractab le, without status migrainos us; Note: Date Diagnosed : 06/13/2019 10:17 AM (G43.109) Not Available [facility] 4 03:08:14 Migraine without aura, not refractor y 159155542 Active 2018 Migraine without aura, not intractab le, without status migrainos us; Note: Date Diagnosed : 03/14/2019 9:14 AM (G43.009) Not Available [facility] 4 03:08:14 Problem Notes None recorded. Procedures Surgical History Date Name Laterality Status Provider Name and Address Organization Details Recorded Time 05/07/2024 Comp Audio with Tymps (78532 & 97300) completed JESUS ALBERTO SMITH, [address], [address], [facility] - [facility] 05/07/2024 11:22:38 Imaging Results None recorded. Procedure Notes None recorded. Medical Equipment None Reported. Allergies No known drug allergies Medications Name Sig Start Date Stop Date Status Note LastModified by Organization Details LastModified Time cyclobenz aprine 10 mg tablet 11/04 completed Medicati on ID: [id number] B rand Name: abdirahman marvin Send Method: [...] mg tablet 11/04 completed Medicati on ID: [id number] B rand Name: cetirizi ne Send Method: [...] mg tablet 05/07 completed Medicati on ID: [id number] B rand Name: sumatrip warren succinat e Send Method: E-Prescr ibed Sub s Allowed: subs OK Speci al Instruct ion: TAKE 1 TABLET BY MOUTH DAILY NEEDED FOR MIGRAINE HEADACHE ; MAY REPEAT DOSE AFTER 2 HOURS UP TO A MAXIMUM OF 2. Medic ationGen ericName : sumatrip warren succinat e Medica tion ID: [id number] B rand Name: sumatrip warren succinat e [...] mg tablet 11/04 completed Medicati on ID: [id number] B rand Name: predniso ne Send Method: E-Prescr ibed Sub s Allowed: subs OK Medic ationGen ericName : predniso ne Not Available Not Available Not Available Valium 2 mg tablet 1 tablet by mouth 04/08 completed Medicati on ID: [id number] P kinza pete By Name: John Shafer [...] mg tablet 03/14 completed Medicati on ID: [id number] R marina: () Brand Name: Advil Se nd Method: E-Prescr ibed Sub s Allowed: subs OK Medic ationGen ericName : Advil Not Available Not Available Not Available omeprazol e 20 mg capsule,d elayed release 05/07 completed Medicati on ID: [id number] B rand Name: omeprazo le Send Method: E-Prescr ibed Sub s Allowed: subs OK Medic ationGen ericName : omeprazo le Medic ation ID: [id number] B rand Name: omeprazo le Send Method: [...] mg tablet 07/26 completed Medicati on ID: [id number] B rand Name: lorazepa m Send Method: E-Prescr ibed Sub s Allowed: subs OK Medic ationGen ericName : lorazepa m Not Available Not Available Not Available ibuprofen 600 mg tablet 04/08 completed Medicati on ID: [id number] D uration Value: 30 Brand Name: ibuprofe [...] aerosol inhaler 05/07 completed Medicati on ID: [id number] B rand Name: Ventolin HFA Send Method: E-Prescr ibed Sub s Allowed: subs OK Medic ationGen ericName : Ventolin HFA Medi cation ID: [id number] B rand Name: Ventolin HFA Send Method: E-Prescr ibed Sub s Allowed: subs OK Medic ationGen ericName : Ventolin HFA Not Available Not Available Not Available Vitamin D3 25 mcg (1,000 unit) capsule 2018 active Medicati on ID: [id number] D uration Value: 30 Brand Name: Vitamin [...] Updated DateTime 07/26/2024 157.48 cm 37.7 kg/m2 96877.03 g Sudha Kimble [place] - [facility] 07/26/2024 10:54:24 Social History None recorded. Functional Status None recorded. Mental Status None recorded. Family History Nothing Reported. Medical History No medical history recorded. Gynecological HistoryNo gynecological history recorded. Obstetrics History GPAL:G 0 P 0 0 0 0 Past Encounters Encounter ID Performer Location Encounter Start Date Encounter Closed Date Diagnosis/Indication Diagnosis SNOMED-CT Code Diagnosis ICD10 Code Diagnosis Note [id number] ALEJANDRA RUIZ MD [facility] of [address] [address] 07/26/2024 10:40:18 07/26/2024 11:12:35 Sensorineural hearing loss of bilateral ears 521466212 H90.3 Partially impacted cerumen was removed and tolerated well. Dizziness has been under control lately. She is scheduled for hearing aid evaluation . We can reassess for cerumen in 4 months or sooner if needed. Health Concerns Section Related Observation LastModified by Organization Detai ls LastModified Time None Recorded Concern Status LastModified by Organization Details LastModified Time None Recorded Payers Encounter Date Sequence Insurance Name Policy Number Policy Yeung Covered Member ID Yeung Member ID Guarantor Name 07/26/2024 1 [facility] ([facility]) [id number] Renu Diaz [id number] Renu Diaz Notes Date Note Type Note Provider Name and Address Organization Details Recorded Time 07/26/2024 text/html Went to go get the hearing aids. Noticed tinnitus bilaterally, especially when sleeping. PV: 64-year-old female presents today for follow-up of hearing. She reports the dizziness is improved since her last visit. She continues on Wegovy. ALEJANDRA RUIZ MD [address] [place] [address], [phone], [facility] - [facility] 07/28/2024 13:24:32 OBGyn Episode No OBEpisode recorded.
--- OUTSIDE RECORDS SUMMARY | 2024-10-17 15:44 | XMS_ITS | Data Portability ---
Author Organization [place] - [facility], Allergy Address [address] [place] [phone] Care Team Providers Care Speeder Tender Name Role Phone ISABELLA JOSEPH Primary Care [...] Details Recorded Time Tinnitus of right ear 16331752902 08 Active 2020 Tinnitus, right ear; Note: Date Diagnosed : 11/17/2020 9:15 AM (H93.13) Not Available [facility] 4 03:08:12 Dizziness and giddiness 836140041 Active 2018 Dizziness and giddiness ; Note: Date Diagnosed : 03/14/2019 9:14 AM (R42) Not Available [facility] 4 03:08:12 Impacted cerumen of bilateral ears 06552035805 27962 Active 2022 Impacted cerumen, bilateral ; Note: Date Diagnosed : 11/04/2022 9:41 AM (H61.23) Impacte d cerumen, bilateral ; Note: Date Diagnosed : 11/15/2018 11:21 AM (H61.23) ; Start Date : 9 Not Available [facility] 4 03:08:13 Sensorine ural hearing loss of bilateral ears 996555896 Active 2017 Sensorine ural hearing loss, bilateral ; Note: Date Diagnosed : 07/18/2018 9:37 AM (H90.3) Not Available [facility] 4 03:08:13 Impacted cerumen in right ear 72876742250 65266 Active 2018 Impacted cerumen, right ear; Note: Date Diagnosed : 03/14/2019 9:12 AM (H61.21) Not Available [facility] 4 03:08:12 Migraine with aura 7095415 Active 2018 Migraine with aura, not intractab le, without status migrainos us; Note: Date Diagnosed : 06/13/2019 10:17 AM (G43.109) Not Available [facility] 03:08:14 Migraine without aura, not refractor y 839939355 Active 2018 Migraine without aura, not intractab le, without status migrainos us; Note: Date Diagnosed : 03/14/2019 9:14 AM (G43.009) Not Available [facility] 03:08:14 Problem Notes None recorded. Procedures Surgical History Date Name Laterality Status Provider Name and Address Organization Details Recorded Time 05/07/2024 Comp Audio with Tymps (23428 & 54502) completed JESUS ALBERTO SMITH, [facility] [address] [facility],[place] [address], [place], [phone], [facility] - [facility] 05/07/2024 11:22:38 Imaging Results Imaging Date Name Status LastModified by Organiz ation Details LastModified Time 05/07/2024 audiogram completed [email or web address] Information not available 05/07/2024 16:04:05 11/15/2018 imaging/diagno [...] mg tablet 11/04 completed Medicati on ID: [id number] B rand Name: cycloben zaprine Send Method: [...] mg tablet 11/04 completed Medicati on ID: [id number] B rand Name: cetirizi ne Send Method: [...] mg tablet 05/07 completed Medicati on ID: [id number] B rand Name: sumatrip warren succinat e Send Method: E-Prescr ibed Sub s Allowed: subs OK Speci al Instruct ion: TAKE 1 TABLET BY MOUTH DAILY NEEDED FOR MIGRAINE HEADACHE ; MAY REPEAT DOSE AFTER 2 HOURS UP TO A MAXIMUM OF 2. Medic ationGen ericName : sumatrip warren succinat e Medica tion ID: [id number] B rand Name: sumatrip warren succinat e [...] mg tablet 11/04 completed Medicati on ID: [id number] B rand Name: predniso ne Send Method: E-Prescr ibed Sub s Allowed: subs OK Medic ationGen ericName : predniso ne Not Available Not Available Not Available Valium 2 mg tablet 1 tablet by mouth 04/08 completed Medicati on ID: [id number] P rescribe d By Name: John Shafer [...] mg tablet 03/14 completed Medicati on ID: [id number] R marina: () Brand Name: Advil Se nd Method: E-Prescr ibed Sub s Allowed: subs OK Medic ationGen ericName : Advil Not Available Not Available Not Available omeprazol e 20 mg capsule,d elayed release 05/07 completed Medicati on ID: [id number] B rand Name: omeprazo le Send Method: E-Prescr ibed Sub s Allowed: subs OK Medic ationGen ericName : omeprazo le Medic ation ID: [id number] B rand Name: omeprazo le Send Method: [...] mg tablet 07/26 completed Medicati on ID: [id number] B rand Name: lorazepa m Send Method: E-Prescr ibed Sub s Allowed: subs OK Medic ationGen ericName : lorazepa m Not Available Not Available Not Available ibuprofen 600 mg tablet 04/08 completed Medicati on ID: [id number] D uration Value: 30 Brand Name: ibuprofe [...] aerosol inhaler 05/07 completed Medicati on ID: [id number] B rand Name: Ventolin HFA Send Method: E-Prescr ibed Sub s Allowed: subs OK Medic ationGen ericName : Ventolin HFA Medi cation ID: [id number] B rand Name: Ventolin HFA Send Method: E-Prescr ibed Sub s Allowed: subs OK Medic ationGen ericName : Ventolin HFA Not Available Not Available Not Available Vitamin D3 25 mcg (1,000 unit) capsule 2018 active Medicati on ID: [id number] D uration Value: 30 Brand Name: Vitamin [...] Updated DateTime 05/07/2024 157.48 cm 37.7 kg/m2 17003.03 g Maryanne Verma [facility] 05/07/2024 11:41:53 Date Recorded Body height Body mass index (BMI) Body weight Provider Name and Address Organization Details Last Updated DateTime 07/26/2024 157.48 cm 37.7 kg/m2 74160.03 g Sudha Kimble [facility] 07/26/2024 10:54:24 Social History None recorded. Functional Status None recorded. Mental Status None recorded. Family History Nothing Reported. Medical History No medical history recorded. Gynecological HistoryNo gynecological history recorded. Obstetrics History GPAL:G 0 P 0 0 0 0 Past Encounters Encounter ID Performer Location Encounter Start Date Encounter Closed Date Diagnosis/Indication Diagnosis SNOMED-CT Code Diagnosis ICD10 Code Diagnosis Note [id number] ALEJANDRA RUIZ MD [facility] [address] [address] 05/07/2024 10:51:22 05/07/2024 17:01:48 Sensorineural hearing loss of bilateral ears [id number] H90.3 We reviewed her audiogram which showed stable thresholds compared to 202 though her word understand ing has declined. She is an excellent candidate for amplificat ion. I did give her medical clearance. She may follow-up as needed. Audiologic al evaluation results:Ri ght ear:{{Norm al Mild* M oderate Mo derately-s evere Rena re Profoun d}} {{hearing sloping to a mild slopi ng to a moderate* sloping to moderately severe slo ping to severe slo ping to profound f lat high frequency low frequency mid frequency cookie bite regan curve}} {{with sen sorineural hearing loss with* cond uctive hearing loss with mixed hearing loss with}} {{excellen t good* fa ir poor no measurable }} word recognitio n.Left ear:{{Norm al Mild* M oderate Mo derately-s evere Rena re Profoun d}} {{hearing sloping to a mild slopi ng to a moderate* sloping to moderately severe slo ping to severe slo ping to profound f lat high frequency low frequency mid frequency cookie bite regan curve}} {{with sen sorineural hearing loss with* cond uctive hearing loss with mixed hearing loss with}} {{excellen t good* fa ir poor no measurable }} word recognitio n. Tympanomet ry:Right Ear:{{Type A* Type As Type Ad Type C Type C, shallow & rounded Ty pe B Type B with large volume Cou ld not maintain a hermetic seal}}Left Ear:{{Type A Type As* Type Ad Type C Type C, shallow & rounded Ty pe B Type B with large volume Cou ld not maintain a hermetic seal}} [id number] ALEJANDRA RUIZ MD [facility] [address] [address] 07/26/2024 10:40:18 07/26/2024 11:12:35 Sensorineural hearing loss of bilateral ears 088393042 H90.3 Partially impacted cerumen was removed and tolerated well. Dizziness has been under control lately. She is scheduled for hearing aid evaluation . We can reassess for cerumen in 4 months or sooner if needed. Health Concerns Section Related Observation LastModified by Organization Jim sutherland LastModified Time None Recorded Concern Status LastModified by Organization Details LastModified Time None Recorded Advance Directives Directive None Recorded Payers Encounter Date Sequence Insurance Name Policy Number Policy Yeung Covered Member ID Yeung Member ID Guarantor Name 05/07/2024 1 [facility] [employer] - [employer] (HMO) [id number] Renu Diaz [id number] Renu Diaz 07/26/2024 1 [facility] [employer] - [employer] (HMO) [id number] Renu Diaz [id number] Renu Diaz Notes Date Note Type Note Provider Name and Address Organization Details Recorded Time 05/07/2024 text/html 64-year-old female presents today for follow-up of hearing. She reports the dizziness is improved since her last visit. She continues on Wegovy. ALEJANDRA RUIZ MD [address] [place] [address], [phone], [facility] - [facility] 05/07/2024 12:39:05 07/26/2024 text/html Went to go get the hearing aids. Noticed tinnitus bilaterally, especially when sleeping. PV: 64-year-old female presents today for follow-up of hearing. She reports the dizziness is improved since her last visit. She continues on Wegovy. ALEJANDRA RUIZ MD [address] [place] [address], [phone], [facility] 07/28/2024 13:24:32 OBGyn Episode No OBEpisode recorded.
[2024-10-18 07:46] LABS: HPV 16,18/45 See PAP report
== END 2024-10-17 14:33 | disposition home or self-care (01) ==
LOC: HO.LNP 14:32
PROVIDERS: PCP Physician Assistant; Visit Provider Advanced Practice Midwife
DX: Z01.419 Encounter for gynecological examination (general) (routine) without abnormal findings (principal); R10.2 Pelvic and perineal pain; Z20.2 Contact with and (suspected) exposure to infections with a predominantly sexual mode of transmission; Z11.51 Encounter for screening for human papillomavirus (HPV); Z87.42 Personal history of other diseases of the female genital tract
CPT/HCPCS: 87626; 88175; 99396; 99459

== ENCOUNTER 2024-11-05 14:03 | Outpatient (REF) | payer SELFPAY ==
--- OUTSIDE RECORDS SUMMARY | 2024-11-05 18:33 | XMS_ITS | Encounter Summary ---
Author Organization Formerly [facility] Address [address] [place] [address] Care Team Providers Care Ent Consultant Name Role Phone Scottie Pickering Primary Care Provider Unavailabl e Encounter Details Date Type Department Care Team Description 10/12/2019 Release of Information Medical Records [address] [place] [id number] Abstract, Provider Social History Tobacco Use Types Packs/Day Years Used Date Smoking Tobacco: Never Smokeless Tobacco: Never Alcohol Use Standard Drinks/Week Comments No 0 (1 standard drink = 0.6 oz pur e alcohol) Sex Assigned at Date Recorded Not on file documented as of this encounter Plan of Treatment Not on file documented as of this encounter Visit Diagnoses Not on filedocumented in this encounter Care Teams Ent Consultant Relationship Specialty Start Date End Date Scottie Pickering PCP - General Family Practice 10/25/18 documented as of this encounter
--- OUTSIDE RECORDS SUMMARY | 2024-11-05 18:33 | XMS_ITS | Data Portability ---
Author Organization [place] - [facility], Allergy Address [address] [place] [phone] Care Team Providers Care Highway Truck Driver Name Role Phone ISABELLA JOSEPH Primary Care [...] Details Recorded Time Tinnitus of right ear 51526022052 08 Active 2020 Tinnitus, right ear; Note: Date Diagnosed : 11/17/2020 9:15 AM (H93.13) Not Available [facility] 4 03:08:12 Dizziness and giddiness 927568320 Active 2018 Dizziness and giddiness ; Note: Date Diagnosed : 03/14/2019 9:14 AM (R42) Not Available [facility] 4 03:08:12 Impacted cerumen of bilateral ears 88606233407 05922 Active 2022 Impacted cerumen, bilateral ; Note: Date Diagnosed : 11/04/2022 9:41 AM (H61.23) Impacte d cerumen, bilateral ; Note: Date Diagnosed : 11/15/2018 11:21 AM (H61.23) ; Start Date : 9 Not Available [facility] 4 03:08:13 Sensorine ural hearing loss of bilateral ears 585871630 Active 2017 Sensorine ural hearing loss, bilateral ; Note: Date Diagnosed : 07/18/2018 9:37 AM (H90.3) Not Available [facility] 4 03:08:13 Impacted cerumen in right ear 77361461977 53441 Active 2018 Impacted cerumen, right ear; Note: Date Diagnosed : 03/14/2019 9:12 AM (H61.21) Not Available [facility] 4 03:08:12 Migraine with aura 1521331 Active 2018 Migraine with aura, not intractab le, without status migrainos us; Note: Date Diagnosed : 06/13/2019 10:17 AM (G43.109) Not Available [facility] 03:08:14 Migraine without aura, not refractor y 953649075 Active 2018 Migraine without aura, not intractab le, without status migrainos us; Note: Date Diagnosed : 03/14/2019 9:14 AM (G43.009) Not Available [facility] 03:08:14 Problem Notes None recorded. Procedures Surgical History Date Name Laterality Status Provider Name and Address Organization Details Recorded Time 05/07/2024 Comp Audio with Tymps (18539 & 35294) completed JESUS ALBERTO SMITH, [facility] [address] [facility],[place] [address], [place], [phone], [facility] - [facility] 05/07/2024 11:22:38 Imaging Results Imaging Date Name Status LastModified by Organiz ation Details LastModified Time 05/07/2024 audiogram completed [email or web address] Information not available 05/07/2024 16:04:05 11/15/2018 imaging/diagno [...] mg tablet 11/04 completed Medicati on ID: [id number] B rand Name: cycloben zaprine Send Method: [...] mg tablet 11/04 completed Medicati on ID: [id number] B rand Name: cetirizi ne Send Method: [...] mg tablet 05/07 completed Medicati on ID: [id number] B rand Name: sumatrip warren succinat e Send Method: E-Prescr ibed Sub s Allowed: subs OK Speci al Instruct ion: TAKE 1 TABLET BY MOUTH DAILY NEEDED FOR MIGRAINE HEADACHE ; MAY REPEAT DOSE AFTER 2 HOURS UP TO A MAXIMUM OF 2. Medic ationGen ericName : sumatrip warren succinat e Medica tion ID: [id number] B rand Name: sumatrip warren succinat e [...] mg tablet 11/04 completed Medicati on ID: [id number] B rand Name: predniso ne Send Method: E-Prescr ibed Sub s Allowed: subs OK Medic ationGen ericName : predniso ne Not Available Not Available Not Available Valium 2 mg tablet 1 tablet by mouth 04/08 completed Medicati on ID: [id number] P rescribe d By Name: John Shafer [...] mg tablet 03/14 completed Medicati on ID: [id number] R marina: () Brand Name: Advil Se nd Method: E-Prescr ibed Sub s Allowed: subs OK Medic ationGen ericName : Advil Not Available Not Available Not Available omeprazol e 20 mg capsule,d elayed release 05/07 completed Medicati on ID: [id number] B rand Name: omeprazo le Send Method: E-Prescr ibed Sub s Allowed: subs OK Medic ationGen ericName : omeprazo le Medic ation ID: [id number] B rand Name: omeprazo le Send Method: [...] mg tablet 07/26 completed Medicati on ID: [id number] B rand Name: lorazepa m Send Method: E-Prescr ibed Sub s Allowed: subs OK Medic ationGen ericName : lorazepa m Not Available Not Available Not Available ibuprofen 600 mg tablet 04/08 completed Medicati on ID: [id number] D uration Value: 30 Brand Name: ibuprofe [...] aerosol inhaler 05/07 completed Medicati on ID: [id number] B rand Name: Ventolin HFA Send Method: E-Prescr ibed Sub s Allowed: subs OK Medic ationGen ericName : Ventolin HFA Medi cation ID: [id number] B rand Name: Ventolin HFA Send Method: E-Prescr ibed Sub s Allowed: subs OK Medic ationGen ericName : Ventolin HFA Not Available Not Available Not Available Vitamin D3 25 mcg (1,000 unit) capsule 2018 active Medicati on ID: [id number] D uration Value: 30 Brand Name: Vitamin [...] Updated DateTime 05/07/2024 157.48 cm 37.7 kg/m2 79858.03 g Maryanne Verma [facility] 05/07/2024 11:41:53 Date Recorded Body height Body mass index (BMI) Body weight Provider Name and Address Organization Details Last Updated DateTime 07/26/2024 157.48 cm 37.7 kg/m2 00046.03 g Sudha Kimble [facility] 07/26/2024 10:54:24 Social History None recorded. [...] Note [id number] ALEJANDRA RUIZ MD [facility] [address] [address] 05/07/2024 10:51:22 05/07/2024 17:01:48 Sensorineural hearing loss of bilateral ears 903340138 H90.3 We reviewed her audiogram which showed [...] Cou ld not maintain a hermetic seal}} [id number] ALEJANDRA RUIZ MD [facility] [address] [address] 07/26/2024 10:40:18 07/26/2024 11:12:35 Sensorineural hearing loss of bilateral ears 507688337 H90.3 Partially impacted cerumen was removed and [...] Yeung Member ID Guarantor Name 05/07/2024 1 [facility] [employer] - [employer] (HMO) [id number] Renu Diaz [id number] Renu Diaz 07/26/2024 1 [facility] [employer] - [employer] (HMO) [id number] Renu Diaz [id number] Renu Diaz Notes Date Note Type Note Provider Name and Address Organization Details Recorded Time 05/07/2024 text/html 64-year-old female presents today for follow-up of hearing. She reports the dizziness is improved since her last visit. She continues on Wegovy. ALEJANDRA RUIZ MD [address] [place] [address], [phone], [facility] - [facility] 05/07/2024 12:39:05 07/26/2024 text/html Went to go get the hearing aids. Noticed tinnitus bilaterally, especially when sleeping. PV: 64-year-old female presents today for follow-up of hearing. She reports the dizziness is improved since her last visit. She continues on Wegovy. ALEJANDRA RUIZ MD [address] [place] [address], [phone], [facility] 07/28/2024 13:24:32 OBGyn Episode No OBEpisode recorded.
--- OUTSIDE RECORDS SUMMARY | 2024-11-05 18:33 | XMS_ITS | Encounter Summary ---
Author Organization [facility] Address [address] [place] [address] [address] [place] [address] Care Team Providers Care Window Shade Cutter Name Role Phone Unavailable Primary Care Provider Unavailabl e Encounter Details Date Type Department Care Team (Latest Contact Info) Description 12/19/2019 Abstract [facility] CONVERSION[facility] Dental, Provider, DDS Social History Tobacco Use Types Packs/Day Years Used Date Smoking Tobacco: Never Assessed Comments Unknown Sex and Gender Information Value Date Recorded Sex Assigned at Female 08/09/2022 10:14 AM EDT Legal Sex Female 10:14 AM EDT Gender Identity Female 08/09/2022 10:14 AM EDT Sexual Orientation Straight 08/09/2022 10 :14 AM EDT documented as of this encounter Plan of Treatment Upcoming Encounters Date Type Department Care Team (Late st Contact Info) Description 11/14/2024 1:00 PM EST Office Visit [facility] ADULT DENTAL [address] [place] [address] Ken Villaseñoraris [address] [place] [address] documented as of this encounter Visit Diagnoses Not on filedocumented in this encounter
--- OUTSIDE RECORDS SUMMARY | 2024-11-05 18:33 | XMS_ITS | Encounter Summary ---
Author Organization [facility] Address [address] [place] [address] Care Team Providers Care Transport Analyst Name Role Phone Scottie Pickering Primary Care Provider Unavailabl e Encounter Details Date Type Department Care Team Description 11/25/2021 Orders Only General Surgery [address] [place], [place] [phone] Pavel Thompson MD [address] [place] [address] Increased risk of breast cancer; FH: breast cancer in first degree relative when <50 years old Social History Tobacco Use Types Packs/Day Years Used Date Smoking Tobacco: Never Smokeless Tobacco: Never Alcohol Use Standard Drinks/Week Comments No 0 (1 standard drink = 0.6 oz pur e alcohol) Sex Assigned at Date Recorded Not on file documented as of this encounter Plan of Treatment Not on file documented as of this encounter Procedures Procedure Name Priority Date/Time Associated Diagnosis Comments SCR MAMMO BI INCL CAD Routine 11/25/2021 Increased risk of breast cancer FH: breast cancer in first degree relative when <50 years old documented in this encounter Results * SCR MAMMO BI INCL CAD (11/25/2021) Pavel Thompson MD MAMMOGRAPHY documented in this encounter Visit Diagnoses Diagnosis Increased risk of breast cancer Other specified personal history presenting hazards to health FH: breast cancer in first degree relative when <50 years old documented in this encounter Care Teams Transport Analyst Relationship Specialty Start Date End Date Scottie Pickering PCP - General Family Practice 10/25/18 documented as of this encounter
--- OUTSIDE RECORDS SUMMARY | 2024-11-05 18:33 | XMS_ITS | Encounter Summary ---
Author Organization [facility] Address [address] [place] [address] [address] [place] [address] Care Team Providers Care Bituminous Paving Machine Operator Name Role Phone Unavailable Primary Care Provider Unavailabl e Encounter Details Date Type Department Care Team (Latest Contact Info) Description 10/28/2021 Abstract [facility] CONVERSIONS Dental, Provider, DDS Social History [...] Description 11/14/2024 1:00 PM EST Office Visit [facility] ADULT DENTAL [address] [place] [address] Ken Villaseñoraris [address] [place] [address] documented as of this encounter Visit Diagnoses Not on filedocumented in this encounter
--- OUTSIDE RECORDS SUMMARY | 2024-11-05 18:33 | XMS_ITS | Encounter Summary ---
Author Organization [facility] Address [address] [place] [address] Care Team Providers Care Clinical Rehabilitation Aide Name Role Phone Scottie Pickering Primary Care Provider Unavailabl e Encounter Details Date Type Department Care Team Description 08/25/2021 Telephone General Surgery [address] [place] [address] Pavel Thompson MD [address] [place], [place] [phone] Social History Tobacco Use Types Packs/Day Years Used Date Smoking Tobacco: Never Smokeless Tobacco: Never Alcohol Use Standard Drinks/Week Comments No 0 (1 standard drink = 0.6 oz pur e alcohol) Sex Assigned at Date Recorded Not on file COVID-19 Exposure Response Date Recorded In the last month, have you been in contact with someone who was confirmed or suspected to have Coronavirus / COVID-19? No / Unsure 08/12/2021 9:58 AM EDT documented as of this encounter Miscellaneous Notes * Telephone Encounter - Mirlande Pagan - 08/25/2021 10:40 AM EST Pharmacy called, needs new prescription for Lorazepam sent to pharmacy. documented in this encounter Plan of Treatment Not on file documented as of this encounter Visit Diagnoses Not on filedocumented in this encounter Care Teams Clinical Rehabilitation Aide Relationship Specialty Start Date End Date Scottie Pickering PCP - General Family Practice 10/25/18 documented as of this encounter
--- OUTSIDE RECORDS SUMMARY | 2024-11-05 18:33 | XMS_ITS | Encounter Summary ---
Author Organization [facility] Address [address] [place] [address] Care Team Providers Care Senior Director Finance Name Role Phone Scottie Pickering Primary Care Provider Unavailabl e Encounter Details Date Type Department Care Team Description 08/18/2021 Telephone General Surgery [address] [place], [place] [phone] Pavel Thompson MD [address] [place] [address] Social History Tobacco Use Types Packs/Day Years [...] Miscellaneous Notes * Telephone Encounter - Mirlande Reyesmaxi - 08/18/2021 3:14 PM EST Patient called asking why she needed an MRI. I explained that she had dense breast tissue and that given her high risk for breast cancer, MRI are a good tool for screening someone with her history. She stated that she is extremely anxious. Dr. Thompson made aware and ordering anti-anxiety medication for the MRI. documented in this encounter Plan of Treatment Not on file documented as of this encounter Visit Diagnoses Diagnosis Situational anxiety- Primary Other anxiety states documented in this encounter Care Teams Senior Director Finance Relationship Specialty Start Date End Date Scottie Pickering PCP - General Family Practice 10/25/18 documented as of this encounter
--- OUTSIDE RECORDS SUMMARY | 2024-11-05 18:34 | XMS_ITS | Clinical Summary ---
Author Organization [facility] Address [address] [place] [address] 7 [place] [address] Care Team Providers Care Bike Technician Name Role Phone Unavailable Primary Care Provider Unavailabl e Allergies No known active allergies Medications omeprazole (PriLOSEC) [address] capsule Take 20 mg by mouth in the morning. 3 Active Citrucel 500 MG tablet Take 1 tablet by mouth 3 times daily. 3 Active magnesium oxide (Mag-Ox) 400 MG tablet Take 1 tablet by mouth at bedtime. 3 Active docusate sodium (Colace) 100 MG capsule TAKE ONE CAPSULE BY MOUTH TWICE A DAY FOR 30 DAYS 3 Active FLUoxetine (PROzac) 10 MG capsule Take 10 mg by mouth in the morning. 3 Active riboflavin (Vitamin B-2) 400 MG tablet Take 1 tablet by mouth in the morning. 3 Active Simethicone Ultra Strength 180 MG capsule TAKE ONE CAPSULE BY MOUTH THREE TIMES A DAY FOR ABDOMINAL DISTENTION 3 Active Active Problems Problem Noted Date Diagnosed Date Excessive attrition of teeth, limited to enamel 03/19/2024 Generalized gingival recession 02/27/2024 Missing teeth, acquired 02/27/2024 Malocclusion 01/04/2023 Dental plaque 12/14/2022 Erosion of teeth, limited to enamel 12/14/2022 Social History Tobacco Use Types Packs/Day Years Used Date Smoking Tobacco: Never Passive Smoke Exposure: Never Smokeless Tobacco: Never Tobacco Cessation:Counseling Given: Not Answered Alcohol Use Standard Drinks/Week Comments Defer 0 (1 standard drink = 0.6 oz pur e alcohol) Comments Unknown Sex and Gender Information Value Date Recorded Sex Assigned at Female 08/09/2022 10:14 AM EDT Legal Sex Female 10:14 AM EDT Gender Identity Female 08/09/2022 10:14 AM EDT Sexual Orientation Straight 08/09/2022 10 :14 AM EDT Last Filed Vital Signs Vital Sign Reading Time Taken Comments Blood Pressure 130/80 03/19/2024 9:03 AM EDT Pulse 74 03/19/2024 9:03 AM EDT Temperature - - Respiratory Rate - - Oxygen Saturation - - Inhaled Oxygen Concentration - - Weight - - Height - - Body Mass Index - - Plan of Treatment Upcoming Encounters Date Type Department Care Team (Late st Contact Info) Description 11/14/2024 1:00 PM EST Office Visit [facility] ADULT [facility] [address] [place], [place] [phone] Kasi, Karmen [address] [place] [address] Health Maintenance Due Date Last Done Comments CT Colonography 1972 Colonoscopy 1972 Colorectal Cancer Screening 1972 Depression Screening 1972 FIT DNA/Cologuard 1972 FIT 1972 FOBT 1972 HIV Screening 1972 SDOH Screening 1972 Sigmoidoscopy 1972 Alcohol/Substance Use Screening 1984 Family Planning (PISQ) 01/08/1987 Hepatitis C Screening 01/08/1990 Hepatitis B Vaccines (1 of 3 - 19+ 3-dose series) 01/08/1991 Pap Smear 01/08/1993 Cervical Cancer Screening 01/08/2002 HPV/Cotest 01/08/2002 Mammogram 2012 Zoster Vaccines (1 of 2) 01/08/2022 COVID-19 Vaccine ( season) 2024 01/26/2022, 08/19/2021, 12/18/2020, Additional history exists Influenza Vaccine (#1) 2024 , 08/21/2019, 08/15/2018, Additional history exists Dental Oral Exam 08/30/2024 02/27/2024, 12/14/2022 Dental Prophylaxis 08/30/2024 02/27/2024, 12/14/2022 Dental X-Ray: Bitewings 02/27/2025 02/27/2024, 12/14 Tobacco Screening 03/19/2025 03/19/2024 Dental X-Ray: Full Mouth 10/29/2026 10/28/2021 DTaP/Tdap/Td Vaccines (2 - Td or Tdap) 01/21/2032 01/20/2022 RSV Patients and Patients Aged 60 years or older (1 - 1-dose 75+ series) 01/08/2047 HIB Vaccines Aged Out No longer eligi ble based on patient's age to complete this topic HPV Vaccines Aged Out No longer eligi ble based on patient's age to complete this topic Hepatitis A Vaccines Aged Out No long er eligible based on patient's age to complete this topic IPV Vaccines Aged Out No longer eligi ble based on patient's age to complete this topic Meningococcal Vaccine Aged Out No denton ajay eligible based on patient's age to complete this topic Pneumococcal Vaccine: Pediatrics (0 to 5 Years) and At-Risk Patients (6 to 64 Years) Aged Out No longer eligible based on patient's age to complete this topic RSV under 20 months Aged Out No longe r eligible based on patient's age to complete this topic Rotavirus Vaccines Aged Out No longer eligible based on patient's age to complete this topic Procedures Procedure Name Priority Date/Time Associated Diagnosis Comments Full PROPHYLAXIS - ADULT Routine 024 10:00 AM EDT Dental plaque BITEWINGS - 4 RADIOGRAPHIC IMAGES Routine 02/27/2024 10:00 AM EDT Dental plaque Missing teeth, acquired Generalized gingival recession PERIODIC ORAL EVALUATION - ESTABLISHED PATIENT Routine 02/27/2024 10:00 AM EDT from Last 3 Months or Most Recently Relevant to Health Maintenance Insurance [facility] [place] [facility] [place] PARTIAL (MEDICAID)
== END 2024-11-05 14:04 | disposition home or self-care (01) ==
LOC: HO.HAP 14:03
PROVIDERS: Visit Provider Physician Assistant
DX: Z46.1 Encounter for fitting and adjustment of hearing aid (principal); H90.3 Sensorineural hearing loss, bilateral
CPT/HCPCS: V5261; V5299

== ENCOUNTER 2024-11-08 14:04 | Outpatient (REF) | payer SELFPAY ==
--- OUTSIDE RECORDS SUMMARY | 2024-11-08 17:55 | XMS_ITS | Data Portability ---
Author Organization [place] [facility] Address [address] [place] [id number] Care Team Providers Care Telephone Installer Name Role Phone ISABELLA JOSEPH Primary Care [...] Details Recorded Time Tinnitus of right ear 23490856678 08 Active 2020 Tinnitus, right ear; Note: Date Diagnosed : 11/17/2020 9:15 AM (H93.13) Not Available [facility] 4 03:08:12 Dizziness and giddiness 121301473 Active 2018 Dizziness and giddiness ; Note: Date Diagnosed : 03/14/2019 9:14 AM (R42) Not Available [facility] 4 03:08:12 Impacted cerumen of bilateral ears 57620191202 92291 Active 2022 Impacted cerumen, bilateral ; Note: Date Diagnosed : 11/04/2022 9:41 AM (H61.23) Impacte d cerumen, bilateral ; Note: Date Diagnosed : 11/15/2018 11:21 AM (H61.23) ; Start Date : 9 Not Available [facility] 4 03:08:13 Sensorine ural hearing loss of bilateral ears 739086205 Active 2017 Sensorine ural hearing loss, bilateral ; Note: Date Diagnosed : 07/18/2018 9:37 AM (H90.3) Not Available [facility] 4 03:08:13 Impacted cerumen in right ear 00936778494 49618 Active 2018 Impacted cerumen, right ear; Note: Date Diagnosed : 03/14/2019 9:12 AM (H61.21) Not Available [facility] 4 03:08:12 Migraine with aura 1499884 Active 2018 Migraine with aura, not intractab le, without status migrainos us; Note: Date Diagnosed : 06/13/2019 10:17 AM (G43.109) Not Available [facility] 03:08:14 Migraine without aura, not refractor y 400969271 Active 2018 Migraine without aura, not intractab le, without status migrainos us; Note: Date Diagnosed : 03/14/2019 9:14 AM (G43.009) Not Available [facility] 03:08:14 Problem Notes None recorded. Procedures Surgical History Date Name Laterality Status Provider Name and Address Organization Details Recorded Time 05/07/2024 Comp Audio with Tymps (80424 & 25027) completed JESUS ALBERTO SMITH, [facility] [address],[place] [address], [place], [phone], [facility] - [facility] 05/07/2024 11:22:38 Imaging Results Imaging Date Name Status LastModified by Organiz ation Details LastModified Time 05/07/2024 audiogram completed [facility] Information not available 05/07/2024 16:04:05 11/15/2018 imaging/diagno [...] mg tablet 11/04 completed Medicati on ID: [id number] B rand Name: cycloben zaprine Send Method: [...] mg tablet 11/04 completed Medicati on ID: [id number] B rand Name: cetirizi ne Send Method: [...] mg tablet 05/07 completed Medicati on ID: [id number] B rand Name: sumatrip warren succinat e Send Method: E-Prescr ibed Sub s Allowed: subs OK Speci al Instruct ion: TAKE 1 TABLET BY MOUTH DAILY NEEDED FOR MIGRAINE HEADACHE ; MAY REPEAT DOSE AFTER 2 HOURS UP TO A MAXIMUM OF 2. Medic ationGen ericName : sumatrip warren succinat e Medica tion ID: [id number] B rand Name: sumatrip warren succinat e [...] mg tablet 11/04 completed Medicati on ID: [id number] B rand Name: predniso ne Send Method: E-Prescr ibed Sub s Allowed: subs OK Medic ationGen ericName : predniso ne Not Available Not Available Not Available Valium 2 mg tablet 1 tablet by mouth 04/08 completed Medicati on ID: [id number] P rescribe d By Name: John Shafer [...] mg tablet 03/14 completed Medicati on ID: [id number] R marina: () Brand Name: Advil Se nd Method: E-Prescr ibed Sub s Allowed: subs OK Medic ationGen ericName : Advil Not Available Not Available Not Available omeprazol e 20 mg capsule,d elayed release 05/07 completed Medicati on ID: [id number] B rand Name: omeprazo le Send Method: E-Prescr ibed Sub s Allowed: subs OK Medic ationGen ericName : omeprazo le Medic ation ID: [id number] B rand Name: omeprazo le Send Method: [...] mg tablet 07/26 completed Medicati on ID: [id number] B rand Name: lorazepa m Send Method: E-Prescr ibed Sub s Allowed: subs OK Medic ationGen ericName : lorazepa m Not Available Not Available Not Available ibuprofen 600 mg tablet 04/08 completed Medicati on ID: [id number] D uration Value: 30 Brand Name: ibuprofe [...] aerosol inhaler 05/07 completed Medicati on ID: [id number] B rand Name: Ventolin HFA Send Method: E-Prescr ibed Sub s Allowed: subs OK Medic ationGen ericName : Ventolin HFA Medi cation ID: [id number] B rand Name: Ventolin HFA Send Method: E-Prescr ibed Sub s Allowed: subs OK Medic ationGen ericName : Ventolin HFA Not Available Not Available Not Available Vitamin D3 25 mcg (1,000 unit) capsule 2018 active Medicati on ID: [id number] D uration Value: 30 Brand Name: Vitamin [...] Updated DateTime 05/07/2024 157.48 cm 37.7 kg/m2 08178.03 g Maryanne Verma [facility] 05/07/2024 11:41:53 Date Recorded Body height Body mass index (BMI) Body weight Provider Name and Address Organization Details Last Updated DateTime 07/26/2024 157.48 cm 37.7 kg/m2 69417.03 g Sudha Kimble [facility] 07/26/2024 10:54:24 Social History None recorded. Functional [...] Note [id number] ALEJANDRA RUIZ MD [facility] [address] [phone] 05/07/2024 10:51:22 05/07/2024 17:01:48 Sensorineural hearing loss of bilateral ears [id number] H90.3 We reviewed her audiogram which showed [...] Cou ld not maintain a hermetic seal}} [id number] ALEJANDRA RUIZ MD [facility] [address] [phone] 07/26/2024 10:40:18 07/26/2024 11:12:35 Sensorineural hearing loss of bilateral ears [id number] H90.3 Partially impacted cerumen was removed and [...] Yeung Member ID Guarantor Name 05/07/2024 1 [facility] [employer] (HMO) [id number] Renu Diaz [id number] Renu Diaz 07/26/2024 1 [facility] [employer] (HMO) [id number] Renu Diaz [id number] Renu Diaz Notes Date Note Type Note Provider Name and Address Organization Details Recorded Time 05/07/2024 text/html 64-year-old female presents today for follow-up of hearing. She reports the dizziness is improved since her last visit. She continues on Wegovy. ALEJANDRA RUIZ MD [address] [place] [address], [phone], [facility] - [facility] 05/07/2024 12:39:05 07/26/2024 text/html Went to go get the hearing aids. Noticed tinnitus bilaterally, especially when sleeping. PV: 64-year-old female presents today for follow-up of hearing. She reports the dizziness is improved since her last visit. She continues on Wegovy. ALEJANDRA RUIZ MD [address] [place] [address], [phone], [facility] 07/28/2024 13:24:32 OBGyn Episode No OBEpisode recorded.
--- OUTSIDE RECORDS SUMMARY | 2024-11-08 17:55 | XMS_ITS | Encounter Summary ---
Author Organization [facility] Address [address] [place] [address] [address] [place] [address] Care Team Providers Care Blacking Machine Operator Name Role Phone Unavailable Primary Care Provider Unavailabl e Encounter Details Date Type Department Care Team (Latest Contact Info) Description 12/19/2019 Abstract [facility] CONVERSIONS Dental, Provider, DDS Social History Tobacco [...] Description 11/14/2024 1:00 PM EST Office Visit [facility] ADULT DENTAL [address] [place] [address] Ken Villaseñoraris [address] [place] [address] documented as of this encounter Visit Diagnoses Not on filedocumented in this encounter
--- OUTSIDE RECORDS SUMMARY | 2024-11-08 17:55 | XMS_ITS | Encounter Summary ---
Author Organization [facility] Address [address] [place] [address] [address] [place] [address] Care Team Providers Care Cotton Cleaner Name Role Phone Unavailable Primary Care Provider Unavailabl e Encounter Details Date Type Department Care Team (Latest Contact Info) Description 10/28/2021 Abstract [facility] CONVERSIONS Dental, Provider, DDS Social History [...] Description 11/14/2024 1:00 PM EST Office Visit [facility] ADULT [facility] [address] [place] [address] Ken Villaseñoraris [address] [place] [address] documented as of this encounter Visit Diagnoses Not on filedocumented in this encounter
--- OUTSIDE RECORDS SUMMARY | 2024-11-08 17:55 | XMS_ITS | Clinical Summary ---
Author Organization [facility] Address [address] [place] [address] 7 [place] [address] Care Team Providers Care Coffee Weigher Name Role Phone Unavailable Primary Care Provider [...] Description 11/14/2024 1:00 PM EST Office Visit [facility]ULT [facility] [address] [place], [place] [phone] Kasi, Karmen [address] [place] [address] Health Maintenance Due Date Last Done Comments [...] Cancer Screening 01/08/2002 HPV/Cotest 01/08/2002 Mammogram 2012 Pneumococcal Vaccine: 50+ Years (1 of 1 - PCV) 01/08/2022 Zoster Vaccines (1 of 2) 01/08/2022 COVID-19 [...] 5 Years) and At-Risk Patients (6 to 49) Years) Aged Out No longer eligible based [...] Most Recently Relevant to Health Maintenance Insurance [facility] D[facility] - HSN PARTIAL (MEDICAID)
== END 2024-11-08 14:05 | disposition home or self-care (01) ==
LOC: HO.HAP 14:04
PROVIDERS: Visit Provider Physician Assistant
DX: Z13.89 Encounter for screening for other disorder (principal)

== ENCOUNTER 2024-11-27 07:51 | Outpatient (REF) | payer SELFPAY ==
--- OUTSIDE RECORDS SUMMARY | 2024-11-27 07:53 | XMS_ITS | Encounter Summary ---
Author Organization [facility] Address [address] [place] [address] Care Team Providers Care Retail Seasonal Specialist Name Role Phone Scottie Pickering Primary Care Provider Unavailabl e Encounter Details Date Type Department Care Team Description 08/25/2021 Telephone General Surgery [address] [place] [address] Pavel Thompson MD [address] [place], [place] [phone] Social History Tobacco Use Types Packs/Day Years [...] on filedocumented in this encounter Care Teams Retail Seasonal Specialist Relationship Specialty Start Date End Date Scottie Pickering PCP - General Family Practice 10/25/18 documented as of this encounter
--- OUTSIDE RECORDS SUMMARY | 2024-11-27 07:53 | XMS_ITS | Clinical Summary ---
Author Organization [facility] Address [address] [place] [address] Care Team Providers Care Neighborhood Conservation Officer Name Role Phone Scottie Pickering Primary Care Provider Unavailabl e Allergies No known active allergies Medications Medication Sig Dispensed Refills Start Date End Date Status lorazepam (ATIVAN) 1 MG tabletIndications:Sit uational anxiety Take 2 Tablets by mouth Once for 1 dose. Take 30-45 minutes prior to MRI on 08/26/21 1 tablet 0 08/18/2021 Active lorazepam (ATIVAN) 1 MG tablet Take 1 tablet by mouth Once for 1 dose. 30-45 minutes prior to MRI 1 tablet 0 08/25/2021 Active Active Problems Problem Noted Date FH: breast cancer in first degree relati ve when <50 years old 03/20/2019 Overview: 2 sisters, 48 & 49; 09/2018 genetic testing negative Hx of migraines Family History Medical History Relation Name Comments Testicular Cancer Father Cancer of the Breast Sister 1 Cancer of the Breast Sister 2 thyroid cancer Sister 3 Relation Name Status Comments Father at age 70 Sister 1 age 49 Sister 2 at age 48 Sister 3 in her 50's Social History Tobacco Use Types Packs/Day Years Used Date Smoking Tobacco: Never Smokeless Tobacco: Never Alcohol Use Standard Drinks/Week Comments No 0 (1 standard drink = 0.6 oz pur e alcohol) Sex Assigned at Date Recorded Not on file Last Filed Vital Signs Vital Sign Reading Time Taken Comments Blood Pressure 110/58 08/12/2021 10:36 AM EDT Pulse 71 08/12/2021 10:36 AM EDT Temperature 36.7 ??C (98.1 ??F) 08/12/2021 10:36 AM E DT Respiratory Rate 18 08/12/2021 10:36 AM EDT Oxygen Saturation 97% 08/12/2021 10:36 AM EDT Inhaled Oxygen Concentration - - Weight 93 kg (205 lb) 08/12/2021 10:36 AM EDT Height 157.5 cm (5' 2 ) 07/09/2020 10:58 AM EDT Body Mass Index 37.49 07/09/2020 10:58 AM EDT Plan of Treatment Health Maintenance Due Date Last Done Comments Covid-19 Vaccine (#1) 1972 DTAP/TDAP/TD (1 - Tdap) 01/08/1991 CHOLESTEROL SCREENING 1992 CERVICAL CANCER SCREENING 01/08/1993 BASELINE HEALTH EXAM 40-64 2012 COLON CANCER SCREENING 01/08/2022 SHINGLES VACCINE (1 of 2) 01/08/2022 MAMMOGRAM 11/25/2022 11/25/2021, 11/11, 09/08/2019, Additional history exists INFLUENZA (#1) 2024 BMI CHECK/ADVISE 10/10/2024 07/09/2020 DEPRESSION SCREENING/FOLLOWUP 10/10/2024 SOCIAL NEEDS SCREENING 10/10/2024 PNEUMOCOCCAL VACCINE FOR HIG H RISK PATIENTS (#1) 01/08/2037 Care Teams Neighborhood Conservation Officer Relationship Specialty Start Date End Date Scottie Pickering PCP - General Family Practice 10/25/18
--- OUTSIDE RECORDS SUMMARY | 2024-11-27 07:53 | XMS_ITS | Data Portability ---
Author Organization [place] - [facility], Allergy Address [address] [place] [phone] Care Team Providers Care Mobile Service Rv Technician Name Role Phone ISABELLA JOSEPH Primary Care [...] Details Recorded Time Tinnitus of right ear [id number] Active 2020 Tinnitus, right ear; Note: Date Diagnosed : 11/17/2020 9:15 AM (H93.13) Not Available [facility] 4 03:08:12 Dizziness and giddiness 576029055 Active 2018 Dizziness and giddiness ; Note: Date Diagnosed : 03/14/2019 9:14 AM (R42) Not Available [facility] 4 03:08:12 Impacted cerumen of bilateral ears [id number] 61448 Active 2022 Impacted cerumen, bilateral ; Note: Date Diagnosed : 11/04/2022 9:41 AM (H61.23) Impacte d cerumen, bilateral ; Note: Date Diagnosed : 11/15/2018 11:21 AM (H61.23) ; Start Date : 9 Not Available [facility] 4 03:08:13 Sensorine ural hearing loss of bilateral ears 873009132 Active 2017 Sensorine ural hearing loss, bilateral ; Note: Date Diagnosed : 07/18/2018 9:37 AM (H90.3) Not Available [facility] 4 03:08:13 Impacted cerumen in right ear 33055597677 03265 Active 2018 Impacted cerumen, right ear; Note: Date Diagnosed : 03/14/2019 9:12 AM (H61.21) Not Available [facility] 4 03:08:12 Migraine with aura 5599815 Active 2018 Migraine with aura, not intractab le, without status migrainos us; Note: Date Diagnosed : 06/13/2019 10:17 AM (G43.109) Not Available [facility] 03:08:14 Migraine without aura, not refractor y 728071193 Active 2018 Migraine without aura, not intractab le, without status migrainos us; Note: Date Diagnosed : 03/14/2019 9:14 AM (G43.009) Not Available [facility] 03:08:14 Problem Notes None recorded. Procedures Surgical History Date Name Laterality Status Provider Name and Address Organization Details Recorded Time 05/07/2024 Comp Audio with Tymps (46845 & 47732) completed JESUS ALBERTO SMITH, [facility] [address] [facility],[place] [address], [place], [address], [facility] - [facility] 05/07/2024 11:22:38 Imaging Results Imaging Date Name Status LastModified by Organiz ation Details LastModified Time 05/07/2024 audiogram completed [email or web address] Information not available 05/07/2024 16:04:05 11/15/2018 imaging/diagno [...] mg tablet 11/04 completed Medicati on ID: [id number] B rand Name: cycloben zaprine Send Method: [...] mg tablet 11/04 completed Medicati on ID: [id number] B rand Name: cetirizi ne Send Method: [...] mg tablet 05/07 completed Medicati on ID: [id number] B rand Name: sumatrip warren succinat e Send Method: E-Prescr ibed Sub s Allowed: subs OK Speci al Instruct ion: TAKE 1 TABLET BY MOUTH DAILY NEEDED FOR MIGRAINE HEADACHE ; MAY REPEAT DOSE AFTER 2 HOURS UP TO A MAXIMUM OF 2. Medic ationGen ericName : sumatrip warren succinat e Medica tion ID: [id number] B rand Name: sumatrip warren succinat e [...] mg tablet 11/04 completed Medicati on ID: [id number] B rand Name: predniso ne Send Method: E-Prescr ibed Sub s Allowed: subs OK Medic ationGen ericName : predniso ne Not Available Not Available Not Available Valium 2 mg tablet 1 tablet by mouth 04/08 completed Medicati on ID: [id number] P rescribe d By Name: John Shafer [...] mg tablet 03/14 completed Medicati on ID: [id number] R marina: () Brand Name: Advil Se nd Method: E-Prescr ibed Sub s Allowed: subs OK Medic ationGen ericName : Advil Not Available Not Available Not Available omeprazol e 20 mg capsule,d elayed release 05/07 completed Medicati on ID: [id number] B rand Name: omeprazo le Send Method: E-Prescr ibed Sub s Allowed: subs OK Medic ationGen ericName : omeprazo le Medic ation ID: [id number] B rand Name: omeprazo le Send Method: [...] mg tablet 07/26 completed Medicati on ID: [id number] B rand Name: lorazepa m Send Method: E-Prescr ibed Sub s Allowed: subs OK Medic ationGen ericName : lorazepa m Not Available Not Available Not Available ibuprofen 600 mg tablet 04/08 completed Medicati on ID: [id number] D uration Value: 30 Brand Name: ibuprofe [...] aerosol inhaler 05/07 completed Medicati on ID: [id number] B rand Name: Ventolin HFA Send Method: E-Prescr ibed Sub s Allowed: subs OK Medic ationGen ericName : Ventolin HFA Medi cation ID: [id number] B rand Name: Ventolin HFA Send Method: E-Prescr ibed Sub s Allowed: subs OK Medic ationGen ericName : Ventolin HFA Not Available Not Available Not Available Vitamin D3 25 mcg (1,000 unit) capsule 2018 active Medicati on ID: [id number] D uration Value: 30 Brand Name: Vitamin [...] Updated DateTime 05/07/2024 157.48 cm 37.7 kg/m2 81221.03 g Maryanne Verma [facility] 05/07/2024 11:41:53 Date Recorded Body height Body mass index (BMI) Body weight Provider Name and Address Organization Details Last Updated DateTime 07/26/2024 157.48 cm 37.7 kg/m2 00033.03 g Sudha Kimble [facility] 07/26/2024 10:54:24 Social History None recorded. [...] Note [id number] ALEJANDRA RUIZ MD [facility] [address] [phone] 05/07/2024 10:51:22 05/07/2024 17:01:48 Sensorineural hearing loss of bilateral ears [id number] H90.3 We reviewed her audiogram which showed [...] Cou ld not maintain a hermetic seal}} [id number] ALEJANDRA RUIZ MD [facility] [address] [phone] 07/26/2024 10:40:18 07/26/2024 11:12:35 Sensorineural hearing loss of bilateral ears [id number] H90.3 Partially impacted cerumen was removed and [...] Member ID Guarantor Name 05/07/2024 1 [facility] HE[employer] [facility]AN - [employer] (HMO) [id number] Renu Diaz [id number] Renu Diaz 07/26/2024 1 [facility] HE[employer] PLAN - [employer] (HMO) [id number] Renu Diaz [id number] Renu Diaz Notes Date Note Type Note Provider Name and Address Organization Details Recorded Time 05/07/2024 text/html 64-year-old female presents today for follow-up of hearing. She reports the dizziness is improved since her last visit. She continues on Wegovy. ALEJANDRA RUIZ MD [address] [place] [address], [phone], [facility] - [facility] 05/07/2024 12:39:05 07/26/2024 text/html Went to go get the hearing aids. Noticed tinnitus bilaterally, especially when sleeping. PV: 64-year-old female presents today for follow-up of hearing. She reports the dizziness is improved since her last visit. She continues on Wegovy. ALEJANDRA RUIZ MD [address] [place] [address], [phone], [facility] 07/28/2024 13:24:32 OBGyn Episode No OBEpisode recorded.
== END 2024-11-27 07:52 | disposition home or self-care (01) ==
LOC: HO.HAP 07:51
PROVIDERS: PCP Physician Assistant; Visit Provider Otolaryngology
DX: Z13.89 Encounter for screening for other disorder (principal)

== ENCOUNTER 2024-12-03 12:18 | Outpatient (REF) | payer SELFPAY ==
--- OUTSIDE RECORDS SUMMARY | 2024-12-03 14:04 | XMS_ITS | Encounter Summary ---
Author Organization [facility] Address [address] [place] [address] Care Team Providers Care Executive Director Name Role Phone Unavailable Primary Care Provider Unavailabl e Reason for Visit * Reason Comments Dental Pain Encounter Details Date Type Department Care Team (Late st Contact Info) Description 11/23/2024 8:00 AM EST Office Visit [facility] ADULT DENTAL [address] [place] [address] Jere Rodriguez DDS [address] [place] [address] Fractured dental yazidi with loss of material (Primary Dx) Social History Tobacco Use Types Packs/Day Years Used Date Smoking Tobacco: Never Passive Smoke Exposure: Never Smokeless Tobacco: Never Alcohol Use Standard Drinks/Week Comments Defer 0 (1 standard drink = 0.6 oz pur e alcohol) Comments Unknown Sex and Gender Information Value Date Recorded Sex Assigned at Female 08/09/2022 10:14 AM EDT Legal Sex Female 10:14 AM EDT Gender Identity Female 08/09/2022 10:14 AM EDT Sexual Orientation Straight 08/09/2022 10 :14 AM EDT documented as of this encounter Last Filed Vital Signs Vital Sign Reading Time Taken Comments Blood Pressure 122/76 11/23/2024 8:02 AM EST Pulse 68 11/23/2024 8:02 AM EST Temperature - - Respiratory Rate - - Oxygen Saturation - - Inhaled Oxygen Concentration - - Weight - - Height - - Body Mass Index - - documented in this encounter Progress Notes * Jere Rodriguez DDS - 11/23/2024 8:00 AM EST Patient ID: Renu Diaz is a 54 y.o. female. Time Out: Timeout Date: 11/23/24 (pt came in as emergency with pain on her upper left side. 1 pa taken), Timeout Time: 810 Location: [facility] Tooth: Maxilla and #13 Procedure: Yazidism Verified the above with patient, medical office assistant instructor, and provider. Confirmed via patient's chart, intraorally and by radiographs. Public Interviewer: not applicable Chief Complaint Patient presents with Dental Pain Medical Hx: Vitals: Blood pressure 122/76, pulse 68. Medications, Med Hx reviewed with patient and updated in chart. Consent Obtained: The risks, benefits, indications, potential complications, and alternatives were explained to the patient and informed consent was obtained with good understanding. Treatment Provided: Dental procedures in this visit D0140 - LIMITED ORAL EVALUATION - PROBLEM FOCUSED (Completed) Service provider: Jere Rodriguez DDS Billing provider: Jere Rodriguez DDS D0220 - INTRAORAL - PERIAPICAL FIRST RADIOGRAPHIC IMAGE (Completed) Service provider: Jere Rodriguez DDS Billtc provider: Jere Rodirguez DDS D2394 - RESIN-BASED COMPOSITE - 4+ SURF, POSTERIOR 13 DOBL (Completed) Service provider: Jere Rodriguez DDS Billing provider: Jere Rodriguez DDS D9450 - CASE PRESENTATION, DETAILED AND EXTENSIVE TREATMENT PLANNING (Completed) Service provider: Jere Rodriguez DDS Billing provider: Jere Rodriguez DDS Diagnosis: Fractured yazidi Topical: 20% Benzocaine Anesthesia: 2% Lidocaine (Xylocaine) w/ 1:100,000 epinephrine Number of Cartridges: 1 Injection Type: Buccal infiltration Confirmed profound anesthesia. Isolation: high speed suction, cotton rolls, and cheek guard Prep: Existing yazidi removed and Preparation finalized Matrix: Tofflemire and wedge Etch: 37% Phosphoric Acid Etch Desensitizer: Gluma Liner/Base: Activa Acevedo: I-Acevedo Yazidism Material: Filtek Adell Flowable Composite and Paradigm Composite Shade: A3 Pt was advised about post op sensitivity, if symptoms are not improved or worsen a potential necessity for RCT PCC vs. Surgical exo exist. Polished. Occlusion & contacts verified. Patient satisfied with comfort and esthetics. Patient tolerated procedure well. Post-operative instructions were given. Patient departed alert, oriented, and in stable condition. NV: F/U as needed / 6 mos recall Foil Wrapper: Janet Marroquin Dentist: Jere Rodriguez DDS documented in this encounter Plan of Treatment Upcoming Encounters Date Type Department Care Team (Late st Contact Info) Description 05/22/2025 8:00 AM EDT Office Visit [facility] ADULT DENTAL [address] [place] [address] Cynthia Metz documented as of this encounter Procedures Procedure Name Priority Date/Time Associated Diagnosis Comments 13 DOBL RESIN-BASED COMPOSITE - 4+ SURF, POSTERIOR Routine 11/23/2024 8:00 AM EST LIMITED ORAL EVALUATION - PROBLEM FOCUSED Routine 11/23/2024 8:00 AM EST INTRAORAL - PERIAPICAL FIRST RADIOGRAPHIC IMAGE Routine 11/23/2024 8:00 AM EST CASE PRESENTATION, DETAILED AND EXTENSIVE TREATMENT PLANNING Routine 11/23/2024 8:00 AM EST documented in this encounter Visit Diagnoses Diagnosis Fractured dental yazidi with loss of material- Primary Fractured dental restorative material with loss of material documented in this encounter
--- OUTSIDE RECORDS SUMMARY | 2024-12-03 14:04 | XMS_ITS | Encounter Summary ---
Author Organization [facility] Address [address] [place] [address] 7 [place] [address] Care Team Providers Care Well Driller Name Role Phone Unavailable Primary Care Provider Unavailabl e Reason for Visit * Reason Comments Routine Cleaning Dental Exam Encounter Details Date Type Department Care Team ([facility] st Contact Info) Description 11/21/2024 8:00 AM EST Office Visit [facility] ADULT DENTAL [address] [place] [address] Metz, Cynthia Missing teeth, acquired (Primary Dx); Dental plaque; Normal oral exam; Dental calculus Social History Tobacco Use Types Packs/Day Years [...] Sign Reading Time Taken Comments Blood Pressure 128/82 11/21/2024 9:18 AM EST Pulse - - Temperature - - Respiratory Rate - - Oxygen Saturation - - Inhaled Oxygen Concentration - - Weight - - Height - - Body Mass Index - - documented in this encounter Progress Notes * Jere Rodriguez DDS - 11/21/2024 8:00 AM EST Dental procedures in this visit D0120 - PERIODIC ORAL EVALUATION - ESTABLISHED PATIENT (Completed) Service provider: Jere Rodriguez DDS Billing provider: Jere Rodriguez DDS Patient ID: Renu Diaz is a 54 y.o. female. Time Out: Timeout Date: 11/21/24, Timeout Time: 0810 (Dental Prophy Adult) Location: [facility] Tooth: Maxilla and Mandible Procedure: Exam, X-rays, and Prophylaxis Verified the above with patient, chemist assistant, and provider. Confirmed via patient's chart, intraorally and by radiographs. Liquefaction Supervisor: not applicable Chief Complaint Patient presents with Routine Cleaning Dental Exam Medical Hx: Vitals: Blood pressure 128/82. Past Medical History: Diagnosis Date Anxiety Bleeding gums GERD (gastroesophageal reflux disease) Migraines Medications: Outpatient Encounter Medications as of 11/21/2024 Medication Sig Dispense Refill LORazepam (Ativan) 1 MG tablet Take 1 mg by mouth 1 (one) time. propranolol (Inderal) 10 MG tablet Take 1 tablet by mouth 2 times daily. Wegovy 0.25 MG/0.5ML solution auto-injector INJECT 0.25 0.5 ML) SUBCUTANEOUSLY EVERY WEEK FOR 4 WEEKS; ADMINISTER WEEKS 1 THROUGH 4 OF THERAPY. Citrucel 500 MG tablet Take 1 tablet by mouth 3 times daily. docusate sodium (Colace) 100 MG capsule TAKE ONE CAPSULE BY MOUTH TWICE A DAY FOR 30 DAYS FLUoxetine (PROzac) 10 MG capsule Take 10 mg by mouth in the morning. ibuprofen 800 MG tablet Take 800 mg by mouth every 8 (eight) hours if needed. magnesium oxide (Mag-Ox) 400 MG tablet Take 1 tablet by mouth at bedtime. omeprazole (PriLOSEC) [address] capsule Take 20 mg by mouth in the morning. riboflavin (Vitamin B-2) 400 MG tablet Take 1 tablet by mouth in the morning. Simethicone Ultra Strength 180 MG capsule TAKE ONE CAPSULE BY MOUTH THREE TIMES A DAY FOR ABDOMINALDISTENTION No facility-administered encounter medications on file as of 11/21/2024. Objective HPI Asymptomatic Head and Neck Exam: Lymph Nodes, Lips, Palate, Buccal Mucosa, Floor of Mouth, Tongue, Tonsils, Alveolar Ridges, Oropharynx, Salivary Ducts, and Vestibules normal appearance Details: Skin WNL OCS: negative Dental Exam As charted Plaque Calculus Bone loss Mesial inclined teeth Missing teeth acquired Multiple restorations Set of RPDs functioning well Reference tooth chart for additional findings. Oral Cancer Risk: Low Risk Oral Hygiene Instructions: Circle two times daily, modified hernadez technique, Floss daily, Electric toothbrush, Soft bristle toothbrush, Circle Tongue, Anti- sensitivity toothpaste Caries Risk Assessment: Medium- one risk factor NO active carious lesion noticed at this time. Assessment/Plan ALLY X Ray Prophy Recall Patient tolerated procedure well, all questions answered and expressed understanding. Dismissed in good condition. NV: 6 mos recall Otter Trawler Boatswain: Cynthia Metz RDH Dentist: Jere Rodriguez DDS * Cynthia Metz - 11/21/2024 8:00 AM EST Patient ID: Renu Diaz is a 54 y.o. female. Time Out: Timeout Date: 11/21/24, Timeout Time: 809 (Dental Prophy Adult) Location: [facility] Tooth: Maxilla and Mandible Procedure: Exam and Prophylaxis Verified the above with patient, chemist assistant, and provider. Confirmed via patient's chart, intraorally and by radiographs. Liquefaction Supervisor: not applicable Medical Hx: Vitals: Blood pressure 128/82. Medications, Med Hx reviewed with patient and updated in chart. Treatment Provided Dental procedures in this visit D0120 - PERIODIC ORAL EVALUATION - ESTABLISHED PATIENT (Completed) Service provider: Jere Rodriguez DDS Billing provider: Jere Rodriguez DDS D1110 - PROPHYLAXIS - ADULT (Completed) Service provider: Cynthia Metz Billing provider: Jere Rodriguez DDS D1330 - ORAL HYGIENE INSTRUCTIONS (Completed) Service provider: Cynthia Metz Billing provider: Jere Rodriguez DDS Instruments Used: Ultrasonic Scalers, Prophy angle, and floss Fluoride: N/A Oral Cancer Screening: No lesions Head/Neck Exam: No Lesions Calculus: Light and Generalized Plaque: None Stain: Light and Generalized Bleeding: Light and Generalized Gingiva: Healthy [place]: Good Perio Chart: Not due Oral hygiene instructions provided to patient including brushing technique and flossing. Recommendations: Circle two times daily, modified hernadez technique, Floss daily, Electric toothbrush, Soft bristle toothbrush, Circle Tongue, Anti-sensitivity toothpaste Recall Frequency: 6 mo NV: 6mrc Hygienist: Cynthia Metz RDH documented in this encounter Plan of Treatment Upcoming Encounters Date Type Department Care Team (Late st Contact Info) Description 05/22/2025 8:00 AM EDT Office Visit [facility] ADULT DENT[facility] [address] [place] [address] Cynthia Metz documented as of this encounter Procedures Procedure Name Priority Date/Time Associated Diagnosis Comments PROPHYLAXIS - ADULT Routine 11/21/2024 8 :00 AM EST Dental plaque Dental calculus PERIODIC ORAL EVALUATION - ESTABLISHED PATIENT Routine 11/21/2024 8:00 AM EST ORAL HYGIENE INSTRUCTIONS Routine 11/21/2024 8:00 AM EST Dental plaque Dental calculus documented in this encounter Visit Diagnoses Diagnosis Missing teeth, acquired- Primary Dental plaque Accretions on teeth Normal oral exam Dental calculus Accretions on teeth documented in this encounter
--- OUTSIDE RECORDS SUMMARY | 2024-12-03 14:04 | XMS_ITS | Encounter Summary ---
Author Organization [facility] Address [address] [place] [address] [address] [address] Care Team Providers Care Nba Player Name Role Phone Unavailable Primary Care Provider Unavailabl e Encounter Details Date Type Department Care Team (Latest Contact Info) Description 12/19/2019 Abstract [facility] CONVERSIONS Dental, Provider, DDS Social History [...] Upcoming Encounters Date Type Department Care Team ( st Contact Info) Description 05/22/2025 8:00 AM EDT Office Visit [facility] ADULT DENTAL [address] [place] [address] Cynthia Metz documented as of this encounter Visit Diagnoses Not on filedocumented in this encounter
--- OUTSIDE RECORDS SUMMARY | 2024-12-03 14:04 | XMS_ITS | Clinical Summary ---
Author Organization [employer] Address [address] [place] [address] [address] [place] [address] Care Team Providers Care Pig Breeder Name Role Phone Unavailable Primary Care Provider [...] A DAY FOR ABDOMINAL DISTENTION 3 Active ibuprofen 800 MG tablet Take 800 mg by mouth every 8 (eight) hours if needed. Active LORazepam (Ativan) 1 MG tablet Take 1 mg by mouth 1 (one) time. 1 Active propranolol (Inderal) 10 MG tablet Take 1 tablet by mouth 2 times daily. 4 Active Wegovy 0.25 MG/0.5ML solution auto-injector INJECT 0.25 0.5 ML) SUBCUTANEOUSLY EVERY WEEK FOR 4 WEEKS; ADMINISTER WEEKS 1 THROUGH 4 OF THERAPY. 4 Active Active Problems Problem Noted Date Diagnosed Date Fractured dental mandaen with loss of materi al 11/23/2024 Normal oral exam 11/21/2024 Excessive attrition of teeth, limited to enamel 03/19/2024 Generalized gingival recession 02/27/2024 Missing teeth, acquired 02/27/2024 Malocclusion 01/04/2023 Dental plaque 12/14/2022 Erosion of teeth, limited to enamel 12/14/2022 Encounters Date Type Department Care Team Description 11/23/2024 8:00 AM EST Office Visit [facility] [address] [place] [address] Jere Rodriguez DDS Fractured dental mandaen with loss of material (Primary Dx) 11/21/2024 8:00 AM EST Office Visit [facility] [address] [place] [address] Cynthia Metz Missing teeth, acquired (Primary Dx); Dental plaque; Normal oral exam; Dental calculus from Last 3 Months Social History Tobacco Use Types Packs/Day Years [...] Description 05/22/2025 8:00 AM EDT Office Visit [facility] [address] [place] [address] Cynthia Metz Health Maintenance Due Date Last Done Comments [...] , 08/21/2019, 08/15/2018, Additional history exists Dental X-Ray: Bitewings 02/27/2025 02/27/2024, 12/14 Dental Oral Exam 05/22/2025 11/21/2024, , 12/14/2022 Dental Prophylaxis 05/22/2025 11/21/2024, 0 02/27/2024, 12/14/2022 Tobacco Screening 11/23/2025 11/23/2024 Dental X-Ray: Full Mouth 10/29/2026 10/28/2021 DTaP/Tdap/Td [...] Procedure Name Priority Date/Time Associated Diagnosis Comments CASE PRESENTATION, DETAILED AND EXTENSIVE TREATMENT PLANNING Routine 11/23/2024 8:00 AM EST 13 DOBL RESIN-BASED COMPOSITE - 4+ SURF, POSTERIOR Routine 11/23/2024 8:00 AM EST INTRAORAL - PERIAPICAL FIRST RADIOGRAPHIC IMAGE Routine 11/23/2024 8:00 AM EST LIMITED ORAL EVALUATION - PROBLEM FOCUSED Routine 11/23/2024 8:00 AM EST PROPHYLAXIS - ADULT Routine 11/21/2024 8 :00 AM EST Dental plaque Dental calculus ORAL HYGIENE INSTRUCTIONS Routine 11/21/2024 8:00 AM EST Dental plaque Dental calculus PERIODIC ORAL EVALUATION - ESTABLISHED PATIENT Routine 11/21/2024 8:00 AM EST BITEWINGS - 4 RADIOGRAPHIC IMAGES Routine 02/27/2024 10:00 AM EDT Dental plaque Missing teeth, acquired Generalized gingival recession from Last 3 Months or Most Recently Relevant to Health Maintenance Insurance [employer] [place] [employer] [facility] DENTAL - HSN PARTIAL (MEDICAID)
--- OUTSIDE RECORDS SUMMARY | 2024-12-03 14:04 | XMS_ITS | Encounter Summary ---
Author Organization [facility] Address [address] [place] [address] [address] [address] Care Team Providers Care Hydrogen Power Plant Engineer Name Role Phone Unavailable Primary Care Provider Unavailabl e Encounter Details Date Type Department Care Team (Latest Contact Info) Description 10/28/2021 Abstract [facility] CONVERSIONS Dental, Provider, DDS Social History Tobacco [...] Description 05/22/2025 8:00 AM EDT Office Visit [facility] ADULT DENTAL [address] [place] [address] Cynthia Metz documented as of this encounter Visit Diagnoses Not on filedocumented in this encounter
== END 2024-12-03 12:19 | disposition home or self-care (01) ==
LOC: HO.HAP 12:18
PROVIDERS: Visit Provider Physician Assistant
DX: Z13.89 Encounter for screening for other disorder (principal)

== ENCOUNTER 2024-12-04 07:47 | Outpatient (REF) | payer SELFPAY ==
--- OUTSIDE RECORDS SUMMARY | 2024-12-04 07:50 | XMS_ITS | Clinical Summary ---
Author Organization [employer] Address [address] [place] [address] [address] [place] [address] Care Team Providers Care Physical Meteorologist Name Role Phone Unavailable Primary Care Provider [...] Problem Noted Date Diagnosed Date Fractured dental holiness with loss of materi al 11/23/2024 Normal oral exam 11/21/2024 Excessive attrition of teeth, limited to enamel 03/19/2024 Generalized gingival recession 02/27/2024 Missing teeth, acquired 02/27/2024 Malocclusion 01/04/2023 Dental plaque 12/14/2022 Erosion of teeth, limited to enamel 12/14/2022 Encounters Date Type Department Care Team Description 11/23/2024 8:00 AM EST Office Visit [facility] ADULT DENTAL [address] [place] [address] Jere Rodriguez DDS Fractured dental holiness with loss of material (Primary Dx) 11/21/2024 8:00 AM EST Office Visit [facility] ADULT DENT[facility] [address] [place] [address] Cynthia Metz Missing teeth, acquired (Primary Dx); [...] Description 05/22/2025 8:00 AM EDT Office Visit [facility] ADULT DENTAL [address] [place] [address] Cynthia Metz Health Maintenance Due Date Last [...] Most Recently Relevant to Health Maintenance Insurance [employer] [place] [employer] [facility] DENTAL - HSN PARTIAL (MEDICAID)
--- OUTSIDE RECORDS SUMMARY | 2024-12-04 07:50 | XMS_ITS | Encounter Summary ---
Author Organization [employer] [facility] Address [address] [place] [address] Care Team Providers Care Paper Sales Manager Name Role Phone Unavailable Primary Care Provider Unavailabl e Reason for Visit * Reason Comments Dental Pain Encounter Details Date Type Department Care Team (Late st Contact Info) Description 11/23/2024 8:00 AM EST Office Visit [facility] ADULT DENTAL [address] [place] [address] Jere Rodriguez DDS [address] [place] [address] Fractured dental buddhist with loss of material (Primary Dx) Social [...] 1 pa taken), Timeout Time: 810 Location: [facility] Tooth: Maxilla and #13 Procedure: Pentecostalism Verified the above with patient, horticultural nursery assistant, and provider. Confirmed via patient's chart, intraorally and by radiographs. Environmental Issues Instructor: not applicable Chief Complaint Patient presents with [...] provider: Jere Rodriguez DDS Billtc provider: Jere Rodriguez DDS D2394 - RESIN-BASED COMPOSITE - 4+ SURF, POSTERIOR 13 DOBL (Completed) Service provider: Jere Rodriguez DDS Billing provider: Jere Rodriguez DDS D9450 - CASE PRESENTATION, DETAILED AND EXTENSIVE TREATMENT PLANNING (Completed) Service provider: Jere Rodriguez DDS Billing provider: Jere Rodriguez DDS Diagnosis: Fractured buddhist Topical: 20% Benzocaine Anesthesia: 2% Lidocaine (Xylocaine) w/ 1:100,000 epinephrine Number of Cartridges: 1 Injection Type: Buccal infiltration Confirmed profound anesthesia. Isolation: high speed suction, cotton rolls, and cheek guard Prep: Existing buddhist removed and Preparation finalized Matrix: [place] and wedge Etch: 37% Phosphoric Acid Etch Desensitizer: Gluma Liner/Base: Activa Acevedo: I-Acevedo Pentecostalism Material: Filtek [place] Flowable Composite and Paradigm Composite Shade: A3 [...] F/U as needed / 6 mos recall Documentation Writer: Janet Marroquin Dentist: Jere Rodriguez DDS documented in this encounter Plan of Treatment Upcoming Encounters Date Type Department Care Team (Late st Contact Info) Description 05/22/2025 8:00 AM EDT Office Visit [facility] ADULT D[facility] [address] [place] [address] Cynthia Metz documented as of this encounter [...] this encounter Visit Diagnoses Diagnosis Fractured dental buddhist with loss of material- Primary Fractured dental restorative material with loss of material documented in this encounter
--- OUTSIDE RECORDS SUMMARY | 2024-12-04 07:50 | XMS_ITS | Encounter Summary ---
Author Organization [employer] [facility] Address [address] [place] [address] [address] [address] Care Team Providers Care Computer Systems Engineer Name Role Phone Unavailable Primary Care Provider Unavailabl e Encounter Details Date Type Department Care Team (Latest Contact Info) Description 10/28/2021 Abstract [facility] CONVERSIONS Dental, Provider, DDS Social [...] Description 05/22/2025 8:00 AM EDT Office Visit [facility] ADULT DENTAL [address] [place] [address] Cynthia Metz documented as of this encounter Visit Diagnoses Not on filedocumented in this encounter
--- OUTSIDE RECORDS SUMMARY | 2024-12-04 07:50 | XMS_ITS | Continuity of Care Document ---
Author Organization [place] - [facility], [facility] Address [address] [place] [address] Care Team Providers Care Surgery Scheduling Coordinator Name Role Phone ISABELLA JOSEPH Primary Care Provider Assessment No assessment recorded. Plan of Treatment Reminders Order Date Submit Date Provider Last Modified By Organization Details Last Modified Time Details Appointments Establish ed 15 2024 10:30A M ALEJANDRA RUIZ MD Not available Not [...] Details Recorded Time Tinnitus of right ear 85712199491 08 Active 2020 Tinnitus, right ear; Note: Date Diagnosed : 11/17/2020 9:15 AM (H93.13) Not Available [facility] 4 03:08:12 Dizziness and giddiness 727009084 Active 2018 Dizziness and giddiness ; Note: Date Diagnosed : 03/14/2019 9:14 AM (R42) Not Available [facility] 4 03:08:12 Impacted cerumen of bilateral ears 00496842313 26980 Active 2022 Impacted cerumen, bilateral ; Note: Date Diagnosed : 11/04/2022 9:41 AM (H61.23) Impacte d cerumen, bilateral ; Note: Date Diagnosed : 11/15/2018 11:21 AM (H61.23) ; Start Date : 9 Not Available [facility] 4 03:08:13 Sensorine ural hearing loss of bilateral ears 005910499 Active 2017 Sensorine ural hearing loss, bilateral ; Note: Date Diagnosed : 07/18/2018 9:37 AM (H90.3) Not Available [facility] 4 03:08:13 Impacted cerumen in right ear 08157473581 21140 Active 2018 Impacted cerumen, right ear; Note: Date Diagnosed : 03/14/2019 9:12 AM (H61.21) Not Available [facility] 4 03:08:12 Migraine with aura 3594407 Active 2018 Migraine with aura, not intractab le, without status migrainos us; Note: Date Diagnosed : 06/13/2019 10:17 AM (G43.109) Not Available [facility] 4 03:08:14 Migraine without aura, not refractor y 459835631 Active 2018 Migraine without aura, not intractab le, without status migrainos us; Note: Date Diagnosed : 03/14/2019 9:14 AM (G43.009) Not Available [facility] 4 03:08:14 Problem Notes None recorded. Procedures Surgical History Date Name Laterality Status Provider Name and Address Organization Details Recorded Time 05/07/2024 Comp Audio with Tymps (66477 & 09903) completed JESUS ALBERTO SMITH, [address], [address], [facility] - [facility] 05/07/2024 11:22:38 Imaging Results None recorded. Procedure Notes None recorded. Medical Equipment None Reported. Allergies No known drug allergies Medications Name Sig Start Date Stop Date Status Note LastModified by Organization Details LastModified Time cyclobenz aprine 10 mg tablet 11/04 completed Medicati on ID: [id number] B rand Name: abdirahman marvin Send Method: [...] mg tablet 11/04 completed Medicati on ID: [id number] B rand Name: cetirizi ne Send Method: [...] mg tablet 05/07 completed Medicati on ID: [id number] B rand Name: sumatrip warren succinat e Send Method: E-Prescr ibed Sub s Allowed: subs OK Speci al Instruct ion: TAKE 1 TABLET BY MOUTH DAILY NEEDED FOR MIGRAINE HEADACHE ; MAY REPEAT DOSE AFTER 2 HOURS UP TO A MAXIMUM OF 2. Medic ationGen ericName : sumatrip warren succinat e Medica tion ID: [id number] B rand Name: sumatrip warren succinat e [...] mg tablet 11/04 completed Medicati on ID: [id number] B rand Name: predniso ne Send Method: E-Prescr ibed Sub s Allowed: subs OK Medic ationGen ericName : predniso ne Not Available Not Available Not Available propranol ol 10 mg tablet TAKE ONE TABLET BY MOUTH TWICE A DAY active Not Available Not Available No t Available Valium 2 mg tablet 1 tablet by mouth 04/08 completed Medicati on ID: [id number] P kinza pete By Name: John Shafer [...] mg tablet 03/14 completed Medicati on ID: [id number] R marina: () Brand Name: Advil Se nd Method: E-Prescr ibed Sub s Allowed: subs OK Medic ationGen ericName : Advil Not Available Not Available Not Available omeprazol e 20 mg capsule,d elayed release 05/07 completed Medicati on ID: [id number] B rand Name: omeprazo le Send Method: E-Prescr ibed Sub s Allowed: subs OK Medic ationGen ericName : omeprazo le Medic ation ID: [id number] B rand Name: omeprazo le Send Method: [...] mg tablet 07/26 completed Medicati on ID: [id number] B rand Name: lorazepa m Send Method: E-Prescr ibed Sub s Allowed: subs OK Medic ationGen ericName : lorazepa m Not Available Not Available Not Available ibuprofen 600 mg tablet 04/08 completed Medicati on ID: [id number] D uration Value: 30 Brand Name: ibuprofe [...] aerosol inhaler 05/07 completed Medicati on ID: [id number] B rand Name: Ventolin HFA Send Method: E-Prescr ibed Sub s Allowed: subs OK Medic ationGen ericName : Ventolin HFA Medi cation ID: [id number] B rand Name: Ventolin HFA Send Method: E-Prescr ibed Sub s Allowed: subs OK Medic ationGen ericName : Ventolin HFA Not Available Not Available Not Available Vitamin D3 25 mcg (1,000 unit) capsule 11/29 completed Medicati on ID: [id number] D uration Value: 30 Brand Name: Vitamin [...] mg/0.5 mL subcutane ous pen injector INJECT 5 MG 0.5 ML) SUBCUTAN EOUSLY EVERY WEEK FOR 4 WEEKS active Not Available Not Available No t Available Zepbound 2.5 mg/0.5 mL subcutane ous pen injector INJECT 2.5MG 0.5 ML) UNDER THE SKIN EVERY WEEK 07/26 completed Not Available Not Available Not Available Vitals Date Recorded Body height Body mass index (BMI) Body weight Provider Name and Address Organization Details Last Updated DateTime 11/29/2024 157.48 cm 35.7 kg/m2 03134.51 g Maryanne Verma [place] - [facility] 11/29/2024 10:17:21 Social History None recorded. Functional Status None recorded. Mental Status None recorded. Family History Nothing Reported. Medical History No medical history recorded. Gynecological HistoryNo gynecological history recorded. Obstetrics History GPAL:G 0 P 0 0 0 0 Past Encounters Encounter ID Performer Location Encounter Start Date Encounter Closed Date Diagnosis/Indication Diagnosis SNOMED-CT Code Diagnosis ICD10 Code Diagnosis Note [id number] ALEJANDRA RUIZ MD [facility] [address] [address] 11/29/2024 10:11:37 11/29/2024 11:04:54 Sensorineural hearing loss of bilateral ears 446325202 H90.3 Partially impacted cerumen was removed and tolerated well. Dizziness has been under control lately. We can reassess for cerumen in 6 months or sooner if needed. Health Concerns Section Related Observation LastModified by Organization Detai ls LastModified Time None Recorded Concern Status LastModified by Organization Details LastModified Time None Recorded Payers Encounter Date Sequence Insurance Name Policy Number Policy Yeung Covered Member ID Yeung Member ID Guarantor Name 11/29/2024 1 [facility] [id number] Renu Diaz [id number] Renu Diaz Notes Date Note Type Note Provider Name and Address Organization Details Recorded Time 11/29/2024 text/html hearing aids new x 3 daysdizziness controlled migraines no change ALEJANDRA RUIZ MD [address] [place] [address], [phone], [facility] - [facility] 12/02/2024 15:07:08 OBGyn Episode No OBEpisode recorded.
--- OUTSIDE RECORDS SUMMARY | 2024-12-04 07:50 | XMS_ITS | Encounter Summary ---
Author Organization [facility] Address [address] [place] [address] Care Team Providers Care Automatic Buffing Wheel Former Name Role Phone Scottie Pickering Primary Care Provider Unavailabl e Encounter Details Date Type Department Care Team Description 08/25/2021 Telephone General Surgery [address] [place] [address] Pavel Thompson MD [address] [place], [place] [id number] Social History Tobacco Use Types Packs/Day Years [...] on filedocumented in this encounter Care Teams Automatic Buffing Wheel Former Relationship Specialty Start Date End Date Scottie Pickering PCP - General Family Practice 10/25/18 documented as of this encounter
--- OUTSIDE RECORDS SUMMARY | 2024-12-04 07:50 | XMS_ITS | Encounter Summary ---
Author Organization [employer] [facility] Address [address] [place] [address] [address], [place] [address] Care Team Providers Care Supervisor Adult Education Name Role Phone Unavailable Primary Care Provider Unavailabl e Encounter Details Date Type Department Care Team (Latest Contact Info) Description 12/19/2019 Abstract [facility] CONVERSIONS Dental, Provider, DDS Social History Tobacco [...] 8:00 AM EDT Office Visit [facility] ADULT DENTAL [address] [place] [address] Cynthia Metz documented as of this encounter Visit Diagnoses Not on filedocumented in this encounter
--- OUTSIDE RECORDS SUMMARY | 2024-12-04 07:50 | XMS_ITS | Clinical Summary ---
Author Organization [facility] Address [address] [place] [address] Care Team Providers Care Pca Name Role Phone Scottie Pickering Primary Care [...] H RISK PATIENTS (#1) 01/08/2037 Care Teams Pca Relationship Specialty Start Date End Date Scottie Pickering PCP - General Family Practice 10/25/18
--- OUTSIDE RECORDS SUMMARY | 2024-12-04 07:50 | XMS_ITS | Encounter Summary ---
Author Organization [facility] Address [address] [place] [address] Care Team Providers Care Virtual Classroom Manager Name Role Phone Scottie Pickering Primary Care Provider Unavailabl e Encounter Details Date Type Department Care Team Description 11/25/2021 Orders Only General Surgery [address] [place], [place] [phone] Pavel Thompson MD [address] [place] [address] Increased risk of breast cancer; FH: breast [...] old documented in this encounter Care Teams Virtual Classroom Manager Relationship Specialty Start Date End Date Scottie Pickering PCP - General Family Practice 10/25/18 documented as of this encounter
--- OUTSIDE RECORDS SUMMARY | 2024-12-04 07:50 | XMS_ITS | Encounter Summary ---
Author Organization [employer] [facility] Address [address] [place] [address] [address] [place] [address] Care Team Providers Care Sketcher Name Role Phone Unavailable Primary Care Provider Unavailabl e Reason for Visit * Reason Comments Routine Cleaning Dental Exam Encounter Details Date Type Department Care Team ([facility] st Contact Info) Description 11/21/2024 8:00 AM EST Office Visit [facility] ADULT DENTAL [address] [place] [address] Metz, Cynthia Missing teeth, acquired (Primary Dx); [...] Timeout Time: 0810 (Dental Prophy Adult) Location: [facility] Tooth: Maxilla and Mandible Procedure: Exam, X-rays, and Prophylaxis Verified the above with patient, assistant import manager, and provider. Confirmed via patient's chart, intraorally and by radiographs. Movie Shot Cameraman: not applicable Chief Complaint Patient presents with [...] Cancer Risk: Low Risk Oral Hygiene Instructions: [place] two times daily, modified hernadez technique, Floss daily, Electric toothbrush, Soft bristle toothbrush, [place] Tongue, Anti- sensitivity toothpaste Caries Risk Assessment: Medium- one risk factor NO active carious lesion noticed at this time. Assessment/Plan ALLY X Ray Prophy Recall Patient tolerated procedure well, all questions answered and expressed understanding. Dismissed in good condition. NV: 6 mos recall Diabetes Trainer: Cynthia Metz RDH Dentist: Jere Rodriguez DDS * Cynthia Metz - 11/21/2024 8:00 AM EST Patient ID: Renu Diaz is a 54 y.o. female. Time Out: Timeout Date: 11/21/24, Timeout Time: 809 (Dental Prophy Adult) Location: [facility] Tooth: Maxilla and Mandible Procedure: Exam and Prophylaxis Verified the above with patient, assistant import manager, and provider. Confirmed via patient's chart, intraorally and by radiographs. Movie Shot Cameraman: not applicable Medical Hx: Vitals: Blood pressure [...] patient including brushing technique and flossing. Recommendations: [place] two times daily, modified hernadez technique, Floss daily, Electric toothbrush, Soft bristle toothbrush, [place] Tongue, Anti-sensitivity toothpaste Recall Frequency: 6 mo NV: 6mrc Hygienist: Cynthia Metz RDH documented in this encounter Plan of Treatment Upcoming Encounters Date Type Department Care Team (Late st Contact Info) Description 05/22/2025 8:00 AM EDT Office Visit [facility] ADULT DENTAL [address] [place] [address] Cynthia Metz documented as of this encounter [...]
== END 2024-12-04 07:48 | disposition home or self-care (01) ==
LOC: HO.HAP 07:47
PROVIDERS: Visit Provider Physician Assistant
DX: Z13.89 Encounter for screening for other disorder (principal)

== ENCOUNTER 2024-12-14 12:46 | Outpatient (REF) | payer SELFPAY ==
--- OUTSIDE RECORDS SUMMARY | 2024-12-14 14:21 | XMS_ITS | Encounter Summary ---
Author Organization [facility] Address [address] [place] [address] Care Team Providers Care Conveyor Maintenance Mechanic Name Role Phone Scottie Pickering Primary Care Provider Unavailabl e Encounter Details Date Type Department Care Team Description 11/25/2021 Orders Only General Surgery [address] [place], [place] [phone] Pavel Thompson MD [address] [place] [phone] Increased risk of breast cancer; FH: breast [...] old documented in this encounter Care Teams Conveyor Maintenance Mechanic Relationship Specialty Start Date End Date Scottie Pickering PCP - General Family Practice 10/25/18 documented as of this encounter
--- OUTSIDE RECORDS SUMMARY | 2024-12-14 14:21 | XMS_ITS | Data Portability ---
Author Organization [place] [facility], Allergy Address [address] [place] [address] Care Team Providers Care Door Opener Name Role Phone ISABELLA JOSEPH Primary Care [...] Details Recorded Time Tinnitus of right ear [id number] 08 Active 2020 Tinnitus, right ear; Note: Date Diagnosed : 11/17/2020 9:15 AM (H93.13) Not Available [facility] 4 03:08:12 Dizziness and giddiness 419479601 Active 2018 Dizziness and giddiness ; Note: Date Diagnosed : 03/14/2019 9:14 AM (R42) Not Available [facility] 4 03:08:12 Impacted cerumen of bilateral ears 55188877787 53507 Active 2022 Impacted cerumen, bilateral ; Note: Date Diagnosed : 11/04/2022 9:41 AM (H61.23) Impacte d cerumen, bilateral ; Note: Date Diagnosed : 11/15/2018 11:21 AM (H61.23) ; Start Date : 9 Not Available [facility] 4 03:08:13 Sensorine ural hearing loss of bilateral ears 266357754 Active 2017 Sensorine ural hearing loss, bilateral ; Note: Date Diagnosed : 07/18/2018 9:37 AM (H90.3) Not Available [facility] 4 03:08:13 Impacted cerumen in right ear 05886556691 51679 Active 2018 Impacted cerumen, right ear; Note: Date Diagnosed : 03/14/2019 9:12 AM (H61.21) Not Available [facility] 4 03:08:12 Migraine with aura 3673120 Active 2018 Migraine with aura, not intractab le, without status migrainos us; Note: Date Diagnosed : 06/13/2019 10:17 AM (G43.109) Not Available [facility] 03:08:14 Migraine without aura, not refractor y 283013826 Active 2018 Migraine without aura, not intractab le, without status migrainos us; Note: Date Diagnosed : 03/14/2019 9:14 AM (G43.009) Not Available [facility] 03:08:14 Problem Notes None recorded. Procedures Surgical History Date Name Laterality Status Provider Name and Address Organization Details Recorded Time 05/07/2024 Comp Audio with Tymps (01071 & 18645) completed JESUS ALBERTO SMITH, [facility] [address] [facility],[place] [address], [place], [address], [facility] - [facility] 05/07/2024 11:22:38 Imaging Results Imaging Date Name Status LastModified by Organiz ation Details LastModified Time 05/07/2024 audiogram completed [email or web address] Information not available 05/07/2024 16:04:05 11/15/2018 imaging/diagno [...] mg tablet 11/04 completed Medicati on ID: [id number] B rand Name: cycloben zaprine Send Method: [...] mg tablet 11/04 completed Medicati on ID: [id number] B rand Name: cetirizi ne Send Method: [...] mg tablet 05/07 completed Medicati on ID: [id number] B rand Name: sumatrip warren succinat e Send Method: E-Prescr ibed Sub s Allowed: subs OK Speci al Instruct ion: TAKE 1 TABLET BY MOUTH DAILY NEEDED FOR MIGRAINE HEADACHE ; MAY REPEAT DOSE AFTER 2 HOURS UP TO A MAXIMUM OF 2. Medic ationGen ericName : sumatrip warren succinat e Medica tion ID: [id number] B rand Name: sumatrip warren succinat e [...] mg tablet 11/04 completed Medicati on ID: [id number] B rand Name: predniso ne Send Method: E-Prescr ibed Sub s Allowed: subs OK Medic ationGen ericName : predniso ne Not Available Not Available Not Available propranol ol 10 mg tablet TAKE ONE TABLET BY MOUTH TWICE A DAY active Not Available Not Available No t Available Valium 2 mg tablet 1 tablet by mouth 04/08 completed Medicati on ID: [id number] P kinza pete By Name: John Shafer [...] mg tablet 03/14 completed Medicati on ID: [id number] R marina: () Brand Name: Advil Se nd Method: E-Prescr ibed Sub s Allowed: subs OK Medic ationGen ericName : Advil Not Available Not Available Not Available omeprazol e 20 mg capsule,d elayed release 05/07 completed Medicati on ID: [id number] B rand Name: omeprazo le Send Method: E-Prescr ibed Sub s Allowed: subs OK Medic ationGen ericName : omeprazo le Medic ation ID: [id number] B rand Name: omeprazo le Send Method: [...] mg tablet 07/26 completed Medicati on ID: [id number] B rand Name: lorazepa m Send Method: E-Prescr ibed Sub s Allowed: subs OK Medic ationGen ericName : lorazepa m Not Available Not Available Not Available ibuprofen 600 mg tablet 04/08 completed Medicati on ID: [id number] D uration Value: 30 Brand Name: ibuprofe [...] aerosol inhaler 05/07 completed Medicati on ID: [id number] B rand Name: Ventolin HFA Send Method: E-Prescr ibed Sub s Allowed: subs OK Medic ationGen ericName : Ventolin HFA Medi cation ID: [id number] B rand Name: Ventolin HFA Send Method: E-Prescr ibed Sub s Allowed: subs OK Medic ationGen ericName : Ventolin HFA Not Available Not Available Not Available Vitamin D3 25 mcg (1,000 unit) capsule 11/29 completed Medicati on ID: [id number] D uration Value: 30 Brand Name: Vitamin [...] Updated DateTime 05/07/2024 157.48 cm 37.7 kg/m2 33598.[address] [facility] 05/07/2024 11:41:53 Date Recorded Body height Body mass index (BMI) Body weight Provider Name and Address Organization Details Last Updated DateTime 07/26/2024 157.48 cm 37.7 kg/m2 36558.03 g Sudha Kimble [facility] 07/26/2024 10:54:24 Date Recorded Body height Body mass index (BMI) Body weight Provider Name and Address Organization Details Last Updated DateTime 11/29/2024 157.48 cm 35.7 kg/m2 [address]142.[address] [facility] 11/29/2024 10:17:21 Social History None recorded. [...] Note [id number] ALEJANDRA RUIZ MD [facility] [address] [place] [address] 05/07/2024 10:51:22 05/07/2024 17:01:48 Sensorineural hearing loss of bilateral ears 566005462 H90.3 We reviewed her audiogram which showed stable thresholds compared to 2021 though her word understand ing has declined. She is an excellent candidate for amplificat ion. I did give her medical clearance. She may follow-up as needed. [facility] al evaluation [facility]:{{Norm al Mild* M oderate Mo derately-s [...] Cou ld not maintain a hermetic seal}} [id number] ALEJANDRA RUIZ MD [facility] [address] [place] [address] 07/26/2024 10:40:18 07/26/2024 11:12:35 Sensorineural hearing loss of bilateral ears 406794095 H90.3 Partially impacted cerumen was removed and tolerated well. Dizziness has been under control lately. She is scheduled for hearing aid evaluation . We can reassess for cerumen in 4 months or sooner if needed. [id number] ALEJANDRA RUIZ MD [facility] [address] [address] 11/29/2024 10:11:37 11/29/2024 11:04:54 Sensorineural hearing loss of bilateral ears 393945607 H90.3 Partially impacted cerumen was removed and [...] Yeung Member ID Guarantor Name 05/07/2024 1 [facility] [employer] (HMO) [id number] Renu Diaz [id number] Renu Diaz 07/26/2024 1 [facility] [employer] (HMO) [id number] Renu Diaz [id number] Renu Diaz 11/29/2024 1 [facility] [employer] (HMO) [id number] Renu Diaz [id number] Renu Diaz Notes Date Note Type Note Provider Name and Address Organization Details Recorded Time 05/07/2024 text/html 64-year-old femalla bynum presents today for follow-up of hearing. She reports the dizziness is improved since her last visit. She continues on Wegov[place]. ALEJANDRA RUIZ MD [address] [place] [address], [phone], [facility] - [facility] 05/07/2024 12:39:05 07/26/2024 text/html Went to go get t he hearing aids. Noticed tinnitus bilaterally, especially when sleeping. PV: 64-year-old female presents today for follow-up of hearing. She reports the dizziness is improved since her last visit. She continues on Wegov[place]. ALEJANDRA RUIZ MD [address] [facility],[address], [address], [facility] - [facility] 07/28/2024 13:24:32 11/29/2024 text/html hearing aids new x 3 daysdizziness controlled migraines no change ALEJANDRA RUIZ MD [address] [place] [address],[place] [address], [place], [address], [facility] - [facility] 12/02/2024 15:07:08 OBGyn Episode No OBEpisode recorded.
--- OUTSIDE RECORDS SUMMARY | 2024-12-14 14:22 | XMS_ITS | Encounter Summary ---
Author Organization [facility] Address [address] [place] [address] 7 [place] [address] Care Team Providers Care Product Designer Name Role Phone Unavailable Primary Care Provider Unavailabl e Encounter Details Date Type Department Care Team (Latest Contact Info) Description 12/19/2019 Abstract [facility] CONVERSIONS Dental, Provider, DDS Social History Tobacco [...] Description 05/22/2025 8:00 AM EDT Office Visit [facility] ADULT DENTAL [address] [place] [address] Cynthia Metz documented as of this encounter Visit Diagnoses Not on filedocumented in this encounter
--- OUTSIDE RECORDS SUMMARY | 2024-12-14 14:22 | XMS_ITS | Encounter Summary ---
Author Organization [facility] [facility] Address [address] [place] [address] Care Team Providers Care Planer Off Bearer Name Role Phone Unavailable Primary Care Provider Unavailabl e Reason for Visit * Reason Comments Dental Pain Encounter Details Date Type Department Care Team (Late st Contact Info) Description 11/23/2024 8:00 AM EST Office Visit [facility] ADULT DENTAL [address] [place] [address] Jere Rodriguez DDS [address] [place] [address] Fractured dental religion with loss of material (Primary Dx) Social [...] 1 pa taken), Timeout Time: 810 Location: [facility] Tooth: Maxilla and #13 Procedure: Hindu Verified the above with patient, medical library assistant, and provider. Confirmed via patient's chart, intraorally and by radiographs. Clerical Coordinator: not applicable Chief Complaint Patient presents with [...] Billing provider: Jere Rodriguez DDS Diagnosis: Fractured religion Topical: 20% Benzocaine Anesthesia: 2% Lidocaine (Xylocaine) w/ 1:100,000 epinephrine Number of Cartridges: 1 Injection Type: Buccal infiltration Confirmed profound anesthesia. Isolation: high speed suction, cotton rolls, and cheek guard Prep: Existing religion removed and Preparation finalized Matrix: [place]ff[place] and wedge Etch: 37% Phosphoric Acid Etch Desensitizer: Gluma Liner/Base: Activa Acevedo: I-Acevedo Hindu Material: Filtek Alsey Flowable Composite and Paradigm Composite Shade: A3 [...] F/U as needed / 6 mos recall Bottom Polisher: Janet Marroquin Dentist: Jere Rodriguez DDS documented in this encounter Plan of Treatment Upcoming Encounters Date Type Department Care Team (Late st Contact Info) Description 05/22/2025 8:00 AM EDT Office Visit [facility] ADULT DENTAL [address] [place] [address] Cynthia Metz documented as of this encounter [...] this encounter Visit Diagnoses Diagnosis Fractured dental religion with loss of material- Primary Fractured dental restorative material with loss of material documented in this encounter
--- OUTSIDE RECORDS SUMMARY | 2024-12-14 14:22 | XMS_ITS | Encounter Summary ---
Author Organization [email or web address] [facility] Address [address] [place] [address] 7 [place] [address] Care Team Providers Care Roving Tester Laboratory Name Role Phone Unavailable Primary Care Provider Unavailabl e Reason for Visit * Reason Comments Routine Cleaning Dental Exam Encounter Details Date Type Department Care Team ([facility] st Contact Info) Description 11/21/2024 8:00 AM EST Office Visit [facility] ADULT DENTAL [address] [place] [address] Metz, Cynthia Missing teeth, acquired (Primary Dx); [...] Timeout Time: 0810 (Dental Prophy Adult) Location: [facility] Tooth: Maxilla and Mandible Procedure: Exam, X-rays, and Prophylaxis Verified the above with patient, construction administrative assistant, and provider. Confirmed via patient's chart, intraorally and by radiographs. Utility Specialist: not applicable Chief Complaint Patient presents with [...] Cancer Risk: Low Risk Oral Hygiene Instructions: [place] two times daily, modified hernadez technique, Floss daily, Electric toothbrush, Soft bristle toothbrush, [place] Tongue, Anti- sensitivity toothpaste Caries Risk Assessment: Medium- one risk factor NO active carious lesion noticed at this time. Assessment/Plan ALLY X Ray Prophy Recall Patient tolerated procedure well, all questions answered and expressed understanding. Dismissed in good condition. NV: 6 mos recall Tin Flopper: Cynthia Metz RDH Dentist: Jere Rodriguez DDS * Cynthia Metz - 11/21/2024 8:00 AM EST Patient ID: Renu Diaz is a 54 y.o. female. Time Out: Timeout Date: 11/21/24, Timeout Time: 809 (Dental Prophy Adult) Location: [facility] Tooth: Maxilla and Mandible Procedure: Exam and Prophylaxis Verified the above with patient, construction administrative assistant, and provider. Confirmed via patient's chart, intraorally and by radiographs. Utility Specialist: not applicable Medical Hx: Vitals: Blood pressure [...] patient including brushing technique and flossing. Recommendations: [place] two times daily, modified hernadez technique, Floss daily, Electric toothbrush, Soft bristle toothbrush, [place] Tongue, Anti-sensitivity toothpaste Recall Frequency: 6 mo NV: 6mrc Hygienist: Cynthia Metz RDH documented in this encounter Plan of Treatment Upcoming Encounters Date Type Department Care Team (Late st Contact Info) Description 05/22/2025 8:00 AM EDT Office Visit [facility] ADULT DENTAL [address] [place] [address] Cynthia Metz documented as of this encounter [...]
--- OUTSIDE RECORDS SUMMARY | 2024-12-14 14:22 | XMS_ITS | Encounter Summary ---
Author Organization [employer] [facility] Address [address] [place] [address] [address] [place] [address] Care Team Providers Care Drama Teacher Name Role Phone Unavailable Primary Care Provider Unavailabl e Encounter Details Date Type Department Care Team (Latest Contact Info) Description 10/28/[address] [facility] CONVERSIONS Dental, Provider, DDS Social [...] Description 05/22/2025 8:00 AM EDT Office Visit [facility] ADULT DENTAL [address] [place] [address] Cynthia Metz documented as of this encounter Visit Diagnoses Not on filedocumented in this encounter
--- OUTSIDE RECORDS SUMMARY | 2024-12-14 14:22 | XMS_ITS | Encounter Summary ---
Author Organization [facility] Address [address] [place] [address] Care Team Providers Care Wheel Buffer Name Role Phone Scottie Pickering Primary Care Provider Unavailabl e Encounter Details Date Type Department Care Team Description 08/18/2021 Telephone General Surgery [address] [place], [place] [phone] Pavel Thompson MD [address] [place] [address] Social History Tobacco Use Types Packs/Day Years [...] states documented in this encounter Care Teams Wheel Buffer Relationship Specialty Start Date End Date Scottie Pickering PCP - General Family Practice 10/25/18 documented as of this encounter
--- OUTSIDE RECORDS SUMMARY | 2024-12-14 14:22 | XMS_ITS | Continuity of Care Document ---
Author Organization [place] [facility], [facility] Address [address] [place] [address] Care Team Providers Care Budget Examiner Name Role Phone ISABELLA JOSEPH Primary Care [...] Details Recorded Time Tinnitus of right ear 31105899961 08 Active 2020 Tinnitus, right ear; Note: Date Diagnosed : 11/17/2020 9:15 AM (H93.13) Not Available [facility] 4 03:08:12 Dizziness and giddiness 958477460 Active 2018 Dizziness and giddiness ; Note: Date Diagnosed : 03/14/2019 9:14 AM (R42) Not Available [facility] 4 03:08:12 Impacted cerumen of bilateral ears 82071925855 23273 Active 2022 Impacted cerumen, bilateral ; Note: Date Diagnosed : 11/04/2022 9:41 AM (H61.23) Impacte d cerumen, bilateral ; Note: Date Diagnosed : 11/15/2018 11:21 AM (H61.23) ; Start Date : 9 Not Available [facility] 4 03:08:13 Sensorine ural hearing loss of bilateral ears 715110651 Active 2017 Sensorine ural hearing loss, bilateral ; Note: Date Diagnosed : 07/18/2018 9:37 AM (H90.3) Not Available [facility] 4 03:08:13 Impacted cerumen in right ear 06839983549 38219 Active 2018 Impacted cerumen, right ear; Note: Date Diagnosed : 03/14/2019 9:12 AM (H61.21) Not Available [facility] 4 03:08:12 Migraine with aura 2739444 Active 2018 Migraine with aura, not intractab le, without status migrainos us; Note: Date Diagnosed : 06/13/2019 10:17 AM (G43.109) Not Available [facility] 4 03:08:14 Migraine without aura, not refractor y 731994021 Active 2018 Migraine without aura, not intractab le, without status migrainos us; Note: Date Diagnosed : 03/14/2019 9:14 AM (G43.009) Not Available [facility] 4 03:08:14 Problem Notes None recorded. Procedures Surgical History Date Name Laterality Status Provider Name and Address Organization Details Recorded Time 05/07/2024 Comp Audio with Tymps (37452 & 05369) completed JESUS ALBERTO SMITH, [address], [address], [facility] - [facility] 05/07/2024 11:22:38 Imaging Results None recorded. Procedure Notes None recorded. Medical Equipment None Reported. Allergies No known drug allergies Medications Name Sig Start Date Stop Date Status Note LastModified by Organization Details LastModified Time cyclobenz aprine 10 mg tablet 11/04 completed Medicati on ID: [id number] B rand Name: abdirahman marvin Send Method: [...] mg tablet 11/04 completed Medicati on ID: [id number] B rand Name: cetirizi ne Send Method: [...] mg tablet 05/07 completed Medicati on ID: [id number] B rand Name: sumatrip wraren succinat e Send Method: E-Prescr ibed Sub s Allowed: subs OK Speci al Instruct ion: TAKE 1 TABLET BY MOUTH DAILY NEEDED FOR MIGRAINE HEADACHE ; MAY REPEAT DOSE AFTER 2 HOURS UP TO A MAXIMUM OF 2. Medic ationGen ericName : sumatrip warren succinat e Medica tion ID: [id number] B rand Name: sumatrip warren succinat e [...] mg tablet 11/04 completed Medicati on ID: [id number] B rand Name: predniso ne Send Method: E-Prescr ibed Sub s Allowed: subs OK Medic ationGen ericName : predniso ne Not Available Not Available Not Available propranol ol 10 mg tablet TAKE ONE TABLET BY MOUTH TWICE A DAY active Not Available Not Available No t Available Valium 2 mg tablet 1 tablet by mouth 04/08 completed Medicati on ID: [id number] P kinza pete By Name: John Shafer [...] mg tablet 03/14 completed Medicati on ID: [id number] R marina: () Brand Name: Advil Se nd Method: E-Prescr ibed Sub s Allowed: subs OK Medic ationGen ericName : Advil Not Available Not Available Not Available omeprazol e 20 mg capsule,d elayed release 05/07 completed Medicati on ID: [id number] B rand Name: omeprazo le Send Method: E-Prescr ibed Sub s Allowed: subs OK Medic ationGen ericName : omeprazo le Medic ation ID: [id number] B rand Name: omeprazo le Send Method: [...] mg tablet 07/26 completed Medicati on ID: [id number] B rand Name: lorazepa m Send Method: E-Prescr ibed Sub s Allowed: subs OK Medic ationGen ericName : lorazepa m Not Available Not Available Not Available ibuprofen 600 mg tablet 04/08 completed Medicati on ID: [id number] D uration Value: 30 Brand Name: ibuprofe [...] aerosol inhaler 05/07 completed Medicati on ID: [id number] B rand Name: Ventolin HFA Send Method: E-Prescr ibed Sub s Allowed: subs OK Medic ationGen ericName : Ventolin HFA Medi cation ID: [id number] B rand Name: Ventolin HFA Send Method: E-Prescr ibed Sub s Allowed: subs OK Medic ationGen ericName : Ventolin HFA Not Available Not Available Not Available Vitamin D3 25 mcg (1,000 unit) capsule 11/29 completed Medicati on ID: [id number] D uration Value: 30 Brand Name: Vitamin [...] Updated DateTime 11/29/2024 157.48 cm 35.7 kg/m2 51601.51 g Maryanne Verma [place] - [facility] 11/29/2024 10:17:21 Social History None recorded. Functional Status None recorded. Mental Status None recorded. Family History Nothing Reported. Medical History No medical history recorded. Gynecological HistoryNo gynecological history recorded. Obstetrics History GPAL:G 0 P 0 0 0 0 Past Encounters Encounter ID Performer Location Encounter Start Date Encounter Closed Date Diagnosis/Indication Diagnosis SNOMED-CT Code Diagnosis ICD10 Code Diagnosis Note [id number] ALEJANDRA RUIZ MD [facility] [address] [address] 11/29/2024 10:11:37 11/29/2024 11:04:54 Sensorineural hearing loss of bilateral ears [id number] H90.3 Partially impacted cerumen was removed and [...] Yeung Member ID Guarantor Name 11/29/2024 1 [facility] [id number] Renu Diaz [id number] Renu Diaz Notes Date Note Type Note Provider Name and Address Organization Details Recorded Time 11/29/2024 text/html hearing aids new x 3 daysdizziness controlled migraines no change ALEJANDRA RUIZ MD [address] [place] [address], [phone], [facility] - [facility] 12/02/2024 15:07:08 OBGyn Episode No OBEpisode recorded.
--- OUTSIDE RECORDS SUMMARY | 2024-12-14 14:22 | XMS_ITS | Clinical Summary ---
Author Organization [employer] Address [address] [place] [address] [address] [place] [address] Care Team Providers Care Gasoline Finisher Name Role Phone Unavailable Primary Care Provider [...] Problem Noted Date Diagnosed Date Fractured dental religion with loss of materi al 11/23/2024 Normal oral exam 11/21/2024 Excessive attrition of teeth, limited to enamel 03/19/2024 Generalized gingival recession 02/27/2024 Missing teeth, acquired 02/27/2024 Malocclusion 01/04/2023 Dental plaque 12/14/2022 Erosion of teeth, limited to enamel 12/14/2022 Encounters Date Type Department Care Team Description 11/23/2024 8:00 AM EST Office Visit [facility] ADULT DENTAL [address] [place] [address] Jere Rodriguez DDS Fractured dental religion with loss of material (Primary Dx) 11/21/2024 8:00 AM EST Office Visit [facility] ADULT DENTAL [address] [place] [address] Cynthia Metz Missing teeth, acquired (Primary Dx); [...] 8:00 AM EDT Office Visit [facility] ADULT DENTAL [address] [place] [address] Cynthia Metz Health Maintenance Due Date Last [...] 01/08/1993 Cervical Cancer Screening 01/08/2002 HPV/Cotest 01/08/2002 Pneumococcal Vaccine: 50+ Years (1 of 1 - PCV) 01/08/2022 Zoster Vaccines (1 of 2) 01/08/2022 Mammogram 11/25/2023 11/25/2021 COVID-19 Vaccine (2023- season) 2024 01/26/2022, 08/19/2021, 12/18/2020, Additional history [...] Most Recently Relevant to Health Maintenance [place] [employer] [place] [employer] [place]ID)
== END 2024-12-14 12:47 | disposition home or self-care (01) ==
LOC: HO.HAP 12:46
PROVIDERS: PCP Physician Assistant; Visit Provider Otolaryngology
DX: Z13.89 Encounter for screening for other disorder (principal)

== ENCOUNTER 2024-12-27 07:58 | Emergency (ER) | payer OTHER, SELFPAY ==
--- NOTE | ~2024-12-27 | CT_ITS ---
EXAMINATION: CTA NECK WITH CONTRAST (STROKE) CTA BRAIN WITH CONTRAST (STROKE) CLINICAL INFORMATION: Worsening headache. Dizziness. Concerning aneurysm. Double vision. COMPARISON: Correlated to CT dated November 24, 2011 and MRA brain dated October 20, 2020. TECHNIQUE: CTA of the head and neck was performed in the axial plane from the mediastinum to the skull vertex using 70 mL Omnipaque 350 intravenous contrast. Additional reformatted multiplanar images including maximum intensity projection MIP images are generated on the CT workstation. This CT examination was performed using dose optimization techniques as appropriate, variously including the following: *Automated exposure control *Adjustment of mA and/or kV according to patient size (this includes techniques or standardized protocols for targeted exams where dose is matched to indication/reason for exam; i.e. extremities or head) *Use of iterative reconstruction technique DLP: 1563 mGy centimeter. FINDINGS: The degree of stenosis determined by criteria similar to NASCET. Brain: No acute intracranial hemorrhage, mass effect, midline shift, hydrocephalus or herniation. Berg-white matter differentiation is normal. Posterior cranial fossa contents demonstrated no gross abnormality. No abnormal enhancement within the intra-axial or the extra-axial compartments of the cranium. Bony calvarium is intact. No air-fluid levels in the paranasal sinuses. Tympanic cavities and mastoid cells are aerated. Pneumatized petrous apices, congenital. No masses or fluid collections in the intraconal or extraconal compartments of the orbits. No gross masses in the sellar suprasellar region. Chest CTA: Thoracic aorta demonstrates calcified plaques in the descending segment with normal caliber and enhancement pattern without intraluminal abnormalities or IV contrast extravasation. Neck CTA: Right CCA: Normal patency. No focal stenosis. No intimal flap. Right ICA: No plaques. Normal patency. No focal stenosis. No intimal flap. Left CCA: Normal patency. No focal stenosis. No intimal flap. Left ICA: No plaques. Normal patency. No focal stenosis. No intimal flap. V1/V2 segments of the vertebral arteries demonstrated normal patency and enhancement pattern without intimal flap. Codominant vertebral arteries. Both are orientating from the subclavian arteries. Brain CTA: Anterior cerebral circulation: ICAs: Normal patency. No focal stenosis. No abrupt cut off. Tortuosity in the cavernous segments. MCA's: Normal patency. No focal stenosis. No abrupt cut off. Bifurcation/trifurcation demonstrated no gross contour irregularity. ACAs: Normal patency. No focal stenosis. No abrupt cut off. Slight asymmetric small caliber on the right P1 segment. Anterior communicating artery is patent. Ophthalmic arteries are patent without focal irregularity. Posterior communicating arteries demonstrated small caliber. Posterior cerebral circulation: V3/V4 segments of the vertebral arteries are patent without focal stenosis or intimal flap. Posterior inferior cerebellar arteries are patent the right appears with a common trunk with the right anterior inferior cerebellar artery. Basilar artery is patent without focal stenosis or intimal flap. Superior cerebellar arteries are patent. atomic spectroscopist: Normal patency. No focal stenosis. No abrupt cut off. Ancillary findings: Main cerebral venous sinuses and cerebral veins are patent without intraluminal filling defects. CT/CT angio head neck IMPRESSION: No high degree stenosis or dissection. No cerebral aneurysm. No acute brain abnormality by CT. Electronically signed by: Terrance Grimaldo MD 12/27/2024 10:58 AM EDT
[2024-12-27 08:01] VITALS: BP 128/57; PULSE 82; RESP 16; TEMP 37; O2SAT 100; BMI 37.0
--- NOTE | 2024-12-27 08:07 | ED.GENADULT ---
HPI - General Adult General Chief complaint: Headache Stated complaint: migraine eye and neck pressure Time Seen by Provider: 12/27/24 08:06 Source: patient and administrative support manager (all interactions with this patient were facilitated with an [facility] supervisor cloth winding) Mode of arrival: ambulatory Limitations: language barrier (all interactions with this patient were facilitated with an [facility] supervisor cloth winding) History of Present Illness ED Provider: Demetria Cole PA-C HPI narrative: Patient is a 54 year old assigned female at with a history of MDD, VEGA, diverticulosis, NAFLD, GERD, anxiety, and migraine headaches presenting to the emergency department today with worsening headache over the last 2 months. Patient states that she has a history of migraines but she has had a constant headache that is worsening over the last 2 months. Patient states that yesterday, the pressure was so intense, she felt like she was going to pass out. Patient states that she is having intermittent dizziness. Patient denies any lightheadedness, abdominal pain, nausea, vomiting, fever, chills, blurry vision, double vision, loss of vision, chest pain, difficulty breathing, shortness of breath, back pain, night sweats, pain with urination, increased urinary frequency, increased urinary urgency, blood in her urine or stool, syncope or a near syncopal episode, recent trauma or falls, bowel incontinence, bladder incontinence, or any other complaints at this time. Relieving factors: none Exacerbating factors: none Associated symptoms: headaches Treatments prior to arrival: none Related Data Home Medications ?Medication ?Instructions ?Recorded ?Confirmed acetaminophen 500 mg tablet 500 mg PO TID PRN 11/18/21 09/19/24 (Tylenol Extra Strength) Previous Rx's ?Medication ?Instructions ?Recorded meclizine 12.5 mg tablet 12.5 mg PO TID PRN dizziness 7 03/23/22 days #21 tabs omeprazole 20 mg capsule,delayed 20 mg PO DAILY #30 caps 11/22/22 release baclofen 10 mg tablet 10 mg PO BID PRN muscle spasm 10 02/09/24 days #20 tabs docusate sodium 100 mg capsule 100 mg PO BID 30 days #60 caps 02/09/24 fluoxetine 10 mg capsule 10 mg PO DAILY #90 caps 02/09/24 albuterol sulfate 90 mcg/actuation 1 inh inhalation QID shortness of 06/06/24 aerosol inhaler breath or wheezing 30 days #8.5 grams zolpidem 10 mg tablet 10 mg PO BEDTIME PRN sleep 14 days 07/24/24 #14 tabs propranolol 10 mg tablet 10 mg PO BID 30 days #60 tabs 10/01/24 ibuprofen 800 mg tablet 800 mg PO Q8H PRN pain 10 days #30 11/02/24 tabs tirzepatide (weight loss) 5 mg/0.5 5 mg (0.5 mL) subcut QWEEK 4 weeks 12/03/24 mL subcutaneous pen injector #2 mL (Zepbound) sumatriptan succinate 25 mg tablet See Rx Instructions PO .COMPLEX 30 12/05/24 days #9 tabs nixpfrmtib-gyisyonmvlsxb-qjpydljo 1 cap PO Q8H PRN pain #3 caps 12/27/24 50 mg-300 mg-40 mg capsule (Fioricet) Allergies Allergy/AdvReac Type Severity Reaction Status Date / Time No Known Allergies Allergy Verified 12/27/24 08:04 Review of Systems Constitutional: Constitutional: Reports no additional constitutional complaints, Denies chills, Denies fever(s), Reports headache(s) and Denies night sweats Eyes: Eyes: Reports no additional eye complaints, Denies blurry vision, Denies change in vision, Denies diplopia, Denies eye discharge, Denies loss of vision and Denies eye pain ENT: Reports dizziness (intermittent) and Reports headache(s) Cardiovascular: Cardiovascular: Reports no additional cardiovascular complaints, Denies chest pain, Denies lightheadedness, Denies Loss of Consciousness and Denies dyspnea Respiratory: Respiratory: Reports no additional respiratory complaints and Denies dyspnea Gastrointestinal: Gastrointestinal: Reports no additional gastrointestinal complaints, Denies abdominal pain, Denies melena, Denies hematochezia, Denies change in bowel habits and Denies change in stool character Genitourinary: Genitourinary: Denies hematuria, Denies urinary frequency, Denies dysuria, Denies urinary incontinence, Denies urinary hesitancy and Denies urinary urgency Musculoskeletal: Musculoskeletal: Reports no additional musculoskeletal complaints, Denies numbness and Denies tingling Neurologic: Reports dizziness (intermittent), Reports headache(s), Denies loss of vision, Denies numbness and Denies tingling Psychiatric: Psychiatric: Reports no additional psychiatric complaints Endocrine: Endocrine: Reports no additional endocrine complaints Hematologic/Lymphatic: Hematologic/Lymphatic: Reports no additional hematologic/lymphatic complaints Allergic/Immunologic: Allergic/Immunologic: Reports no additional allergic/immunologic complaints [facility] Past Medical History Attestation statement: The following information was validated with the patient. Source: old records reviewed and nursing notes reviewed Medical History Uterine fibroid Abnormal Pap smear of cervix Allergic rhinitis Anxiety Arteritis Family history of brain aneurysm Migraine headache Surgical History Hx of endoscopy Hx of colonoscopy H/O LEEP H/O right inguinal hernia repair (03/16/17) History of endometrial ablation History of tubal ligation History of toe surgery History of incision and drainage Family History Family History Father FH: prostate cancer Sister History of breast cancer Sister History of breast cancer Son Heart attack, Onset Age: 12 Son Brain aneurysm Other Stomach cancer Social History Social History Housing: House Alcohol intake: current Alcohol intake frequency: holidays/special occasions only Patient Tobacco Use Status: Never used Tobacco Tobacco use type: Cigarette e-Cigarette/Vaping Use: Never Used Second Hand Smoke Exposure: No service: No Current occupational status: unemployed Sexual orientation: Straight/Heterosexual Gender identity: Female Cognitive needs: No Hearing needs: No Vision needs: Yes (Glaases) Physical Exam ED Vital Signs: Vital Signs - 24 hr 12/27/24 08:01 12/27/24 10:53 12/27/24 11:23 Temperature 98.6 F 98.6 F Pulse Rate 82 72 72 Respiratory Rate 16 18 18 Blood Pressure 128/57 L 112/61 112/61 Pulse Oximetry 100 98 98 Oxygen Delivery Method Room Air Room Air Room Air BMI result Body Mass Index 37.0 Const General: cooperative, no acute distress, alert and awake Nutritional Appearance: well nourished Orientation/consciousness: patient oriented x3 Limitations: no limitations HENMT Head: Yes normal to inspection and Yes atraumatic Ears: hearing grossly normal bilaterally and external ears normal General nose exam: Normal external nose present, no nasal discharge noted and no epistaxis Face and sinus: Yes normal facial exam, No abrasion and No laceration Mouth: Normal oral and palatal mucosa present, no drooling and no muffled voice Eyes General: appearance normal, both eyes and all related structures Periorbital: periorbital findings normal Eyelids: Yes eyelids normal Conjunctivae: conjunctivae normal Pupils: Equal, round and reactive pupils present EOM: EOMs intact bilaterally Neck Neck: Yes normal visual inspection, Yes full ROM and Yes no lymphadenopathy Chest Chest palpation & inspection: normal inspection of the chest Resp Effort & Inspection: normal respiratory effort and able to speak in complete sentences GI Inspection: Yes normal to inspection Neuro General: patient oriented x3, moves all extremities and CN's II-XI intact bilaterally Cranial nerves: Yes Equal, round and reactive pupils present Cognition (Neuro): normal cognition Extrem General: Yes normal to inspection, Yes full ROM and Yes capillary refill normal Psych Appearance: grossly normal Mental Status: mental status grossly normal Affect: normal affect Attitude: cooperative Thought process: Normal thought process present Thought content: Normal thought content present Insight: Good insight present (Psych) NIH Stroke Scale Internal: Initial- Upon Arrival Time: 08:07 Level of Consciousness: Alert Level of Consciousness Questions: Answers both questions correctly Level of Consciousness Commands: Performs both tasks correctly Best Gaze: Normal Visual: No visual loss Facial Palsy: Normal Motor Arm (Right): No drift Motor Arm (Left): No drift Motor Leg (Right): No drift Motor Leg (Left): No drift Limb Ataxia: Absent Sensory: Normal Best Language: No aphasia Dysarthia: Normal Extinction and Inattention: No abnormality Score: 0 Medications Administered Discontinued Medications Generic Name Dose Route Start Last Admin Trade Name Arieq PRN Reason Stop Dose Admin Diazepam 5 mg 12/27/24 08:35 12/27/24 09:06 Diazepam 10 Mg/2 Ml Cartridge IVPUSH 12/27/24 08:36 5 mg STAT STA Administration Iohexol 100 ml 12/27/24 10:26 12/27/24 10:27 Iohexol 350 Mg/Ml 100 Ml Infus..Btl IV 12/27/24 10:27 70 ml ONCE ONE Administration Ketorolac Tromethamine 15 mg 12/27/24 11:10 12/27/24 11:17 Ketorolac Tromethamine 15 Mg/Ml Vial IVPUSH 12/27/24 11:11 15 mg ONCE ONE Administration Medical Decision Making Medical Decision Making MDM Narrative: Patient is a 54 year old assigned female at with a history of MDD, VEGA, diverticulosis, NAFLD, GERD, anxiety, and migraine headaches presenting to the emergency department today with worsening headache over the last 2 months. Patient's physical exam was unremarkable. Patient's blood work was unremarkable. Patient's EKG was unremarkable. Patient's CTA of the head and neck showed no acute process. I explained my physical exam findings as well as all test results to the patient. I answered all questions asked by the patient. Patient received IV Toradol and Valium which, upon re-evaluation, she stated it helped her pain some but not entirely. I explained to the patient that the goal of emergency management of pain is to make the pain tolerable - not to make the patient pain free. I explained to the patient that given the chronic nature of this pain, it is going to take continued management from her primary care provider and a neurologist to find the right medication or combination of medications to manage her migraines and it is not appropriate for an emergency department provider to be starting the patient on a new medication for this. Patient was adamant she would like something prescribed for pain as nothing she has currently is working. I explained to the patient that I would prescribe 3 doses of Firocet but that continued management must be done by her primary care provider and a neurologist. I explained to the patient the risks of taking firocet - especially in the setting of her other daily medications including increased fall risk which she verbalized understanding of and requested to be prescribed the medication anyway. I stressed the importance of the patient taking her medication as directed (either prescribed or as the over the counter packaging recommends). I stressed the importance of the patient following up with her primary care provider and neurologist. I stressed the importance of the patient returning to the emergency department immediately if her symptoms were to worsen or if she were to develop any lightheadedness, dizziness, shortness of breath, difficulty breathing, chest pain, blurry vision, loss of vision, nausea, vomiting, abdominal pain, fever, chills, back pain, or any other complaints. Patient verbalized agreement and understanding with this treatment plan and discharge. Differential Diagnosis Differential Diagnoses: The differential diagnosis associated with the presentation includes Chronic headache Migraine headache Ocular migraine Aneurysm Admission/Observation Consideration of admission/observation: Escalation of care including admission/observation considered Patient would have been admitted to the hospital had her work up had any findings where hospital admission was appropriate and her clinical presentation warranted hospital admission. Lab Data [facility] Lab Attestation statement: I reviewed the patient's lab results. My interpretation of these results are in the MDM Rationale portion of this note. 12/27/24 09:02 12/27/24 09:02 Labs: Lab Results 12/27/24 Range/Units 09:02 WBC 5.6 (4.8-10.8) X10*3/uL RBC 4.39 (4.20-5.50) X10*6/uL Hgb 13.8 (12.0-16.0) g/dl Hct 40.0 (37.0-47.0) % MCV 91.1 (80.0-98.0) fL MCH 31.4 (27.0-33.0) pg MCHC 34.5 (31.0-35.0) g/dl RDW 12.3 (11.0-16.0) % Plt Count 230 (160-400) X10*3/uL MPV 11.0 (9.4-12.3) fL Immature Gran % (Auto) 0.4 (0.0-0.4) % Neut % (Auto) 62.2 (45-73) % Lymph % (Auto) 28.9 (20-40) % Towner % (Auto) 6.2 (2-11) % Eos % (Auto) 1.8 (0-4) % Baso % (Auto) 0.5 (0-2) % Lymph # (Auto) 1.6 (1.2-4.9) X10*3/uL Towner # (Auto) 0.4 (0.1-1.2) X10*3/uL Eos # (Auto) 0.1 (0.0-0.4) X10*3/uL Baso # (Auto) 0.0 (0.0-0.2) X10*3/uL Abs Immat Gran (auto) 0.02 (0.00-0.03) X10*3/uL Absolute Neuts (auto) 3.5 (2.0-8.3) x10*3/uL Absolute Nucleated RBC 0.000 (0.0-0.012) X10*3/uL Nucleated RBC % (auto) 0.0 (0.0-0.2) /100WBC ESR 7 (0-20) MM/HR Sodium 141 (135-145) mmol/L Potassium 4.5 (3.3-5.1) mmol/L Chloride 110 H (96-108) mmol/L Carbon Dioxide 25 (22-29) mmol/L Anion Gap 11 L (12-20) BUN 12 (9-16) mg/dL Creatinine 0.66 (0.5-1.4) mg/dL Estim Creat Clear Calc 105.1 Estimated GFR > 60 Random Glucose 86 (60-115) mg/dL Calcium 9.5 D (8.4-10.2) mg/dL Magnesium 2.0 (1.6-2.6) mg/dL Total Bilirubin 0.5 (0.0-1.0) mg/dL AST 25 (5-31) U/L ALT 27 (0-31) U/L Alkaline Phosphatase 72 (39-117) U/L C-Reactive Protein 0.44 (< or = 0.50) mg/dL Total Protein 7.5 (6.5-8.0) g/dL Albumin 4.2 (3.5-5.0) g/dL Influenza Type A (PCR) NEGATIVE (Negative) Influenza Type B (PCR) NEGATIVE (Negative) RSV RNA Qual (PCR) NEGATIVE (Negative) SARS-CoV-2 RNA (RT-PCR) NEGATIVE (Negative) Independent Interpretation I performed an independent interpretation of an: EKG and CT Scan Interpretation: My interpretation is in agreement with the radiologist's impression of this imaging study. Report Number: [id number]: Total DLP = 1563.00 mGy-cm EXAMINATION: CTA NECK WITH CONTRAST (STROKE) CTA BRAIN WITH CONTRAST (STROKE) CLINICAL INFORMATION: Worsening headache. Dizziness. Concerning aneurysm. Double vision. COMPARISON: Correlated to CT dated November 24, 2011 and MRA brain dated October 20, 2020. TECHNIQUE: CTA of the head and neck was performed in the axial plane from the mediastinum to the skull vertex using 70 mL Omnipaque 350 intravenous contrast. Additional reformatted multiplanar images including maximum intensity projection MIP images are generated on the CT workstation. This CT examination was performed using dose optimization techniques as appropriate, variously including the following: *Automated exposure control *Adjustment of mA and/or kV according to patient size (this includes techniques or standardized protocols for targeted exams where dose is matched to indication/reason for exam; i.e. extremities or head) *Use of iterative reconstruction technique DLP: 1563 mGy centimeter. FINDINGS: The degree of stenosis determined by criteria similar to NASCET. Brain: No acute intracranial hemorrhage, mass effect, midline shift, hydrocephalus or herniation. Berg-white matter differentiation is normal. Posterior cranial fossa contents demonstrated no gross abnormality. No abnormal enhancement within the intra-axial or the extra-axial compartments of the cranium. Bony calvarium is intact. No air-fluid levels in the paranasal sinuses. Tympanic cavities and mastoid cells are aerated. Pneumatized petrous apices, congenital. No masses or fluid collections in the intraconal or extraconal compartments of the orbits. No gross masses in the sellar suprasellar region. Chest CTA: Thoracic aorta demonstrates calcified plaques in the descending segment with normal caliber and enhancement pattern without intraluminal abnormalities or IV contrast extravasation. Neck CTA: Right CCA: Normal patency. No focal stenosis. No intimal flap. Right ICA: No plaques. Normal patency. No focal stenosis. No intimal flap. Left CCA: Normal patency. No focal stenosis. No intimal flap. Left ICA: No plaques. Normal patency. No focal stenosis. No intimal flap. V1/V2 segments of the vertebral arteries demonstrated normal patency and enhancement pattern without intimal flap. Codominant vertebral arteries. Both are orientating from the subclavian arteries. Brain CTA: Anterior cerebral circulation: ICAs: Normal patency. No focal stenosis. No abrupt cut off. Tortuosity in the cavernous segments. MCA's: Normal patency. No focal stenosis. No abrupt cut off. Bifurcation/trifurcation demonstrated no gross contour irregularity. ACAs: Normal patency. No focal stenosis. No abrupt cut off. Slight asymmetric small caliber on the right P1 segment. Anterior communicating artery is patent. Ophthalmic arteries are patent without focal irregularity. Posterior communicating arteries demonstrated small caliber. Posterior cerebral circulation: V3/V4 segments of the vertebral arteries are patent without focal stenosis or intimal flap. Posterior inferior cerebellar arteries are patent the right appears with a common trunk with the right anterior inferior cerebellar artery. Basilar artery is patent without focal stenosis or intimal flap. Superior cerebellar arteries are patent. blanket weaver: Normal patency. No focal stenosis. No abrupt cut off. Ancillary findings: Main cerebral venous sinuses and cerebral veins are patent without intraluminal filling defects. CT/CT angio head neck IMPRESSION: No high degree stenosis or dissection. No cerebral aneurysm. No acute brain abnormality by CT. Electronically signed by: Terrance Grimaldo MD 12/27/2024 10:58 AM EDT Dictated By: Terrance Montez MD Signed By: Electronically signed by Terrance Araujo MD 12/27/24 1058 I independently interpreted this EKG and am in agreement with the below findings: Vent. Rate: 80 BPM Atrial Rate: 80 BPM P-R Int: 168 ms QRS Dur: 108 ms QT Int: 376 ms P-R-T Axes: 32 -45 25 degrees QTcB Int: 433 ms Normal sinus rhythm with sinus arrhythmia Incomplete right bundle branch block Left anterior fascicular block Left ventricular hypertrophy (R in aVL , [place] product, Romhilt-Bernabe) When compared with ECG of 11-Nov-2020 12:49, Questionable change in initial forces of Septal leads DD/ 0845 Radiology Impression Discussion of test interpretation with radiology: I have reviewed the radiologist's reading. Prescription Management I considered prescription management with: Pain Medication (patient prescribed pain medication) Discharge Plan Discharge Clinical Impression: Migraine Patient Disposition: Home, Self-Care Instructions: Migraine Headache (ED) Additional Instructions: Your work up today was reassuring. Your lab work was unremarkable and your CTA of the head / neck showed no evidence of an emergent cause for your symptoms. You should continue to follow up with your primary care provider and a neurologist for this. Caryl pruebas de hoy choi sido tranquilizadoras. Las pruebas de laboratorio no choi sido significativas y la ATC de gemma/laurie no tellez mostrado indicios de jony causa emergente de los s?ntomas. Usted debe continuar el seguimiento con shaver proveedor de atenci?n primaria y un neur?logo para esto. Follow up with your primary care provider. Return to the emergency department immediately if your symptoms worsen or if you develop any dizziness, shortness of breath, difficulty breathing, chest pain, blurry vision, loss of vision, nausea, vomiting, abdominal pain, fever, chills, back pain, or any other complaints. Julisa?seguimiento?con shaver m?dico de atenci?n primaria. Acuda inmediatamente al servicio de urgencias si caryl s?ntomas empeoran o si presenta falta de aliento, dificultad para respirar, dolor tor?cico, mareos, aturdimiento, dolor de espalda, dolor abdominal, fiebre, escalofr?os o cualquier otro s?ntoma. Please see the information below about our Patient Portal. If you are not yet enrolled in the [facility] Patient Portal, you will receive an enrollment email invitation following your visit to any [facility] care setting. You may also self-enroll in the Patient Portal by visiting our website: [email or web address] The following information is required to access the Patient Portal: - Your [facility] Medical Record Number - Your personal home email address (must match what is in your electronic medical record, Registration staff can assist with this) - Name - Date of Capabilities of the Patient Portal: - Message some providers - View upcoming appointments - Access your health summary, medical history, and visit history - View current conditions and allergies - View procedure and lab results - View your medications, including guidelines, side effects, and precautions - Complete pre-appointment questionnaires requested by your provider - Ready summary reports of your office visits and procedures To access the Patient Portal Mobile Ida, follow these directions: - Search [employer] in the Ida Store or [employer] Store - Download the Ida - Search for [facility] - Enter your login/password Portal del paciente Si usted no esta inscrito en el portal de pacientes de [facility], recibira jony invitacion de inscripcion despues de shaver visita al [facility] o al [facility] via correo electronico. Tambien puede inscribirse voluntariamente en el portal de pacientes visitando nuestra pagina web: [email or web address] La siguiente informacion sera requerida para acceder al portal: - Shaver bean de historia medica de [facility] - Shaver direccion de correo electronico personal - Nombre - Fecha de nacimiento Capacidades: Las siguientes capacidades estan disponibles en el portal de pacientes: - Enviar mensajes a algunos doctores - Verificar proximas citas - Acceso a shaver historial de mindy, registro medico e historial de visitas - Magdalena las condiciones actuales y alergias magdalena procedimientos y resultados del laboratorio - Magdalena caryl medicamentos, incluyendo las pautas - Efectos secundarios y precauciones - Completar o llenar formularios / cuestionarios de - Citas solicitadas por shaver doctor - Leer los resumenes de reportes medicos de caryl visitas y procedimientos John acceder a la aplicacion movil: - [employer] en la Ida Store o [employer] Store - Descargue la aplicacion - [facility] - Ingrese shaver nombre de usuario / Contrasena Prescriptions: New caxchvkuec-zykpuflqtgzmh-kxqo [Fioricet] 50-300-40 mg capsule 1 cap PO Q8H PRN (Reason: pain) Qty: 3 0RF No Action omeprazole 20 mg capsule,delayed release(DR/EC) 20 mg PO DAILY Qty: 30 5RF propranolol 10 mg tablet 10 mg PO BID 30 Days Qty: 60 3RF ibuprofen 800 mg tablet 800 mg PO Q8H PRN (Reason: pain) 10 Days Qty: 30 1RF Zepbound 5 mg/0.5 mL pen injector 5 mg subcut QWEEK 28 Days Qty: 2 0RF sumatriptan succinate 25 mg tablet See Rx Instructions PO .COMPLEX 30 Days Qty: 9 1RF Rx Instructions: take 1 tab at onset of headache; if no relief may repeat 1 tab after at least 2 hrs; max = 4 tabs/24 hr PO acetaminophen [Tylenol Extra Strength] 500 mg tablet 500 mg PO TID PRN meclizine 12.5 mg tablet 12.5 mg PO TID PRN (Reason: dizziness) 7 Days Qty: 21 0RF docusate sodium 100 mg capsule 100 mg PO BID 30 Days Qty: 60 3RF fluoxetine 10 mg capsule 10 mg PO DAILY Qty: 90 1RF baclofen 10 mg tablet 10 mg PO BID PRN (Reason: muscle spasm) 10 Days Qty: 20 2RF albuterol sulfate 90 mcg/actuation HFA aerosol inhaler 1 inh inhalation QID 30 Days Qty: 8.5 0RF zolpidem 10 mg tablet 10 mg PO BEDTIME PRN (Reason: sleep) 14 Days Qty: 14 0RF Referrals: [facility] [Provider Group] (Call to establish and follow up with a neurologist for assistance managing your migraines. Llame para establecer y hacer un seguimiento con un neur?logo para que le ayude a controlar caryl migra?as. ) Ellis Arevalo PA-C [Primary Care Provider] - Interventions: ED Discharge Assessment Last Done: 12/27/24 11:23 Discharge Date/Time: 12/27/24 11:24 Print Language: Hebrew
--- OUTSIDE RECORDS SUMMARY | 2024-12-27 08:30 | XMS_ITS | Clinical Summary ---
Author Organization [employer] Address [address] [place] [address] [address] [place] [address] Care Team Providers Care Regulatory Affairs Strategy Specialist Name Role Phone Unavailable Primary Care Provider [...] Problem Noted Date Diagnosed Date Fractured dental confucianist with loss of materi al 11/23/2024 Normal oral exam 11/21/2024 Excessive attrition of teeth, limited to enamel 03/19/2024 Generalized gingival recession 02/27/2024 Missing teeth, acquired 02/27/2024 Malocclusion 01/04/2023 Dental plaque 12/14/2022 Erosion of teeth, limited to enamel 12/14/2022 Encounters Date Type Department Care Team Description 11/23/2024 8:00 AM EST Office Visit [facility] [address] [place] [address] Jere Rodriguez DDS Fractured dental confucianist with loss of material (Primary Dx) 11/21/2024 8:00 AM EST Office Visit [facility] [address] [place] [address] Cynthia Metz Missing teeth, acquired (Primary Dx); [...] Description 05/22/2025 8:00 AM EDT Office Visit [facility] [address] [place] [address] Cynthia Metz Health Maintenance Due Date Last [...] Most Recently Relevant to Health Maintenance Insurance [employer] [place] [employer] [place] (MEDICAID)
--- OUTSIDE RECORDS SUMMARY | 2024-12-27 08:30 | XMS_ITS | Encounter Summary ---
Author Organization [employer] [facility] Address [address] [place] [address] [address] [address] Care Team Providers Care Fuel Operator Name Role Phone Unavailable Primary Care Provider Unavailabl e Encounter Details Date Type Department Care Team (Latest Contact Info) Description 12/19/2019 Abstract [facility] CONVERSIONS Dental, Provider, DDS Social [...] 8:00 AM EDT Office Visit [facility] [address] [place] [address] Cynthia Metz documented as of this encounter Visit Diagnoses Not on filedocumented in this encounter
--- OUTSIDE RECORDS SUMMARY | 2024-12-27 08:30 | XMS_ITS | Clinical Summary ---
Author Organization [facility] Address [address] [place] [address] Care Team Providers Care Weapons System Instrument Mechanic Name Role Phone Scottie Pickering Primary [...] H RISK PATIENTS (#1) 01/08/2037 Care Teams Weapons System Instrument Mechanic Relationship Specialty Start Date End Date Scottie Pickering PCP - General Family Practice 10/25/18
--- OUTSIDE RECORDS SUMMARY | 2024-12-27 08:30 | XMS_ITS | Encounter Summary ---
Author Organization [employer] [facility] Address [address] [place] [address] [place] [address] Care Team Providers Care Council Member Name Role Phone Unavailable Primary Care Provider Unavailabl e Encounter Details Date Type Department Care Team (Latest Contact Info) Description 10/28/2021 Abstract [facility] CONVERSIONS Dental, Provider, DDS Social History Tobacco [...] 8:00 AM EDT Office Visit [facility] [address] [place] [address] Cynthia Metz documented as of this encounter Visit Diagnoses Not on filedocumented in this encounter
--- OUTSIDE RECORDS SUMMARY | 2024-12-27 08:30 | XMS_ITS | Data Portability ---
Author Organization [place] [facility] Address [address] [place] [id number] Care Team Providers Care Underwear Finisher Name Role Phone ISABELLA JOSEPH Primary Care Provider [phone] Assessment No assessment recorded. Plan of Treatment [...] Details Recorded Time Tinnitus of right ear 71914877659 08 Active 2020 Tinnitus, right ear; Note: Date Diagnosed : 11/17/2020 9:15 AM (H93.13) Not Available [facility] 4 03:08:12 Dizziness and giddiness 250253033 Active 2018 Dizziness and giddiness ; Note: Date Diagnosed : 03/14/2019 9:14 AM (R42) Not Available [facility] 4 03:08:12 Impacted cerumen of bilateral ears 10377394470 85275 Active 2022 Impacted cerumen, bilateral ; Note: Date Diagnosed : 11/04/2022 9:41 AM (H61.23) Impacte d cerumen, bilateral ; Note: Date Diagnosed : 11/15/2018 11:21 AM (H61.23) ; Start Date : 9 Not Available [facility] 4 03:08:13 Sensorine ural hearing loss of bilateral ears 720601292 Active 2017 Sensorine ural hearing loss, bilateral ; Note: Date Diagnosed : 07/18/2018 9:37 AM (H90.3) Not Available [facility] 4 03:08:13 Impacted cerumen in right ear 74124837722 88745 Active 2018 Impacted cerumen, right ear; Note: Date Diagnosed : 03/14/2019 9:12 AM (H61.21) Not Available [facility] 4 03:08:12 Migraine with aura 7630542 Active 2018 Migraine with aura, not intractab le, without status migrainos us; Note: Date Diagnosed : 06/13/2019 10:17 AM (G43.109) Not Available [facility] 03:08:14 Migraine without aura, not refractor y 100852579 Active 2018 Migraine without aura, not intractab le, without status migrainos us; Note: Date Diagnosed : 03/14/2019 9:14 AM (G43.009) Not Available [facility] 03:08:14 Problem Notes None recorded. Procedures Surgical History Date Name Laterality Status Provider Name and Address Organization Details Recorded Time 05/07/2024 Comp Audio with Tymps (87879 & 84296) completed JESUS ALBERTO SMITH, [facility] [address] [facility],[place] [address], [place], [address], [facility] - [facility] 05/07/2024 11:22:38 Imaging Results Imaging Date Name Status LastModified by Organiz ation Details LastModified Time 05/07/2024 audiogram completed [email or web address] Information not available 05/07/2024 16:04:05 11/15/2018 imaging/diagno [...] mg tablet 11/04 completed Medicati on ID: [id number] B rand Name: cycloben zaprine Send Method: [...] mg tablet 11/04 completed Medicati on ID: [id number] B rand Name: cetirizi ne Send Method: [...] mg tablet 05/07 completed Medicati on ID: [id number] B rand Name: sumatrip warren succinat e Send Method: E-Prescr ibed Sub s Allowed: subs OK Speci al Instruct ion: TAKE 1 TABLET BY MOUTH DAILY NEEDED FOR MIGRAINE HEADACHE ; MAY REPEAT DOSE AFTER 2 HOURS UP TO A MAXIMUM OF 2. Medic ationGen ericName : sumatrip warren succinat e Medica tion ID: [id number] B rand Name: sumatrip warren succinat e [...] mg tablet 11/04 completed Medicati on ID: [id number] B rand Name: predniso ne Send Method: E-Prescr ibed Sub s Allowed: subs OK Medic ationGen ericName : predniso ne Not Available Not Available Not Available propranol ol 10 mg tablet TAKE ONE TABLET BY MOUTH TWICE A DAY active Not Available Not Available No t Available Valium 2 mg tablet 1 tablet by mouth 04/08 completed Medicati on ID: [id number] P kinza pete By Name: John Shafer [...] mg tablet 03/14 completed Medicati on ID: [id number] R marina: () Brand Name: Advil Se nd Method: E-Prescr ibed Sub s Allowed: subs OK Medic ationGen ericName : Advil Not Available Not Available Not Available omeprazol e 20 mg capsule,d elayed release 05/07 completed Medicati on ID: [id number] B rand Name: omeprazo le Send Method: E-Prescr ibed Sub s Allowed: subs OK Medic ationGen ericName : omeprazo le Medic ation ID: [id number] B rand Name: omeprazo le Send Method: [...] mg tablet 07/26 completed Medicati on ID: [id number] B rand Name: lorazepa m Send Method: E-Prescr ibed Sub s Allowed: subs OK Medic ationGen ericName : lorazepa m Not Available Not Available Not Available ibuprofen 600 mg tablet 04/08 completed Medicati on ID: [id number] D uration Value: 30 Brand Name: ibuprofe [...] aerosol inhaler 05/07 completed Medicati on ID: [id number] B rand Name: Ventolin HFA Send Method: E-Prescr ibed Sub s Allowed: subs OK Medic ationGen ericName : Ventolin HFA Medi cation ID: [id number] B rand Name: Ventolin HFA Send Method: E-Prescr ibed Sub s Allowed: subs OK Medic ationGen ericName : Ventolin HFA Not Available Not Available Not Available Vitamin D3 25 mcg (1,000 unit) capsule 11/29 completed Medicati on ID: [id number] D uration Value: 30 Brand Name: Vitamin [...] Updated DateTime 05/07/2024 157.48 cm 37.7 kg/m2 41250.03 g Maryanne Verma [place] [facility] 05/07/2024 11:41:53 Date Recorded Body height Body mass index (BMI) Body weight Provider Name and Address Organization Details Last Updated DateTime 07/26/2024 157.48 cm 37.7 kg/m2 14057.03 g Sudha Kimble [facility] 07/26/2024 10:54:24 Date Recorded Body height Body mass index (BMI) Body weight Provider Name and Address Organization Details Last Updated DateTime 11/29/2024 157.48 cm 35.7 kg/m2 61158.51 g Maryanne Verma [place] [facility] 11/29/2024 10:17:21 Social History None recorded. Functional [...] Note [id number] ALEJANDRA RUIZ MD [facility] [address] [place] [address] 05/07/2024 10:51:22 05/07/2024 17:01:48 Sensorineural hearing loss of bilateral ears 048811182 H90.3 We reviewed her audiogram which showed stable thresholds compared to 2021 though her word understand ing has declined. She is an excellent candidate for amplificat ion. I did give her medical clearance. She may follow-up as needed. [facility]Norm al Mild* M oderate Mo derately-s [...] Cou ld not maintain a hermetic seal}} [id number] ALEJANDRA RUIZ MD [facility] [address] [place] [address] 07/26/2024 10:40:18 07/26/2024 11:12:35 Sensorineural hearing loss of bilateral ears 114031401 H90.3 Partially impacted cerumen was removed and tolerated well. Dizziness has been under control lately. She is scheduled for hearing aid evaluation . We can reassess for cerumen in 4 months or sooner if needed. [id number] ALEJANDRA RUIZ MD [facility] [address] [address] 11/29/2024 10:11:37 11/29/2024 11:04:54 Sensorineural hearing loss of bilateral ears 266117027 H90.3 Partially impacted cerumen was removed and [...] Yeung Member ID Guarantor Name 05/07/2024 1 [facility] [facility] (HMO) [id number] Renu Diaz [id number] Renu Diaz 07/26/2024 1 [facility] (HMO) [id number] Renu Diaz [id number] Renu Diaz 11/29/2024 1 [facility] (HMO) [id number] Renu Diaz [id number] Renu Diaz Notes Date Note Type Note Provider Name and Address Organization Details Recorded Time 05/07/2024 text/html 64-year-old femalla bynum presents today for follow-up of hearing. She reports the dizziness is improved since her last visit. She continues on Wegov[place]. ALEJANDRA RUIZ MD [address] [place] [address], [phone], [facility] - [facility] 05/07/2024 12:39:05 07/26/2024 text/html Went to go get t he hearing aids. Noticed tinnitus bilaterally, especially when sleeping. PV: 64-year-old female presents today for follow-up of hearing. She reports the dizziness is improved since her last visit. She continues on Wegovy. ALEJANDRA RUIZ MD [address] [facility],[address], [address], [facility] - [facility] 07/28/2024 13:24:32 11/29/2024 text/html hearing aids new x 3 daysdizziness controlled migraines no change ALEJANDRA RUIZ MD [address] [place] [address],[place] [address], [place], [address], [facility] - [facility] 12/02/2024 15:07:08 OBGyn Episode No OBEpisode recorded.
--- OUTSIDE RECORDS SUMMARY | 2024-12-27 08:30 | XMS_ITS | Encounter Summary ---
Author Organization [facility] Address [address] [place] [address] Care Team Providers Care Shirt Ironer Supervisor Name Role Phone Scottie Pickering Primary Care Provider Unavailabl e Encounter Details Date Type Department Care Team Description 11/25/2021 Orders Only General Surgery [address] [place], [place] [phone] Pavel Thompson MD [address] [place] [id number] Increased risk of breast cancer; FH: breast [...] old documented in this encounter Care Teams Shirt Ironer Supervisor Relationship Specialty Start Date End Date Scottie Pickering PCP - General Family Practice 10/25/18 documented as of this encounter
--- OUTSIDE RECORDS SUMMARY | 2024-12-27 08:30 | XMS_ITS | Encounter Summary ---
Author Organization [facility] Address [address] [place] [address] Care Team Providers Care Chalk Molding Machine Operator Name Role Phone Scottie Pickering Primary Care Provider Unavailabl e Encounter Details Date Type Department Care Team Description 08/18/2021 Telephone General Surgery [address] [place] [address] Pavel Thompson MD [address] [place] [address] Social History Tobacco Use Types Packs/Day Years [...] states documented in this encounter Care Teams Chalk Molding Machine Operator Relationship Specialty Start Date End Date Scottie Pickering PCP - General Family Practice 10/25/18 documented as of this encounter
--- NOTE | 2024-12-27 08:35 | ECG_ITS ---
Test Reason : weakness Blood Pressure : */* mmHG Vent. Rate : 80 BPM Atrial Rate : 80 BPM P-R Int : 168 ms QRS Dur : 108 ms QT Int : 376 ms P-R-T Axes : 32 -45 25 degrees QTcB Int : 433 ms Normal sinus rhythm with sinus arrhythmia Incomplete right bundle branch block Left anterior fascicular block Left ventricular hypertrophy ( R in aVL , [place] product , Romhilt-Bernabe ) Cannot rule out Septal infarct (cited on or before 09-Mar-2017) Abnormal ECG When compared with ECG of 11-Nov-2020 12:49, Questionable change in initial forces of Septal leads Referred By: Demetria Cole Electronically Signed By: Guzman Flores
[2024-12-27] MEDS: diazePAM 10 MG/2 ML CARTRIDGE 5 MG IVPUSH (09:06)
[2024-12-27 09:09] LABS: MANUAL DIFF FLAG NO
[2024-12-27 09:11] LABS: Basophils Percent Auto 0.5 % (0-2); Eosinophils Absolute Auto 0.1 X10*3/uL (0.0-0.4); Eosinophils Percent Auto 1.8 % (0-4); Hemoglobin 13.8 g/dl (12.0-16.0); Imm Gran Abs Auto 0.02 X10*3/uL (0.00-0.03); Imm Gran Pct Auto 0.4 % (0.0-0.4); Lymphocytes Absolute Auto 1.6 X10*3/uL (1.2-4.9); Lymphocytes Percent Auto 28.9 % (20-40); Mean Corpuscular HGB Conc 34.5 g/dl (31.0-35.0); Mean Corpuscular Hemoglobin 31.4 pg (27.0-33.0); Mean Corpuscular Volume 91.1 fL (80.0-98.0); Monocytes Absolute Auto 0.4 X10*3/uL (0.1-1.2); Monocytes Percent Auto 6.2 % (2-11); Neutrophils Absolute Auto 3.5 x10*3/uL (2.0-8.3); Neutrophils Percent Auto 62.2 % (45-73); Platelet Count 230 X10*3/uL (160-400); Red Blood Count 4.39 X10*6/uL (4.20-5.50); Red Cell Distribution Width 12.3 % (11.0-16.0); White Blood Count 5.6 X10*3/uL (4.8-10.8)
[2024-12-27 09:24] LABS: Alanine Aminotransferase 27 U/L (0-31); Albumin Level 4.2 g/dL (3.5-5.0); Alkaline Phosphatase 72 U/L (39-117); Anion Gap 11 (12-20); Aspartate Amino Transferase 25 U/L (5-31); Bilirubin Total 0.5 mg/dL (0.0-1.0); Blood Urea Nitrogen 12 mg/dL (9-16); C Reactive Protein 0.44 mg/dL (< or = 0.50); Calcium 9.5 mg/dL (8.4-10.2); Carbon Dioxide 25 mmol/L (22-29); Chloride 110 mmol/L (96-108); Creatinine Clr Calc Pharmacy 105.1; Estimated Glomerular Filt Rate > 60; Glucose Random 86 mg/dL (60-115); Potassium 4.5 mmol/L (3.3-5.1); Sodium 141 mmol/L (135-145); Total Protein 7.5 g/dL (6.5-8.0)
[2024-12-27 09:49] LABS: Influenza A PCR NEGATIVE (Negative); Influenza B PCR NEGATIVE (Negative); Resp Syncy Virus RNA Qual PCR NEGATIVE (Negative); SARS COV2 PCR INHOUSE NEGATIVE (Negative)
[2024-12-27 10:02] LABS: Erythrocyte Sedimentation Rate 7 MM/HR (0-20)
[2024-12-27] MEDS: iohexoL 350 MG/ML 100 ML INFUS..BTL IV (10:27)
[2024-12-27 10:53] VITALS: BP 112/61; PULSE 72; RESP 18; O2SAT 98
[2024-12-27] MEDS: Ketorolac Tromethamine 15 MG/ML VIAL IVPUSH (11:17)
[2024-12-27 11:23] VITALS: BP 112/61; PULSE 72; RESP 18; TEMP 37; O2SAT 98
== END 2024-12-27 11:24 | disposition home or self-care (01) ==
PROVIDERS: Physician Assistant Medical; Emergency Provider Emergency Medicine; PCP Physician Assistant
DX: G43.909 Migraine, unspecified, not intractable, without status migrainosus (principal); R29.700 NIHSS score 0; Z03.818 Encounter for observation for suspected exposure to other biological agents ruled out; Z79.899 Other long term (current) drug therapy
CPT/HCPCS: 0241U; 70496; 70498; 80053; 83735; 85025; 85652; 86140; 93005; 96374; 96375; 99284; J1885; J3360; Q9967

== ENCOUNTER → 2024-12-27 08:35 | Outpatient (BNV) | payer OTHER, SELFPAY | PROVIDERS: Emergency Provider Emergency Medicine; PCP Physician Assistant; Visit Provider Radiology Diagnostic Radiology | DX: R51.9 Headache, unspecified (principal); Q20.0 Common arterial trunk; Q17.8 Other specified congenital malformations of ear; I70.0 Atherosclerosis of aorta | CPT/HCPCS: 70496; 70498 ==

== ENCOUNTER → 2024-12-27 08:35 | Outpatient (BNV) | payer OTHER, SELFPAY | PROVIDERS: Emergency Provider Emergency Medicine; PCP Physician Assistant; Visit Provider Internal Medicine Cardiovascular Disease | DX: I45.2 Bifascicular block (principal); I51.7 Cardiomegaly | CPT/HCPCS: 93010 ==

== ENCOUNTER 2025-02-25 08:12 | Outpatient (AMB) | payer OTHER, SELFPAY ==
--- NOTE | 2025-02-25 08:24 | AM.OFFWIN_ITS ---
Intake Vital Signs 3 02/25/25 08:26 Height 5 ft 2 in Weight 200 lb BMI 36.6 BP 120/90 H Blood Pressure Location Rt brachial Position Sitting Pulse 76 Pulse Source Pulse Oximeter Pulse Oximetry (%) 98 Oxygen Delivery Method Room Air Intake Visit Reasons: EP LT arm rash/Burn/itch ~ LT knee/dizzy Intake Note: Patient here for rash on left arm that started Tuesday, dizziness Patient Tobacco Use Status: Never used Tobacco Allergies No Known Allergies Allergy (Verified 02/25/25 08:28) Do you need a note to return to daycare/school/sports/work: No HPI HPI Comments 2 History of Present Illness0 Details History of Present Illness - The patient is a 55-year-old female pr esenting with a burning, painful and itchy rash on her left upper arm. - The rash began on Tuesday around noon a nd has painful, sometimes weeping clear fluid. - The rash is causing significant discom fort and sleep disturbances. - The patient has attempted self-care wi th antibiotic ointments without success. - Additionally, she reports episodes of dizziness, particularly when looking upwards, though no allergen contact or upper respiratory symptoms have been noted. Denies allergies or head congestion. Physical Exam General: Cooperative, healthy appearing, comfortable, no acute distress and well developed Orientation: Patient oriented x3 Limitations: No limitations Head: Normal to inspection Ears: Hearing grossly normal bilaterally (Patient has hearing aids in, declined ear exam) Nose: Normal External nose present Face and sinus: Normal facial exam Eyes: Appearance normal, both eyes and all related structures Neck: Normal visual inspection and Yes full ROM Respiratory: Normal respiratory effort and able to speak in complete sentences. Skin: see photo, triangular raised, small vesicules on erythematous base, Neuro: Patient oriented x3 Extremities: Normal to inspection [facility] Medical History Uterine fibroid Abnormal Pap smear of cervix Allergic rhinitis Anxiety Arteritis Family history of brain aneurysm Migraine headache Surgical History Hx of endoscopy Hx of colonoscopy H/O LEEP H/O right inguinal hernia repair (03/16/17) History of endometrial ablation History of tubal ligation History of toe surgery History of incision and drainage Family History Father FH: prostate cancer Sister History of breast cancer Sister History of breast cancer Son Heart attack, Onset Age: 12 Son Brain aneurysm Other Stomach cancer Social History Housing: House Alcohol intake: current Alcohol intake frequency: holidays/special occasions only Patient Tobacco Use Status: Never used Tobacco Tobacco use type: Cigarette e-Cigarette/Vaping Use: Never Used Second Hand Smoke Exposure: No service: No Current occupational status: unemployed Sexual orientation: Straight/Heterosexual Gender identity: Female Cognitive needs: No Hearing needs: No Vision needs: Yes (Glaases) Review of Systems Const All systems reviewed & are unremarkable except as noted in HPI and below Physical Exam Vital Signs: Last Vital Signs Pulse 76 02/25/25 08:26 BP 120/90 H 02/25/25 08:26 Pulse Ox 98 02/25/25 08:26 Oxygen Delivery Method Room Air 02/25/25 08:26 BMI result Body Mass Index 36.6 Assessment & Plan Assessment & Plan (1) Shingles: Code(s): B02.9 - Zoster without complications Qualifiers: Herpes zoster complications: without complications Qualified Code(s): B 02.9 - Zoster without complications Plan: The patient is diagnosed with herpes zoster (shingles). Valacyclovir is prescribed to manage the herpes zoster, although starting beyond the 72-hour window for optimal effectiveness. Gabapentin is provided to control neuropathic pain. The patient also reports dizziness, requiring a separate evaluation. She is advised to schedule a follow-up for a detailed dizziness workup either at the [place] or with her PCP, cannot do ear exam as pt declined bc she can't put her hearing aids back in if she takes them out. The patient reports no allergy- related symptoms, narrowing the differential diagnosis for dizziness. Patient was informed and verbally consented to the use of an ambient scribe for clinic note documentation during this visit. Medications: New 2 gabapentin 100 mg PO TID PRN 20 caps 0RF pain valacyclovir 1,000 mg PO Q8H 7 days 21 tabs 0RF Coding Level of Care Code Est Pt Level 3 (97060) Diagnoses Herpes zoster without complication B02.9 Herpes zoster complications: without complications
[2025-02-25 08:26] VITALS: BP 120/90; PULSE 76; O2SAT 98; BMI 36.6
== END 2025-02-25 08:56 | disposition home or self-care (01) ==
PROVIDERS: PCP Physician Assistant; Visit Provider Physician Assistant
DX: B02.9 Zoster without complications (principal)

== ENCOUNTER → 2025-02-25 08:12 | Outpatient (BNVA) | payer OTHER, SELFPAY | PROVIDERS: PCP Physician Assistant; Visit Provider Physician Assistant | DX: B02.9 Zoster without complications (principal) | CPT/HCPCS: 99212 ==

== ENCOUNTER 2025-03-07 09:24 | Outpatient (AMB) | payer OTHER, SELFPAY ==
[2025-03-07 09:34] VITALS: BP 110/70; PULSE 82; TEMP 36.3; O2SAT 98; BMI 36.8
--- NOTE | 2025-03-07 09:34 | A.OFFPC_ITS ---
Vital Signs 03/07/25 09:34 Height 5 ft 2 in Weight 201 lb 4 oz BMI 36.8 BP 110/70 Blood Pressure Location Lt brachial Position Sitting Pulse 82 Pulse Source Pulse Oximeter Temp 97.3 F Temp Source Temporal Artery Scan Pulse Oximetry (%) 98 Oxygen Delivery Method Room Air Intake Visit Reasons: weight check Applications Development Consultant Required: No Accompanied by: Self / Same As Patient Allergies No Known Allergies Allergy (Verified 03/07/25 09:46) Medication List - Last Reconciled 03/07/25 by Ellis Arevalo PA-C acetaminophen (Tylenol Extra Strength) 500 mg PO TID PRN albuterol sulfate 90 mcg/actuation 1 inh inhalation QID 30 days baclofen 10 mg PO BID PRN 10 days ycskzbfrdi-beztnpgkeuffy-boyu 50-300-40 mg (Fioricet) 1 cap PO Q8H PRN docusate sodium 100 mg PO BID 30 days fluoxetine 10 mg PO DAILY gabapentin 100 mg PO TID PRN ibuprofen 800 mg PO Q8H PRN 10 days meclizine 12.5 mg PO TID PRN 7 days omeprazole 20 mg PO DAILY propranolol 10 mg PO BID 30 days sumatriptan succinate take 1 tab at onset of headache; if no relief may repeat 1 tab after at least 2 hrs; max = 4 tabs/24 hr PO 30 days topiramate (Topamax) 50 mg PO BEDTIME 30 days valacyclovir 1,000 mg PO Q8H 7 days zolpidem 10 mg PO BEDTIME PRN 14 days Tobacco use date assessed: 03/07/25 Dental Screening Dental Screen Date: 03/07/25 Did you have a dental visit in the last 12 months?: Yes Did you have a dental problem in the last 6 months where you did not have access to dental care?: No Was dental information given to patient?: Patient has dentist HPI weight check HPI Details Patient is a 55-year-old female here today for follow-up visit. Patient has a past medical history significant for obesity, migraines, diverticulosis , fatty liver disease. Concern--> She reports having left knee pain and swelling. Has done PT in [place] though still fill her knee is painful and swollen. Also reports bilateral hand and forearm numbness and tingling worse at night. During the day she is fine. ? Obstructive sleep apnea: Has gotten a home sleep study in 2019 that was apparently normal, she does not think she did the test at home correctly. she reports being told she is having apneic episodes and snoring at night by her has been. She also does report having daytime somnolence and daily headaches. Concerns here for obstructive sleep apnea thus will send for home sleep study to confirms suspicions. Class 2 obesity-> unfortunately has not lost weight since last office visit. She reports during the time she was using a GLP 1 she was not following diet restrictions are being physically active as she was going on vacation at the time. She is interested in restarting GLP 1 to help reduce her appetite and her weight. .. Insomnia: Patient has been suffering with insomnia over the last few months due to stress and anxiety. Her is undergoing cancer treatment in [place] which is causing her more stress and anxiety. She is trying baca-etq-usqhmeb sleep aids though have not been effective. Patient is interested in starting hydroxyzine to help her with her sleep. [facility] Medical History Uterine fibroid Abnormal Pap smear of cervix Allergic rhinitis Anxiety Arteritis Family history of brain aneurysm Migraine headache Surgical History Hx of endoscopy Hx of colonoscopy H/O LEEP H/O right inguinal hernia repair (03/16/17) History of endometrial ablation History of tubal ligation History of toe surgery History of incision and drainage Family History Father FH: prostate cancer Sister History of breast cancer Sister History of breast cancer Son Heart attack, Onset Age: 12 Son Brain aneurysm Other Stomach cancer Social History Housing: House Alcohol intake: current Alcohol intake frequency: holidays/special occasions only Patient Tobacco Use Status: Never used Tobacco Tobacco use type: Cigarette e-Cigarette/Vaping Use: Never Used Second Hand Smoke Exposure: No service: No Current occupational status: unemployed Sexual orientation: Straight/Heterosexual Gender identity: Female Cognitive needs: No Hearing needs: No Vision needs: Yes (Glaases) Questionnaire PHQ-9 Over the last 2 weeks, how often have you been bothered by any of the following problems? 1. Little interest or pleasure in doing things: not at all 2. Feeling down, depressed, or hopeless: not at all 3. Trouble falling or staying asleep, or sleeping too much: not at all 4. Feeling tired or having little energy: not at all 5. Poor appetite or overeating: not at all 6. Feeling bad about yourself - or that you are a failure or have let yourself or your family down: not at all 7. Trouble concentrating on things, such as reading the newspaper or watching television: not at all 8. Moving or speaking so slowly that other people could have noticed. Or the opposite - being so fidgety or restless that you have been moving around a lot more than usual: not at all 9. Thoughts that you would be better off or of hurting yourself in some way: not at all Total score: 0 Depression Screening Interpretation: Negative Depression Screening Done: Yes 75802 - PHQ-9 Billing: Yes Source: Developed by Drs. Hill Roca, Shabnam Linn, Dandy Rodriguez and colleagues, with an educational jessee from [employer]. Thrive Questionnaire Date Thrive assessed: 03/07/25 I am a: Patient What is your living situation today?: I have a steady place to live Within the past 12 months, did the food you bought not last and you didn't have the money to get more?: Never true Within the past 12 months, did you worry whether your food would run out before you got money to buy more?: Never true Do you have trouble paying for medicines?: No Do you have trouble getting transportation to medical appointments?: No Do you have trouble paying your heating and electricity bill?: No Do you have trouble taking care of your child, family member or friend?: No Do you have trouble with day-to-day activities such as bathing, preparing meals, shopping, managing finances, etc.?: No Are you currently unemployed and looking for a job?: No Are you interested in more education?: No Please select the resources that you would like help with: None Currently or been in a relationship where the following occur: No concerns reported THRIVE Score: 0 AUDIT C Alcohol Use Questionnaire (AUDIT-C) 1. How often do you have a drink containing alcohol?: Never 3. How often do you have six or more drinks on one occasion?: Never Total Score: 0 CATHERINE-7 AMB Questionnaire CATHERINE-7 Date CATHERINE - 7 assessed: 03/07/25 Feeling nervous, anxious, or on edge: 0 = Not at all Not being able to stop or control worryin = Not at all Worrying too much about different things: 0 = Not at all Trouble relaxin = Not at all Being so restless that it is hard to sit still: 0 = Not at all Becoming easily annoyed or irritable: 0 = Not at all Feeling afraid as if something awful might happen: 0 = Not at all Total CATHERINE-7 score (0-4 normal; 5-9 mild; 10-14 moderate; 15-21 severe): 0 Source: Developed by Drs. Hill Roca, Shabnam Linn, Dandy Rodriguez and colleagues, with an educational jessee from [employer]. CATHERINE-7 Assessment Billing CATHERINE-7 Assessment Tool: CATHERINE-7 Assessment 23981 Review of Systems Const Denies headache(s) Eyes Denies loss of vision ENT Denies vertigo, Denies dizziness, Denies headache(s) and Denies sore throat Card Denies chest pain, Denies leg edema and Denies lightheadedness Resp Denies cough, Denies hemoptysis and Denies wheezing GI Denies abdominal pain, Denies melena, Denies constipation, Denies diarrhea and Denies vomiting Denies urinary frequency, Denies dysuria and Denies urinary urgency Musc Denies arthralgias, Denies joint swelling, Denies numbness and Denies tingling Neuro Denies Abnormal speech present, Denies behavioral changes, Denies vertigo, Denies dizziness, Denies headache(s), Denies loss of vision, Denies memory loss, Denies numbness and Denies tingling Psych Denies anxiety, Denies behavioral changes, Denies depression, Denies memory loss and Denies panic attacks Ricco/Lymph Denies easy bleeding and Denies easy bruising Aller/Immun Denies wheezing Physical exam (Primary Care) Vital Signs: Last Vital Signs Temp 97.3 F 03/07/25 09:34 Pulse 82 03/07/25 09:34 BP 110/70 03/07/25 09:34 Pulse Ox 98 03/07/25 09:34 Oxygen Delivery Method Room Air 03/07/25 09:34 BMI result Body Mass Index 36.8 BMI Assessment/Plan discussion: High BMI High, discussed plan: lifestyle, weight reduction, dietary and physical activity Tobacco/Smoking Status: Tobacco use Status Tobacco use date assessed 03/07/25 03/07/25 09:41 Patient Tobacco Use Status Never used Tobacco 03/07/25 09:38 Tobacco use type Cigarette 03/07/25 09:38 e-Cigarette/Vaping Use Never Used 03/07/25 09:38 PHQ-9: PHQ-9 Score PHQ-9: Total score 0 03/07/25 09:49 Depression Screening Interpretation: Negative Thrive Assessment: Date of Thrive Assessment Date Thrive assessed 03/07/25 03/07/25 09:41 Currently or been in a relationship where the following occur: No concerns reported Const General: healthy appearing, no acute distress, alert and awake Nutritional Appearance: well nourished Orientation/consciousness: oriented to person, oriented to place and oriented to time HENMT Ears: TM's normal bilaterally General nose exam: Normal nasal mucous membranes and turbinates present Eyes Conjunctivae: conjunctivae normal Sclerae: sclerae normal Pupils: Equal, round and reactive pupils present Neck Neck: Yes no lymphadenopathy and Yes no JVD Thyroid: Thyroid normal Carotids: no bruits Resp Effort & Inspection: normal respiratory effort and not tachypneic Auscultation: no crackles, no rales, no rhonchi and no wheezes Cardio Rate: regular rate Rhythm: regular rhythm Heart sounds: no murmurs and normal S1 and S2 GI Palpation (GI): Soft to palpation, nontender, no hepatomegaly and no splenomegaly Auscultation: normal bowel sounds Skin General skin exam: no rashes or lesions noted and dry skin Neuro General: oriented to person, oriented to place and oriented to time Cranial nerves: Yes Equal, round and reactive pupils present Speech: No Abnormal speech present Gait exam (Neuro): Normal gait present Motor exam (neuro): no tremor noted Extrem Right upper extremity: full ROM Left upper extremity: full ROM Right lower extremity: full ROM; no edema Left lower extremity: full ROM; no edema Psych Mental Status: mental status grossly normal Speech and movement: Normal speech and movement present Affect: normal affect Attitude: cooperative Thought process: Normal thought process present Coding Level of Care Code Est Pt Level 4 (68077) Diagnoses Paresthesia of both hands R20.2 Primary osteoarthritis of left knee M17.12 Osteoarthritis type: primary Class 2 obesity E66.812 Migraine without status migrainosus, not intractable, unspecified migraine type G43.909 Intractability: not intractable Migraine type: unspecified Status migrainosus presence: without status migrainosus VEGA (obstructive sleep apnea) G47.33 Additional Codes CATHERINE-7 Assessment Billing - CATHERINE-7 Assessment Tool: CATHERINE-7 Assessment 45735 ([id number]) PHQ-9 - 61701 - PHQ-9 Billing: Yes ([id number]) Assessment & Plan Assessment & Plan (1) Paresthesia of both hands: Code(s): R20.2 - Paresthesia of skin Category: Medical Plan: Conduct nerve studies to evaluate for tunnel syndromes and recommend night wrist splints. (2) Osteoarthritis of left knee: Code(s): M17.12 - Unilateral primary osteoarthritis, left knee Category: Medical Qualifiers: Osteoarthritis type: primary Qualified Code(s): M17.12 - Unilateral primary osteoarthritis, left knee Plan: Obtain a new knee X-ray, manage pain with therapy, and consider orthopedic evaluation (3) Class 2 obesity: Code(s): E66.812 - Obesity, class 2 Category: Medical Plan: Patient does understand her BMI is over 35 and continues to try to lose weight with being physically active. She has been using GLP 1 (monjuaro) though has not seem to help curb her appetite. (4) Migraine headache: Code(s): G43.909 - Migraine, unspecified, not intractable, without status migrainosus Category: Medical Qualifiers: Intractability: not intractable Migraine type: unspecified Status migrainosus presence: without status migrainosus Qualified Code(s): G43.909 - Migraine, unspecified, not intractable, without status migrainosus Plan: She reports having more frequent migraine headaches and neck pain. Could be related to her possible obstructive sleep apnea. Will try to evaluate her for for obstructive sleep apnea. She has used sumatriptan though has not been effective. She is interested in trying Nurtec for her migraine headaches. (5) VEGA (obstructive sleep apnea): Code(s): G47.33 - Obstructive sleep apnea (adult) (pediatric) Category: Medical Plan: will try for a new home sleep study to evaluate for obstructive sleep apnea as she has been experiencing daily migraines, daytime somnolence. did have sleep study in 2019 which appears normal though patient felt she did not wear the equipment correctly. Orders: Orders NE electromyogram (EMG) Today R20.2 - Paresthesia of skin XR knee LT 3V Today M25.562 - Pain in left knee NE nerve conduction velocity Today R20.2 - Paresthesia of skin RT home sleep study Today G47.33 - Obstructive sleep apnea (adult) (pediatric) Referrals Orthopedics Referral M17.12 - Unilateral primary osteoarthritis, left knee, M25.562 - Pain in left knee Medications: New tirzepatide (weight loss) (Zepbound) for 4 weeks 2.5 mg (0.5 mL) subcut QWEEK 2 mL 0RF 4 weeks E66.812 - Obesity, class 2 hydroxyzine HCl 25 mg PO BEDTIME 30 tabs 2RF 30 days F51.01 - Primary insomnia Discontinued zolpidem Discontinued Reason: Doctor's Order 10 mg PO BEDTIME 14 days PRN 14 tabs 0RF sleep G47.00 - Insomnia, unspecified
--- OUTSIDE RECORDS SUMMARY | 2025-03-07 09:46 | XMS_ITS | Encounter Summary ---
[facility] Organization [facility] Address [address] [place] [address] Care Team Providers Care Service Desk Agent Name Role Phone Scottie Pickering Primary Care Provider Unavailabl e Encounter Details Date Type Department Care Team Description 11/25/2021 Orders Only General Surgery [address] [place], [place] [id number] Pavel Thompson MD [address] [place] [id number] Increased risk of breast cancer; FH: breast [...] old documented in this encounter Care Teams Service Desk Agent Relationship Specialty Start Date End Date Scottie Pickering PCP - General Family Practice 10/25/18 documented as of this encounter
== END 2025-03-07 10:10 | disposition home or self-care (01) ==
LOC: HO.HMCH 09:25
PROVIDERS: PCP Physician Assistant; Visit Provider Physician Assistant
DX: R20.2 Paresthesia of skin (principal); M17.12 Unilateral primary osteoarthritis, left knee; E66.812 Obesity, class 2; Z68.36 Body mass index [BMI] 36.0-36.9, adult; G43.909 Migraine, unspecified, not intractable, without status migrainosus; G47.33 Obstructive sleep apnea (adult) (pediatric)

== ENCOUNTER → 2025-03-07 09:24 | Outpatient (BNVA) | payer OTHER, SELFPAY | PROVIDERS: PCP Physician Assistant; Visit Provider Physician Assistant | DX: R20.2 Paresthesia of skin (principal); M17.12 Unilateral primary osteoarthritis, left knee; E66.812 Obesity, class 2; Z68.36 Body mass index [BMI] 36.0-36.9, adult; G43.909 Migraine, unspecified, not intractable, without status migrainosus; G47.33 Obstructive sleep apnea (adult) (pediatric) | CPT/HCPCS: 96127; 99212 ==

== ENCOUNTER 2025-03-28 12:43 | Outpatient (AMB) | payer OTHER, SELFPAY ==
--- NOTE | 2025-03-28 13:00 | MHC.OFFVIS ---
Vital Signs 03/28/25 13:04 Height 5 ft 2 in Weight 200 lb BMI 36.6 BP 100/66 Intake Visit Reasons: vag itching/burning Cookie Breaker: Cookie Breaker Present (Fozia) Allergies No Known Allergies Allergy (Verified 03/28/25 13:00) HPI Comments Details: She reports itching and burning at night, yellow-white discharge, no odor. no urianary symptoms, or pelvic pain. History of uterine ablation. Having hot flashes. No vaginal bleeding. PFSH Medical History Uterine fibroid Abnormal Pap smear of cervix Allergic rhinitis Anxiety Arteritis Family history of brain aneurysm Migraine headache Surgical History Hx of endoscopy Hx of colonoscopy H/O LEEP H/O right inguinal hernia repair (03/16/17) History of endometrial ablation History of tubal ligation History of toe surgery History of incision and drainage Family History Father FH: prostate cancer Sister History of breast cancer Sister History of breast cancer Son Heart attack, Onset Age: 12 Son Brain aneurysm Other Stomach cancer Social History Housing: House Alcohol intake: current Alcohol intake frequency: holidays/special occasions only Patient Tobacco Use Status: Never used Tobacco Tobacco use type: Cigarette e-Cigarette/Vaping Use: Never Used Second Hand Smoke Exposure: No service: No Current occupational status: unemployed Sexual orientation: Straight/Heterosexual Gender identity: Female Cognitive needs: No Hearing needs: No Vision needs: Yes (Glaases) Review of Systems Const All systems reviewed & are unremarkable except as noted in HPI and below Physical Exam Vital Signs: Last Vital Signs BP 100/66 03/28/25 13:04 BMI result Body Mass Index 36.6 Const General: cooperative, healthy appearing and no acute distress Orientation/consciousness: patient oriented x3 GI Inspection: Yes normal to inspection Palpation (GI): Soft to palpation and Other GI palpation findings present (Nontender) Rectal Exam - Female: visual inspection normal General: Yes bladder normal to palpation External Female Exam: normal appearance of the urethra Speculum Exam - Vagina: normal appearance of the vagina, normal palpation and normal vaginal discharge Speculum Exam - Cervix: normal appearance of the cervix and normal palpation Bimanual exam- vagina & uterus: normal bimanual exam, normal palpation, uterine size normal, bladder normal to palpation, normal palpation, uterine shape normal and non-tender Bimanual Exam- Adnexa, other: normal adnexae Neuro General: patient oriented x3 Assessment & Plan Assessment & Plan (1) Vaginal irritation: Code(s): N89.8 - Other specified noninflammatory disorders of vagina Plan BV panel and GC cultures obtained we results for final plan of care. Discuss skin care. The patient expressed understanding and agreement with the plan of care. All of her questions and concerns were addressed to the best of my ability. This note is constructed using voice recognition software. While every effort has been made to ensure accuracy, financial engineer errors may have been included. Orders: Orders CT NG by PCR Today N89.8 - Other specified noninflammatory disorders of vagina Bacterial Vaginosis Panel Today N89.8 - Other specified noninflammatory disorders of vagina Coding Level of Care Code Est Pt Level 3 (13865) Diagnoses Vaginal irritation N89.8
[2025-03-28 13:04] VITALS: BP 100/66; BMI 36.6
--- OUTSIDE RECORDS SUMMARY | 2025-03-28 13:45 | XMS_ITS | Encounter Summary ---
Author Organization [email or web address] Address [address] [place] [address] [address] [place] [address] Care Team Providers Care Environmental Safety Specialist Name Role Phone Unavailable Primary Care Provider Unavailabl e Encounter Details Date Type Department Care Team (Latest Contact Info) Description 12/19/2019 Abstract [facility] CONVERSIONS Dental, Provider, DDS Social [...]
== END 2025-03-28 13:40 | disposition home or self-care (01) ==
LOC: HO.HWS 12:43
PROVIDERS: PCP Physician Assistant; Visit Provider Advanced Practice Midwife
DX: N89.8 Other specified noninflammatory disorders of vagina (principal)
CPT/HCPCS: 99213

== ENCOUNTER 2025-03-28 12:43 | Outpatient (REF) | payer OTHER, SELFPAY | END 2025-03-28 12:44 | disposition home or self-care (01) | LOC: HO.LNP 12:43 | PROVIDERS: PCP Physician Assistant; Visit Provider Advanced Practice Midwife | DX: N89.8 Other specified noninflammatory disorders of vagina (principal) | CPT/HCPCS: 99212 ==

== ENCOUNTER 2025-03-28 13:29 | Outpatient (REF) | payer OTHER, SELFPAY ==
[2025-03-28 20:22] LABS: Bacterial Vaginosis PCR NEGATIVE (Negative); Candida Group PCR NOT DETECTED (Not Detect); Candida glab krusei PCR NOT DETECTED (Not Detect); Trichomonas vaginalis PCR NOT DETECTED (Not Detect)
[2025-03-28 21:28] LABS: CT PCR NOT DETECTED (Not Detect.); NG PCR NOT DETECTED (Not Detect.)
== END 2025-03-28 13:30 | disposition home or self-care (01) ==
LOC: HO.LAB 13:29
PROVIDERS: Visit Provider Advanced Practice Midwife
DX: N89.8 Other specified noninflammatory disorders of vagina (principal)
CPT/HCPCS: 81515; 87491; 87591

== ENCOUNTER 2025-04-05 10:00 | Outpatient (REF) | payer OTHER, SELFPAY ==
--- OUTSIDE RECORDS SUMMARY | 2025-04-05 10:34 | XMS_ITS | Encounter Summary ---
Author Organization [facility] Address [address] [place] [address] [address] [place] [address] Care Team Providers Care Airplane Pilot Helper Name Role Phone Unavailable Primary Care Provider [...]
== END 2025-04-05 10:01 | disposition home or self-care (01) ==
LOC: HO.MAMMO 10:00
PROVIDERS: PCP Physician Assistant; Visit Provider Physician Assistant
DX: Z12.31 Encounter for screening mammogram for malignant neoplasm of breast (principal)
CPT/HCPCS: 77063; 77067

== ENCOUNTER → 2025-04-05 11:00 | Outpatient (BNV) | payer OTHER, SELFPAY | PROVIDERS: PCP Physician Assistant; Visit Provider Internal Medicine | DX: Z12.31 Encounter for screening mammogram for malignant neoplasm of breast (principal) | CPT/HCPCS: 77063; 77067 ==

== ENCOUNTER 2025-04-10 11:36 | Outpatient (AMB) | payer OTHER, SELFPAY ==
--- NOTE | 2025-04-10 11:43 | A.OFFPC_ITS ---
Vital Signs 3 04/10/25 11:46 Height 5 ft 2 in Weight 199 lb 4 oz BMI 36.4 BP 126/82 Blood Pressure Location Lt brachial Position Sitting Pulse 79 Pulse Source Pulse Oximeter Temp Source Temporal Artery Scan Pulse Oximetry (%) 96 Oxygen Delivery Method Room Air Intake Visit Reasons: pressure on chest Credit Correspondence Clerk Required: No Accompanied by: Spouse Allergies No Known Allergies Allergy (Verified 04/10/25 12:05) Medication List - Last Reconciled 04/10/25 by Ellis Arevalo PA-C acetaminophen (Tylenol Extra Strength) 500 mg PO TID PRN albuterol sulfate 90 mcg/actuation 1 inh inhalation QID 30 days baclofen 10 mg PO BID PRN 10 days rglkugwoyr-wkmvdprmiurwp-ldfn 50-300-40 mg (Fioricet) 1 cap PO Q8H PRN fluoxetine 10 mg PO DAILY gabapentin 100 mg PO TID PRN hydroxyzine HCl 25 mg PO BEDTIME 30 days ibuprofen 800 mg PO Q8H PRN 10 days meclizine 12.5 mg PO TID PRN 7 days omeprazole 20 mg PO DAILY propranolol 10 mg PO BID 30 days sumatriptan succinate take 1 tab at onset of headache; if no relief may repeat 1 tab after at least 2 hrs; max = 4 tabs/24 hr PO 30 days topiramate (Topamax) 50 mg PO BEDTIME 30 days valacyclovir 1,000 mg PO Q8H 7 days Tobacco use date assessed: 03/07/25 Dental Screening Dental Screen Date: 03/07/25 HPI pressure on chest 2 HPI0 Details The patient is a 55-year-old female presenting with reports of chest pain. The chest pain is described as a pinching sensation, primarily on the left side, and worsens with certain movements. There is no associated shortness of breath or dizziness. An EKG at the [facility] emergency department showed normal sinus rhythm with some abnormalities, and a chest X-ray was performed but results were not communicated. The pain can be reproduced with pressure, indicating a possible musculoskeletal origin, and the patient engages in regular physical activity. The patient has a history of hypertension and is compliant with her medication regimen. Obesity: Patient interested in a weight management program as she is diligently trying to lose weight. Insurance has denied GLP 1 medication thus now willing to see weight management specialty. [facility] Medical History Uterine fibroid Abnormal Pap smear of cervix Allergic rhinitis Anxiety Arteritis Family history of brain aneurysm Migraine headache Surgical History Hx of endoscopy Hx of colonoscopy H/O LEEP H/O right inguinal hernia repair (03/16/17) History of endometrial ablation History of tubal ligation History of toe surgery History of incision and drainage Family History Father FH: prostate cancer Sister History of breast cancer Sister History of breast cancer Son Heart attack, Onset Age: 12 Son Brain aneurysm Other Stomach cancer Social History Housing: House Alcohol intake: current Alcohol intake frequency: holidays/special occasions only Patient Tobacco Use Status: Never used Tobacco Tobacco use type: Cigarette e-Cigarette/Vaping Use: Never Used Second Hand Smoke Exposure: No service: No Current occupational status: unemployed Sexual orientation: Straight/Heterosexual Gender identity: Female Cognitive needs: No Hearing needs: No Vision needs: Yes (G[place]ases) Questionnaire Thrive Questionnaire Date Thrive assessed: 04/10/25 I am a: Patient What is your living situation today?: I have a steady place to live Within the past 12 months, did the food you bought not last and you didn't have the money to get more?: I choose not to answer this question Within the past 12 months, did you worry whether your food would run out before you got money to buy more?: I choose not to answer this question Do you have trouble paying for medicines?: No Do you have trouble getting transportation to medical appointments?: No Do you have trouble paying your heating and electricity bill?: No Do you have trouble taking care of your child, family member or friend?: No Do you have trouble with day-to-day activities such as bathing, preparing meals, shopping, managing finances, etc.?: No Are you currently unemployed and looking for a job?: No Are you interested in more education?: No Please select the resources that you would like help with: None Currently or been in a relationship where the following occur: No concerns reported THRIVE Score: 0 AUDIT C Alcohol Use Questionnaire (AUDIT-C) 1. How often do you have a drink containing alcohol?: Never Total Score: 0 CATHERINE-7 AMB Questionnaire CATHERINE-7 Date CATHERINE - 7 assessed: 04/10/25 Feeling nervous, anxious, or on edge: 0 = Not at all Not being able to stop or control worryin = Not at all Worrying too much about different things: 0 = Not at all Trouble relaxin = More than half the days Being so restless that it is hard to sit still: 2 = More than half the days Becoming easily annoyed or irritable: 0 = Not at all Feeling afraid as if something awful might happen: 0 = Not at all Total CATHERINE-7 score (0-4 normal; 5-9 mild; 10-14 moderate; 15-21 severe): 4 Source: Developed by Drs. Hill Roca, Shabnam Linn, Dandy Rodriguez and colleagues, with an educational jessee from [employer]. CATHERINE-7 Assessment Billing CATHERINE-7 Assessment Tool: CATHERINE-7 Assessment 22049 Review of Systems Const Denies headache(s) Eyes Denies loss of vision ENT Denies vertigo, Denies dizziness, Denies headache(s) and Denies sore throat Card Denies chest pain, Denies leg edema and Denies lightheadedness Resp Denies cough, Denies hemoptysis and Denies wheezing GI Denies abdominal pain, Denies melena, Denies constipation, Denies diarrhea and Denies vomiting Denies urinary frequency, Denies dysuria and Denies urinary urgency Musc Denies arthralgias, Denies joint swelling, Denies numbness and Denies tingling Neuro Denies Abnormal speech present, Denies behavioral changes, Denies vertigo, Denies dizziness, Denies headache(s), Denies loss of vision, Denies memory loss, Denies numbness and Denies tingling Psych Denies anxiety, Denies behavioral changes, Denies depression, Denies memory loss and Denies panic attacks Ricco/Lymph Denies easy bleeding and Denies easy bruising Aller/Immun Denies wheezing Physical exam (Primary Care) Vital Signs: Last Vital Signs Pulse 79 04/10/25 11:46 BP 126/82 04/10/25 11:46 Pulse Ox 96 04/10/25 11:46 Oxygen Delivery Method Room Air 04/10/25 11:46 BMI result Body Mass Index 36.4 Tobacco/Smoking Status: Tobacco use Status Tobacco use date assessed 03/07/25 04/10/25 11:46 Patient Tobacco Use Status Never used Tobacco 04/10/25 11:46 Tobacco use type Cigarette 04/10/25 11:46 e-Cigarette/Vaping Use Never Used 04/10/25 11:46 Thrive Assessment: Date of Thrive Assessment Date Thrive assessed 04/10/25 04/10/25 11:46 Currently or been in a relationship where the following occur: No concerns reported Const General: healthy appearing, no acute distress, alert and awake Nutritional Appearance: well nourished Orientation/consciousness: oriented to person, oriented to place and oriented to time HENMT Ears: TM's normal bilaterally General nose exam: Normal nasal mucous membranes and turbinates present Eyes Conjunctivae: conjunctivae normal Sclerae: sclerae normal Pupils: Equal, round and reactive pupils present Neck Neck: Yes no lymphadenopathy and Yes no JVD Thyroid: Thyroid normal Carotids: no bruits Chest Chest/axillae images: 2 1. SOME NOTED TENDERNESS TO PALPATION OVER THE AREA OUTLINED Resp Effort & Inspection: normal respiratory effort and not tachypneic Auscultation: no crackles, no rales, no rhonchi and no wheezes Cardio Rate: regular rate Rhythm: regular rhythm Heart sounds: no murmurs and normal S1 and S2 GI Palpation (GI): Soft to palpation, nontender, no hepatomegaly and no splenomegaly Auscultation: normal bowel sounds Skin General skin exam: no rashes or lesions noted and dry skin Neuro General: oriented to person, oriented to place and oriented to time Cranial nerves: Yes Equal, round and reactive pupils present Speech: No Abnormal speech present Gait exam (Neuro): Normal gait present Motor exam (neuro): no tremor noted Extrem Right upper extremity: full ROM Left upper extremity: full ROM Right lower extremity: full ROM; no edema Left lower extremity: full ROM; no edema Psych Mental Status: mental status grossly normal Speech and movement: Normal speech and movement present Affect: normal affect Attitude: cooperative Thought process: Normal thought process present Coding Level of Care Code Est Pt Level 4 (12203) Diagnoses Chest pain at rest R07.9 Additional Codes CATHERINE-7 Assessment Billing - CATHERINE-7 Assessment Tool: CATHERINE-7 Assessment 01868 ([id number]) Assessment & Plan Assessment & Plan (1) Chest pain at rest: Code(s): R07.9 - Chest pain, unspecified Category: Medical Plan: A cardiac stress test is recommended to evaluate for potential cardiac issues, given the abnormalities noted on the EKG. The patient will be contacted by the hospital to schedule the test, which involves monitoring the heart under exertion. Orders: Orders 2 CA stress test Today R07.9 - Chest pain, unspecified Referrals 2 Medical Weight Management Referral E66.812 - Obesity, class 2
[2025-04-10 11:46] VITALS: BP 126/82; PULSE 79; O2SAT 96; BMI 36.4
--- OUTSIDE RECORDS SUMMARY | 2025-04-10 12:24 | XMS_ITS | Encounter Summary ---
Author Organization [employer] Address [address] [place] [address] 7 [place] [address] Care Team Providers Care Operator Helper Name Role Phone Unavailable Primary Care Provider Unavailabl e Encounter Details Date Type Department Care Team (Latest Contact Info) Description 12/19/2019 Abstract [facility] CONVERSIONS Dental, Provider, DDS Social History [...]
== END 2025-04-10 12:17 | disposition home or self-care (01) ==
LOC: HO.HMCH 11:37
PROVIDERS: PCP Physician Assistant; Visit Provider Physician Assistant
DX: R07.9 Chest pain, unspecified (principal)

== ENCOUNTER → 2025-04-10 11:36 | Outpatient (BNVA) | payer OTHER, SELFPAY | PROVIDERS: PCP Physician Assistant; Visit Provider Physician Assistant | DX: I10 Essential (primary) hypertension (principal); R07.9 Chest pain, unspecified; E66.812 Obesity, class 2; Z68.36 Body mass index [BMI] 36.0-36.9, adult | CPT/HCPCS: 96127; 99212 ==

== ENCOUNTER 2025-04-26 13:28 | Outpatient (REF) | payer OTHER, SELFPAY ==
--- NOTE | 2025-04-26 13:31 | EMG_ITS ---
Chief complaint: Bilateral hand numbness, right worse than left Reason for referral: Evaluate for Carpal Tunnel Syndrome Referred by: Ellis FIELDS Procedure done: Bilateral upper extremities NCS/EMG Precautions and/or limitations: None The limb temperature was monitored continuously and remained between 32-36 degrees C during the performance of the NCS. Nerve Conduction Studies Anti Sensory Summary Table ?Stim Site NR Onset (ms) Norm Onset (ms) Peak (ms) Norm Peak (ms) O-P Amp (?V) Norm O-P Amp Site1 Site2 Delta-0 (ms) Dist (cm) Will (m/s) Norm Will (m/s) Right Lat Ante Brach Cutan Anti Sensory (Lat Forearm) Lat Biceps ? 0.3 0.5 3.6 Lat Biceps Lat Forearm 0.3 0.0 Left Med Ante Brach Cutan Anti Sensory (Med Forearm) Elbow ? 0.3 0.5 0.2 Elbow Med Forearm 0.3 0.0 Left Median Anti Sensory (2nd Digit) Wrist ? 2.6 3.4 <3.6 49.4 >10 Wrist 2nd Digit 2.6 14.0 54 Right Median Anti Sensory (2nd Digit) Wrist ? 2.8 3.5 <3.6 44.6 >10 Wrist 2nd Digit 2.8 14.0 50 Left Radial Anti Sensory (Thumb) Forearm ? 1.8 2.2 <3.1 18.9 Forearm Thumb 1.8 0.0 Right Radial Anti Sensory (Thumb) Forearm ? 1.5 2.2 <3.1 20.6 Forearm Thumb 1.5 0.0 Left Ulnar Anti Sensory (5th Digit) Wrist ? 2.2 2.9 <3.7 39.5 >15.0 Wrist 5th Digit 2.2 14.0 64 Right Ulnar Anti Sensory (5th Digit) Wrist ? 2.4 3.0 <3.7 32.5 >15.0 Wrist 5th Digit 2.4 14.0 58 Motor Summary Table ?Stim Site NR Onset (ms) Norm Onset (ms) O-P Amp (mV) Norm O-P Amp iAmp (mV) Amp (1st) (%) Site1 Site2 Delta-0 (ms) Dist (cm) Will (m/s) Norm Will (m/s) Left Median Motor (Abd Poll Brev) Wrist ? 3.0 <3.9 12.9 >4.5 15.2 100.0 Elbow Wrist 3.9 18.0 46 >45 Elbow ? 6.9 11.3 13.6 87.6 Right Median Motor (Abd Poll Brev) Wrist ? 3.4 <3.9 12.5 >4.5 15.6 100.0 Elbow Wrist 3.9 20.0 51 >45 Elbow ? 7.3 12.0 14.8 96.0 Left Ulnar Motor (Abd Dig Minimi) Wrist ? 2.5 <3.0 10.2 >5 13.2 100.0 B Elbow Wrist 3.1 17.5 56 >45 B Elbow ? 5.6 8.9 11.9 87.3 A Elbow B Elbow 1.4 10.0 71 >45 A Elbow ? 7.0 8.8 12.1 86.3 Right Ulnar Motor (Abd Dig Minimi) Wrist ? 2.7 <3.0 8.0 >5 9.3 100.0 B Elbow Wrist 3.6 20.0 56 >45 B Elbow ? 6.3 7.7 9.1 96.3 A Elbow B Elbow 1.0 10.0 100 >45 A Elbow ? 7.3 7.3 8.8 91.3 EMG ?Side Muscle Nerve Root Ins Act Fibs Psw Amp Dur Poly Recrt Int Pat Comment Right 1stDorInt Ulnar C8-T1 Nml Nml Nml Nml Nml 0 Nml Complete Right FlexCarRad Median C6-7 Nml Nml Nml Nml Nml 0 Nml Complete Right Biceps Musculocut C5-6 Nml Nml Nml Nml Nml 0 Nml Complete Right Triceps Radial C6-7-8 Nml Nml Nml Nml Nml 0 Nml Complete Right Deltoid Axillary C5-6 Nml Nml Nml Nml Nml 0 Nml Complete Left 1stDorInt Ulnar C8-T1 Nml Nml Nml Nml Nml 0 Nml Complete Left FlexCarRad Median C6-7 Nml Nml Nml Nml Nml 0 Nml Complete Left Biceps Musculocut C5-6 Nml Nml Nml Nml Nml 0 Nml Complete Left Triceps Radial C6-7-8 Nml Nml Nml Nml Nml 0 Nml Complete Left Deltoid Axillary C5-6 Nml Nml Nml Nml Nml 0 Nml Complete FINDINGS: All motor and sensory nerves tested showed normal latencies, amplitudes and conduction velocities. Concentric needle EMG was performed in selected muscles of the upper extremity. Study did not reveal signs of electric abnormalities as shown in the table above. IMPRESSION: 1. This is a normal study. 2. There is no electrodiagnostic evidence for median neuropathy, ulnar neuropathy, brachial plexopathy, or cervical radiculopathy. Thank you for your kind referral. Gisela Hilliard MD, EDWAR Board Certified, [place] Board of [employer] and Rehabilitation (ABPMR) Board Certified, [place] Board of Electrodiagnostic Medicine (ABEM) CODIN 61612 x 2 MTDD
--- OUTSIDE RECORDS SUMMARY | 2025-04-26 13:31 | XMS_ITS | Clinical Summary ---
Author Organization [facility] Address [address] [place] [address] Care Team Providers Care Button Bradder Name Role Phone Raheel Scottie Primary Care Provider Unavailabl e Allergies No [...] 71 08/12/2021 10:36 AM EDT Temperature 36.7 C (98.1 F) 08/12/2021 10:36 AM EDT Respiratory Rate 18 08/12/2021 10:36 AM EDT [...] 11/25/2022 11/25/2021, 11/11, 09/08/2019, Additional history exists BMI CHECK/ADVISE 10/10/2024 07/09/2020 DEPRESSION SCREENING/FOLLOWUP 10/10/2024 SOCIAL NEEDS SCREENING 10/10/2024 INFLUENZA (#1) 2025 PNEUMOCOCCAL VACCINE FOR HIG H RISK PATIENTS (#1) 01/08/2037 Care Teams Button Bradder Relationship Specialty Start Date End Date Scottie Pickering PCP - General Family Practice 10/25/18
--- OUTSIDE RECORDS SUMMARY | 2025-04-26 13:31 | XMS_ITS | Clinical Summary ---
Author Organization [address] [place] [address] Address [address] [place] [address] Phone Care Team Providers Care Planishing Hammer Operator Name Role Phone Ellis Arevalo Primary Care Provider Surgical History Surgery Date Site/Laterality Comments TUBAL LIGATION PROCEDURE: HISTORICAL TUBAL LIGATION HERNIA REPAIR Left PROCEDURE: LAPAROSCOPY, INGUINAL HERNIA REPAIR OTHER SURGICAL HISTORY 2013 PROCEDURE: [place] HYSTEROSCOPY ENDOMETRIAL ABLATION Medical History Medical History Date Comments Hx of migraines DX:Hx of migrain es FH: breast cancer in first d egree relative when <50 years old 03/20/2019 DX:FH: breast cancer in fi rst degree relative when <50 years old; COMMENT: 2 sisters, 48 & 49; 09/2018 genetic testing negative Family History Medical History Relation Name Comments Testicular cancer Father Breast cancer Sister 1 Breast cancer Sister 2 Other: thyroid cancer Sister 3 Relation Name Status [...] Information Value Date Recorded Sex Assigned at Not on file Legal Sex Female 4:36 AM EST Gender Identity Not on file Sexual Orientation Not on file Obstetrics History Plan of Treatment Upcoming Encounters Date Type Department Care Team (Late st Contact Info) Description 09/26/2025 1:00 PM EST Office Visit Bariatric Surgery - [place] [address] [address] Alex Posadas MD [address] [id number] Health Maintenance Due Date Last Done Comments DTaP,Tdap,and Td Vaccines (1 - Tdap) 01/08/1991 Hepatitis B Vaccines (1 of 3 - 19+ 3-dose series) 01/08/1991 Cervical Cancer Screening: P ap Smear 01/08/1993 Pneumococcal Vaccine: 50+ Ye ars (1 of 1 - PCV) 01/08/2022 Zoster Vaccines (1 of 2) 01/08/2022 Breast Cancer Screening 11/25/2023 11/25/2021 COVID-19 Vaccine (1 - 2023-2 5 season) 2024 Colorectal Cancer Screening: Colonoscopy 04/17/2025 Depression Screening 04/17/2025 HIV Screening 04/17/2025 Hepatitis C Screening 04/17/2025 Social Influencers of Health Screening 04/17/2025 Influenza Vaccine (#1) 2025 HIB Vaccines Aged Out No longer eligi [...] on patient's age to complete this topic MMR Vaccines Aged Out No longer eligi ble based on patient's age to complete this topic Meningococcal ACWY Vaccine Aged Out N o longer eligible based on patient's age to complete this topic Meningococcal B Vaccine Aged Out No l onger eligible based on patient's age to complete this topic RSV Immunization Patients Un camryn 20 months Aged Out No longer eligible b ased on patient's age to complete this topic Varicella Vaccines Aged Out No longer eligible based on patient's age to complete this topic Procedures Procedure Name Priority Date/Time Associated Diagnosis Comments [facility] SCREENING DIGITAL Routine 11/25/2021 11:53 AM EST Encounter for screening mammogram for malignant neoplasm of breast from Last 3 Months or Most Recently Relevant to Health Maintenance Results * KIM[facility]E SCREENING DIGITAL (11/25/2021 11:53 AM EST) Anatomical Region Laterality Modality Mammography 11/25/2021 9:31 AM EST Narrative 11/25/2021 11:53 AM EST [facility] Diagnostic Imaging Department [address] [place] [address] Patient: KENDRICK DIAZ /Age/Sex: 1970 - 51 - F Unit#: [id number] Location/Status: SPDIMAM/REG CLI Mnemonic/Ordering Site: [facility] Ordering Physician: PARAMJIT THOMPSON MD [facility] Screening Digital - 11/25/21999 EXAM: [facility] Screening Digital EXAM DATE AND TIME: 11/25/2021 10:02 AM HISTORY: Screening. 2 sisters had breast carcinoma. COMPARISON: 11/29/20, 09/08/19, 09/06/18, 08/31/17 [place], [place] TECHNIQUE: CC and MLO views of both breasts were obtained using full field digital mammography. Bilateral digital breast tomosynthesis was performed in the MLO projection. Computer aided detection with the ADstruc 7.2-H was employed. TISSUE DENSITY: b. There are scattered areas of fibroglandular density. FINDINGS: No suspicious masses, grouped microcalcifications, or areas of architectural distortion are seen. There are rare benign calcifications. The skin and vascularity are unremarkable. IMPRESSION: Stable mammographic appearance of the breasts. No evidence of malignancy is seen. A negative mammogram in the presence of a clinically suspicious palpable abnormality does not preclude the possibility of malignancy or alter the indications for biopsy. BI-RADS: Category 2: Benign RECOMMENDATION(S): 1: Routine screening mammogram BILATERAL in 1 year. 79404, [id number] 3342F, 7029F Dictating Physician: COLLIN WILLIAM MD Electronically Signed by: COLLIN WILLIAM MD Dic Date/Time: 11/25/21 1151 Sign date/Time: 11/25/21 1153 Procedure Note Collin Willima MD - 09/29/2022 [facility] Diagnostic Imaging Department [address] [place] [address] Patient: CATIEKENDRICK /Age/Sex: 1970 - 51 - F Unit#: [id number] Location/Status: SPDIMA/REG CLI Mnemonic/Ordering Site: [facility] Ordering Physician: PARAMJIT THOMPSON MD [facility] Screening Digital - 11/25/21 - 1000 EXAM: [facility] Screening Digital EXAM DATE AND TIME: 11/25/2021 10:02 AM HISTORY: Screening. 2 sisters had breast carcinoma. COMPARISON: 11/29/20, 09/08/19, 09/06/18, 08/31/17 [place], [place] TECHNIQUE: CC and MLO views of both breasts were obtained using fullfield digital mammography. Bilateral digital breast tomosynthesis was performedin the MLO projection. Computer aided detection with the ADstruc 7.2-Element Designsas employed. TISSUE DENSITY: b. There are scattered areas of fibroglandular density. FINDINGS: No suspicious masses, grouped microcalcifications, or areas ofarchitectural distortion are seen. There are rare benign calcifications. The skin and vascularity are unremarkable. IMPRESSION: Stable mammographic appearance of the breasts. No evidence of malignancyis seen. A negative mammogram in the presence of a clinically suspicious palpable abnormality does not preclude the possibility of malignancy or alter the indications for biopsy. BI-RADS: Category 2: Benign RECOMMENDATION(S): 1: Routine screening mammogram BILATERAL in 1 year. 19747, 17655 3342F, 7025F Dictating Physician: COLLIN WILLIAM MD Electronically Signed by: COLLIN WILLIAM MD Dic Date/Time: 11/25/21 1151 Sign date/Time: 11/25/21 1153 Paramjit Thompson MD IMG BI PROCEDURES Final Result from Last 3 Months or Most Recently Relevant to Health Maintenance Insurance [facility] [employer] Care Teams Planishing Hammer Operator Relationship Specialty Start Date End Date Ellis Arevalo PA [address] [place] [address] PCP - General Physician Search Planner 04/16/25
== END 2025-04-26 13:29 | disposition home or self-care (01) ==
LOC: HO.NEURO 13:28
PROVIDERS: PCP Physician Assistant; Visit Provider Physician Assistant
DX: R20.2 Paresthesia of skin (principal)
CPT/HCPCS: 95886; 95912

== ENCOUNTER → 2025-04-26 13:31 | Outpatient (BNV) | payer OTHER, SELFPAY | PROVIDERS: PCP Physician Assistant; Visit Provider Physical Medicine & Rehabilitation | DX: R20.2 Paresthesia of skin (principal) | CPT/HCPCS: 95886; 95912 ==

== ENCOUNTER → 2025-05-02 12:23 | Outpatient (REF) | payer OTHER, SELFPAY ==
--- OUTSIDE RECORDS SUMMARY | 2025-05-02 12:49 | XMS_ITS | Clinical Summary ---
Author Organization [address] [place] [address] Address [address] [place] [address] Phone Care Team Providers Care Loan Officer Name Role Phone Ellis Arevalo Primary Care Provider [phone] Surgical History Surgery Date Site/Laterality Comments TUBAL LIGATION PROCEDURE: HISTORICAL TUBAL LIGATION HERNIA REPAIR Left PROCEDURE: LAPAROSCOPY, INGUINAL HERNIA REPAIR OTHER SURGICAL HISTORY 2013 PROCEDURE: [place] HYSTEROSCOPY ENDOMETRIAL ABLATION Medical History Medical History [...] PM EST Office Visit Bariatric Surgery - [place] [address] [address] Alex Posadas MD [address] [phone] Health Maintenance Due Date Last Done Comments DTaP,Tdap,and Td Vaccines (1 - Tdap) 01/08/1991 Hepatitis B Vaccines (1 of 3 - 19+ 3-dose series) 01/08/1991 Cervical Cancer Screening: P ap Smear 01/08/1993 Pneumococcal Vaccine: 50+ Ye ars (1 of 1 - PCV) 01/08/2022 Zoster Vaccines (1 of 2) 01/08/2022 Breast Cancer Screening 11/25/2023 11/25/2021 COVID-19 Vaccine (1 - 2023-2 5 season) 2024 Depression Screening 10/10/2024 Colorectal Cancer Screening: Colonoscopy 04/17/2025 HIV Screening 04/17/2025 Hepatitis C Screening [...] Procedure Name Priority Date/Time Associated Diagnosis Comments [facility] SCREENING DIGITAL Routine 11/25/2021 11:53 AM EST Encounter for screening mammogram for malignant neoplasm of breast from Last 3 Months or Most Recently Relevant to Health Maintenance Results * KIMMIE SCREENING DIGITAL (11/25/2021 11:53 AM EST) Anatomical Region Laterality Modality Mammography 11/25/2021 9:31 AM EST Narrative 11/25/2021 11:53 AM EST [facility] Diagnostic Imaging Department [address] [place] [address] Patient: KENDRICK DIAZ /Age/Sex: 1970 - 51 - F Unit#: [id number] Location/Status: SPDIMAM/REG CLI Mnemonic/Ordering Site: [facility] Ordering Physician: PARAMJIT THOMPSON MD [facility] Screening Digital - 11/25/21999 EXAM: [facility] Screening Digital EXAM DATE AND TIME: 11/25/2021 10:02 AM HISTORY: Screening. 2 sisters had breast carcinoma. COMPARISON: 11/29/20, 09/08/19, 09/06/18, 08/31/17 [place], [place] TECHNIQUE: CC and MLO views of both breasts were obtained using full field digital mammography. Bilateral digital breast tomosynthesis was performed in the MLO projection. Computer aided detection with the Lab21 7.2-H was employed. TISSUE DENSITY: b. There [...] Routine screening mammogram BILATERAL in 1 year. 02849, 95364 3342F, 7034F Dictating Physician: COLLIN WILLIAM MD Electronically Signed by: COLLIN WILLIAM MD Dic Date/Time: 11/25/21 1151 Sign date/Time: 11/25/21 1153 Procedure Note Collin William MD - 09/29/2022 [facility] Diagnostic Imaging Department [address] [place] [address] Patient: CATIEKENDRICK /Age/Sex: 1970 - 51 - F Unit#: [id number] Location/Status: SPDIMA/REG CLI Mnemonic/Ordering Site: [facility] Ordering Physician: PARAMJIT THOMPSON MD [facility] Screening Digital - 11/25/21 - 1000 EXAM: [facility] Screening Digital EXAM DATE AND TIME: 11/25/2021 10:02 AM HISTORY: Screening. 2 sisters had breast carcinoma. COMPARISON: 11/29/20, 09/08/19, 09/06/18, 08/31/17 [place], [place] TECHNIQUE: CC and MLO views of both breasts were obtained using fullfield digital mammography. Bilateral digital breast tomosynthesis was performedin the MLO projection. Computer aided detection with the Lab21 7.2-[employer] employed. TISSUE DENSITY: b. There are scattered [...] Routine screening mammogram BILATERAL in 1 year. 06713, 76248 3342F, 7025F Dictating Physician: COLLIN WILLIAM MD Electronically Signed by: COLLIN WILLIAM MD Dic Date/Time: 11/25/21 1151 Sign date/Time: 11/25/21 1153 Paramjit Thompson MD IMG BI PROCEDURES Final Result from Last 3 Months or Most Recently Relevant to Health Maintenance Insurance [facility] [employer] Care Teams Loan Officer Relationship Specialty Start Date End Date Ellis Arevalo PA [address] [place] [address] PCP - General Physician Research And Development Researcher 04/16/25
--- OUTSIDE RECORDS SUMMARY | 2025-05-02 12:49 | XMS_ITS | Encounter Summary ---
Author Organization [employer] Address [address] [place] [address] 7 [place] [address] Care Team Providers Care Second Miller Name Role Phone Unavailable Primary Care Provider Unavailabl e Encounter Details Date Type Department Care Team (Latest Contact Info) Description 12/19/2019 Abstract [facility] CONVERSIONS Dental, Provider, DDS Social [...]
== END ==
LOC: HO.SL 12:23
PROVIDERS: PCP Physician Assistant; Visit Provider Physician Assistant
DX: G47.33 Obstructive sleep apnea (adult) (pediatric) (principal)
CPT/HCPCS: 95806

== ENCOUNTER → 2025-05-02 13:09 | Outpatient (BNV) | payer OTHER, SELFPAY | PROVIDERS: PCP Physician Assistant; Visit Provider Internal Medicine | DX: G47.33 Obstructive sleep apnea (adult) (pediatric) (principal) | CPT/HCPCS: 95806 ==

== ENCOUNTER 2025-05-03 09:40 | Outpatient (AMB) | payer OTHER, SELFPAY ==
--- NOTE | 2025-05-03 09:42 | MHC.OFFVIS ---
Vital Signs 05/03/25 09:52 Height 5 ft 2 in Weight 199 lb BMI 36.4 Intake Visit Reasons: OV-Pain in left knee/mild OA Intake Note: At her last visit, she was given reaction knee brace for additional patellar stability and referred to physical therapy for strengthening about the knee, namely quad strengthening to minimize lateralization of the patella. Currently states she has had some improvement using the brace. States she attended about 5 P.T sessions with no difference. Allergies No Known Allergies Allergy (Verified 05/03/25 09:52) HPI HPI OV-Pain in left knee/mild OA: Details: At her last visit, she was given reaction knee brace for additional patellar stability and referred to physical therapy for strengthening about the knee, namely quad strengthening to minimize lateralization of the patella. Currently states she has had some improvement using the brace. States she attended about 5 P.T sessions with no difference. [facility] Medical History Uterine fibroid Abnormal Pap smear of cervix Allergic rhinitis Anxiety Arteritis Family history of brain aneurysm Migraine headache Surgical History Hx of endoscopy Hx of colonoscopy H/O LEEP H/O right inguinal hernia repair (03/16/17) History of endometrial ablation History of tubal ligation History of toe surgery History of incision and drainage Family History (Updated 05/01/25 @ 14:24 by JONO Taylor) Father FH: prostate cancer HTN (hypertension) Sister History of breast cancer Sister History of breast cancer Son Heart attack, Onset Age: 12 Son Brain aneurysm Other Stomach cancer Social History Housing: House Alcohol intake: current Alcohol intake frequency: holidays/special occasions only Patient Tobacco Use Status: Never used Tobacco Tobacco use type: Cigarette e-Cigarette/Vaping Use: Never Used Second Hand Smoke Exposure: No service: No Current occupational status: unemployed Sexual orientation: Straight/Heterosexual Gender identity: Female Cognitive needs: No Hearing needs: No Vision needs: Yes (Glaases) Review of Systems Const All systems reviewed & are unremarkable except as noted in HPI and below Physical Exam Vital Signs: BMI result Body Mass Index 36.4 Extrem Other: Mild suprapatellar any anterior knee edema noted Patient reports tenderness to palpation on the medial aspect of the anterior left knee, just medial to the medial pole of the patella No tenderness to the lateral or posterior aspects of the knee Patient is able to extend the knee to 180 degrees, as well as flexing to approximately 130 degrees without difficulty Positive patellar grind, medial and lateral Negative Zohra's Sensation to the distal left lower extremity intact Capillary refill brisk Assessment & Plan Assessment & Plan (1) Osteoarthritis of left knee: Code(s): M17.12 - Unilateral primary osteoarthritis, left knee Category: Medical Qualifiers: Osteoarthritis type: primary Qualified Code(s): M17.12 - Unilateral primary osteoarthritis, left knee Plan 1. Left knee osteoarthritis Patient states that she would like to proceed with steroid injection, however she will require her to be here, as she is ?very scared of needles? Patient given reaction knee brace for additional patellar stability at previous visit Should continue with home exercises Patient is amenable to this plan Follow-up in 4 weeks for left knee injection, sooner with any acute concerns Coding Level of Care Code Est Pt Level 3 (23170) Diagnoses Primary osteoarthritis of left knee M17.12 Osteoarthritis type: primary
[2025-05-03 09:52] VITALS: BMI 36.4
--- OUTSIDE RECORDS SUMMARY | 2025-05-03 09:54 | XMS_ITS | Clinical Summary ---
Author Organization [address] [place] [address] Address [address] [place] [address] Phone Care Team Providers Care Machine Brusher Name Role Phone Ellis Arevalo Primary Care Provider Surgical History Surgery Date Site/Laterality Comments TUBAL LIGATION PROCEDURE: HISTORICAL TUBAL LIGATION HERNIA REPAIR Left PROCEDURE: LAPAROSCOPY, INGUINAL HERNIA REPAIR OTHER SURGICAL HISTORY 2013 PROCEDURE: [place] HYSTEROSCOPY ENDOMETRIAL ABLATION Medical History Medical History [...] PM EST Office Visit Bariatric Surgery - [place] [address] [phone] Alex Posadas MD [address] [phone] Health Maintenance Due Date Last Done Comments [...] Procedure Name Priority Date/Time Associated Diagnosis Comments [facility] SCREENING DIGITAL Routine 11/25/2021 11:53 AM EST Encounter for screening mammogram for malignant neoplasm of breast from Last 3 Months or Most Recently Relevant to Health Maintenance Results * KIMMIE SCREENING DIGITAL (11/25/2021 11:53 AM EST) Anatomical Region Laterality Modality Mammography 11/25/2021 9:31 AM EST Narrative 11/25/2021 11:[address] [facility] Diagnostic Imaging Department [address] [place] [id number] Patient: KENDRICK DIAZ /Age/Sex: 1970 - 51 - F Unit#: [id number] Location/Status: SPDIMAM/REG CLI Mnemonic/Ordering Site: [facility] Ordering Physician: PARAMJIT THOMPSON MD [facility] Screening Digital - 11/25/21999 EXAM: [facility] Screening Digital EXAM DATE AND TIME: 11/25/2021 10:02 AM HISTORY: Screening. 2 sisters had breast carcinoma. COMPARISON: 11/29/20, 09/08/19, 09/06/18, 08/31/17 [place], [place] TECHNIQUE: CC and MLO views of both breasts were obtained using full field digital mammography. Bilateral digital breast tomosynthesis was performed in the MLO projection. Computer aided detection with the HAL[employer]OUD 7.2-H was employed. TISSUE DENSITY: b. There [...] Routine screening mammogram BILATERAL in 1 year. 06591, 51734 3342F, 7099F Dictating Physician: COLLIN WILLIAM MD Electronically Signed by: COLLIN WILLIAM MD Dic Date/Time: 11/25/21 1151 Sign date/Time: 11/25/21 1153 Procedure Note Collin William MD - 09/29/2022 [facility] Diagnostic Imaging Department [address] [place] [address] Patient: CATIEKENDRICK /Age/Sex: 1970 - 51 - F Unit#: [id number] Location/Status: SPDIMA/REG CLI Mnemonic/Ordering Site: [facility] Ordering Physician: PARAMJIT THOMPSON MD [facility] Screening Digital - 11/25/21 - 1000 EXAM: [facility] Screening Digital EXAM DATE AND TIME: 11/25/2021 10:02 AM HISTORY: Screening. 2 sisters had breast carcinoma. COMPARISON: 11/29/20, 09/08/19, 09/06/18, 08/31/17 [place], [place] TECHNIQUE: CC and MLO views of both breasts were obtained using fullfield digital mammography. Bilateral digital breast tomosynthesis was performedin the MLO projection. Computer aided detection with the HALO2CLOUD 7.2-[employer] employed. TISSUE DENSITY: b. There are scattered [...] Routine screening mammogram BILATERAL in 1 year. 97030, 56015 3342F, 7025F Dictating Physician: COLLIN WILLIAM MD Electronically Signed by: COLLIN WILLIAM MD Dic Date/Time: 11/25/21 1151 Sign date/Time: 11/25/21 1153 Paramjit Thompson MD IMG BI PROCEDURES Final Result from Last 3 Months or Most Recently Relevant to Health Maintenance Insurance [facility] [employer] Care Teams Machine Brusher Relationship Specialty Start Date End Date Ellis Arevalo PA [address] [place] [address] PCP - General Physician Accounts Payable Processor 04/16/25
--- OUTSIDE RECORDS SUMMARY | 2025-05-03 09:54 | XMS_ITS | Encounter Summary ---
Author Organization [employer] Address [address] [place] [address] 7 [place] [address] Care Team Providers Care Jitterbug Operator Name Role Phone Unavailable Primary Care Provider Unavailabl e Encounter Details Date Type Department Care Team (Latest Contact Info) Description 12/19/2019 Abstract [facility] CONVERSIONS Dental, Provider, DDS Social History [...]
== END 2025-05-03 10:13 | disposition home or self-care (01) ==
LOC: HO.HOS 09:41
PROVIDERS: PCP Physician Assistant
DX: M17.12 Unilateral primary osteoarthritis, left knee (principal)
CPT/HCPCS: 99213

== ENCOUNTER → 2025-05-03 09:40 | Outpatient (BNVA) | payer OTHER, SELFPAY | PROVIDERS: PCP Physician Assistant | DX: M17.12 Unilateral primary osteoarthritis, left knee (principal) | CPT/HCPCS: 99212 ==

== ENCOUNTER 2025-05-08 13:36 | Outpatient (AMB) | payer OTHER, SELFPAY ==
--- NOTE | 2025-05-08 13:42 | A.OFFPC_ITS ---
Vital Signs 05/08/25 13:45 Height 5 ft 2 in Weight 200 lb 8 oz BMI 36.7 BP 130/62 Blood Pressure Location Lt brachial Position Sitting Pulse 84 Pulse Source Pulse Oximeter Temp 97.3 F Temp Source Temporal Artery Scan Pulse Oximetry (%) 96 Oxygen Delivery Method Room Air Intake Visit Reasons: Annual PE Intake Note: Patient is here today for a physical. Temple Marker Required: No Farm Management Adviser: Present Accompanied by: Daughter Allergies No Known Allergies Allergy (Verified 05/08/25 13:54) Medication List - Last Reconciled 05/08/25 by Ellis Arevalo PA-C acetaminophen (Tylenol Extra Strength) 500 mg PO TID PRN albuterol sulfate 90 mcg/actuation 1 inh inhalation QID 30 days baclofen 10 mg PO BID PRN 10 days gxfpfmcrsi-mvrdxojdaklaw-qssf 50-300-40 mg (Fioricet) 1 cap PO Q8H PRN fluoxetine 10 mg PO DAILY gabapentin 100 mg PO TID PRN hydroxyzine HCl 25 mg PO BEDTIME 30 days ibuprofen 800 mg PO Q8H PRN 10 days meclizine 12.5 mg PO TID PRN 7 days omeprazole 20 mg PO DAILY propranolol 10 mg PO BID 30 days sumatriptan succinate take 1 tab at onset of headache; if no relief may repeat 1 tab after at least 2 hrs; max = 4 tabs/24 hr PO 30 days topiramate (Topamax) 50 mg PO BEDTIME 30 days valacyclovir 1,000 mg PO Q8H 7 days Tobacco use date assessed: 05/08/25 Dental Screening Dental Screen Date: 03/07/25 HPI Annual PE HPI Details Patient is a 55-year-old female here today for an annual physical. Leidy venegas has a past medical history significant for obesity, migraines, diverticulosis , fatty liver disease. Also reports bilateral hand and forearm numbness and tingling worse at night. Recent EMG without notable carpal tunnel or cubital tunnel syndrome. Advised to wear wrist splints at night. Obstructive sleep apnea: She has a history of mild obstructive sleep apnea, which was identified through a sleep study showing minimal obstructive patterns. The condition is currently managed with conservative measures, including weight reduction and sleep hygiene. Class 2 obesity-> unfortunately has not lost weight since last office visit. She has had a hard time losing weight as she reports walking in 2-1/2 miles at a local gym a few times a week. She is interested in restarting GLP 1 to help reduce her appetite and her weight. Colorectal cancer screening: Colonoscopy done in 2021, normal repeat 10 years Mammogram: Up-to-date with mammogram Vaccines: Up-to-date with COVID vaccine, tetanus vaccine, need PCV- 20 considering shingles vaccine PFSH Medical History Uterine fibroid Abnormal Pap smear of cervix Allergic rhinitis Anxiety Arteritis Family history of brain aneurysm Migraine headache Surgical History Hx of endoscopy Hx of colonoscopy H/O LEEP H/O right inguinal hernia repair (03/16/17) History of endometrial ablation History of tubal ligation History of toe surgery History of incision and drainage Family History Father FH: prostate cancer HTN (hypertension) Sister History of breast cancer Sister History of breast cancer Son Heart attack, Onset Age: 12 Son Brain aneurysm Other Stomach cancer Social History Housing: House Alcohol intake: current Alcohol intake frequency: holidays/special occasions only Patient Tobacco Use Status: Never used Tobacco Tobacco use type: Cigarette e-Cigarette/Vaping Use: Never Used Second Hand Smoke Exposure: No service: No Current occupational status: unemployed Sexual orientation: Straight/Heterosexual Gender identity: Female Cognitive needs: No Hearing needs: No Vision needs: Yes (Glaases) Questionnaire Thrive Questionnaire Date Thrive assessed: 04/10/25 I am a: Patient What is your living situation today?: I have a steady place to live Within the past 12 months, did the food you bought not last and you didn't have the money to get more?: I choose not to answer this question Within the past 12 months, did you worry whether your food would run out before you got money to buy more?: I choose not to answer this question Do you have trouble paying for medicines?: No Do you have trouble getting transportation to medical appointments?: No Do you have trouble paying your heating and electricity bill?: No Do you have trouble taking care of your child, family member or friend?: No Do you have trouble with day-to-day activities such as bathing, preparing meals, shopping, managing finances, etc.?: No Are you currently unemployed and looking for a job?: No Are you interested in more education?: No Please select the resources that you would like help with: None Currently or been in a relationship where the following occur: No concerns reported THRIVE Score: 0 CATHERINE-7 AMB Questionnaire CATHERINE-7 Date CATHERINE - 7 assessed: 04/10/25 Source: Developed by Drs. Hill Roca, Shabnam Linn, Dandy Rodriguez and colleagues, with an educational jessee from [employer]. Review of Systems Const Denies body aches, Denies chills, Denies excessive sweating, Denies fatigue, Denies fever(s) and Denies headache(s) Eyes Denies blurry vision ENT Denies dysphagia, Denies vertigo, Denies dizziness, Denies headache(s), Denies hearing loss and Denies tinnitus Card Denies chest pain, Denies chest pain with activity, Denies syncope, Denies irregular heart rhythm and Denies dyspnea Resp Denies chest congestion, Denies cough, Denies hemoptysis, Denies dyspnea and Denies wheezing GI Denies abdominal pain, Denies melena, Denies hematochezia, Denies coffee ground emesis, Denies dysphagia, Denies diarrhea, Denies nausea and Denies vomiting Denies urinary frequency, Denies dysuria, Denies urinary hesitancy and Denies urinary urgency Musc Denies arthralgias, Denies limited range of motion, Denies muscle cramps and Denies muscle weakness Skin/Breast Denies rash and Denies skin ulcer Neuro Denies Abnormal speech present, Denies confusion, Denies vertigo, Denies dizziness, Denies syncope, Denies headache(s), Denies memory loss and Denies seizure-like activity Psych Denies anxiety, Denies confusion, Denies depression, Denies memory loss, Denies panic attacks and Denies paranoia Endo Denies excessive sweating, Denies fatigue, Denies flushing, Denies polydipsia and Denies polyuria Aller/Immun Denies wheezing Physical exam (Primary Care) Vital Signs: Last Vital Signs Temp 97.3 F 05/08/25 13:45 Pulse 84 05/08/25 13:45 BP 130/62 05/08/25 13:45 Pulse Ox 96 05/08/25 13:45 Oxygen Delivery Method Room Air 05/08/25 13:45 BMI result Body Mass Index 36.7 BMI Assessment/Plan discussion: High BMI High, discussed plan: lifestyle, weight reduction, dietary and physical activity Tobacco/Smoking Status: Tobacco use Status Tobacco use date assessed 05/08/25 05/08/25 13:51 Patient Tobacco Use Status Never used Tobacco 05/08/25 13:42 Tobacco use type Cigarette 05/08/25 13:42 e-Cigarette/Vaping Use Never Used 05/08/25 13:42 Thrive Assessment: Date of Thrive Assessment Date Thrive assessed 04/10/25 05/08/25 13:42 Currently or been in a relationship where the following occur: No concerns reported Const General: cooperative, comfortable, no acute distress, alert and awake; No confusion Orientation/consciousness: oriented to person, oriented to place, patient oriented x3 and No confusion HENMT Head: Yes normocephalic Ears: external ears normal and TM's normal bilaterally Face and sinus: No sinus tenderness Mouth: Normal oral and palatal mucosa present and tongue normal Teeth and gingiva: dentition normal and gingiva normal Throat: Yes posterior oropharynx normal, Yes tonsils normal and Yes uvula midline Eyes Conjunctivae: conjunctivae normal Sclerae: sclerae normal Pupils: Equal, round and reactive pupils present EOM: EOMs intact bilaterally Direct Ophthalmoscopy: No no photophobia Neck Neck: Yes no lymphadenopathy, No tender and Yes no JVD Thyroid: Thyroid normal Carotids: no bruits Chest Chest palpation & inspection: no tenderness Resp Effort & Inspection: normal respiratory effort, no audible wheezes, not labored and no stridor Auscultation: no crackles, no rales, no rhonchi and no wheezes Cardio Jugular venous distension: no JVD Rate: regular rate, not bradycardic and not tachycardic Rhythm: regular rhythm Bruits: no carotid bruits Peripheral pulses: Peripheral pulses 2+ throughout GI Inspection: Yes normal to inspection, No abdominal wall ecchymosis and No visible herniation Palpation (GI): Soft to palpation, nontender, no guarding, not rigid and No hepatosplenomegaly present Auscultation: normoactive bowel sounds General: Yes no CVA tenderness Back/Spine/Pelvis Back: no CVA tenderness and No back tenderness Cervical Spine: cervical ROM normal Thoracic/Lumbar Spine: thoracic and lumbar spine normal to inspection, straight leg raise negative bilaterally, No thoraco-lumbar ROM limited and No lumbar spinal tenderness Skin Lesions: no lesions Rashes: no rashes Wounds: no wounds Neuro General: oriented to person, oriented to place, patient oriented x3, CN's II-XI intact bilaterally and No confusion Cranial nerves: Yes Equal, round and reactive pupils present and Yes Normal accommodation reflex present Cognition (Neuro): normal cognition Speech: No Abnormal speech present Gait exam (Neuro): Normal gait present Motor exam (neuro): 5/5 motor strength present throughout Extrem Right upper extremity: full ROM; no cyanosis Left upper extremity: full ROM; no cyanosis Right lower extremity: no edema Left lower extremity: no edema Psych Appearance: grossly normal Mental Status: mental status grossly normal Affect: normal affect Attitude: cooperative Thought process: Normal thought process present Immunizations pneumoc 20-sweta conj-dip cr(PF) 0.5 mL IM syringe Performing Provider: Ellis Arevalo PA-C [facility] Administered by: Sandy Gamez CMA on 05/08/25 14:22 2 Dose Route Admin Location Dispensed Lot Number Expiration Date [facility] Cloth Covered Helmet Puller 0.5 mL IM Left Tricep 0.5 mL [id number] 04/09/26 [employer]/ [employer] Total Dispensed Waste 0.5 mL 0 % VIS Given Date VIS Provided VIS Publication Date 05/08/25 Single Vaccine 25 Eligibility Eligibility Date Funding Source Not [facility] Eligible 05/08/25 Private Coding Level of Care Code Est Pt Prev Care 40-64y(25959) Diagnoses Annual physical exam Z00.00 Paresthesia of both hands R20.2 Primary osteoarthritis of left knee M17.12 Osteoarthritis type: primary Class 2 obesity E66.812 VEGA (obstructive sleep apnea) G47.33 Assessment & Plan Assessment & Plan (1) Annual physical exam: Code(s): Z00.00 - Encounter for general adult medical examination without abnormal findings Category: Medical Plan: as per HPI (2) Paresthesia of both hands: Code(s): R20.2 - Paresthesia of skin Category: Medical Plan: EMG without evidence of carpal tunnel.. recommend night wrist splints. (3) Osteoarthritis of left knee: Code(s): M17.12 - Unilateral primary osteoarthritis, left knee Category: Medical Qualifiers: Osteoarthritis type: primary Qualified Code(s): M17.12 - Unilateral primary osteoarthritis, left knee Plan: Obtain a new knee X-ray, manage pain with therapy, Now followed by Orthopedics and getting cortisone injections in her knees. (4) Class 2 obesity: Code(s): E66.812 - Obesity, class 2 Category: Medical Plan: Patient does understand her BMI is over 35 and continues to try to lose weight with being physically active. She is interested in restarting GLP 1 therapy has now she has diagnosis of mild obstructive sleep apnea and has obesity. (5) VEGA (obstructive sleep apnea): Code(s): G47.33 - Obstructive sleep apnea (adult) (pediatric) Category: Medical Plan: recently has sleep study showing Mild VEGA. WIll trial Zepbound Orders: Orders TSH reflex Free T4 Today E66.812 - Obesity, class 2 Pneumococcal 20 Immunization Today E66.812 - Obesity, class 2, Z23 - Encounter for immunization Medications: New tirzepatide (weight loss) (Zepbound) for 4 weeks 2.5 mg (0.5 mL) subcut QWEEK 2 mL 0RF 4 weeks E66.812 - Obesity, class 2, G47.33 - Obstructive sleep apnea (adult) (pediatric) Refilled topiramate (Topamax) 50 mg PO BEDTIME 30 tabs 2RF 30 days G43.909 - Migraine, unspecified, not intractable, without status migrainosus ibuprofen 800 mg PO Q8H PRN 30 tabs 1RF pain 10 days G43.909 - Migraine, unspecified, not intractable, without status migrainosus fluoxetine 10 mg PO DAILY 90 caps 1RF F33.1 - Major depressive disorder, recurrent, moderate
[2025-05-08 13:45] VITALS: BP 130/62; PULSE 84; TEMP 36.3; O2SAT 96; BMI 36.7
--- OUTSIDE RECORDS SUMMARY | 2025-05-08 14:13 | XMS_ITS | Clinical Summary ---
Author Organization [address] [place] [address] Address [address] [place] [address] Phone Care Team Providers Care Parimutuel Ticket Cashier Name Role Phone Ellis Arevalo Primary Care Provider Surgical History Surgery Date Site/Laterality Comments TUBAL LIGATION PROCEDURE: HISTORICAL TUBAL LIGATION HERNIA REPAIR Left PROCEDURE: LAPAROSCOPY, INGUINAL HERNIA REPAIR OTHER SURGICAL HISTORY 2013 PROCEDURE: [place] HYSTEROSCOPY ENDOMETRIAL ABLATION Medical History Medical History [...] PM EST Office Visit Bariatric Surgery - [place] [address] [address] Alex Posadas MD [address] [id number] Health Maintenance Due Date Last Done Comments [...] Procedure Name Priority Date/Time Associated Diagnosis Comments [facility] SCREENING DIGITAL Routine 11/25/2021 11:53 AM EST Encounter for screening mammogram for malignant neoplasm of breast from Last 3 Months or Most Recently Relevant to Health Maintenance Results * KIMMIE SCREENING DIGITAL (11/25/2021 11:53 AM EST) Anatomical Region Laterality Modality Mammography 11/25/2021 9:31 AM EST Narrative 11/25/2021 11:53 AM EST [facility] Diagnostic Imaging Department [address] [place] [id number] Patient: KENDRICK DIAZ /Age/Sex: 1970 - 51 - F Unit#: [id number] Location/Status: SPDIMAM/REG CLI Mnemonic/Ordering Site: [facility] Ordering Physician: PARAMJIT THOMPSON MD [facility] Screening Digital - 11/25/21999 EXAM: [facility] Screening Digital EXAM DATE AND TIME: 11/25/2021 10:02 AM HISTORY: Screening. 2 sisters had breast carcinoma. COMPARISON: 11/29/20, 09/08/19, 09/06/18, 08/31/17 [place], [place] TECHNIQUE: CC and MLO views of both breasts were obtained using full field digital mammography. Bilateral digital breast tomosynthesis was performed in the MLO projection. Computer aided detection with the [employer] 7.2-H was employed. TISSUE DENSITY: b. There [...] Routine screening mammogram BILATERAL in 1 year. 27065, 29889 3342F, 7004F Dictating Physician: COLLIN WILLIAM MD Electronically Signed by: COLLIN WILLIAM MD Dic Date/Time: 11/25/21 1151 Sign date/Time: 11/25/21 1153 Procedure Note Collin William MD - 09/29/2022 [facility] Diagnostic Imaging Department [address] [place] [address] Patient: CATIEKENDRICK /Age/Sex: 1970 - 51 - F Unit#: [id number] Location/Status: SPDIMA/REG CLI Mnemonic/Ordering Site: [facility] Ordering Physician: PARAMJIT THOMPSON MD [facility] Screening Digital - 11/25/21 - 1000 EXAM: [facility] Screening Digital EXAM DATE AND TIME: 11/25/2021 10:02 AM HISTORY: Screening. 2 sisters had breast carcinoma. COMPARISON: 11/29/20, 09/08/19, 09/06/18, 08/31/17 [place], [place] TECHNIQUE: CC and MLO views of both breasts were obtained using fullfield digital mammography. Bilateral digital breast tomosynthesis was performedin the MLO projection. Computer aided detection with the [employer] 7.2-[employer] Cyber[employer]as employed. TISSUE DENSITY: b. There are scattered [...] Routine screening mammogram BILATERAL in 1 year. 34686, 81126 3342F, 7025F Dictating Physician: COLLIN WILLIAM MD Electronically Signed by: COLLIN WILLIAM MD Dic Date/Time: 11/25/21 1151 Sign date/Time: 11/25/21 1153 Paramjit Thompson MD IMG BI PROCEDURES Final Result from Last 3 Months or Most Recently Relevant to Health Maintenance Insurance [facility] [place] [address] Care Teams Parimutuel Ticket Cashier Relationship Specialty Start Date End Date Ellis Arevalo PA [address] [place] [address] PCP - General Physician Regional Medical Director 04/16/25
== END 2025-05-08 14:27 | disposition home or self-care (01) ==
LOC: HO.HMCH 13:36
PROVIDERS: PCP Physician Assistant; Visit Provider Physician Assistant
DX: Z00.00 Encounter for general adult medical examination without abnormal findings (principal); R20.2 Paresthesia of skin; E66.812 Obesity, class 2; Z68.36 Body mass index [BMI] 36.0-36.9, adult; M17.12 Unilateral primary osteoarthritis, left knee; G47.33 Obstructive sleep apnea (adult) (pediatric); Z23 Encounter for immunization

== ENCOUNTER → 2025-05-08 13:36 | Outpatient (BNVA) | payer OTHER, SELFPAY | PROVIDERS: PCP Physician Assistant; Visit Provider Physician Assistant | DX: Z00.00 Encounter for general adult medical examination without abnormal findings (principal); G43.909 Migraine, unspecified, not intractable, without status migrainosus; R20.2 Paresthesia of skin; R20.0 Anesthesia of skin; G47.33 Obstructive sleep apnea (adult) (pediatric); E66.812 Obesity, class 2; M17.12 Unilateral primary osteoarthritis, left knee; F33.1 Major depressive disorder, recurrent, moderate; Z23 Encounter for immunization; Z68.36 Body mass index [BMI] 36.0-36.9, adult | CPT/HCPCS: 90471; 90677; 99396 ==

== ENCOUNTER 2025-05-14 12:51 | Outpatient (REF) | payer OTHER, SELFPAY ==
--- NOTE | ~2025-05-14 | MM_ITS ---
EXAMINATION: MM DIAGNOSTIC DIGITAL BREAST TOMOSYNTHESIS, RIGHT CLINICAL INFORMATION: Callback for a screening for right breast asymmetry in the lateral breast posterior depth on the CC view. COMPARISON: Comparison made to multiple prior, most recent April 05, 2055, and most remote September 03, 2016. TECHNIQUE: Digital breast tomosynthesis is performed with spot compression CC view with tomosynthesis FINDINGS: BREAST COMPOSITION: There are scattered areas of fibroglandular density (ACR BI-RADS breast composition Category b). RIGHT BREAST: Previously suggested asymmetry in the lateral breast posterior depth on the CC view is pliable with the spot compression. On today's images, the asymmetry is similar to multiple prior studies as far back as 2015, therefore, representing overlapping fibroglandular breast tissue or benign etiology. MM/MM tomosynthesis added views R IMPRESSION: RIGHT BREAST: Benign, no mammographic evidence of malignancy. Normal interval follow-up is recommended in 12 months. ASSESSMENT: BI-RADS 2 - Benign Findings RECOMMENDATION: 1 year F/U Results were provided to the patient at time of visit by the technologist. This patient's information was entered into a reminder system with a target due date for their next mammogram. Electronically signed by: Duane Link MD 05/14/2025 02:11 PM EDT
--- OUTSIDE RECORDS SUMMARY | 2025-05-14 13:25 | XMS_ITS | Encounter Summary ---
Author Organization [employer] Address [address] [place] [address] 7 [place] [address] Care Team Providers Care Pack Changer Name Role Phone Unavailable Primary Care Provider Unavailabl e Encounter Details Date Type Department Care Team (Latest Contact Info) Description 12/19/2019 Abstract [facility] CONVERSIONS Dental, Provider, DDS Social History [...]
--- OUTSIDE RECORDS SUMMARY | 2025-05-14 13:25 | XMS_ITS | Clinical Summary ---
Author Organization [address] [place] [address] Address [address] [place] [address] Phone Care Team Providers Care Senior Drafter Name Role Phone Ellis Arevalo Primary Care Provider Surgical History Surgery Date Site/Laterality Comments TUBAL LIGATION PROCEDURE: HISTORICAL TUBAL LIGATION HERNIA REPAIR Left PROCEDURE: LAPAROSCOPY, INGUINAL HERNIA REPAIR OTHER SURGICAL HISTORY 2013 PROCEDURE: [place] HYSTEROSCOPY ENDOMETRIAL ABLATION Medical History Medical History [...] PM EST Office Visit Bariatric Surgery - [place] [address] [address] Alex Posadas MD [address] [id number] Health Maintenance Due Date Last Done Comments [...] Procedure Name Priority Date/Time Associated Diagnosis Comments [facility] SCREENING DIGITAL Routine 11/25/2021 11:53 AM EST Encounter for screening mammogram for malignant neoplasm of breast from Last 3 Months or Most Recently Relevant to Health Maintenance Results * KIMMIE SCREENING DIGITAL (11/25/2021 11:53 AM EST) Anatomical Region Laterality Modality Mammography 11/25/2021 9:31 AM EST Narrative 11/25/2021 11:53 AM EST [facility] Diagnostic Imaging Department [address] [place] [address] Patient: KENDRICK DIAZ /Age/Sex: 1970 - 51 - F Unit#: [id number] Location/Status: SPDIMAM/REG CLI Mnemonic/Ordering Site: [facility] Ordering Physician: PARAMJIT THOMPSON MD [facility] Screening Digital - 11/25/21999 EXAM: [facility] Screening Digital EXAM DATE AND TIME: 11/25/2021 10:02 AM HISTORY: Screening. 2 sisters had breast carcinoma. COMPARISON: 11/29/20, 09/08/19, 09/06/18, 08/31/17 [place], [place] TECHNIQUE: CC and MLO views of both breasts were obtained using full field digital mammography. Bilateral digital breast tomosynthesis was performed in the MLO projection. Computer aided detection with the [employer] 7.2-H was employed. TISSUE DENSITY: b. There [...] Routine screening mammogram BILATERAL in 1 year. 96926, 18208 3342F, 7009F Dictating Physician: COLLIN WILLIAM MD Electronically Signed by: COLLIN WILLIAM MD Dic Date/Time: 11/25/21 1151 Sign date/Time: 11/25/21 1153 Procedure Note Collin William MD - 09/29/2022 [facility] Diagnostic Imaging Department [address] [place] [address] Patient: CATIEKENDRICK /Age/Sex: 1970 - 51 - F Unit#: [id number] Location/Status: SPDIMA/REG CLI Mnemonic/Ordering Site: [facility] Ordering Physician: PARAMJIT THOMPSON MD [facility] Screening Digital - 11/25/21 - 1000 EXAM: [facility] Screening Digital EXAM DATE AND TIME: 11/25/2021 10:02 AM HISTORY: Screening. 2 sisters had breast carcinoma. COMPARISON: 11/29/20, 09/08/19, 09/06/18, 08/31/17 [place], [place] TECHNIQUE: CC and MLO views of both breasts were obtained using fullfield digital mammography. Bilateral digital breast tomosynthesis was performedin the MLO projection. Computer aided detection with the [employer] 7.2-East[employer]as employed. TISSUE DENSITY: b. There are scattered [...] Routine screening mammogram BILATERAL in 1 year. [address], 46138 3342F, 7025F Dictating Physician: COLLIN WILLIAM MD Electronically Signed by: COLLIN WILLIAM MD Dic Date/Time: 11/25/21 1151 Sign date/Time: 11/25/21 1153 Paramjit Thompson MD IMG BI PROCEDURES Final Result from Last 3 Months or Most Recently Relevant to Health Maintenance Insurance [facility] Care Teams Senior Drafter Relationship Specialty Start Date End Date Ellis Arevalo PA [address] [place] [address] PCP - General Physician Frit Mixer And Burner 04/16/25
== END 2025-05-14 12:52 | disposition home or self-care (01) ==
LOC: HO.MAMMO 12:51
PROVIDERS: PCP Physician Assistant; Visit Provider Physician Assistant
DX: N64.89 Other specified disorders of breast (principal)
CPT/HCPCS: 77061; 77065

== ENCOUNTER → 2025-05-14 13:30 | Outpatient (BNV) | payer OTHER, SELFPAY | PROVIDERS: PCP Physician Assistant; Visit Provider Radiology Body Imaging | DX: R92.8 Other abnormal and inconclusive findings on diagnostic imaging of breast (principal) | CPT/HCPCS: 77061; 77065 ==

== ENCOUNTER 2025-05-15 14:44 | Outpatient (AMB) | payer OTHER, SELFPAY ==
[2025-05-15 15:06] VITALS: BP 114/76; PULSE 83; O2SAT 97; BMI 37.1
--- NOTE | 2025-05-15 15:06 | A.OFFVIS_ITS ---
Vital Signs 05/15/25 15:06 Height 5 ft 2 in Weight 203 lb 2 oz BMI 37.1 BP 114/76 Blood Pressure Location Lt brachial Position Sitting Pulse 83 Pulse Source Pulse Oximeter Pulse Oximetry (%) 97 Oxygen Delivery Method Room Air Intake Visit Reasons: [id number] Intake Note: Patient presents [employer]PER[employer]OR [employer] PA[employer] Migraine. Worsening headache over the last 2 months. Patient states that she has a history of migraines but she has had a constant headache that is worsening over the last 2 months. Patient states sometimes the pressure is so intense, she feels like she is going to pass out. Patient states that she is having intermittent dizziness. Patient denies any lightheadedness, abdominal pain, nausea, vomiting. Accompanied by: Daughter Allergies No Known Allergies Allergy (Verified 05/15/25 15:08) Medication List - Last Reviewed 05/16/25 by Sandy Gamez CMA acetaminophen (Tylenol Extra Strength) 500 mg PO TID PRN fluoxetine 10 mg PO DAILY fluticasone propionate 50 mcg/actuation 1 spray intranasal DAILY galcanezumab-gnlm (Emgality Pen) 240 mg (2 mL) subcut ONCE 30 days hydroxyzine HCl 25 mg PO BEDTIME 30 days ibuprofen 800 mg PO Q8H PRN 10 days riboflavin (vitamin B2) 400 mg PO DAILY 30 days tirzepatide (weight loss) (Zepbound) 2.5 mg (0.5 mL) subcut QWEEK 4 weeks topiramate (Topamax) 50 mg PO BEDTIME 30 days HPI Comments Details: History of Present Illness The patient is a 55-year-old female presenting with chronic migraine. Patient is accompanied by her 16-year-old daughter. She reports experiencing migraine headaches in her early 20s. However, over the last year, the headaches have become more bothersome in the back of her head and neck and have increase to daily, described as waking up with a headache and going to bed with a headache. She denies any preceding causes of the migraine headaches in her 20s or the recent increase in her migraine headaches, specifically denies preceding infection, injury, head injury. She denies shooting neck pain, rather she states it feels like some thing is pressing down on her bilateral upper trap shoulder region. Despite taking Tylenol, Motrin, and Excedrin regularly, these interventions have provided little relief. She was last seen by Neurology about 2-3 years ago, patient states the visits were entirely telehealth, and she was only advised to stop her Tylenol use, however patient stated she did not understand how she was supposed to treat her daily headaches if she could not take her Tylenol. She believes she is taking 2 headache medications at bedtime, prescribed by her PCP, however she has not sure exactly which medication she is referring to. She also notes she has recently undergone testing for bilateral, right greater than left, hand tingling. She states her hands will tingle if she is holding h er phone for a while or using her hands for awhile. Her arms can feel generally weak with increased activity or the arms are lifted about the shoulders. She does endorse some bilateral hand swelling, more so in warmer weather. Denies significant skin color changes in the arms. Recent BUE EMG/NCS was normal. A February 2024 C-spine XR showed small bilateral cervical ribs projecting from C7. Daughter also notes that patient's balance is very poor, she is just prone to falling and sometimes bumping her head on the shower door. Patient endorses this poor balance and tendency to fall, and adds she can be lightheaded in the shower. Though denies episodes of actually passing out. Results - April 2025 Nerve conduction study of arms: Normal - April 2025 Sleep study: Mild sleep apnea, 5.3 events per hour, average oxygen saturation 95%, mild snoring- patient was not advised to start PAP therapy. She does have an adjustable bed. - December 2024 CT angio head/neck showed no high-degree stenosis or dissection, no cerebral aneurysm, no acute brain abnormality by CT. - A February 2024 C-spine XR showed small bilateral cervical ribs projecting from C7, otherwise unremarkable. Review of Systems - Neurological: Reports daily headaches, dizziness, associated light and sound sensitivity. - Musculoskeletal: Reports neck pain, shoulder ache and weakness-as if something is pressing down on her bilateral shoulders. Nocturnal leg cramps. Restless legs when sitting for longer - Respiratory: Denies asthma. - Gastrointestinal: Reports occasional nausea; constipation exacerbates headache. - General: Denies fever. Reports tiredness. Snoring. Dizziness/lightheadedness, can occur in the shower as well. Reports mildly hitting her head occasionally when getting out of the shower. Denies syncope. Past Medical History reviewed in chart, and patient endorses the following: - Depression - Sleep apnea- mild -restless leg syndrome-mild -leg cramps - cervicalgia Pertinent denials include: Denies history of head injury/concussion, kidney stones, seizure, syncope, HTN/HLD, clotting disorders, asthma, diabetes, thyroid disorder. Family History - Sister with migraine - Son with ruptured intracranial brain aneurysm Headache Review Headache questionnaire: Onset of initial headache symptoms: In her 20s Initial precipitating cause of this headache: None Previous workup for this headache: December 2024, head CT/CTA-unremarkable Types of headache disorders: Chronic daily headaches Typical headache characteristics: Prodrome symptoms: unsure Aura: denies Pain intensity: moderate-severe Location, quality, characteristics: pressure throbbing headache in front of head, and back of the head/neck. Associated symptoms: sometimes blurry vision, photophobia, phonophobia, ponytaill allodynia, nausea, sometimes vomiting, spinning dizziness and lightheadedness, fatigue, cognitive difficulties, activity intolerance. Postdrome: unsure- constant headache Aggravating factors: noise, constipation/straining Triggers: noise, poor sleep Time of day: No specific time of day Duration and Frequency: all day every day x's 1 year How does headache impact your life? can make it difficult to do her daily activities Current acute medication use/interventions: Tylenol Migraine 500mg 2 tabs or Ibuprofen 200mg 2 tabs- every am. Current preventative medication use: ? Topiramate- not helpful Current non-pharmacological interventions: Rest Headache Lifestyle Factors - Caffeine intake: 1 to 2 cups of coffee per day, usually with one in the morning and one around 5 PM. - Exercise: Reports gym visits, use of walking machines and bicycles. - Sleep: Goes to bed around 12 AM to 1 AM, wakes up around 7 AM, with frequent awakenings overnight. 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 - Family status: Accompanied by daughter, has adult children. - Nutrition: Relies on home-cooked meals with some unhealthy elements noted. Nutrition The patient reports a diet that includes fruits and occasional vegetables. She regularly consumes chicken, pork chops, and avoids excessive fried foods by using an air fryer. She enjoys pasta but consumes it infrequently. She partakes in eating rice occasionally. The patient has experimented with dieting but reports non-compliance. Exercise The patient exercises at a gym, using walking machines, bicycles, and light weight routines. Exercise is conducted a few times a week, with reports of hand tingling occurring post-exercise.. Sleep - Typical bedtime: Between 12 AM and 1 AM - Sleep duration: Approximately 6 to 7 hours per night - Sleep disturbances: Reports frequent awakenings throughout the night - Caffeine: Consumes up to 2 cups of coffee, latest around 5 PM Substance Use History - Denies use of alcohol, smoking, marijuana, or other illicit substances. 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 PFSH Medical History Uterine fibroid Abnormal Pap smear of cervix Allergic rhinitis Anxiety Arteritis Family history of brain aneurysm Migraine headache Surgical History Hx of endoscopy Hx of colonoscopy H/O LEEP H/O right inguinal hernia repair (03/16/17) History of endometrial ablation History of tubal ligation History of toe surgery History of incision and drainage Family History Father FH: prostate cancer HTN (hypertension) Sister History of breast cancer Sister History of breast cancer Son Heart attack, Onset Age: 12 Son Brain aneurysm Other Stomach cancer Social History Housing: House Alcohol intake: current Alcohol intake frequency: holidays/special occasions only Patient Tobacco Use Status: Never used Tobacco Tobacco use type: Cigarette e-Cigarette/Vaping Use: Never Used Second Hand Smoke Exposure: No service: No Current occupational status: unemployed Sexual orientation: Straight/Heterosexual Gender identity: Female Cognitive needs: No Hearing needs: No Vision needs: Yes (Glaases) Physical Exam Vital Signs: Last Vital Signs Pulse 83 05/15/25 15:06 BP 114/76 05/15/25 15:06 Pulse Ox 97 05/15/25 15:06 Oxygen Delivery Method Room Air 05/15/25 15:06 BMI result Body Mass Index 37.1 Const Orientation/consciousness: patient oriented x3 Resp Effort & Inspection: normal respiratory effort and able to speak in complete sentences Neuro Other: Mallampati stage IV Bilateral mild jaw tightness No palpable scalp tenderness. Limited cervical range of motion, especially on extension. Spurling elicits bilateral base of neck pain that radiates anteriorly-down the bilateral anterior neck Muscle strength 5/5 throughout Initially patient denied bilateral hand tingling and bilateral radial pulse 2+, however after sustained bilateral arm raised above the shoulders, patient developed bilateral right greater than left hand tingling and right radial pulse 1 + and left radial pulse 2 +, and very slight decreased hand grasp. No appreciable hand swelling or discoloration. Romberg induced swaying. Patient unable to do tandem walk at all Gait otherwise steady and stable General: patient oriented x3 Cranial nerves: Yes CN's II-XII intact bilaterally Cognition (Neuro): normal cognition Gait exam (Neuro): Normal gait present Deep tendon reflexes (DTR's): Right triceps reflex intensity grade: 2+, Left triceps reflex intensity grade: 2+, Rt Biceps (C5, C6): 2+, Left biceps reflex intensity grade: 2+, Right brachioradialis reflex intensity grade: 2+, Left brachioradialis reflex intensity grade: 2+, Right patellar reflex intensity grade: 2+ and Left patellar reflex intensity grade: 2+ Coordination: [id number] test normal Pupils: Normal pupillary reactivity/response: bilateral Psych Appearance: grossly normal Mental Status: mental status grossly normal Speech and movement: Normal speech and movement present Affect: normal affect Attitude: cooperative Thought process: Normal thought process present Assessment & Plan Assessment & Plan (1) Chronic migraine without aura: Code(s): G43.709 - Chronic migraine without aura, not intractable, without status migrainosus Category: Medical Qualifiers: Intractability: not intractable Status migrainosus presence: without status migrainosus Qualified Code(s): G43.709 - Chronic migraine without aura, not intractable, without status migrainosus (2) Neck pain: Code(s): M54.2 - Cervicalgia Category: Medical (3) Paresthesia of both hands: Code(s): R20.2 - Paresthesia of skin Category: Medical (4) Cervical rib: Comment: Small bilateral C7 cervical ribs Code(s): Q76.5 - Cervical rib Category: Medical Plan You are advised to undergo: Vascular consult for further evaluation of hand tingling and bilateral C7 cervical ribs with headache now most bothersome in the occipital/cervical region. For overall headache management: * Optimize good self-care, including but not limited to maintaining a healthy diet, adequate fluid intake, adequate sleep, and engaging in regular physical activity. * Track headaches and both positive and negative effects of your headache treatment trials, especially after any treatment regimen changes. * [employer] is one of many headache tracking apps. * A simple paper calendar is also a good option. * Non-pharmacological interventions which may help to alleviate your headache attack frequency, severity, and associated symptoms: For light sensitivity: You may benefit from trying blue light filtering glasses, FL-41 blue light filter in glasses, green glasses, green light therapy. Avoid wearing traditional sunglasses inside. For sound sensitivity: You may benefit from trying noise cancellation ear plugs. Neuromodulation devices, which can be used alone or with pharmacological t reatment. For acute (as needed) headache treatment: It is important to take acute medications at the first sign of headache. However, please be aware that frequently using most acute medications may increase the frequency of your headache attacks, as well as make your other treatments less effective.. May take OTC Tylenol 650-1,000mg every 4-6 hours, Ibuprofen (liquid gels) 600mg every 6 hours, or Naproxen (liquid gels) 440mg q 12 hrs prn. Discontinue Excedrin Trial Naratriptan 2.5mg tab, 1/2 - 1 tab (1.25-2.5mg) at onset of headache, may repeat in 4 hours. Max of 2 tabs (5mg) per 24 hours. * If needed, may take naratriptan with cuzw-sni-ckwneof (OTC) Tylenol 650 -1000 mg every 4 -6 hours, or Ibuprofen (liquigel) 600mg every 6 hours, or Naproxen (liquigel) 440mg every 12 hrs as needed. * Potential adverse effects of naratriptan, include but are not limited to nausea, fatigue, chest tightness/tingling (usually passes within a few minutes), medication overuse headaches. Previous acute migraine medication trials: Fioricet- ineffective. Sumatriptan ineffective. Acute migraine medication contraindications: None at this time For headache prevention medication: Preventative medications should be taken routinely as prescribed for best effect, it may take several weeks for full effect to take effect. Start Riboflavin 400mg daily in the morning * This is generally well tolerated, however some people may experience mild abdominal discomfort from use. * This will cause your urine to become bright yellow or orange, which is expected and not of any concern. Start Magnesium 400mg daily at bedtime * Magnesium comes in many subtypes, such as magnesium oxide, glycinate, citrate, and even try magnesium combinations. Additionally magnesium comes in many forms, including tablets, capsules, powders or even liquid formulations. There is not a specific magnesium subtype or form known to be significantly more effective than another. Rather, the magnesium subtype inform that you best tolerate, is the best version for you. * Possible side effects of magnesium include, but are not limited to, GI upset, abdominal cramping, loose stools, and diarrhea Continue topiramate 50 mg daily at bedtime- would not increase further due to hand tingling symptoms. Start Emgality 120mg/ml auto-injection: Loading dose: 240mg (2 120mg/ml auto-injections) via subcutaneous injection in 2 different sites). Then 30 days after loading dose, start Maintenance dose: 120mg (120mg/ml autoinjector) subcutaneous injection every month. Patient requests injection training once Emgality available. Important considerations: * Emgality will likely require insurance prior authorization prior to receiving it from the pharmacy. * Potential side effects include allergic reaction and injection site reactions. * Emgality injection training educational video is available to view on [email or web address] * Store Emgality in the refrigerator in it's original packaging in order to protect from light. * Remove Emgality at least 1 hour prior to taking the injection. * Emgality can be left out of the fridge for?up to 7 days at a temperature not above 86?F. If either of these conditions are exceeded, then Emgality must be thrown away. * Once Emgality has been stored out of refrigeration, do not place it back in the refrigerator. Previous migraine prevention medication trials: Propranolol 10 mg b.i.d.-not tolerated. Migraine prevention medication contraindications: Beta-blockers due to asthma diagnosis If you have not yet, we encourage you to enroll in the [facility] patient portal. Case discussed with Dr Mariza Villa. We will follow-up upon review of above and with a follow-up clinic visit in 3-6 months or sooner as needed. Orders: Referrals Vascular Surgery Referral Q76.5 - Cervical rib, R20.2 - Paresthesia of skin Medications: New galcanezumab-gnlm (Emgality Pen) Loading dose: 120 mg subcu injection x2 in alternate sites (total 240 mg). To be followed by maintenance dose of 120 mg subcu q.month. 240 mg (2 mL) subcut ONCE 2 mL 0RF 30 days magnesium oxide may hold for loose stools 400 mg PO BEDTIME 90 tabs 3RF 90 days naratriptan take 1/2 - 1 tab at onset of headache; if no relief may repeat 1 tab after at least 4 hrs; max = 2 tabs/24 hrs orally PRN; 12 tabs 6RF migraine headache 30 days riboflavin (vitamin B2) 400 mg PO DAILY 30 tabs 6RF 30 days Coding Level of Care Code New Pt Level 4 (38662) Diagnoses Chronic migraine without aura without status migrainosus, not intractable G43.709 Intractability: not intractable Status migrainosus presence: without status migrainosus Neck pain M54.2 Paresthesia of both hands R20.2 Cervical rib Q76.5
--- OUTSIDE RECORDS SUMMARY | 2025-05-15 15:11 | XMS_ITS | Clinical Summary ---
Author Organization [address] [place] [address] Address [address] [place] [address] Phone Care Team Providers Care Induction Coordination Power Engineer Name Role Phone Ellis Arevalo Primary Care Provider Surgical History Surgery Date Site/Laterality Comments TUBAL LIGATION PROCEDURE: HISTORICAL TUBAL LIGATION HERNIA REPAIR Left PROCEDURE: LAPAROSCOPY, INGUINAL HERNIA REPAIR OTHER SURGICAL HISTORY 2013 PROCEDURE: ID HYSTEROSCOPY ENDOMETRIAL ABLATION Medical History Medical History [...] PM EST Office Visit Bariatric Surgery - [place] [address] [id number] Alex Posadas MD [address] [id number] Health Maintenance Due Date Last Done Comments [...] Procedure Name Priority Date/Time Associated Diagnosis Comments [facility] SCREENING DIGITAL Routine 11/25/2021 11:53 AM EST Encounter for screening mammogram for malignant neoplasm of breast from Last 3 Months or Most Recently Relevant to Health Maintenance Results * KIMMIE SCREENING DIGITAL (11/25/2021 11:53 AM EST) Anatomical Region Laterality Modality Mammography 11/25/2021 9:31 AM EST Narrative 11/25/2021 11:[address] [facility] Diagnostic Imaging Department [address] [place] [id number] Patient: KENDRICK DIAZ /Age/Sex: 1970 - 51 - F Unit#: [id number] Location/Status: SPDIMAM/REG CLI Mnemonic/Ordering Site: [facility] Ordering Physician: PARAMJIT THOMPSON MD [facility] Screening Digital - 11/25/21999 EXAM: [facility] Screening Digital EXAM DATE AND TIME: 11/25/2021 10:02 AM HISTORY: Screening. 2 sisters had breast carcinoma. COMPARISON: 11/29/20, 09/08/19, 09/06/18, 08/31/17 [place], [place] TECHNIQUE: CC and MLO views of both breasts were obtained using full field digital mammography. Bilateral digital breast tomosynthesis was performed in the MLO projection. Computer aided detection with the Burpple 7.2-H was employed. TISSUE DENSITY: b. There [...] Routine screening mammogram BILATERAL in 1 year. [id number], [id number] 3342F, 7048F Dictating Physician: COLLIN WILLIAM MD Electronically Signed by: COLLIN WILLIAM MD Dic Date/Time: 11/25/21 1151 Sign date/Time: 11/25/21 1153 Procedure Note Collin William MD - 09/29/2022 [facility] Diagnostic Imaging Department [address] [place] [id number] Patient: CATIEKENDRICK /Age/Sex: 1970 - 51 - F Unit#: [id number] Location/Status: SPDIMA/REG CLI Mnemonic/Ordering Site: [facility] Ordering Physician: PARAMJIT THOMPSON MD [facility] Screening Digital - 11/25/21 - 1000 EXAM: [facility] Screening Digital EXAM DATE AND TIME: 11/25/2021 10:02 AM HISTORY: Screening. 2 sisters had breast carcinoma. COMPARISON: 11/29/20, 09/08/19, 09/06/18, 08/31/17 [place], [place] TECHNIQUE: CC and MLO views of both breasts were obtained using fullfield digital mammography. Bilateral digital breast tomosynthesis was performedin the MLO projection. Computer aided detection with the Burpple 7.[employer] employed. TISSUE DENSITY: b. There are scattered [...] Routine screening mammogram BILATERAL in 1 year. [id number], [id number] 3342F, 7025F Dictating Physician: COLLIN WILLIAM MD Electronically Signed by: COLLIN WILLIAM MD Dic Date/Time: 11/25/21 1151 Sign date/Time: 11/25/21 1153 Paramjit Thompson MD IMG BI PROCEDURES Final Result from Last 3 Months or Most Recently Relevant to Health Maintenance Insurance [facility] [facility] Care Teams Induction Coordination Power Engineer Relationship Specialty Start Date End Date Ellis Arevalo PA [address] [place] [address] PCP - General Physician Auto Fleet Maintenance Manager 04/16/25
--- OUTSIDE RECORDS SUMMARY | 2025-05-15 15:11 | XMS_ITS | Encounter Summary ---
Author Organization [employer] Address [address] [place] [address] [address] [place] [address] Care Team Providers Care Rapid Extractor Operator Name Role Phone Unavailable Primary Care [...]
== END 2025-05-15 16:21 | disposition home or self-care (01) ==
LOC: HO.HSMS 14:45
PROVIDERS: PCP Physician Assistant; Visit Provider Nurse Practitioner Family
DX: G43.709 Chronic migraine without aura, not intractable, without status migrainosus (principal); M54.2 Cervicalgia; R20.2 Paresthesia of skin; Q76.5 Cervical rib
CPT/HCPCS: 99204

== ENCOUNTER → 2025-05-15 14:44 | Outpatient (BNVA) | payer OTHER, SELFPAY | PROVIDERS: PCP Physician Assistant; Visit Provider Nurse Practitioner Family | DX: G43.709 Chronic migraine without aura, not intractable, without status migrainosus (principal); M54.2 Cervicalgia; R20.2 Paresthesia of skin; Q76.5 Cervical rib | CPT/HCPCS: 99202 ==

== ENCOUNTER 2025-05-22 16:08 | Outpatient (REF) | payer SELFPAY ==
--- OUTSIDE RECORDS SUMMARY | 2025-05-22 16:10 | XMS_ITS | Clinical Summary ---
Author Organization [address] [place] [address] Address [address] [place] [address] Phone Care Team Providers Care Mirror Fabrication Supervisor Name Role Phone Ellis Arevalo Primary Care Provider Surgical History Surgery Date Site/Laterality Comments TUBAL LIGATION PROCEDURE: HISTORICAL TUBAL LIGATION HERNIA REPAIR Left PROCEDURE: LAPAROSCOPY, INGUINAL HERNIA REPAIR OTHER SURGICAL HISTORY 2013 PROCEDURE: CT HYSTEROSCOPY ENDOMETRIAL ABLATION Medical History Medical History [...] PM EST Office Visit Bariatric Surgery - [place] [address] [phone] Alex Posadas MD [address] [phone] Health Maintenance Due Date Last Done Comments [...] Procedure Name Priority Date/Time Associated Diagnosis Comments [facility] SCREENING DIGITAL Routine 11/25/2021 11:53 AM EST Encounter for screening mammogram for malignant neoplasm of breast from Last 3 Months or Most Recently Relevant to Health Maintenance Results * KIMMIE SCREENING DIGITAL (11/25/2021 11:53 AM EST) Anatomical Region Laterality Modality Mammography 11/25/2021 9:31 AM EST Narrative 11/25/2021 11:53 AM EST [facility] Diagnostic Imaging Department [address] [place] [address] Patient: KENDRICK DIAZ /Age/Sex: 1970 - 51 - F Unit#: [id number] Location/Status: SPDIMAM/REG CLI Mnemonic/Ordering Site: [facility] Ordering Physician: PARAMJIT THOMPSON MD [facility] Screening Digital - 11/25/21999 EXAM: [facility] Screening Digital EXAM DATE AND TIME: 11/25/2021 10:02 AM HISTORY: Screening. 2 sisters had breast carcinoma. COMPARISON: 11/29/20, 09/08/19, 09/06/18, 08/31/17 [place], [place] TECHNIQUE: CC and MLO views of both breasts were obtained using full field digital mammography. Bilateral digital breast tomosynthesis was performed in the MLO projection. Computer aided detection with the [employer] 7.2-H was employed. TISSUE DENSITY: b. There [...] Routine screening mammogram BILATERAL in 1 year. 87474, 64250 3342F, 7069F Dictating Physician: COLLIN WILLIAM MD Electronically Signed by: COLLIN WILLIAM MD Dic Date/Time: 11/25/21 1151 Sign date/Time: 11/25/21 1153 Procedure Note Collin William MD - 09/29/2022 [facility] Diagnostic Imaging Department [address] [place] [address] Patient: CATIEKENDRICK /Age/Sex: 1970 - 51 - F Unit#: [id number] Location/Status: SPDIMA/REG CLI Mnemonic/Ordering Site: [facility] Ordering Physician: PARAMJIT THOMPSON MD [facility] Screening Digital - 11/25/21 - 1000 EXAM: [facility] Screening Digital EXAM DATE AND TIME: 11/25/2021 10:02 AM HISTORY: Screening. 2 sisters had breast carcinoma. COMPARISON: 11/29/20, 09/08/19, 09/06/18, 08/31/17 [place], [place] TECHNIQUE: CC and MLO views of both breasts were obtained using fullfield digital mammography. Bilateral digital breast tomosynthesis was performedin the MLO projection. Computer aided detection with the [employer] 7.2-Unightas employed. TISSUE DENSITY: b. There are scattered [...] Routine screening mammogram BILATERAL in 1 year. 63816, 92841 3342F, 7025F Dictating Physician: COLLIN WILLIAM MD Electronically Signed by: COLLIN WILLIAM MD Dic Date/Time: 11/25/21 1151 Sign date/Time: 11/25/21 1153 Paramjit Thompson MD IMG BI PROCEDURES Final Result from Last 3 Months or Most Recently Relevant to Health Maintenance Insurance [facility] [facility] Care Teams Mirror Fabrication Supervisor Relationship Specialty Start Date End Date Ellis Arevalo PA [address] [place] [address] PCP - General Physician Embossograph Operator 04/16/25
--- OUTSIDE RECORDS SUMMARY | 2025-05-22 16:10 | XMS_ITS | Encounter Summary ---
Author Organization [employer] Address [address] [place] [address] 7 [place] [address] Care Team Providers Care Records Management Specialist Name Role Phone Unavailable Primary Care Provider Unavailabl e Encounter Details Date Type Department Care Team (Latest Contact Info) Description 12/19/2019 Abstract [facility] CONVERSIONS Dental, Provider, DDS Social [...]
== END 2025-05-22 16:09 | disposition home or self-care (01) ==
LOC: HO.HAP 16:08
PROVIDERS: Visit Provider Physician Assistant
DX: Z46.1 Encounter for fitting and adjustment of hearing aid (principal); H90.3 Sensorineural hearing loss, bilateral
CPT/HCPCS: 92593

== ENCOUNTER → 2025-06-06 07:53 | Outpatient (REF) | payer OTHER, SELFPAY ==
--- NOTE | 2025-06-06 07:56 | CA_ITS ---
Acquisition Time: 2025-06-06 08:04:29 Total Exercise Time: 00:09:00 Test Indications: CP,UNSPECIFIED Medications: SEE MED SHEET Protocol: ANGIE Max HR: 141 BPM 84% of Pred: 167 BPM Max BP: 136/84 mmHG Max Work Load: 10.1 METS Exercise stress test with exercise 9 mins of Angie Protocol, achieving 84% MPHR, without any reports of chest pain or SOB, without any arrythmias, with normotensive response to exercise. Without any EKG changes meeting criteria for ischemia. In recovery, pt continued to feel well. Test reviewed with Dr. Comer. Referred By: Ellis Arevalo Electronically Signed By: Boo Mahoney
--- OUTSIDE RECORDS SUMMARY | 2025-06-06 07:57 | XMS_ITS | Clinical Summary ---
Author Organization [facility] Address [address] [place] [address] Care Team Providers Care Banbury Mill Operator Name Role Phone Raheel Scottie Primary Care [...] H RISK PATIENTS (#1) 01/08/2037 Care Teams Banbury Mill Operator Relationship Specialty Start Date End Date Scottie Pickering PCP - General Family Practice 10/25/18
--- OUTSIDE RECORDS SUMMARY | 2025-06-06 07:57 | XMS_ITS | Clinical Summary ---
Author Organization [employer] Address [address] [place] [address] 7t [place] [address] Care Team Providers Care Land Development Project Manager Name Role Phone Unavailable Primary Care [...] Problem Noted Date Diagnosed Date Fractured dental advent with loss of materi al 11/23/2024 Normal [...] Mass Index - - Plan of Treatment Health Maintenance Due Date Last Done Comments CT Colonography 1972 Colonoscopy 1972 Colorectal Cancer Screening 1972 Depression Screening 1972 FIT DNA/Cologuard 1972 FIT 1972 FOBT 1972 HIV Screening 1972 SDOH Screening 1972 Sigmoidoscopy 1972 Disability Screening 1972 Alcohol/Substance Use Screening 1984 Hepatitis C Screening 01/08/1990 Hepatitis B Vaccines (1 of 3 - 19+ 3-dose series) 01/08/1991 Pap Smear 01/08/1993 Cervical Cancer Screening 01/08/2002 HPV/Cotest 01/08/2002 Pneumococcal Vaccine: 50+ Years (1 of 1 - PCV) 01/08/2022 Zoster Vaccines (1 of 2) 01/08/2022 Mammogram 11/25/2023 11/25/2021 COVID-19 Vaccine ( season) 2024 01/26/2022, 08/19/2021, 12/18/2020, Additional history exists Dental X-Ray: Bitewings 02/27/2025 02/27/2024, 12/14 Dental Oral Exam 05/22/2025 11/21/2024, , 12/14/2022 Dental Prophylaxis 05/22/2025 11/21/2024, 0 02/27/2024, 12/14/2022 Influenza Vaccine (#1) 2025 , 08/21/2019, 08/15/2018, Additional history exists Tobacco Screening 11/23/2025 11/23/2024 Dental X-Ray: Full [...] Most Recently Relevant to Health Maintenance Insurance [facility] - HSN PARTIAL (MEDICAID)
--- OUTSIDE RECORDS SUMMARY | 2025-06-06 07:57 | XMS_ITS | Encounter Summary ---
Author Organization [facility] Address [address] [place] [address] Care Team Providers Care Adjusto Writer Operator Name Role Phone Scottie Pickering Primary Care Provider Unavailabl e Encounter Details Date Type Department Care Team Description 11/25/2021 Orders Only General Surgery [address] [place], [place] [phone] Pavel Thompson MD [address] [place] [address] Increased risk of breast cancer; FH: breast [...] old documented in this encounter Care Teams Adjusto Writer Operator Relationship Specialty Start Date End Date Scottie Pickering PCP - General Family Practice 10/25/18 documented as of this encounter
--- OUTSIDE RECORDS SUMMARY | 2025-06-06 07:57 | XMS_ITS | Encounter Summary ---
Author Organization [employer] Address [address] [place] [address] 7 [place] [address] Care Team Providers Care Chimney Sweeper Name Role Phone Unavailable Primary Care Provider Unavailabl e Encounter Details Date Type Department Care Team (Latest Contact Info) Description 10/28/2021 Abstract [facility] CONVERSIONS Dental, Provider, DDS Social History [...]
--- OUTSIDE RECORDS SUMMARY | 2025-06-06 07:57 | XMS_ITS | Encounter Summary ---
Author Organization [employer] Address [address] [place] [address] 7 [place] [address] Care Team Providers Care Livestock Commission Agent Name Role Phone Unavailable Primary Care Provider Unavailabl e Encounter Details Date Type Department Care Team (Latest Contact Info) Description 12/19/2019 Abstract [facility] CONVERSIONS Dental, Provider, DDS Social History Tobacco [...]
--- OUTSIDE RECORDS SUMMARY | 2025-06-06 07:57 | XMS_ITS | Clinical Summary ---
Author Organization [address] [place] [address] Address [address] [place] [address] Phone Care Team Providers Care Auto Air Conditioning Installer Name Role Phone Ellis Arevalo Primary Care Provider Surgical History Surgery Date Site/Laterality Comments TUBAL LIGATION PROCEDURE: HISTORICAL TUBAL LIGATION HERNIA REPAIR Left PROCEDURE: LAPAROSCOPY, INGUINAL HERNIA REPAIR OTHER SURGICAL HISTORY 2013 PROCEDURE: [place] HYSTEROSCOPY ENDOMETRIAL ABLATION Medical History Medical History [...] 1:00 PM EST Office Visit Bariatric Surgery [facility] [address] [phone] Alex Posadas MD [address] [place] [phone] Health Maintenance Due Date Last Done Comments [...] Procedure Name Priority Date/Time Associated Diagnosis Comments [facility] SCREENING DIGITAL Routine 11/25/2021 11:53 AM EST Encounter for screening mammogram for malignant neoplasm of breast from Last 3 Months or Most Recently Relevant to Health Maintenance Results * KIMMIE SCREENING DIGITAL (11/25/2021 11:53 AM EST) Anatomical Region Laterality Modality Mammography 11/25/2021 9:31 AM EST Narrative 11/25/2021 11:53 AM EST [facility] Diagnostic Imaging Department [address] [place], [place] [id number] Patient: KENDRICK DIAZ /Age/Sex: 1970 - 51 - F Unit#: [id number] Location/Status: SPDIMA/REG CLI Mnemonic/Ordering Site: [facility] Ordering Physician: PARAMJIT THOMPSON MD [facility] Screening Digital - 11/25/21 - 1000 EXAM: [facility] Screening Digital EXAM DATE AND TIME: 11/25/2021 10:02 AM HISTORY: Screening. 2 sisters had breast carcinoma. COMPARISON: 11/29/20, 09/08/19, 09/06/18, 08/31/17 [place], [place] TECHNIQUE: CC and MLO views of both breasts were obtained using full field digital mammography. Bilateral digital breast tomosynthesis was performed in the MLO projection. Computer aided detection with the [employer] 7.2-H was employed. TISSUE DENSITY: b. There [...] Routine screening mammogram BILATERAL in 1 year. 68900, 18344 3342F, 7025F Dictating Physician: COLLIN WILLIAM MD Electronically Signed by: COLLIN WILLIAM MD Dic Date/Time: 11/25/21 1151 Sign date/Time: 11/25/21 1153 Procedure Note Collin William MD - 09/29/2022 [facility] Diagnostic Imaging Department [address] [place] [address] Patient: CATIEKENDRICK /Age/Sex: 1970 51 - Unit#: [id number] Location/Status: SPDIMAM/REG CLI Mnemonic/Ordering Site: [facility] Ordering Physician: PARAMJIT THOMPSON MD [facility] Screening Digital - 11/25/21 - 999 EXAM: [facility] Screening Digital EXAM DATE AND TIME: 11/25/2021 10:02 AM HISTORY: Screening. 2 sisters had breast carcinoma. COMPARISON: 11/29/20, 09/08/19, 09/06/18, 08/31/17 [place], [place] TECHNIQUE: CC and MLO views of both breasts were obtained using fullfield digital mammography. Bilateral digital breast tomosynthesis was performedin the MLO projection. Computer aided detection with the [employer] 7.2-St. Vibesas employed. TISSUE DENSITY: b. There are scattered [...] Routine screening mammogram BILATERAL in 1 year. 50644, 45100 3342F, 7025F Dictating Physician: COLLIN WILLIAM MD Electronically Signed by: COLLIN WILLIAM MD Dic Date/Time: 11/25/21 1151 Sign date/Time: 11/25/21 1153 Paramjit Thompson MD IMG BI PROCEDURES Final Result from Last 3 Months or Most Recently Relevant to Health Maintenance Insurance [facility] [employer] [place] [address] Care Teams Auto Air Conditioning Installer Relationship Specialty Start Date End Date Ellis Arevalo PA [address] [place] [address] PCP - General Physician Blocker And Sewer 04/16/25
== END ==
LOC: HO.CARD 07:53
PROVIDERS: PCP Physician Assistant; Visit Provider Physician Assistant
DX: R07.9 Chest pain, unspecified (principal)
CPT/HCPCS: 93017

== ENCOUNTER → 2025-06-06 07:56 | Outpatient (BNV) | payer OTHER, SELFPAY | PROVIDERS: PCP Physician Assistant | DX: R07.9 Chest pain, unspecified (principal) | CPT/HCPCS: 93016; 93018 ==

== ENCOUNTER 2025-07-23 08:45 | Outpatient (AMB) | payer OTHER, SELFPAY ==
--- NOTE | 2025-07-23 09:05 | A.OFFVIS_ITS ---
Vital Signs 07/23/25 09:07 Height 5 ft 2 in Weight 204 lb 2 oz BMI 37.3 Intake Visit Reasons: INJ-Pain in left knee/mild OA Intake Note: Renu is a 55 year old female who present today for follow up of her Left Knee Osteoarthritis. At her last visit on 04/26/24 injections were discussed however patient wished to proceed with conservative measures. A reaction knee brace was given for additional patellar stability a referral to Physical Therapy was placed. Patient is interested on a left knee steroid injection today. Allergies No Known Allergies Allergy (Verified 07/24/25 09:13) HPI HPI INJ-Pain in left knee/mild OA: Details: Renu is a 55 year old female who present today for follow up of her Left Knee Osteoarthritis. At her last visit on 04/26/24 injections were discussed however patient wished to proceed with conservative measures. A reaction knee brace was given for additional patellar stability a referral to Physical Therapy was placed. Patient is interested on a left knee steroid injection today. [facility] Medical History (Updated 07/24/25 @ 09:21 by Benjamin Altman MD) DJD (degenerative joint disease) Chronic headaches BMI 36.0-36.9,adult Obesity (BMI 35.0-39.9 without comorbidity) Uterine fibroid Abnormal Pap smear of cervix Allergic rhinitis Anxiety Arteritis Family history of brain aneurysm Migraine headache Surgical History Hx of endoscopy Hx of colonoscopy H/O LEEP H/O right inguinal hernia repair (03/16/17) History of endometrial ablation History of tubal ligation History of toe surgery History of incision and drainage Family History Father FH: prostate cancer HTN (hypertension) Sister History of breast cancer Sister History of breast cancer Son Heart attack, Onset Age: 12 Son Brain aneurysm Other Stomach cancer Social History Housing: House Alcohol intake: current Alcohol intake frequency: holidays/special occasions only Patient Tobacco Use Status: Never used Tobacco Tobacco use type: Cigarette e-Cigarette/Vaping Use: Never Used Second Hand Smoke Exposure: No service: No Current occupational status: unemployed Sexual orientation: Straight/Heterosexual Gender identity: Female Cognitive needs: No Hearing needs: No Vision needs: Yes (Glaases) Review of Systems Const All systems reviewed & are unremarkable except as noted in HPI and below Physical Exam Vital Signs: BMI result Body Mass Index 37.3 Office Procedures Joint Inj/Aspir; Non-Pain Clin Joint Injection/Drain Prep: site was prepped using aseptic technique and injection warnings given Approach Used: anterolateral Procedure: The patient tolerated the procedure well and there was some relief with the local anesthesia Shoulders, Hips, Knees, Knee Large Joint Injection 67712: Left Knee Coding Procedure code (CPT) selection complete Assessment & Plan Assessment & Plan (1) Osteoarthritis of left knee: Code(s): M17.12 - Unilateral primary osteoarthritis, left knee Category: Medical Qualifiers: Osteoarthritis type: primary Qualified Code(s): M17.12 - Unilateral primary osteoarthritis, left knee Plan 1. Left knee osteoarthritis The risks and benefits of a steroid injection including but not limited to risk of damage to blood vessels, nerves, tendons, infection, skin bleaching, failure to improve symptoms, increased pain, and possible need for further injections or other intervention were discussed with the patient and the patient wishes to proceed with the steroid injection. Once consent was obtained, I aseptically prepped the area over the anterolateral joint line of the left knee. I then injected the area over the anterolateral joint line with a combination of 40 mg of dexamethasone and 8 mL of 1% lidocaine. The patient tolerated the procedure well with no complications. If the patient continues to experience symptoms over the following few weeks or months, they can make an appointment to return and discuss alternative treatment measures, such as physical therapy. Follow-up prn Coding Level of Care Code Procedure Only Diagnoses Primary osteoarthritis of left knee M17.12 Osteoarthritis type: primary CPT Codes Shoulders, Hips, Knees, - Knee Large Joint Injection 53551: Left Knee ([id number])
[2025-07-23 09:07] VITALS: BMI 37.3
--- OUTSIDE RECORDS SUMMARY | 2025-07-23 09:14 | XMS_ITS | Encounter Summary ---
Author Organization [employer] Address [address] [place] [address] 7 [place] [address] Care Team Providers Care Mfg Assoc Name Role Phone Unavailable Primary Care Provider Unavailabl e Encounter Details Date Type Department Care Team (Latest Contact Info) Description 10/28/2021 Abstract [facility] CONVERSIONS Dental, Provider, DDS Social History Tobacco [...]
--- OUTSIDE RECORDS SUMMARY | 2025-07-23 09:14 | XMS_ITS | Encounter Summary ---
Author Organization [employer] Address [address] [place] [address] 7 [place] [address] Care Team Providers Care Peoplesoft Analyst Name Role Phone Unavailable Primary Care Provider Unavailabl e Encounter Details Date Type Department Care Team (Latest Contact Info) Description 12/19/2019 Abstract [facility] CONVERSIONS Dental, Provider, DDS Social [...]
--- OUTSIDE RECORDS SUMMARY | 2025-07-23 09:14 | XMS_ITS | Clinical Summary ---
Author Organization [address] [place] [address] Address [address] [place] [address] Phone Care Team Providers Care Curatorial Specialist Name Role Phone Ellis Arevalo Primary Care Provider Surgical History Surgery Date Site/Laterality Comments TUBAL LIGATION PROCEDURE: HISTORICAL TUBAL LIGATION HERNIA REPAIR Left PROCEDURE: LAPAROSCOPY, INGUINAL HERNIA REPAIR OTHER SURGICAL HISTORY 2013 PROCEDURE: [place] HYSTEROSCOPY ENDOMETRIAL ABLATION Medical History Medical History [...] 1:00 PM EST Office Visit Bariatric Surgery [address] [phone] Alex Posadas MD [address] [place] [phone] Health Maintenance Due Date Last Done Comments Colorectal Cancer Screening: Colonoscopy 1972 DTaP,Tdap,and Td Vaccines (1 - Tdap) 01/08/1991 Hepatitis B Vaccines (1 of 3 - 19+ 3-dose series) 01/08/1991 Cervical Cancer Screening: P ap Smear 01/08/1993 Pneumococcal Vaccine: 50+ Ye ars (1 of 1 - PCV) 01/08/2022 Zoster Vaccines (1 of 2) 01/08/2022 Breast Cancer Screening 11/25/2023 11/25/2021 Depression Screening 10/10/2024 HIV Screening 04/17/2025 Hepatitis C Screening 04/17/2025 Social Influencers of Health Screening 04/17/2025 COVID-19 Vaccine ( - 2023-2 5 season) 2025 Influenza Vaccine (#1) 2025 RSV Immunization Adult Patie nts (1 - 1-dose 75+ series) 01/08/2047 HIB [...] Procedure Name Priority Date/Time Associated Diagnosis Comments [facility] SCREENING DIGITAL Routine 11/25/2021 11:53 AM EST Encounter for screening mammogram for malignant neoplasm of breast from Last 3 Months or Most Recently Relevant to Health Maintenance Results * KIMMIE SCREENING DIGITAL (11/25/2021 11:53 AM EST) Anatomical Region Laterality Modality Mammography 11/25/2021 9:31 AM EST Narrative 11/25/2021 11:[address] [facility] Diagnostic Imaging Department [address] [place] [address] Patient: KENDRICK DIAZ /Age/Sex: 1970 - 51 - F Unit#: [id number] Location/Status: SPDIMAM/REG CLI Mnemonic/Ordering Site: [facility] Ordering Physician: PARAMJIT THOMPSON MD [facility] Screening Digital - 11/25/21999 EXAM: [facility] Screening Digital EXAM DATE AND TIME: 11/25/2021 10:02 AM HISTORY: Screening. 2 sisters had breast carcinoma. COMPARISON: 11/29/20, 09/08/19, 09/06/18, 08/31/17 [place], [place] TECHNIQUE: CC and MLO views of both breasts were obtained using full field digital mammography. Bilateral digital breast tomosynthesis was performed in the MLO projection. Computer aided detection with the [employer] 7.2-H was employed. TISSUE DENSITY: b. There [...] Routine screening mammogram BILATERAL in 1 year. 23575, 47490 8563F, 6540F Dictating Physician: COLLIN WILLIAM MD Electronically Signed by: COLLIN WILLIAM MD Dic Date/Time: 11/25/21 1151 Sign date/Time: 11/25/21 1153 Procedure Note Collin William MD - 09/29/2022 [facility] Diagnostic Imaging Department [address] [place] [address] Patient: KENDRICK DIAZ /Age/Sex: 1970 - 51 - F Unit#: [id number] Location/Status: [facility] CLI Mnemonic/Ordering Site: [facility] Ordering Physician: PARAMJIT THOMPSON MD [facility] Screening Digital - 11/25/21 - 1000 EXAM: [facility] Screening Digital EXAM DATE AND TIME: 11/25/2021 10:02 AM HISTORY: Screening. 2 sisters had breast carcinoma. COMPARISON: 11/29/20, 09/08/19, 09/06/18, 08/31/17 [place], [place] TECHNIQUE: CC and MLO views of both breasts were obtained using fullfield digital mammography. Bilateral digital breast tomosynthesis was performedin the MLO projection. Computer aided detection with the [employer] 7.2-Hwas employed. TISSUE DENSITY: b. There are scattered [...] Routine screening mammogram BILATERAL in 1 year. 10888, 66264 3342F, 7025F Dictating Physician: COLLIN WILLIAM MD Electronically Signed by: COLLIN WILLIAM MD Dic Date/Time: 11/25/21 1151 Sign date/Time: 11/25/21 1153 Paramjit Thompson MD IMG BI PROCEDURES Final Result from Last 3 Months or Most Recently Relevant to Health Maintenance Insurance [facility] Care Teams Curatorial Specialist Relationship Specialty Start Date End Date Ellis Arevalo PA [address] [place] [phone] PCP - General Physician Brick Carrier 04/16/25
--- OUTSIDE RECORDS SUMMARY | 2025-07-23 09:15 | XMS_ITS | Clinical Summary ---
Author Organization [employer] Address [address] [place] [address] 7t [place] [address] Care Team Providers Care Land Inspector Name Role Phone Unavailable Primary Care Provider [...] Problem Noted Date Diagnosed Date Fractured dental christian with loss of materi al 11/23/2024 Normal [...] (1 of 2) 01/08/2022 Mammogram 11/25/2023 11/25/2021 Dental X-Ray: Bitewings 02/27/2025 02/27/2024, 03/07 /2023 Dental Oral Exam 05/22/2025 11/21/2024, , 12/14/2022 Dental Prophylaxis 05/22/2025 11/21/2024, 0 02/27/2024, 12/14/2022 COVID-19 Vaccine ( season) 2025 01/26/2022, 08/19/2021, 12/18/2020, Additional history exists Influenza Vaccine (#1) 2025 , 08/21/2019, 08/15/2018, [...] Most Recently Relevant to Health Maintenance Insurance [facility] - HSN PARTIAL (MEDICAID)
== END 2025-07-23 09:20 | disposition home or self-care (01) ==
LOC: HO.HOS 08:45
PROVIDERS: PCP Physician Assistant
DX: M17.12 Unilateral primary osteoarthritis, left knee (principal)
CPT/HCPCS: 20610

== ENCOUNTER → 2025-07-23 08:45 | Outpatient (BNVA) | payer OTHER, SELFPAY | PROVIDERS: PCP Physician Assistant | DX: M17.12 Unilateral primary osteoarthritis, left knee (principal); G54.0 Brachial plexus disorders | CPT/HCPCS: 20610; 99202; J0665; J1100; J2003 ==

== ENCOUNTER 2025-07-23 10:59 | Outpatient (AMB) | payer OTHER, SELFPAY ==
--- NOTE | 2025-07-23 11:04 | MHC.OFFVIS ---
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 Patient states at night her hands and arms get numb and tingly especially at night. Has been happening about a year now. Accompanied by: Self / Same As Patient Allergies No Known Allergies Allergy (Verified 07/23/25 11:07) HPI HPI [employer] SUPER[employer]OR/PCP referral for BUE numbness/tingling: Details: Very pleasant 55-year-old female presents for evaluation regarding thoracic outlet syndrome. She has had bilateral upper extremity numbness and tingling but she reports it is right more so than left. She was actually seen by neurology. In April of 2025 she had undergone nerve conduction studies which did appear to be normal. December of [address] angio of the head and neck which was essentially negative. In February of 2024 she had a chest x-ray which did demonstrate bilateral cervical ribs projecting from C7. Of note she is a nonsmoker nondiabetic. Upon discussion with she does report some pain in the shoulder neck region. It does radiate down the arm. She does also note some paresthesias in particular the forearm more so in the ulnar distribution. She does have some mild motor weakness as well. She has occasional difficulty gripping. In addition she reports difficulty opening jars. She does have some heaviness and fatigue in particular the right upper extremity. She now presents to us for vascular evaluation. [facility] Medical History Uterine fibroid Abnormal Pap smear of cervix Allergic rhinitis Anxiety Arteritis Family history of brain aneurysm Migraine headache Surgical History Hx of endoscopy Hx of colonoscopy H/O LEEP H/O right inguinal hernia repair (03/16/17) History of endometrial ablation History of tubal ligation History of toe surgery History of incision and drainage Family History Father FH: prostate cancer HTN (hypertension) Sister History of breast cancer Sister History of breast cancer Son Heart attack, Onset Age: 12 Son Brain aneurysm Other Stomach cancer Social History Housing: House Alcohol intake: current Alcohol intake frequency: holidays/special occasions only Patient Tobacco Use Status: Never used Tobacco Tobacco use type: Cigarette e-Cigarette/Vaping Use: Never Used Second Hand Smoke Exposure: No service: No Current occupational status: unemployed Sexual orientation: Straight/Heterosexual Gender identity: Female Cognitive needs: No Hearing needs: No Vision needs: Yes (Glaases) Review of Systems Const All systems reviewed & are unremarkable except as noted in HPI and below Reports no additional complaints ENT Reports Normal hearing present Card Denies chest pain, Denies chest pain at rest, Denies chest pain with activity and Denies pedal edema Resp Denies cough GI Denies abdominal pain Musc Denies abnormal gait, Denies muscle cramps and Denies radiating pain into limb Skin/Breast Denies skin ulcer and Denies wounds Neuro Reports Normal hearing present and Denies abnormal gait Psych Reports no additional complaints Physical Exam Const General: cooperative, healthy appearing and comfortable Orientation/consciousness: oriented to person, oriented to place and oriented to time HEENT Head: Yes normal to inspection Neck Neck: Yes normal visual inspection Carotids: no bruits Chest Chest palpation & inspection: normal inspection of the chest Resp Effort & Inspection: normal respiratory effort and able to speak in complete sentences Auscultation: clear to auscultation bilaterally, no crackles, no rales, no rhonchi and no wheezes Cardio Other: Bilateral upper extremities palpable brachial radial ulnar pulses. Rate: regular rate Rhythm: regular rhythm Heart sounds: S1 normal heart sound present and S2 normal heart sound present Bruits: no carotid bruits Peripheral pulses: Peripheral pulses 2+ throughout GI Inspection: Yes normal to inspection Skin Wounds: no wounds Hair: normal Neuro General: oriented to person, oriented to place and oriented to time Cranial nerves: Yes CN's II-XII intact bilaterally and Yes Normal hearing present Cognition (Neuro): normal cognition Motor exam (neuro): 5/5 motor strength present throughout Extrem Other: Positive East test General: No clubbing, No cyanosis and No edema Psych Appearance: grossly normal Mental Status: mental status grossly normal Speech and movement: Normal speech and movement present Assessment & Plan Assessment & Plan (1) Neurogenic thoracic outlet syndrome: Code(s): G54.0 - Brachial plexus disorders Category: Medical Plan: In short there is concern of neurogenic thoracic outlet syndrome. She does demonstrate clinical stigmata of neurogenic thoracic outlet. On plain films she is noted to have cervical ribs. I have reviewed the findings with her and do feel that she may be better served at a tertiary care center. Will refer to vascular surgeon focusing in on thoracic outlet. She will follow up with us on an as-needed basis. Thank you for allowing us to participate in her care. Coding Level of Care Code New Pt Level 4 (58057) Diagnoses Neurogenic thoracic outlet syndrome G54.0
== END 2025-07-23 11:35 | disposition home or self-care (01) ==
LOC: HO.HVS 11:00
PROVIDERS: Visit Provider Surgery Vascular Surgery
DX: G54.0 Brachial plexus disorders (principal)
CPT/HCPCS: 99204

== ENCOUNTER 2025-07-24 08:13 | Outpatient (AMB) | payer OTHER, SELFPAY ==
--- OUTSIDE RECORDS SUMMARY | 2025-07-24 08:27 | XMS_ITS | Encounter Summary ---
Author Organization [employer] Address [address] [place] [address] 7 [place] [address] Care Team Providers Care Mems Device Scientist Name Role Phone Unavailable Primary Care Provider Unavailabl e Encounter Details Date Type Department Care Team (Latest Contact Info) Description 10/28/2021 Abstract [facility] CONVERSIONS Dental, Provider, DDS Social History Tobacco [...]
--- OUTSIDE RECORDS SUMMARY | 2025-07-24 08:27 | XMS_ITS | Data Portability ---
Author Organization [place] - [facility], Allergy Address [address] [address] Care Team Providers Care Backup Sawyer Name Role Phone ISABELLA JOSEPH Primary Care Provider [phone] Assessment No assessment recorded. Plan of Treatment Reminders Order Date Submit Date Provider Last Modified By Organization Details Last Modified Time Details Appointments Establish ed 15 2025 11:00A M ALEJANDRA RUIZ MD Not available Not [...] Name and Address Organization Details Recorded Time Sensorine ural hearing loss of bilateral ears 887387894 Active 2017 Sensorine ural hearing loss, bilateral ; Note: Date Diagnosed : 07/18/2018 9:37 AM (H90.3) Not Available [facility] 4 03:08:13 Dizziness and giddiness 371339072 Active 2018 Dizziness and giddiness ; Note: Date Diagnosed : 03/14/2019 9:14 AM (R42) Not Available [facility] 4 03:08:12 Impacted cerumen in right ear [id number] 56019 Active 2018 Impacted cerumen, right ear; Note: Date Diagnosed : 03/14/2019 9:12 AM (H61.21) Not Available [facility] 4 03:08:12 Migraine without aura, not refractor y 570046019 Active 2018 Migraine without aura, not intractab le, without status migrainos us; Note: Date Diagnosed : 03/14/2019 9:14 AM (G43.009) Not Available [facility] 4 03:08:14 Migraine with aura 7969146 Active 2018 Migraine with aura, not intractab le, without status migrainos us; Note: Date Diagnosed : 06/13/2019 10:17 AM (G43.109) Not Available [facility] 4 03:08:14 Tinnitus of right ear 61663428530 08 Active 2020 Tinnitus, right ear; Note: Date Diagnosed : 11/17/2020 9:15 AM (H93.13) Not Available [facility] 4 03:08:12 Impacted cerumen of bilateral ears 85799412698 92059 Active 2022 Impacted cerumen, bilateral ; Note: Date Diagnosed : 11/04/2022 9:41 AM (H61.23) Impacte d cerumen, bilateral ; Note: Date Diagnosed : 11/15/2018 11:21 AM (H61.23) ; Start Date : 9 Not Available [facility] 4 03:08:13 Problem Notes None recorded. Procedures Surgical History Date Name Laterality Status Provider Name and Address Organization Details Recorded Time 05/07/2024 Comp Audio with Tymps - 51166 & 22488 completed JESUS ALBERTO SMITH, [facility] [address] [facility],[place] [address], [place], [address], [facility] - [facility] 05/07/2024 11:22:38 Imaging Results None recorded. Procedure Notes None recorded. Medical Equipment None Reported. Allergies No known drug allergies Medications Name Sig Start Date Stop Date Status Note LastModified by Organization Details LastModified Time cyclobenz aprine 10 mg tablet 11/04 completed Medicati on ID: [id number] B rand Name: cycloben zaprine Send Method: [...] mg tablet 11/04 completed Medicati on ID: [id number] B rand Name: cetirizi ne Send Method: E-Prescr ibed Sub s Allowed: subs OK Medic ationGen ericName : cetirizi ne Not Available Not Available Not Available ibuprofen 800 mg tablet TAKE ONE TABLET BY MOUTH EVERY 8 HOURS NEEDED FOR PAIN FOR 10 DAYS active Not Available Not Available No t Available valacyclo vir 1 gram tablet TAKE ONE TABLET BY MOUTH EVERY 8 HOURS FOR 7 DAYS active Not Available Not Available No t Available senna 8.6 mg tablet TAKE ONE TABLET BY MOUTH AT BEDTIME 05/07 completed Not Available Not Available Not Available sumatript an 25 mg tablet FOR 30 DAYS; TAKE 1 TABLET AT ONSET OF HEADACHE ; IF NO RELIEF MAY REPEAT 1 TABLET AFTER AT LEAST 2 HOURS; MAX = 4 TABLETS PER DAY active Not Available Not Available No t Available prednison e 20 mg tablet 11/04 completed Medicati on ID: [id number] B rand Name: predniso ne Send Method: E-Prescr ibed Sub s Allowed: subs OK Medic ationGen ericName : predniso ne Not Available Not Available Not Available propranol ol 10 mg tablet TAKE ONE TABLET BY MOUTH TWICE A DAY active Not Available Not Available No t Available magnesium oxide 400 mg (241.3 mg magnesium ) tablet TAKE 1 TABLET BY MOUTH AT BEDTIME; MAY HOLD FOR LOOSE STOOLS. active Not Available Not Available No t Available Valium 2 mg tablet 1 tablet by mouth 04/08 completed Medicati on ID: [id number] P yaredrisusan d By Name: John Shafer MD Brand Name: Valium S end Method: E-Prescr ibed Sub s Allowed: subs OK Medic ationGen ericName : Valium Not Available Not Available Not Available baclofen 10 mg tablet TAKE ONE TABLET BY MOUTH TWICE A DAY NEEDED FOR MUSCLE SPASM FOR 10 DAYS 05/31 completed Not Available Not Available Not Available fluoxetin e 10 mg capsule TAKE 1 CAPSULE BY MOUTH DAILY ; RETURNIN G DOSE BACK TO 10MG)). active Not Available Not Available No t Available Gas Relief Extra Strength 125 mg capsule TAKE ONE CAPSULE BY MOUTH TWICE A DAY NEEDED FOR GAS/BLOA TING active Not Available Not Available No t Available Advil 200 mg tablet 03/14 completed Medicati on ID: [id number] R marina: () Brand Name: Advil Se nd Method: E-Prescr ibed Sub s Allowed: subs OK Medic ationGen ericName : Advil Not Available Not Available Not Available omeprazol e 20 mg capsule,d elayed release 05/07 completed Medicati on ID: [id number] B rand Name: omeprazo le Send Method: E-Prescr ibed Sub s Allowed: subs OK Medic ationGen ericName : omeprazo le Medic ation ID: [id number] B rand Name: omeprazo le Send Method: E-Prescr ibed Sub s Allowed: subs OK Medic ationGen ericName : omeprazo le Not Available Not Available Not Available hydroxyzi ne HCl 25 mg tablet TAKE ONE TABLET BY MOUTH AT BEDTIME active Not Available Not Available No t Available codeine 10 mg-guaife nesin 100 mg/5 mL oral liquid TAKE 5 ML BY MOUTH EVERY 6 HOURS NEEDED FOR COUGH FOR 5 DAYS 07/26 completed Not Available Not Available Not Available gabapenti n 100 mg capsule TAKE ONE CAPSULE BY MOUTH THREE TIMES A DAY NEEDED FOR PAIN active Not Available Not Available No t Available lorazepam 1 mg tablet 07/26 completed Medicati on ID: [id number] B rand Name: lorazepa m Send Method: E-Prescr ibed Sub s Allowed: subs OK Medic ationGen ericName : lorazepa m Not Available Not Available Not Available ibuprofen 600 mg tablet 04/08 completed Medicati on ID: [id number] D uration Value: 30 Brand Name: ibuprofe [...] completed Not Available Not Available Not Available naratript an 2.5 mg tablet TAKE ONE-HALF TO ONE TABLET BY MOUTH AT ONSET OF HEADACHE . IF NO RELIEF MAY REPEAT 1 TABLET AFTER AT LEAST 4 HOURS. MAX = 2 TABLETS/ 24 HOURS active Not Available Not Available No t Available dicyclomi ne 10 mg capsule TAKE ONE CAPSULE BY MOUTH EVERY 8 HOURS NEEDED FOR PAIN/ CRAMPS 05/07 completed Not Available Not Available Not Available Ventolin HFA 90 mcg/actua tion aerosol inhaler 05/07 completed Medicati on ID: [id number] B rand Name: Ventolin HFA Send Method: E-Prescr ibed Sub s Allowed: subs OK Medic edmundion ericName : Ventolin HFA Medi cation ID: [id number] B rand Name: Ventolin HFA Send Method: E-Prescr ibed Sub s Allowed: subs OK Medic ationGen ericName : Ventolin HFA Not Available Not Available Not Available Vitamin D3 25 mcg (1,000 unit) capsule 11/29 completed Medicati on ID: [id number] D uration Value: 30 Brand Name: Vitamin D3 Send Method: E-Prescr ibed Sub s Allowed: subs OK Medic ationGen ericName : Vitamin D3 Not Available Not Available Not Available ciproflox acin 0.3 %-dexamet hasone 0.1 % ear drops,cristobal pension INSTILL 4 DROPS INTO THE RIGHT EAR EVERY 12 HOURS FOT 7 DAYS 05/07 completed Not Available Not Available Not Available topiramat e 50 mg tablet TAKE ONE TABLET BY MOUTH AT BEDTIME. active Not Available Not Available No t Available butalbita l-acetami nophen-ca ffeine 50 mg-300 mg-40 mg capsule TAKE ONE CAPSULE BY MOUTH EVERY 8 HOURS NEEDED FOR PAIN active Not Available Not Available No t Available riboflavi n (vitamin B2) 400 mg tablet TAKE 1 TABLET BY MOUTH DAILY. active Not Available Not Available No t Available Wegovy 1.7 mg/0.75 mL subcutane ous [...] ML) SUBCUTAN EOUSLY EVERY WEEK FOR 4 WEEKS. 05/31 completed Not Available Not Available Not Available Zepbound 2.5 mg/0.5 mL subcutane ous pen injector INJECT 2.5 MG 0.5 ML) SUBCUTAN EOUSLY EVERY WEEK FOR 4 WEEKS. active Not Available Not Available No t Available Vitals Date Recorded Body height Body mass index (BMI) Body weight Provider Name and Address Organization Details Last Updated DateTime 11/29/2024 157.48 cm 35.7 kg/m2 41670.51 g Maryanne Verma [facility] 11/29/2024 10:17:21 Date Recorded Body height Body mass index (BMI) Body weight Provider Name and Address Organization Details Last Updated DateTime 05/07/2024 157.48 cm 37.7 kg/m2 66108.03 g Maryanne Verma [facility] 05/07/2024 11:41:53 Date Recorded Body height Body mass index (BMI) Body weight Provider Name and Address Organization Details Last Updated DateTime 05/31/2025 157.48 cm 36.8 kg/m2 07522.07 g Maryanne Verma [facility] 05/31/2025 10:47:26 Date Recorded Body height Body mass index (BMI) Body weight Provider Name and Address Organization Details Last Updated DateTime 07/26/2024 157.48 cm 37.7 kg/m2 77322.03 g Sudha Kimble [facility] 07/26/2024 10:54:24 Social History None recorded. Functional Status None recorded. Mental Status None recorded. Family History Nothing Reported. Medical History No medical history recorded. Gynecological HistoryNo gynecological history recorded. Obstetrics History GPAL:G 0 P 0 0 0 0 Past Encounters Encounter ID Performer Location Encounter Start Date Encounter Closed Date Diagnosis/Indication Diagnosis SNOMED-CT Code Diagnosis ICD10 Code Diagnosis IMO Codes Diagnosis Note [id number] ALEJANDRA RUIZ MD [facility] [address] [address] 05/07/2024 10:51:22 05/07/2024 17:01:48 Sensorineural hearing loss of bilateral ears 967499639 H90.3 We reviewed her audiogram which showed stable thresholds compared to 202 though her word understand ing has declined. She is an excellent candidate for amplificat ion. I did give her medical clearance. She may follow-up as needed. Audiologic al evaluation results:Ri ght ear:Mild sloping to a moderate sensorineu ral hearing loss with good word recognitio n.Left ear:Mild sloping to a moderate sensorineu ral hearing loss with good word recognitio n. Tympanomet ry:Right Ear:Type ALeft Ear:[place] [id number] ALEJANDRA RUIZ MD [facility] [address] [address] 07/26/2024 10:40:18 07/26/2024 11:12:35 Sensorineural hearing loss of bilateral ears 908181015 H90.3 Partially impacted cerumen was removed and tolerated well. Dizziness has been under control lately. She is scheduled for hearing aid evaluation . We can reassess for cerumen in 4 months or sooner if needed. [id number] ALEJANDRA RUIZ MD [facility] [address] [address] 11/29/2024 10:11:37 11/29/2024 11:04:54 Sensorineural hearing loss of bilateral ears 423591381 H90.3 Partially impacted cerumen was removed and tolerated well. Dizziness has been under control lately. We can reassess for cerumen in 6 months or sooner if needed. [id number] ALEJANDRA RUIZ MD [facility] [address] [address] 05/31/2025 10:07:03 05/31/2025 11:02:19 Impacted cerumen of bilateral ears 4150836758 416495 H61.23 Partially impacted cerumen was removed and tolerated well. Dizziness has been under control lately. We can reassess for cerumen in 12 months or sooner if needed. Health Concerns Section Related Observation LastModified by Organization Detai ls LastModified Time None Recorded Concern Status LastModified by Organization Details LastModified Time None Recorded Advance Directives Directive None Recorded Payers Insurance Date Sequence Insurance Name Policy Number Policy Yeung Covered Member ID Yeung Member ID Guarantor Name 06/03/2025 1 [facility] (O) [id number] Renu Diaz [id number] Renu Diaz Notes Date Note Type Note Provider Name and Address Organization Details Recorded Time 05/07/2024 text/html 64-year-old female presents today for follow-up of hearing. She reports the dizziness is improved since her last visit. She continues on Wegovy. ALEJANDRA RUIZ MD [address] [place] [address],[address], [address], [place] - [facility] 05/07/2024 12:39:05 07/26/2024 text/html Went to go get the hearing aids. Noticed tinnitus bilaterally, especially when sleeping. PV: 64-year-old female presents today for follow-up of hearing. She reports the dizziness is improved since her last visit. She continues on Wegovy. ALEJANDRA RUIZ MD [address] [place] [address],[address], [address], [place] - [facility] 07/28/2024 13:24:32 11/29/2024 text/html hearing aids new x 3 daysdizziness controlled migraines no change ALEJANDRA RUIZ MD [address] [place] [address],[address], [address], [place] - [facility] 12/02/2024 15:07:08 05/31/2025 text/html No new concerns. Dizziness overall controlled Migraines no change Using and liking hearing aids. ALEJANDRA RUIZ MD [address] [place] [address],[address], [address], [place] - [facility] 05/31/2025 10:59:51 OBGyn Episode No OBEpisode recorded.
--- OUTSIDE RECORDS SUMMARY | 2025-07-24 08:27 | XMS_ITS | Encounter Summary ---
Author Organization [employer] Address [address] [place] [address] [address] [place] [address] Care Team Providers Care Quality Improvement Consultant Name Role Phone Unavailable Primary Care Provider Unavailabl e Encounter Details Date Type Department Care Team (Latest Contact Info) Description 12/19/2019 Abstract [facility] CONVERSIONS Dental, Provider, DDS Social History Tobacco [...]
--- OUTSIDE RECORDS SUMMARY | 2025-07-24 08:28 | XMS_ITS | Clinical Summary ---
Author Organization [employer] Address [address] [place] [address] [address]t [place] [address] Care Team Providers Care Alemite Operator Name Role Phone Unavailable Primary Care [...] Problem Noted Date Diagnosed Date Fractured dental adventist with loss of materi al 11/23/2024 Normal [...] Most Recently Relevant to Health Maintenance Insurance [facility] PART[facility] (MEDICAID)
--- OUTSIDE RECORDS SUMMARY | 2025-07-24 08:28 | XMS_ITS | Clinical Summary ---
Author Organization [address] [place] [address] Address [address] [place] [address] Phone Care Team Providers Care Stripping Machine Operator Name Role Phone Ellis Arevalo Primary Care Provider Surgical History Surgery Date Site/Laterality Comments TUBAL LIGATION PROCEDURE: HISTORICAL TUBAL LIGATION HERNIA REPAIR Left PROCEDURE: LAPAROSCOPY, INGUINAL HERNIA REPAIR OTHER SURGICAL HISTORY 2013 PROCEDURE: [place] HYSTEROSCOPY ENDOMETRIAL ABLATION Medical History Medical History [...] 1:00 PM EST Office Visit Bariatric Surgery [address] [address] Alex Posadas MD [address] [place] [phone] Health Maintenance Due Date Last Done [...] Procedure Name Priority Date/Time Associated Diagnosis Comments [facility] SCREENING DIGITAL Routine 11/25/2021 11:53 AM EST Encounter for screening mammogram for malignant neoplasm of breast from Last 3 Months or Most Recently Relevant to Health Maintenance Results * [facility] SCREENING DIGITAL (11/25/2021 11:53 AM EST) Anatomical Region Laterality Modality Mammography 11/25/2021 9:31 AM EST Narrative 11/25/2021 11:53 AM [facility] Diagnostic Imaging Department [address] [place] [address] Patient: KENDRICK DIAZ /Age/Sex: 1970 - 51 - F Unit#: [id number] Location/Status: SPDIMAM/REG CLI Mnemonic/Ordering Site: [facility] Ordering Physician: PARAMJIT THOMPSON MD [facility] Screening Digital - 11/25/21999 EXAM: [facility] Screening Digital EXAM DATE AND TIME: 11/25/2021 10:02 AM HISTORY: Screening. 2 sisters had breast carcinoma. COMPARISON: 11/29/20, 09/08/19, 09/06/18, 08/31/17 [place], [place] TECHNIQUE: CC and MLO views of both breasts were obtained using full field digital mammography. Bilateral digital breast tomosynthesis was performed in the MLO projection. Computer aided detection with the Cornice 7.2-H was employed. TISSUE DENSITY: b. There [...] Routine screening mammogram BILATERAL in 1 year. [address], [address]6218 8850F, 8709F Dictating Physician: COLLIN WILLIAM MD Electronically Signed by: COLLIN WILLIAM MD Dic Date/Time: 11/25/21 1151 Sign date/Time: 11/25/21 1153 Procedure Note Collin William MD - 09/29/2022 [facility] Diagnostic Imaging Department [address] [place] [address] Patient: KENDRICK DIAZ /Age/Sex: 1970 - 51 - F Unit#: [id number] Location/Status: [facility] CLI Mnemonic/Ordering Site: [facility] Ordering Physician: PARAMJIT THOMPSON MD [facility] Screening Digital - 11/25/21 - 1000 EXAM: [facility] Screening Digital EXAM DATE AND TIME: 11/25/2021 10:02 AM HISTORY: Screening. 2 sisters had breast carcinoma. COMPARISON: 11/29/20, 09/08/19, 09/06/18, 08/31/17 [place], [place] TECHNIQUE: CC and MLO views of both breasts were obtained using fullfield digital mammography. Bilateral digital breast tomosynthesis was performedin the MLO projection. Computer aided detection with the Cornice 7.2-Hwas employed. TISSUE DENSITY: b. There are [...] Routine screening mammogram BILATERAL in 1 year. [address], [address]45 3342F, 7025F Dictating Physician: COLLIN WILLIAM MD Electronically Signed by: COLLIN WILLIAM MD Dic Date/Time: 11/25/21 1151 Sign date/Time: 11/25/21 1153 Paramjit Thompson MD IMG BI PROCEDURES Final Result from Last 3 Months or Most Recently Relevant to Health Maintenance Insurance [facility] Care Teams Stripping Machine Operator Relationship Specialty Start Date End Date Ellis Arevalo PA [address] [place] [id number] PCP - General Physician Customs Examiner 04/16/25
[2025-07-24 09:10] VITALS: BMI 36.4
--- NOTE | 2025-07-24 09:10 | A.OFFVIS_ITS ---
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* Dermatology Sales Representative Required: Yes Dermatology Sales Representative Services: Dermatology Sales Representative Present Information Interpreted: clinical only Allergies No Known Allergies Allergy (Verified 07/24/25 09:13) Medication List - Last Reconciled 07/24/25 by Benjamin Altman MD acetaminophen (Tylenol Extra Strength) 500 mg PO TID PRN fluoxetine 10 mg PO DAILY fluticasone propionate 50 mcg/actuation 1 spray intranasal DAILY galcanezumab-gnlm (Emgality Pen) 120 mg subcut QMONTH 30 days hydroxyzine HCl 25 mg PO BEDTIME 30 days ibuprofen 800 mg PO Q8H PRN 10 days magnesium oxide 400 mg PO BEDTIME 90 days naratriptan take 1/2 - 1 tab at onset of headache; if no relief may repeat 1 tab after at least 4 hrs; max = 2 tabs/24 hrs orally PRN; 30 days riboflavin (vitamin B2) 400 mg PO DAILY 30 days topiramate (Topamax) 50 mg PO BEDTIME 30 days HPI 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*: Details: Start time: 9.11am, End time: 10.11am ?I spent 50 minutes speaking with the patient on the phone plus an additional 5 minutes reviewing and updating records for a total of 60 minutes HPI Comments Details: Previous weight loss efforts: Zepbound (only short term due to insurance problem), exercise, self diets Wakes up: 6.30am, Sleeps: 11pm Breakfast: 8.30am (peanut butter toast) Lunch: 2pm (fish) Dinner: 5pm (salmon, rice, seafood salad) Snacks: 10am (cookie), 4pm (soup), 8pm (fruit) Exercise: None, has gym membership Beverages: Coffee: 2cups/d (almond milk with Splenda), Tea: none, Soda: Diet coke, Juice: often, ETOH: none PFSH Medical History (Updated 07/24/25 @ 09:21 by Benjamin Altman MD) DJD (degenerative joint disease) Chronic headaches BMI 36.0-36.9,adult Obesity (BMI 35.0-39.9 without comorbidity) Uterine fibroid Abnormal Pap smear of cervix Allergic rhinitis Anxiety Arteritis Family history of brain aneurysm Migraine headache Surgical History Hx of endoscopy Hx of colonoscopy H/O LEEP H/O right inguinal hernia repair (03/16/17) History of endometrial ablation History of tubal ligation History of toe surgery History of incision and drainage Family History Father FH: prostate cancer HTN (hypertension) Sister History of breast cancer Sister History of breast cancer Son Heart attack, Onset Age: 12 Son Brain aneurysm Other Stomach cancer Social History Housing: House Alcohol intake: current Alcohol intake frequency: holidays/special occasions only Patient Tobacco Use Status: Never used Tobacco Tobacco use type: Cigarette e-Cigarette/Vaping Use: Never Used Second Hand Smoke Exposure: No service: No Current occupational status: unemployed Sexual orientation: Straight/Heterosexual Gender identity: Female Cognitive needs: No Hearing needs: No Vision needs: Yes (Glaases) Telehealth Telehealth Telehealth Platform: Telephone Location of provider rendering services: practice address Location of patient: address on file Patient Identification confirmed using: Name, : Yes Telehealth method: voice only Patient verbally consented to treatment: Yes Patient verbally consented to billing insurance company: Yes Patient informed of any privacy concerns related to visit: Yes Minutes spent on Phone/Video with Pt.: 60 Assessment & Plan Assessment & Plan (1) Obesity (BMI 35.0-39.9 without comorbidity): Code(s): E66.9 - Obesity, unspecified Category: Medical Plan: 1.? Plan for lap sleeve gastrectomy. If diaphragmatic or ventral hernias are present at time of surgery, these will be repaired laparoscopically as well. I emphasized the importance of close follow-up, adherence to instructions and good communication. The surgery does not replace the need to change your lifestlyle which is the cause of the obesity problem. The surgery provides the motivation to try again to change your lifestyle, it reduces the appetite and make the transition to a better lifestyle easier and doubles the amount of weight you would lose compared to doing the lifestyle change without the surgery. You will need to be on a liquid diet with protein shakes for 2 weeks before surgery to maximize weight loss and boost your nutritional status to recover better from surgery and also for the first two weeks after surgery to let the stomach heal before we introduce other foods. After the first 2 weeks we will introduce protein bars and soft foods like scrambled eggs, cottage cheese and yogurt and after the 6th week will introduce meat, fish and cooked vegetables in small amounts. Over time you should be able to eat everything in small amounts. Side effects like nausea, vomiting, heartburn or abdominal pain are not common in the practice unless you are not following in the practice. This operation requires lifetime commitment to following in our practice and communication with me. You will much less weight and experience side effects if you don?t communicate or not following in the practice. Complications are rare and in our practice is about 1/10 of the national average. However, you can develop bleeding that may require transfusion (hasn?t happened for year in the practice), you may from complications (we did not have any deaths in the practice) and infections. Infections are usually a result of breakdown in communication or not understanding or following directions correctly. They are difficult to treat, they can happen during the first 6 weeks, they may require to be in the hospital for weeks or even months, not being able to eat by mouth and you may have drains and surgeries to try and correct the issue. Other risks and complications include possible conversion to an open procedure, leaks, small bowel obstruction, blood clots, cardiac, or pulmonary complications, as care home complications such as ulcers, insufficient weight loss and vitamin deficiencies. 2. Nutritional counseling. Start with one premade PREMIER protein (buy at [employer] or [employer]) shake (mix 4oz of Premier mixed with 4oz low fat unsweetened almond milk each) at 8am-10am, one protein bar (Fit Crunch protein bar, buy at [employer], or [employer]) at 11am-1pm, another premade PREMIER protein shake (mix 4oz of Premier mixed with 4oz low fat unsweetened almond milk each) at 2pm-4pm, dinner at 5pm (8 forks of protein and 8 forks of salad/vegetables) and another Fit Crunch protein bar at 7pm-9pm. If hungry she can have another HALF Fit Crunch bar at 10pm-11pm. So you do 2 protein shakes, 2 to 2.5 protein bars and one meal per day. Meal to include lean meat (beef, fish, pork, turkey, chicken), or gibraltarian yogurt, or egg whites, or beans with a salad with olive oil and fruits (berries, pears, apples, kiwi). Avoid salt, breads, potatoes, rice, pasta, desserts. 3. Each shake would be drunk slowly, like coffee in a period of 2 hours. 4. Cut each bar in 4 pieces and eat each piece in 30min ?to make each bar last 2 hours. 5. I emphasized the importance of measuring accurately the food portion and measure it when serving the food in plate 6. The meal portions include 8 full-size forks of meat and 8 full-size forks of salad. You always eat the meat portion but you can replace up to 4 forks for salad/vegetables with rice, potatoes or pasta, or a fruit ?if you like. The less you do it the better weight loss will be. 7. One full-size fork is what it can be scooped on the fork without falling aside and not what can be bit with the fork. Use regular forks like those you find in a typical restaurant. 8.? Please buy the body composition scale we discussed and send me weight measurements as soon as possible and then once a week. Always include your diet and exercise plan. 9. Start treadmill with an incline of 2.0 and speed of 3.0. Increase incline by 1 every 3 min to a max incline of 8.0, stay 3min at 8.0 and then return to 2.0 and repeat same steps until calorie goal is met. Goal is to burn 2000 calories per week on exercise, which means either 300 calories daily, or 400 calories 5 days per week, or 500 calories 4 days per week. 10. The best choice would be to purchase a stationary bike at home that can track calories. Let me know if you do so I can give you an exercise plan. 11.?It is important of avoiding even if you had a tubal ligation and for at least 18 months postoperatively and has been discussed at the infosession. 12. Goal is to lose at least 1.5-2lbs per week 13. Goal to lose 10% of your weight before surgery, which is about 20lbs. Ultimate weight goal: 180lbs before surgery 14. Please follow the diet plan exactly without any change. If you don't like something about the plan or you feel hungry you need to communicate with me so I can help you revise the plan. You should not change the plan yourself 15. To be scheduled for EGD to assess the stomach's anatomy. The possibility of biopsies was discussed. Patient needs to avoid use of NSAIDs and aspirin for 1 week prior to EGD. You must be on liquids only the day before your endoscopy. Risks of perforation and bleeding was discussed with the patient. This will be an outpatient procedure with IV sedation. Orders: Orders Hemoglobin A1c Today E66.9 - Obesity, unspecified, Z68.36 - Body mass index [BMI] 36.0-36.9, adult H Pylori Breath Test Today E66.9 - Obesity, unspecified, Z68.36 - Body mass index [BMI] 36.0-36.9, adult Lipid Panel Today E66.9 - Obesity, unspecified, Z68.36 - Body mass index [BMI] 36.0-36.9, adult Comprehensive Met. Panel Today E66.9 - Obesity, unspecified, Z68.36 - Body mass index [BMI] 36.0-36.9, adult Vitamin B12 and Folate Today E66.9 - Obesity, unspecified, Z68.36 - Body mass index [BMI] 36.0-36.9, adult Zinc Today E66.9 - Obesity, unspecified, Z68.36 - Body mass index [BMI] 36.0- 36.9, adult Vitamin A Today E66.9 - Obesity, unspecified, Z68.36 - Body mass index [BMI] 36.0-36.9, adult Ferritin Today E66.9 - Obesity, unspecified, Z68.36 - Body mass index [BMI] 36.0-36.9, adult Vitamin D 25-OH Total Today E66.9 - Obesity, unspecified, Z68.36 - Body mass index [BMI] 36.0-36.9, adult Insulin Today E66.9 - Obesity, unspecified, Z68.36 - Body mass index [BMI] 36.0-36.9, adult Complete Blood Count Auto Diff Today E66.9 - Obesity, unspecified, Z68.36 - Body mass index [BMI] 36.0-36.9, adult IRON PROFILE Today E66.9 - Obesity, unspecified, Z68.36 - Body mass index [BMI] 36.0-36.9, adult C Reactive Protein Today E66.9 - Obesity, unspecified, Z68.36 - Body mass index [BMI] 36.0-36.9, adult Vitamin B1 Today E66.9 - Obesity, unspecified, Z68.36 - Body mass index [BMI] 36.0-36.9, adult TSH reflex Free T4 Today E66.9 - Obesity, unspecified, Z68.36 - Body mass index [BMI] 36.0-36.9, adult US abdomen comp w elastography Today E66.9 - Obesity, unspecified, Z68.36 - Body mass index [BMI] 36.0-36.9, adult XR chest 2V Today E66.9 - Obesity, unspecified, Z68.36 - Body mass index [BMI] 36.0-36.9, adult ECG 12 lead EKG Today E66.9 - Obesity, unspecified, Z68.36 - Body mass index [BMI] 36.0-36.9, adult FL upper GI w air Today E66.9 - Obesity, unspecified, Z68.36 - Body mass index [BMI] 36.0-36.9, adult Referrals Behavioral Health Referral E66.9 - Obesity, unspecified, Z68.36 - Body mass index [BMI] 36.0-36.9, adult Nutrition/Dietitian Referral E66.9 - Obesity, unspecified, Z68.36 - Body mass index [BMI] 36.0-36.9, adult
== END 2025-07-24 10:12 | disposition home or self-care (01) ==
LOC: HO.HBS 08:13
PROVIDERS: PCP Physician Assistant; Visit Provider Surgery
DX: E66.9 Obesity, unspecified (principal); Z68.36 Body mass index [BMI] 36.0-36.9, adult
CPT/HCPCS: 98011

== ENCOUNTER 2025-08-08 08:55 | Outpatient (REF) | payer SELFPAY ==
--- OUTSIDE RECORDS SUMMARY | 2025-08-08 09:56 | XMS_ITS | Clinical Summary ---
Author Organization [address] [place] [address] Address [address] [place] [address] Phone Care Team Providers Care Customer Sales Specialist Name Role Phone Ellis Arevalo Primary [...] 1:00 PM EST Office Visit Bariatric Surgery [address] [phone] Alex Posadas MD [address] [place] [phone] Health Maintenance Due Date Last Done [...] Procedure Name Priority Date/Time Associated Diagnosis Comments [facility] SCREENING DIGITAL Routine 11/25/2021 11:53 AM EST Encounter for screening mammogram for malignant neoplasm of breast from Last 3 Months or Most Recently Relevant to Health Maintenance Results * [facility] SCREENING DIGITAL (11/25/2021 11:53 AM EST) Anatomical Region Laterality Modality Mammography 11/25/2021 9:31 AM EST Narrative 11/25/2021 11:53 AM [facility] Diagnostic Imaging Department [address] [place] [id number] Patient: KENDRICK DIAZ /Age/Sex: 1970 - 51 - F Unit#: [id number] Location/Status: SPDIMAM/REG CLI Mnemonic/Ordering Site: [facility] Ordering Physician: PARAMJIT THOMPSON MD [facility] Screening Digital - 11/25/21999 EXAM: [facility] Screening Digital EXAM DATE AND TIME: 11/25/2021 10:02 AM HISTORY: Screening. 2 sisters had breast carcinoma. COMPARISON: 11/29/20, 09/08/19, 09/06/18, 08/31/17 [place], [place] TECHNIQUE: CC and MLO views of both breasts were obtained using full field digital mammography. Bilateral digital breast tomosynthesis was performed in the MLO projection. Computer aided detection with the StormWind 7.2-H was employed. TISSUE DENSITY: b. There [...] Routine screening mammogram BILATERAL in 1 year. 16567, 83617 1860F, 5223F Dictating Physician: COLLIN WILLIAM MD Electronically Signed by: COLLIN WILLIAM MD Dic Date/Time: 11/25/21 1151 Sign date/Time: 11/25/21 1153 Procedure Note Collin William MD - 09/29/[address] [facility] Diagnostic Imaging Department [address] [place] [id number] Patient: KENDRICK DIAZ /Age/Sex: 1970 - 51 - F Unit#: [id number] Location/Status: [facility] CLI Mnemonic/Ordering Site: [facility] Ordering Physician: PARAMJIT THOMPSON MD [facility] Screening Digital - 11/25/21 - 1000 EXAM: [facility] Screening Digital EXAM DATE AND TIME: 11/25/2021 10:02 AM HISTORY: Screening. 2 sisters had breast carcinoma. COMPARISON: 11/29/20, 09/08/19, 09/06/18, 08/31/17 [place], [place] TECHNIQUE: CC and MLO views of both breasts were obtained using fullfield digital mammography. Bilateral digital breast tomosynthesis was performedin the MLO projection. Computer aided detection with the StormWind 7.2-Hwas employed. TISSUE DENSITY: b. There are [...] Routine screening mammogram BILATERAL in 1 year. [address]1810, 52415 3342F, 7025F Dictating Physician: COLLIN WILLIAM MD Electronically Signed by: COLLIN WILLIAM MD Dic Date/Time: 11/25/21 1151 Sign date/Time: 11/25/21 1153 Paramjit Thompson MD IMG BI PROCEDURES Final Result from Last 3 Months or Most Recently Relevant to Health Maintenance Insurance [facility] Care Teams Customer Sales Specialist Relationship Specialty Start Date End Date Ellis Arevalo PA [address] [place] [phone] PCP - General Physician Forklift Material Handler 04/16/25
--- OUTSIDE RECORDS SUMMARY | 2025-08-08 09:56 | XMS_ITS | Clinical Summary ---
Author Organization [employer] Address [address] [place] [address] [address] [place] [address] Care Team Providers Care Mileage Clerk Name Role Phone Unavailable Primary Care Provider [...] Problem Noted Date Diagnosed Date Fractured dental oriental orthodox with loss of materi al 11/23/2024 Normal [...] Most Recently Relevant to Health Maintenance Insurance [facility] [place] [facility] HSN PARTIAL (MEDICAID)
--- OUTSIDE RECORDS SUMMARY | 2025-08-08 09:56 | XMS_ITS | Encounter Summary ---
Author Organization [employer] Address [address] [place] [address] 7 [place] [address] Care Team Providers Care Bank Reconciliator Name Role Phone Unavailable Primary Care Provider Unavailabl e Encounter Details Date Type Department Care Team (Latest Contact Info) Description 10/28/2021 Abstract [facility] CONVERSIONS Dental, Provider, [...]
--- OUTSIDE RECORDS SUMMARY | 2025-08-08 09:56 | XMS_ITS | Encounter Summary ---
Author Organization [employer] Address [address] [place] [address] 7 [place] [address] Care Team Providers Care Digital Retoucher Name Role Phone Unavailable Primary Care Provider Unavailabl e Encounter Details Date Type Department Care Team (Latest Contact Info) Description 12/19/2019 Abstract [facility] CONVERSIONS Dental, Provider, DDS Social [...]
== END 2025-08-08 08:56 | disposition home or self-care (01) ==
LOC: HO.HAP 08:55
PROVIDERS: Visit Provider Physician Assistant
DX: Z13.89 Encounter for screening for other disorder (principal)

== ENCOUNTER 2025-08-21 13:25 | Outpatient (REF) | payer SELFPAY ==
--- OUTSIDE RECORDS SUMMARY | 2025-08-21 16:17 | XMS_ITS | Encounter Summary ---
Author Organization [employer] Address [address] [place] [address] 7 [place] [address] Care Team Providers Care Retail Greeter Name Role Phone Unavailable Primary Care Provider Unavailabl e Encounter Details Date Type Department Care Team (Latest Contact Info) Description 12/19/2019 Abstract [facility] CONVERSIONS Dental, Provider, DDS Social [...]
--- OUTSIDE RECORDS SUMMARY | 2025-08-21 16:17 | XMS_ITS | Encounter Summary ---
Author Organization [employer] Address [address] [place] [address] 7 [place] [address] Care Team Providers Care Telecommunications Line Installer Name Role Phone Unavailable Primary Care Provider Unavailabl e Encounter Details Date Type Department Care Team (Latest Contact Info) Description 10/28/2021 Abstract [facility] CONVERSIONS Dental, Provider, DDS Social History [...]
--- OUTSIDE RECORDS SUMMARY | 2025-08-21 16:17 | XMS_ITS | Clinical Summary ---
Author Organization [employer] Address [address] [place] [address] [address] [place] [address] Care Team Providers Care Industrial Gas Servicer Helper Name Role Phone Unavailable Primary Care [...] Problem Noted Date Diagnosed Date Fractured dental taoist with loss of materi al 11/23/2024 Normal [...] Most Recently Relevant to Health Maintenance Insurance [facility] [place] [facility] - HSN PARTIAL (MEDICAID)
--- OUTSIDE RECORDS SUMMARY | 2025-08-21 16:17 | XMS_ITS | Continuity of Care Document ---
Author Organization ID - [facility], [facility] Address [address] [place] [address] Care Team Providers Care Production Line Welder Name Role Phone ISABELLA JOSEPH Primary Care Provider [phone] Assessment No assessment recorded. Plan of Treatment [...] Sensorine ural hearing loss of bilateral ears [id number] Active 2017 Sensorine ural hearing loss, bilateral ; Note: Date Diagnosed : 07/18/2018 9:37 AM (H90.3) Not Available [facility] 4 03:08:13 Dizziness and giddiness 030697794 Active 2018 Dizziness and giddiness ; Note: Date Diagnosed : 03/14/2019 9:14 AM (R42) Not Available [facility] 4 03:08:12 Impacted cerumen in right ear 60819352774 00658 Active 2018 Impacted cerumen, right ear; Note: Date Diagnosed : 03/14/2019 9:12 AM (H61.21) Not Available [facility] 4 03:08:12 Migraine without aura, not refractor y 604047832 Active 2018 Migraine without aura, not intractab le, without status migrainos us; Note: Date Diagnosed : 03/14/2019 9:14 AM (G43.009) Not Available [facility] 4 03:08:14 Migraine with aura 4688663 Active 2018 Migraine with aura, not intractab le, without status migrainos us; Note: Date Diagnosed : 06/13/2019 10:17 AM (G43.109) Not Available [facility] 4 03:08:14 Tinnitus of right ear 71715342111 08 Active 2020 Tinnitus, right ear; Note: Date Diagnosed : 11/17/2020 9:15 AM (H93.13) Not Available [facility] 4 03:08:12 Impacted cerumen of bilateral ears 47474237524 09810 Active 2022 Impacted cerumen, bilateral ; Note: Date Diagnosed : 11/04/2022 9:41 AM (H61.23) Impacte d cerumen, bilateral ; Note: Date Diagnosed : 11/15/2018 11:21 AM (H61.23) ; Start Date : 9 Not Available [facility] 4 03:08:13 Problem Notes None recorded. Procedures Surgical History Date Name Laterality Status Provider Name and Address Organization Details Recorded Time 05/07/2024 Comp Audio with Tymps - 67535 & 48662 completed JESUS ALBERTO SMITH, [facility] [address] [facility],[address], [address], [facility] - [facility] 05/07/2024 11:22:38 Imaging Results None recorded. Procedure Notes None recorded. Medical Equipment None Reported. Allergies No known drug allergies Medications Name Sig Start Date Stop Date Status Note LastModified by Organization Details LastModified Time cyclobenz aprine 10 mg tablet 11/04 completed Medicati on ID: [id number] B rand Name: abdirahman marvin Send Method: E-Prescr ibed Sub s Allowed: subs OK Medic ationGen ericName : abdirahman marvin Not Available Not Available Not Available butalbita [...] mg tablet 11/04 completed Medicati on ID: [id number] B rand Name: cetirizi ne Send Method: [...] mg tablet 11/04 completed Medicati on ID: [id number] B rand Name: predniso ne Send Method: [...] by mouth 04/08 completed Medicati on ID: [id number] P yaredrisusan pete By Name: John Shafer MD Brand [...] mg tablet 03/14 completed Medicati on ID: [id number] R marina: () Brand Name: Advil Se nd Method: E-Prescr ibed Sub s Allowed: subs OK Medic ationGen ericName : Advil Not Available Not Available Not Available omeprazol e 20 mg capsule,d elayed release 05/07 completed Medicati on ID: [id number] B rand Name: omeprazo le Send Method: E-Prescr ibed Sub s Allowed: subs OK Medic ationGen ericName : omeprazo le Medic ation ID: [id number] B rand Name: omeprazo le Send Method: [...] mg tablet 07/26 completed Medicati on ID: [id number] B rand Name: lorazepa m Send Method: E-Prescr ibed Sub s Allowed: subs OK Medic ationGen ericName : lorazepa m Not Available Not Available Not Available ibuprofen 600 mg tablet 04/08 completed Medicati on ID: [id number] D uration Value: 30 Brand Name: ibuprofe [...] aerosol inhaler 05/07 completed Medicati on ID: [id number] B rand Name: Ventolin HFA Send Method: E-Prescr ibed Sub s Allowed: subs OK Medic ationGen ericName : Ventolin HFA Medi cation ID: [id number] B rand Name: Ventolin HFA Send Method: E-Prescr ibed Sub s Allowed: subs OK Medic ationGen ericName : Ventolin HFA Not Available Not Available Not Available Vitamin D3 25 mcg (1,000 unit) capsule 11/29 completed Medicati on ID: [id number] D uration Value: 30 Brand Name: Vitamin [...] Updated DateTime 05/31/2025 157.48 cm 36.8 kg/m2 66349.07 g Maryanne Verma [place] - [facility] 05/31/2025 10:47:26 Social History None recorded. Functional Status None recorded. Mental Status None recorded. Family History Nothing Reported. Medical History No medical history recorded. Gynecological HistoryNo gynecological history recorded. Obstetrics History GPAL:G 0 P 0 0 0 0 Past Encounters Encounter ID Performer Location Encounter Start Date Encounter Closed Date Diagnosis/Indication Diagnosis SNOMED-CT Code Diagnosis ICD10 Code Diagnosis IMO Codes Diagnosis Note [id number] ALEJANDRA RUIZ MD [facility] [address] [facility] [place] [id number] 05/31/2025 10:07:03 05/31/2025 11:02:19 Impacted cerumen of bilateral ears [id number] 711998 H61.23 Partially impacted cerumen was removed and [...] Member ID Yeung Member ID Guarantor Name 05/31/2025 1 [facility] (O) [id number] Renu Diaz [id number] Renu Diaz Notes Date Note Type Note Provider Name and Address Organization Details Recorded Time 05/31/2025 text/html No new concerns. Dizziness overall controlled Migraines no change Using and liking hearing aids. ALEJANDRA RUIZ MD [address] [place] [address], [place], [phone], [facility] - [facility] 05/31/2025 10:59:51 OBGyn Episode No OBEpisode recorded.
--- OUTSIDE RECORDS SUMMARY | 2025-08-21 16:17 | XMS_ITS | Clinical Summary ---
Author Organization [address] [place] [address] Address [address] [place] [address] Phone Care Team Providers Care Medical Scribe Name Role Phone Ellis Arevalo Primary Care Provider [phone] Surgical History Surgery Date Site/Laterality Comments TUBAL LIGATION PROCEDURE: HISTORICAL TUBAL LIGATION HERNIA REPAIR Left PROCEDURE: LAPAROSCOPY, INGUINAL HERNIA REPAIR OTHER SURGICAL HISTORY 2013 PROCEDURE: NC HYSTEROSCOPY ENDOMETRIAL ABLATION Medical History Medical History [...] 1:00 PM EST Office Visit Bariatric Surgery [address] [address] Alex Posadas MD [address] [place] [phone] Health Maintenance Due Date Last Done [...] Health Screening 04/17/2025 COVID-19 Vaccine ( - 2024-2 6 season) 2025 Influenza Vaccine (#1) 2025 RSV [...] Name Priority Date/Time Associated Diagnosis Comments [facility] SCREENING DIGITAL Routine 11/25/2021 11:53 AM EST Encounter for screening mammogram for malignant neoplasm of breast from Last 3 Months or Most Recently Relevant to Health Maintenance Results * [facility] SCREENING DIGITAL (11/25/2021 11:53 AM EST) Anatomical Region Laterality Modality Mammography 11/25/2021 9:31 AM EST Narrative 11/25/2021 11:53 AM [facility] Diagnostic Imaging Department [address] [place] [id number] Patient: KENDRICK DIAZ /Age/Sex: 1970 - 51 - F Unit#: [id number] Location/Status: SPDIMAM/REG CLI Mnemonic/Ordering Site: [facility] Ordering Physician: PARAMJIT THOMPSON MD [facility] Screening Digital - 11/25/21999 EXAM: [facility] Screening Digital EXAM DATE AND TIME: 11/25/2021 10:02 AM HISTORY: Screening. 2 sisters had breast carcinoma. COMPARISON: 11/29/20, 09/08/19, 09/06/18, 08/31/17 [place], [place] TECHNIQUE: CC and MLO views of both breasts were obtained using full field digital mammography. Bilateral digital breast tomosynthesis was performed in the MLO projection. Computer aided detection with the Sinobpo 7.2-H was employed. TISSUE DENSITY: b. There [...] Routine screening mammogram BILATERAL in 1 year. [address]1661, [address] 6861F, 1652F Dictating Physician: COLLIN WILLIAM MD Electronically Signed by: COLLIN WILLIAM MD Dic Date/Time: 11/25/21 1151 Sign date/Time: 11/25/21 1153 Procedure Note Collin William MD - 09/29/2022 [facility] Diagnostic Imaging Department [address] [place] [id number] Patient: KENDRICK DIAZ /Age/Sex: 1970 - 51 - F Unit#: [id number] Location/Status: [facility] CLI Mnemonic/Ordering Site: [facility] Ordering Physician: PARAMJIT THOMPSON MD [facility] Screening Digital - 11/25/21 - 1000 EXAM: [facility] Screening Digital EXAM DATE AND TIME: 11/25/2021 10:02 AM HISTORY: Screening. 2 sisters had breast carcinoma. COMPARISON: 11/29/20, 09/08/19, 09/06/18, 08/31/17 [place], [place] TECHNIQUE: CC and MLO views of both breasts were obtained using fullfield digital mammography. Bilateral digital breast tomosynthesis was performedin the MLO projection. Computer aided detection with the Sinobpo 7.2-Hwas employed. TISSUE DENSITY: b. There are [...] Routine screening mammogram BILATERAL in 1 year. [address]60[address], [address]5515 3342F, 7025F Dictating Physician: COLLIN WILLIAM MD Electronically Signed by: COLLIN WILLIAM MD Dic Date/Time: 11/25/21 1151 Sign date/Time: 11/25/21 1153 Paramjit Thompson MD IMG BI PROCEDURES Final Result from Last 3 Months or Most Recently Relevant to Health Maintenance Insurance [facility] [employer] Care Teams Medical Scribe Relationship Specialty Start Date End Date Ellis Arevalo PA [address] [place] [id number] PCP - General Physician Purchasing Analyst 04/16/25
--- OUTSIDE RECORDS SUMMARY | 2025-08-21 16:17 | XMS_ITS | Data Portability ---
Author Organization [place] - [facility], Allergy Address [address] [address] Care Team Providers Care Sales Vice President Name Role Phone ISABELLA JOSEPH Primary Care Provider [phone] Assessment No assessment recorded. Plan of Treatment [...] Sensorine ural hearing loss of bilateral ears [id number] Active 2017 Sensorine ural hearing loss, bilateral ; Note: Date Diagnosed : 07/18/2018 9:37 AM (H90.3) Not Available [facility] 4 03:08:13 Dizziness and giddiness 799228631 Active 2018 Dizziness and giddiness ; Note: Date Diagnosed : 03/14/2019 9:14 AM (R42) Not Available [facility] 4 03:08:12 Impacted cerumen in right ear [id number] 74722 Active 2018 Impacted cerumen, right ear; Note: Date Diagnosed : 03/14/2019 9:12 AM (H61.21) Not Available [facility] 4 03:08:12 Migraine without aura, not refractor y 983977039 Active 2018 Migraine without aura, not intractab le, without status migrainos us; Note: Date Diagnosed : 03/14/2019 9:14 AM (G43.009) Not Available [facility] 4 03:08:14 Migraine with aura 9840473 Active 2018 Migraine with aura, not intractab le, without status migrainos us; Note: Date Diagnosed : 06/13/2019 10:17 AM (G43.109) Not Available [facility] 4 03:08:14 Tinnitus of right ear 91956314316 08 Active 2020 Tinnitus, right ear; Note: Date Diagnosed : 11/17/2020 9:15 AM (H93.13) Not Available [facility] 4 03:08:12 Impacted cerumen of bilateral ears 44489575908 10277 Active 2022 Impacted cerumen, bilateral ; Note: Date Diagnosed : 11/04/2022 9:41 AM (H61.23) Impacte d cerumen, bilateral ; Note: Date Diagnosed : 11/15/2018 11:21 AM (H61.23) ; Start Date : 9 Not Available [facility] 4 03:08:13 Problem Notes None recorded. Procedures Surgical History Date Name Laterality Status Provider Name and Address Organization Details Recorded Time 05/07/2024 Comp Audio with Tymps - 17130 & 32897 completed JESUS ALBERTO SMITH, [facility] [address] [facility],[place] [address], [place], [address], [facility] - [facility] 05/07/2024 11:22:38 Imaging Results None recorded. Procedure Notes None recorded. Medical Equipment None Reported. Allergies No known drug allergies Medications Name Sig Start Date Stop Date Status Note LastModified by Organization Details LastModified Time cyclobenz aprine 10 mg tablet 11/04 completed Medicati on ID: [id number] B rand Name: cycloben zaprine Send Method: [...] mg tablet 11/04 completed Medicati on ID: [id number] B rand Name: cetirizi ne Send Method: [...] mg tablet 11/04 completed Medicati on ID: [id number] B rand Name: predniso ne Send Method: [...] by mouth 04/08 completed Medicati on ID: [id number] P yaredrisusan d By Name: John Shafer [...] mg tablet 03/14 completed Medicati on ID: [id number] R marina: () Brand Name: Advil Se nd Method: E-Prescr ibed Sub s Allowed: subs OK Medic ationGen ericName : Advil Not Available Not Available Not Available omeprazol e 20 mg capsule,d elayed release 05/07 completed Medicati on ID: [id number] B rand Name: omeprazo le Send Method: E-Prescr ibed Sub s Allowed: subs OK Medic ationGen ericName : omeprazo le Medic ation ID: [id number] B rand Name: omeprazo le Send Method: [...] mg tablet 07/26 completed Medicati on ID: [id number] B rand Name: lorazepa m Send Method: E-Prescr ibed Sub s Allowed: subs OK Medic ationGen ericName : lorazepa m Not Available Not Available Not Available ibuprofen 600 mg tablet 04/08 completed Medicati on ID: [id number] D uration Value: 30 Brand Name: ibuprofe [...] aerosol inhaler 05/07 completed Medicati on ID: [id number] B rand Name: Ventolin HFA Send Method: E-Prescr ibed Sub s Allowed: subs OK Medic edmundion ericName : Ventolin HFA Medi cation ID: [id number] B rand Name: Ventolin HFA Send Method: E-Prescr ibed Sub s Allowed: subs OK Medic ationGen ericName : Ventolin HFA Not Available Not Available Not Available Vitamin D3 25 mcg (1,000 unit) capsule 11/29 completed Medicati on ID: [id number] D uration Value: 30 Brand Name: Vitamin [...] Updated DateTime 11/29/2024 157.48 cm 35.7 kg/m2 37230.51 g Maryanne Verma [facility] 11/29/2024 10:17:21 Date Recorded Body height Body mass index (BMI) Body weight Provider Name and Address Organization Details Last Updated DateTime 05/07/2024 157.48 cm 37.7 kg/m2 95200.03 g Maryanne Verma [facility] 05/07/2024 11:41:53 Date Recorded Body height Body mass index (BMI) Body weight Provider Name and Address Organization Details Last Updated DateTime 05/31/2025 157.48 cm 36.8 kg/m2 56662.07 g Maryanne Verma [facility] 05/31/2025 10:47:26 Date Recorded Body height Body mass index (BMI) Body weight Provider Name and Address Organization Details Last Updated DateTime 07/26/2024 157.48 cm 37.7 kg/m2 57709.03 g Sudha Kimble [facility] 07/26/2024 10:54:24 Social History None recorded. [...] Note [id number] ALEJANDRA RUIZ MD [facility] [address] [address] 05/07/2024 10:51:22 05/07/2024 17:01:48 Sensorineural hearing loss of bilateral ears 831006185 H90.3 We reviewed her audiogram which showed [...] n. Tympanomet ry:Right Ear:[place] [id number] ALEJANDRA RUIZ MD [facility] [address] [address] 07/26/2024 10:40:18 07/26/2024 11:12:35 Sensorineural hearing loss of bilateral ears 408818046 H90.3 Partially impacted cerumen was removed and tolerated well. Dizziness has been under control lately. She is scheduled for hearing aid evaluation . We can reassess for cerumen in 4 months or sooner if needed. [id number] ALEJANDRA RUIZ MD [facility] [address] [address] 11/29/2024 10:11:37 11/29/2024 11:04:54 Sensorineural hearing loss of bilateral ears 418836520 H90.3 Partially impacted cerumen was removed and tolerated well. Dizziness has been under control lately. We can reassess for cerumen in 6 months or sooner if needed. [id number] ALEJANDRA RUIZ MD [facility] [address] [address] 05/31/2025 10:07:03 05/31/2025 11:02:19 Impacted cerumen of bilateral ears [id number] 894865 H61.23 Partially impacted cerumen was removed and [...] Yeung Member ID Guarantor Name 06/03/2025 1 [facility] (O) [id number] Renu Diaz [id number] Renu Diaz Notes Date Note Type Note Provider Name and Address Organization Details Recorded Time 05/07/2024 text/html 64-year-old female presents today for follow-up of hearing. She reports the dizziness is improved since her last visit. She continues on Wegovy. ALEJANDRA RUIZ MD [address] [place] [address],[address], [address], [place] - [facility] 05/07/2024 12:39:05 07/26/2024 text/html Went to go get the hearing aids. Noticed tinnitus bilaterally, especially when sleeping. PV: 64-year-old female presents today for follow-up of hearing. She reports the dizziness is improved since her last visit. She continues on Wegovy. ALEJANDRA RUIZ MD [address] [place] [address],[address], [address], [place] - [facility] 07/28/2024 13:24:32 11/29/2024 text/html hearing aids new x 3 daysdizziness controlled migraines no change ALEJANDRA RUIZ MD [address] [place] [address],[address], [address], [place] - [facility] 12/02/2024 15:07:08 05/31/2025 text/html No new concerns. Dizziness overall controlled Migraines no change Using and liking hearing aids. ALEJANDRA RUIZ MD [address] [place] [address],[address], [address], [place] - [facility] 05/31/2025 10:59:51 OBGyn Episode No OBEpisode recorded.
== END 2025-08-21 13:26 | disposition home or self-care (01) ==
LOC: HO.HAP 13:25
PROVIDERS: Visit Provider Otolaryngology
DX: Z13.89 Encounter for screening for other disorder (principal)

== ENCOUNTER 2025-09-09 10:35 | Outpatient (AMB) | payer OTHER, SELFPAY ==
--- NOTE | 2025-09-09 10:40 | A.OFFPC_ITS ---
Vital Signs 09/09/25 10:41 Height 5 ft 2 in Weight 194 lb BMI 35.5 BP 118/68 Blood Pressure Location Lt brachial Position Sitting Pulse 65 Pulse Source Pulse Oximeter Temp 96.6 F L Temp Source Temporal Artery Scan Pulse Oximetry (%) 100 Oxygen Delivery Method Room Air Intake Visit Reasons: f/u weight check Intake Note: Patient is here to follow up on Weight check. Java Web Engineer Required: No Nurse Practitioner Hospitalist: Not Required per policy Accompanied by: Self / Same As Patient Allergies No Known Allergies Allergy (Verified 09/09/25 10:47) Medication List - Last Reconciled 09/09/25 by Ellis Arevalo PA-C acetaminophen (Tylenol Extra Strength) 500 mg PO TID PRN fluoxetine 10 mg PO DAILY fluticasone propionate 50 mcg/actuation 1 spray intranasal DAILY galcanezumab-gnlm (Emgality Pen) 120 mg subcut QMONTH 30 days hydroxyzine HCl 25 mg PO BEDTIME 30 days ibuprofen 800 mg PO Q8H PRN 10 days magnesium oxide 400 mg PO BEDTIME 90 days naratriptan take 1/2 - 1 tab at onset of headache; if no relief may repeat 1 tab after at least 4 hrs; max = 2 tabs/24 hrs orally PRN; 30 days riboflavin (vitamin B2) 400 mg PO DAILY 30 days tirzepatide (weight loss) (Zepbound) 5 mg (0.5 mL) subcut QWEEK 4 weeks topiramate (Topamax) 50 mg PO BEDTIME 30 days Tobacco use date assessed: 09/09/25 Dental Screening Dental Screen Date: 03/07/25 HPI f/u weight check HPI Details Patient is a 55-year-old female here today for follow-up visit. Patient has a past medical history significant for obesity, migraines, diverticulosis , fatty liver disease. Class 2 obesity: Has a obesity related comorbidities of fatty liver and knee osteoarthritis. The patient has been taking weekly 5 mg injections for weight loss for the past month and reports a loss of approximately 10 pounds. The patient reports significant benefits, including improved sleep with less snoring, increased energy, feeling happier, and being more active, such as going to the gym. The medication also causes early satiety, which has helped the patient reduce portion sizes. The patient previously consulted with a weight assistant manager quality management who recommended bariatric surgery, but the patient declined this option. The decision was based on observing family members who underwent the surgery and subsequently regained weight or had undesirable aesthetic outcomes. She does have a goal weight of 165 lb She would like to uptitrate her GLP 1 therapy per response Obstructive sleep apnea: She has a history of mild obstructive sleep apnea, which was identified through a sleep study showing minimal obstructive patterns. The condition is currently managed with conservative measures, including weight reduction and sleep hygiene. [facility] Medical History DJD (degenerative joint disease) Chronic headaches BMI 36.0-36.9,adult Obesity (BMI 35.0-39.9 without comorbidity) Uterine fibroid Abnormal Pap smear of cervix Allergic rhinitis Anxiety Arteritis Family history of brain aneurysm Migraine headache Surgical History Hx of endoscopy Hx of colonoscopy H/O LEEP H/O right inguinal hernia repair (03/16/17) History of endometrial ablation History of tubal ligation History of toe surgery History of incision and drainage Family History Father FH: prostate cancer HTN (hypertension) Sister History of breast cancer Sister History of breast cancer Son Heart attack, Onset Age: 12 Son Brain aneurysm Other Stomach cancer Social History Housing: House Alcohol intake: current Alcohol intake frequency: holidays/special occasions only Patient Tobacco Use Status: Never used Tobacco Tobacco use type: Cigarette e-Cigarette/Vaping Use: Never Used Second Hand Smoke Exposure: No service: No Current occupational status: unemployed Sexual orientation: Straight/Heterosexual Gender identity: Female Cognitive needs: No Hearing needs: No Vision needs: Yes (Glaases) Questionnaire Thrive Questionnaire Date Thrive assessed: 04/10/25 I am a: Patient What is your living situation today?: I have a steady place to live Within the past 12 months, did the food you bought not last and you didn't have the money to get more?: I choose not to answer this question Within the past 12 months, did you worry whether your food would run out before you got money to buy more?: I choose not to answer this question Do you have trouble paying for medicines?: No Do you have trouble getting transportation to medical appointments?: No Do you have trouble paying your heating and electricity bill?: No Do you have trouble taking care of your child, family member or friend?: No Do you have trouble with day-to-day activities such as bathing, preparing meals, shopping, managing finances, etc.?: No Are you currently unemployed and looking for a job?: No Are you interested in more education?: No Please select the resources that you would like help with: None Currently or been in a relationship where the following occur: No concerns reported THRIVE Score: 0 CATHERINE-7 AMB Questionnaire CATHERINE-7 Date CATHERINE - 7 assessed: 04/10/25 Source: Developed by Drs. Hill Roca, Shabnam Linn, Dandy Rodriguez and colleagues, with an educational jessee from [employer]. Review of Systems Const Denies headache(s) Eyes Denies loss of vision ENT Denies vertigo, Denies dizziness, Denies headache(s) and Denies sore throat Card Denies chest pain, Denies leg edema and Denies lightheadedness Resp Denies cough, Denies hemoptysis and Denies wheezing GI Denies abdominal pain, Denies melena, Denies constipation, Denies diarrhea and Denies vomiting Denies urinary frequency, Denies dysuria and Denies urinary urgency Musc Denies arthralgias, Denies joint swelling, Denies numbness and Denies tingling Neuro Denies Abnormal speech present, Denies behavioral changes, Denies vertigo, Denies dizziness, Denies headache(s), Denies loss of vision, Denies memory loss, Denies numbness and Denies tingling Psych Denies anxiety, Denies behavioral changes, Denies depression, Denies memory loss and Denies panic attacks Ricco/Lymph Denies easy bleeding and Denies easy bruising Aller/Immun Denies wheezing Physical exam (Primary Care) Vital Signs: Last Vital Signs Temp 96.6 F L 09/09/25 10:41 Pulse 65 09/09/25 10:41 BP 118/68 09/09/25 10:41 Pulse Ox 100 09/09/25 10:41 Oxygen Delivery Method Room Air 09/09/25 10:41 BMI result Body Mass Index 35.5 BMI Assessment/Plan discussion: High BMI High, discussed plan: lifestyle, weight reduction, dietary and physical activity Tobacco/Smoking Status: Tobacco use Status Tobacco use date assessed 09/09/25 09/09/25 10:46 Patient Tobacco Use Status Never used Tobacco 09/09/25 10:46 Tobacco use type Cigarette 09/09/25 10:46 e-Cigarette/Vaping Use Never Used 09/09/25 10:46 Thrive Assessment: Date of Thrive Assessment Date Thrive assessed 04/10/25 09/09/25 10:46 Currently or been in a relationship where the following occur: No concerns reported Const General: healthy appearing, no acute distress, alert and awake Nutritional Appearance: well nourished Orientation/consciousness: oriented to person, oriented to place and oriented to time HENMT Ears: TM's normal bilaterally General nose exam: Normal nasal mucous membranes and turbinates present Eyes Conjunctivae: conjunctivae normal Sclerae: sclerae normal Pupils: Equal, round and reactive pupils present Neck Neck: Yes no lymphadenopathy and Yes no JVD Thyroid: Thyroid normal Carotids: no bruits Resp Effort & Inspection: normal respiratory effort and not tachypneic Auscultation: no crackles, no rales, no rhonchi and no wheezes Cardio Rate: regular rate Rhythm: regular rhythm Heart sounds: no murmurs and normal S1 and S2 GI Palpation (GI): Soft to palpation, nontender, no hepatomegaly and no splenomegaly Auscultation: normal bowel sounds Skin General skin exam: no rashes or lesions noted and dry skin Neuro General: oriented to person, oriented to place and oriented to time Cranial nerves: Yes Equal, round and reactive pupils present Speech: No Abnormal speech present Gait exam (Neuro): Normal gait present Motor exam (neuro): no tremor noted Extrem Right upper extremity: full ROM Left upper extremity: full ROM Right lower extremity: full ROM; no edema Left lower extremity: full ROM; no edema Psych Mental Status: mental status grossly normal Speech and movement: Normal speech and movement present Affect: normal affect Attitude: cooperative Thought process: Normal thought process present Coding Level of Care Code Est Pt Level 4 (52453) Diagnoses Class 2 obesity E66.812 Primary osteoarthritis of left knee M17.12 Osteoarthritis type: primary VEGA (obstructive sleep apnea) G47.33 Assessment & Plan Assessment & Plan (1) Class 2 obesity: Code(s): E66.812 - Obesity, class 2 Category: Medical Plan: Patient does understand her BMI is over 35 and continues to try to lose weight with being physically active. She does have obesity associated comorbidities of fatty liver disease, mild sleep apnea, osteoarthritis of the knees.. She has been able to lose 10 lb since last office visit as she has been on Zepbound 5 mg weekly. She is interested in increasing the dose to 7.5 mg for continued weight loss. Denies any adverse reactions to GLP 1 therapy (2) Osteoarthritis of left knee: Code(s): M17.12 - Unilateral primary osteoarthritis, left knee Category: Medical Qualifiers: Osteoarthritis type: primary Qualified Code(s): M17.12 - Unilateral primary osteoarthritis, left knee Plan: Obtain a new knee X-ray, manage pain with therapy, Now followed by Orthopedics and getting cortisone injections in her knees. (3) VEGA (obstructive sleep apnea): Code(s): G47.33 - Obstructive sleep apnea (adult) (pediatric) Category: Medical Plan: sleep study showing Mild VEGA. Will continue with Zepbound Orders: Orders Lipid Panel Today K76.0 - Fatty (change of) liver, not elsewhere classified Comprehensive Corea. Panel Fast Today Z13.1 - Encounter for screening for diabetes mellitus Complete Blood Count no Diff Today Z13.1 - Encounter for screening for diabetes mellitus Medications: New tirzepatide (weight loss) (Zepbound) 7.5 mg (0.5 mL) subcut QWEEK 2 mL 3RF 4 weeks E66.812 - Obesity, class 2, K76.0 - Fatty (change of) liver, not elsewhere classified, M17.12 - Unilateral primary osteoarthritis, left knee On Hold tirzepatide (weight loss) (Zepbound) Hold Comment: Doctor's Order 5 mg (0.5 mL) subcut QWEEK 2 mL 2RF 4 weeks E66.812 - Obesity, class 2, G47.33 - Obstructive sleep apnea (adult) (pediatric), K76.0 - Fatty (change of) liver, not elsewhere classified, M19.90 - Unspecified osteoarthritis, unspecified site
[2025-09-09 10:41] VITALS: BP 118/68; PULSE 65; TEMP 35.9; O2SAT 100; BMI 35.5
--- OUTSIDE RECORDS SUMMARY | 2025-09-09 13:27 | XMS_ITS | Clinical Summary ---
Author Organization [address] [place] [address] Address [address] [place] [address] Phone Care Team Providers Care Divinity Teacher Name Role Phone Ellis Arevalo Primary Care Provider Surgical History Surgery Date Site/Laterality Comments TUBAL LIGATION PROCEDURE: HISTORICAL TUBAL LIGATION HERNIA REPAIR Left PROCEDURE: LAPAROSCOPY, INGUINAL HERNIA REPAIR OTHER SURGICAL HISTORY 2013 PROCEDURE: ME HYSTEROSCOPY ENDOMETRIAL ABLATION Medical History Medical History [...] 1:00 PM EST Office Visit Bariatric Surgery [address] [phone] Alex Posadas MD [address] [place] [phone] Health Maintenance Due Date Last Done [...] Procedure Name Priority Date/Time Associated Diagnosis Comments [facility] SCREENING DIGITAL Routine 11/25/2021 11:53 AM EST Encounter for screening mammogram for malignant neoplasm of breast from Last 3 Months or Most Recently Relevant to Health Maintenance Results * KIMMIE SCREENING DIGITAL (11/25/2021 11:53 AM EST) Anatomical Region Laterality Modality Mammography 11/25/2021 9:31 AM EST Narrative 11/25/2021 11:53 AM [facility] Diagnostic Imaging Department [address] [place] [id number] Patient: KENDRICK DIAZ /Age/Sex: 1970 - 51 - F Unit#: [id number] Location/Status: SPDIMAM/REG CLI Mnemonic/Ordering Site: [facility] Ordering Physician: PARAMJIT THOMPSON MD [facility] Screening Digital - 11/25/21999 EXAM: [facility] Screening Digital EXAM DATE AND TIME: 11/25/2021 10:02 AM HISTORY: Screening. 2 sisters had breast carcinoma. COMPARISON: 11/29/20, 09/08/19, 09/06/18, 08/31/17 [place], [place] TECHNIQUE: CC and MLO views of both breasts were obtained using full field digital mammography. Bilateral digital breast tomosynthesis was performed in the MLO projection. Computer aided detection with the [employer] 7.2-H was employed. TISSUE DENSITY: b. There [...] Routine screening mammogram BILATERAL in 1 year. [address], [id number] 3756F, 6927F Dictating Physician: COLLIN WILLIAM MD Electronically Signed by: COLLIN WILLIAM MD Dic Date/Time: 11/25/21 1151 Sign date/Time: 11/25/21 1153 Procedure Note Collin William MD - 09/29/2022 [facility] Diagnostic Imaging Department [address] [place] [id number] Patient: KENDRICK DIAZ /Age/Sex: 1970 - 51 - F Unit#: [id number] Location/Status: [facility] CLI Mnemonic/Ordering Site: [facility] Ordering Physician: PARAMJIT THOMPSON MD [facility] Screening Digital - 11/25/21 - 1000 EXAM: [facility] Screening Digital EXAM DATE AND TIME: 11/25/2021 10:02 AM HISTORY: Screening. 2 sisters had breast carcinoma. COMPARISON: 11/29/20, 09/08/19, 09/06/18, 08/31/17 [place], [place] TECHNIQUE: CC and MLO views of both breasts were obtained using fullfield digital mammography. Bilateral digital breast tomosynthesis was performedin the MLO projection. Computer aided detection with the [employer] 7.2-Hwas employed. TISSUE DENSITY: b. There are [...] Routine screening mammogram BILATERAL in 1 year. [address], 83234 3342F, 7025F Dictating Physician: COLLIN WILLIAM MD Electronically Signed by: COLLIN WILLIAM MD Dic Date/Time: 11/25/21 1151 Sign date/Time: 11/25/21 1153 Paramjit Thompson MD IMG BI PROCEDURES Final Result from Last 3 Months or Most Recently Relevant to Health Maintenance Insurance [facility] Care Teams Divinity Teacher Relationship Specialty Start Date End Date Ellis Arevalo PA [address] [place] [phone] PCP - General Physician Retinal Angiographer 04/16/25
--- OUTSIDE RECORDS SUMMARY | 2025-09-09 13:27 | XMS_ITS | Encounter Summary ---
Author Organization [employer] Address [address] [place] [address] [address]t [place] [address] Care Team Providers Care Billing Department Supervisor Name Role Phone Unavailable Primary Care Provider Unavailabl e Encounter Details Date Type Department Care Team (Latest Contact Info) Description 12/19/2019 Abstract [facility] CONVERSIONS Dental, Provider, DDS Social History [...] Care Team (Late st Contact Info) Description 10/25/2025 8:00 AM EST Office Visit [facility] ADULT DENTAL [address] [place] [address] Jere Rodriguez DDS [address] [place] [address] 02/27/2026 8:00 AM EDT Office Visit [facility] ADULT DENTAL [address] [place] [address] Cynthia Metz documented as of this encounter Visit Diagnoses Not on filedocumented in this encounter
--- OUTSIDE RECORDS SUMMARY | 2025-09-09 13:27 | XMS_ITS ---
Author Name [facility] Organization Unknown Care Team Organization Name Specialty Phone Email Start Date End [facility] 08/22/2025
--- OUTSIDE RECORDS SUMMARY | 2025-09-09 13:27 | XMS_ITS | Clinical Summary ---
Author Organization [facility] Address [address] [place] [address] Care Team Providers Care Laundry Tub Maker Name Role Phone Unavailable Primary Care Provider Unavailabl e Encounters Date Type Department Care Team Description 08/22/2025 Documentation [facility] Vascular & Endovascular Surgery [address] [place] [address] Verónica Jeffery RN from Last 3 Months Social History Tobacco Use Types Packs/Day Years Used Date Smoking Tobacco: Never Assessed Comments Unknown Sex and Gender Information Value Date Recorded Sex Assigned at Female 08/22/2025 9:35 AM EST Legal Sex Female 8:49 AM EST Gender Identity Female 08/22/2025 9:35 AM EST Sexual Orientation Choose not to disclose 2024 9:35 AM EST Plan of Treatment Health Maintenance Due Date Last Done Comments Hepatitis C Virus Screening 1970 HIV Screening 01/08/1985 DTaP/Tdap/Td Vaccines (1 - Tdap) 01/08/1991 Hepatitis B Vaccines (1 of 3 - 19+ 3-dose series) 10/1990 Pap Smear (Ages 21-65) 01/08/1993 Mammogram 2012 Colonoscopy 01/08/2017 Pneumococcal Vaccines 50+ (1 of 1 - PCV) 01/08/2022 Zoster (Shingles) Vaccine (1 of 2) 01/08/2022 Influenza Vaccine 05/10/2025 COVID-19 Vaccine (1 - 2023- season) 2025 RSV Vaccine 50 years and old er and Patients (1 - 1-dose 75+ series) 01/08/2047 Insurance [facility] [employer]
--- OUTSIDE RECORDS SUMMARY | 2025-09-09 13:27 | XMS_ITS | Clinical Summary ---
Author Organization [employer] Address [address] [facility] [address]t [place] [address] Care Team Providers Care Gas Pipe Layer Name Role Phone Unavailable Primary Care Provider [...] Active Problems Problem Noted Date Diagnosed Date Ill-fitting dentures 08/28/2025 Fractured dental druze with loss of materi al 11/23/2024 Normal oral exam 11/21/2024 Excessive attrition of teeth, limited to enamel 03/19/2024 Generalized gingival recession 02/27/2024 Partial edentulism 02/27/2024 Malocclusion 01/04/2023 Dental plaque 12/14/2022 Erosion of teeth, limited to enamel 12/14/2022 Encounters Date Type Department Care Team Description 08/29/2025 2:15 PM EST Office Visit [facility] ADULT DENTAL [address] [place] [address] Cynthia Metz Dental plaque (Primary Dx); Dental calculus 08/29/2025 1:00 PM EST Office Visit [facility] ADULT DENTAL [address] [place] [address] Jere Rodriguez DDS Partial edentulism, unspecified edentulism class (Primary Dx) 08/29/2025 Telephone [facility] ADULT DENTAL [address] [place] [address] Bolano case back from lab 08/28/2025 9:30 AM EST Office Visit [facility] ADULT DENTAL [address] [place] [address] Jere Rodriguez DDS Ill-fitting dentures (Primary Dx) from Last 3 Months Social History Tobacco Use Types Packs/Day Years Used Date Smoking Tobacco: Never Passive Smoke Exposure: Never Smokeless Tobacco: Never Tobacco Cessation:Counseling Given: No Alcohol Use Standard Drinks/Week Comments Defer 0 (1 standard drink = 0.6 oz pur e alcohol) Alcohol Answer Date Recorded How often do you have a drink containing alcohol ? 0 08/29/2025 How many drinks containing a lcohol do you have on a typical day when you are drinking? 0 08/29/2025 How often do you have six or more drinks on one occasion? 0 08/29/2025 Comments Unknown Sex and Gender Information Value [...] Description 10/25/2025 8:00 AM EST Office Visit [facility] ADULT DENTAL [address] [place] [address] Jere Rodriguez, DDAaron [address] [place] [address] 02/27/2026 8:00 AM EDT Office Visit [facility] ADULT DENT[facility] [address] [place] [address] Cynthia Metz Health Maintenance Due Date Last Done Comments CT Colonography 1970 Colonoscopy 1972 Colorectal Cancer Screening 1970 Depression Screening 1970 FIT DNA/Cologuard 1972 FIT 1972 FOBT 1970 HIV Screening 1970 SDOH Screening 1970 Sigmoidoscopy 1970 Disability Screening 1970 Hepatitis C Screening 01/08/1990 Hepatitis B Vaccines (1 of 3 - 19+ 3-dose series) 01/08/1991 Pap Smear 01/08/1993 Cervical Cancer Screening 01/08/2002 HPV/Cotest 01/08/2002 Mammogram 11/25/2023 11/25/2021 Dental Oral Exam 05/22/2025 11/21/2024, , 12/14/2022 COVID-19 Vaccine ( season) 2025 01/26/2022, 08/19/2021, 12/18/2020, Additional history exists Influenza Vaccine (#1) 2025 , 08/21/2019, 08/15/2018, Additional history exists Zoster Vaccines (2 of 2) 07/04/2025 05/09/2025 Dental Prophylaxis 02/27/2026 08/29/2025, 0 11/21/2024, 02/27/2024, Additional history exists Alcohol/Substance Use Screening 08/29/2026 08/29/2025 Tobacco Screening 08/29/2026 08/29/2025 Dental X-Ray: Bitewings 08/30/2026 08/29/20 25, 02/27/2024, 12/14/2022 Dental X-Ray: Full Mouth 10/29/2026 10/28/2021 DTaP/Tdap/Td Vaccines (2 - Td or Tdap) 01/21/2032 01/20/2022 RSV Patients and Patients Aged 60 years or older (1 - 1-dose 75+ series) 01/08/2047 Pneumococcal Vaccine: 50+ Years Completed 05/08/2025 HIB Vaccines Aged Out No longer eligi [...] PRESENTATION, DETAILED AND EXTENSIVE TREATMENT PLANNING Routine 08/29/2025 2:15 PM EST BITEWINGS - 4 RADIOGRAPHIC IMAGES Routine 08/29/2025 2:15 PM EST ORAL HYGIENE INSTRUCTIONS Routine 08/29/2025 2:15 PM EST Dental plaque Dental calculus Full PROPHYLAXIS - ADULT Routine 025 2:15 PM EST Dental plaque Dental calculus CASE PRESENTATION, DETAILED AND EXTENSIVE TREATMENT PLANNING Routine 08/29/2025 1:00 PM EST REPAIR RESIN PARTIAL DENTURE BASE, ZINA Routine 08/29/2025 1:00 PM EST LIMITED ORAL EVALUATION - PROBLEM FOCUSED Routine 08/28/2025 9:30 AM EST PERIODIC ORAL EVALUATION - ESTABLISHED PATIENT Routine 11/21/2024 8:00 AM EST from Last 3 Months or Most Recently Relevant to Health Maintenance Insurance [address] [place] [address] [facility] DENTAL - HSN PARTIAL (MEDICAID)
--- OUTSIDE RECORDS SUMMARY | 2025-09-09 13:27 | XMS_ITS | Encounter Summary ---
Author Organization [employer] Address [address] [facility] [address]t [place] [address] Care Team Providers Care Breaker Tender Name Role Phone Unavailable Primary Care Provider Unavailabl e Encounter Details Date Type Department Care Team (Latest Contact Info) Description 10/28/2021 Abstract [facility] CONVERSIONS Dental, Provider, DDS Social History [...] Description 10/25/2025 8:00 AM EST Office Visit [facility] ADULT DENTAL [address] [place] [address] Jere Rodriguez DDS [address] [place] [address] 02/27/2026 8:00 AM EDT Office Visit [facility] ADULT DENTAL [address] [place] [address] Cynthia Metz documented as of this encounter Visit Diagnoses Not on filedocumented in this encounter
--- OUTSIDE RECORDS SUMMARY | 2025-09-09 13:27 | XMS_ITS | Encounter Summary ---
Author Organization [employer] Address [address] [facility] [address] [place] [address] Care Team Providers Care Web Services Manager Name Role Phone Unavailable Primary Care Provider Unavailabl e Reason for Visit * Reason Onset Date Comments Dr. Jennifer tomas back from lab 08/29/2025 Encounter Details Date Type Department Care Team (Late st Contact Info) Description 08/29/2025 Telephone [facility] ADULT DENTAL [address] [place] [address] Jere Rodriguez, AGUSTÍN [address] [place], [place] [phone] Dr. Rodriguez case back from lab Social History Tobacco Use Types Packs/Day Years [...] encounter Miscellaneous Notes * Telephone Encounter - Lyndsey Shaikh - 08/29/2025 10:14 AM EST Message for Dr. Arreola Patient states she was instructed to call and verify if case is back from lab so that she may be scheduled. Please contact patient with case update DR documented in this encounter Plan of Treatment Upcoming Encounters Date Type Department Care Team ([facility] st Contact Info) Description 10/25/2025 8:00 AM EST Office Visit [facility] ADULT DENTAL [address] [place] [address] Jere Rodriguez DDS [address] [place] [address] 02/27/2026 8:00 AM EDT Office Visit [facility] ADULT DENTAL [address] [place] [address] Cynthia Metz documented as of this encounter Visit Diagnoses Not on filedocumented in this encounter
== END 2025-09-09 11:05 | disposition home or self-care (01) ==
LOC: HO.HMCH 10:36
PROVIDERS: PCP Physician Assistant; Visit Provider Physician Assistant
DX: E66.812 Obesity, class 2 (principal); M17.12 Unilateral primary osteoarthritis, left knee; G47.33 Obstructive sleep apnea (adult) (pediatric); Z68.35 Body mass index [BMI] 35.0-35.9, adult

== ENCOUNTER → 2025-09-09 10:35 | Outpatient (BNVA) | payer OTHER, SELFPAY | PROVIDERS: PCP Physician Assistant; Visit Provider Physician Assistant | DX: M17.12 Unilateral primary osteoarthritis, left knee (principal); E66.812 Obesity, class 2; G47.33 Obstructive sleep apnea (adult) (pediatric); Z68.35 Body mass index [BMI] 35.0-35.9, adult | CPT/HCPCS: 99212 ==

== ENCOUNTER 2025-09-16 08:22 | Outpatient (REF) | payer OTHER, SELFPAY ==
--- NOTE | ~2025-09-16 | XR_ITS ---
EXAMINATION: XR KNEE, RIGHT CLINICAL INFORMATION: M17.11 - Unilateral primary osteoarthritis, right knee COMPARISON: Correlated to x-ray dated April 26, 2024 TECHNIQUE: Single AP view both knees in standing position. Lateral and sunrise views of the right knee. FINDINGS: No acute fracture or dislocation. No suprapatellar bursa joint effusion. Joint space narrowing involving mostly the medial compartment both knees. No lytic or blastic lesions. XR/XR knee RT 3V IMPRESSION: Mild medial compartment osteoarthrosis/osteoarthritis. Electronically signed by: Terrance Grimaldo MD 09/16/2025 11:02 AM [facility]
== END 2025-09-16 08:23 | disposition home or self-care (01) ==
LOC: HO.HOSX 08:22
DX: M17.0 Bilateral primary osteoarthritis of knee (principal)
CPT/HCPCS: 73562

== ENCOUNTER 2025-09-16 10:50 | Outpatient (AMB) | payer OTHER, SELFPAY ==
[2025-09-16 11:10] VITALS: BMI 35.5
--- NOTE | 2025-09-16 11:10 | A.OFFVIS_ITS ---
Vital Signs 09/16/25 11:10 Height 5 ft 2 in Weight 194 lb BMI 35.5 Intake Visit Reasons: New prob- Right Knee pain Intake Note: Renu is a 55 year old female who present today for a New Problem Visit for evaluation of Right Knee Pain. Patient reports pain began 6 months ago, primarily causing discomfort on the anterior and lateral aspect of the knee. She denies any known injuries. She complains of weakness, cliking, popping, and giving away. She has tried using a knee brace with some relief. Of note, patient had a left knee injection on 07/23/25. She is not interested in an injection today. Allergies No Known Allergies Allergy (Verified 09/16/25 11:11) HPI HPI New prob- Right Knee pain: Details: Renu is a 55 year old female who present today for a New Problem Visit for evaluation of Right Knee Pain. Patient reports pain began 6 months ago, primarily causing discomfort on the anterior and lateral aspect of the knee. She denies any known injuries. She complains of weakness, cliking, popping, and giving away with prolonged activity. Patient states that this pain is primarily located in the area around the right patella. She has tried using a knee brace with some relief. Of note, patient had a left knee injection on 07/23/25. She is not interested in an injection today. No other acute complaints or concerns at this time [facility] Medical History DJD (degenerative joint disease) Chronic headaches BMI 36.0-36.9,adult Obesity (BMI 35.0-39.9 without comorbidity) Uterine fibroid Abnormal Pap smear of cervix Allergic rhinitis Anxiety Arteritis Family history of brain aneurysm Migraine headache Surgical History Hx of endoscopy Hx of colonoscopy H/O LEEP H/O right inguinal hernia repair (03/16/17) History of endometrial ablation History of tubal ligation History of toe surgery History of incision and drainage Family History Father FH: prostate cancer HTN (hypertension) Sister History of breast cancer Sister History of breast cancer Son Heart attack, Onset Age: 12 Son Brain aneurysm Other Stomach cancer Social History Housing: House Alcohol intake: current Alcohol intake frequency: holidays/special occasions only Patient Tobacco Use Status: Never used Tobacco Tobacco use type: Cigarette e-Cigarette/Vaping Use: Never Used Second Hand Smoke Exposure: No service: No Current occupational status: unemployed Sexual orientation: Straight/Heterosexual Gender identity: Female Cognitive needs: No Hearing needs: No Vision needs: Yes ([place]) Review of Systems Const All systems reviewed & are unremarkable except as noted in HPI and below Physical Exam Vital Signs: BMI result Body Mass Index 35.5 Extrem Other: On inspection, there is no visible deformity of the right knee Trace effusion noted No erythema, ecchymosis noted No lacerations, abrasions, open areas No evidence of infection Patient reports mild tenderness to palpation of the patella and parapatellar region Mild tenderness to palpation of both medial and lateral joint lines No tenderness to palpation of posterior knee Patient is able to extend the right knee to 0 degrees and flex to approximately 120 degrees without difficulty No ligamentous laxity noted Negative Zohra's Distal sensation intact Capillary refill brisk Results Reviewed Results Reviewed: X-rays obtained in the office today and independently reviewed by me, Darrel Bowers PA-C, demonstrate lateralization of left patella with associated mild patellofemoral arthritis. Assessment & Plan Assessment & Plan (1) Patellofemoral arthritis of left knee: Code(s): M17.12 - Unilateral primary osteoarthritis, left knee Category: Medical (2) Patellofemoral arthritis of right knee: Code(s): M17.11 - Unilateral primary osteoarthritis, right knee Category: Medical Plan 1. patellofemoral arthritis of bilateral knees Patient is educated about this condition Patient is educated about the typical treatment and recovery course At this time, patient is referred to physical therapy for range of motion and strengthening of bilateral knees in the setting of lateralization of bilateral patellas with the associated patellofemoral arthritis Patient is educated that we can do injections for this, but declines Patient should follow-up with us in 6-8 weeks after starting physical therapy if she experiences no improvement, sooner with any acute concerns Orders: Orders XR knee RT 3V Today M17.11 - Unilateral primary osteoarthritis, right knee PT Evaluation and Treatment Today M17.11 - Unilateral primary osteoarthritis, right knee, M17.12 - Unilateral primary osteoarthritis, left knee Coding Level of Care Code Est Pt Level 3 (84334) Diagnoses Patellofemoral arthritis of left knee M17.12 Patellofemoral arthritis of right knee M17.11
== END 2025-09-16 11:28 | disposition home or self-care (01) ==
LOC: HO.HOS 10:50
PROVIDERS: PCP Physician Assistant
DX: M17.0 Bilateral primary osteoarthritis of knee (principal)
CPT/HCPCS: 99213

== ENCOUNTER → 2025-09-16 10:52 | Outpatient (BNV) | payer OTHER, SELFPAY | PROVIDERS: Visit Provider Radiology Diagnostic Radiology | DX: M17.11 Unilateral primary osteoarthritis, right knee (principal) | CPT/HCPCS: 73562 ==